=== PATIENT | female | born 1940 | race Caucasian/White ===

== ENCOUNTER → 2024-05-04 13:11 | Outpatient (REF) | payer MEDICARE, OTHER, SELFPAY | LOC: RAD 13:11 | PROVIDERS: ATTENDING PHYSICIAN Internal Medicine Rheumatology | DX: M81.0 Age-related osteoporosis without current pathological fracture (principal) | CPT/HCPCS: 77080 ==

== ENCOUNTER 2025-03-31 15:28 | Inpatient (IN) | payer MEDICARE, OTHER, SELFPAY ==
[2025-03-31] VITALS (9 sets, daily range): BP systolic 91–122; BP diastolic 50–67; BMI 30.1
[2025-03-31 11:41] LABS: Blood Urea Nitrogen 23 mg/dl (7-17); Calcium 8.1 mg/dl (8.4-10.2); Carbon Dioxide 16 mmol/L (22-30); Chloride 106 mmol/L (98-107); Estimated Creatinine Clearance 41 ml/min; Glucose 175 mg/dl (70-99); Sodium 134 mmol/L (135-145); eGFR > 60.00
[2025-03-31 11:44] LABS: Hematocrit 36.6 % (37.0-47.0); Hemoglobin 12.7 g/dL (12.0-16.0); Mean Corp Hgb Conc. 34.7 g/dL (33.0-37.0); Mean Corpuscular Volume 94.3 fL (81.0-99.0); Platelet Count 229 10^3/uL (130-400); Red Cell Dist. Width 12.0 % (11.5-14.5)
[2025-03-31 12:08] LABS: Absolute Neutrophils -Man Diff 16.9 10^3/uL (1.4-6.5)
[2025-03-31 12:09] LABS: Normal RBC Morphology Yes; Platelets Checked Yes; Total Cells Counted 100
[2025-03-31 12:26] LABS: ALT (SGPT) 22 U/L (0-35); AST (SGOT) 26 U/L (14-36); Albumin 3.0 g/dl (3.5-5.0); Alkaline Phosphatase 62 U/L (38-126); Blood Urea Nitrogen 23 mg/dl (7-17); Calcium 7.9 mg/dl (8.4-10.2); Carbon Dioxide 18 mmol/L (22-30); Chloride 108 mmol/L (98-107); Estimated Creatinine Clearance 47 ml/min; Glucose 152 mg/dl (70-99); Potassium 3.2 mmol/L (3.5-5.1); Sodium 134 mmol/L (135-145); Total Protein 5.6 g/dl (6.3-8.2); eGFR > 60.00
--- NOTE | 2025-03-31 13:01 | ED.GENMED ---
History of Present Illness
<Mariaa Marquez DO, Resident - Last Filed: 04/01/25 06:08>
General
Chief Complaint: Bowel Problem
Source: patient, significant other and family
Exam Limitations: none
Time Seen by Provider: 03/31/25 11:51
Nursing documentation reviewed up to this point in time: agreed with
History of Present Illness
History of Present Illness:
Patient is a 84-year-old female past medical history of ulcerative colitis presenting with diarrhea since Thursday. Patient has a history of ulcerative colitis [facility] Patient took a dose of MiraLAX 5 days
ago and has had profuse diarrhea since. Patient's states he has been changing her every couple hours because she is having slimy smelly diarrhea. Patient also has new recent diagnosis of thrush and has been on fluconazole for 14 days.
Patient has poor p.o. intake, weakness. Patient denies all other ROS.
Past History
<Mariaa Marquez DO, Resident - Last Filed: 04/01/25 06:08>
Past History
ED Past Medical History: None
ED Past Surgical History: None
Social History
Tobacco: Non-smoker
Review of Systems
<Mariaa Marquez DO, Resident - Last Filed: 04/01/25 06:08>
Review of Systems
Allergies reviewed?: Yes
All Other Systems: ROS reviewed and negative except as documented in HPI and ROS
Constitutional: Reports no symptoms
EENT: Reports no symptoms
Respiratory: Reports no symptoms
Cardiac: Reports no symptoms
ABD/GI: Reports diarrhea
: Reports no symptoms
Musculoskeletal: Reports no symptoms
Skin: Reports no symptoms
Neurological: Reports weakness
Endocrine: Reports no symptoms
Hematologic/Lymphatic: Reports no symptoms
Psychiatric: Reports no symptoms
Phy Exam
<Mariaa Marquez DO, Resident - Last Filed: 04/01/25 06:08>
General Physical Exam
General Presentation: no apparent distress
General age: appears stated age
General Skin: warm and dry
General Habitus: normal
General Mental: alert
Cardiovascular Exam
Cardiovascular Exam: regular rate/rhythm
Heart Sounds: normal
Pulmonary Exam
Pulmonary Exam: lungs clear, no respiratory distress and no crackles
Gastrointestinal Exam
Gastrointestinal Exam: normal bowel sounds and non tender
Skin Exam
Skin Exam: normal color and warm/dry
Psychiatric Exam
Psychiatric Exam: normal mood/affect
Course
<Mariaa Marquez DO, Resident - Last Filed: 04/01/25 06:08>
Orders/Labs/Results
Orders:
Orders
03/31/25 11:11
Basic Metabolic Panel Urgent
Complete Blood Count/With Diff Urgent
Manual Differential Urgent
03/31/25 11:48
CMP [Comprehensive Metabolic Panel] Urgent
Lactic Acid Urgent
03/31/25 12:54
STOOL [C difficile Antigen & Toxins] Stat
WHIT Source: Feces/Stool
Specimen Description:
Date Specimen was Collected: 03/31/25
Time Specimen was Collected: 17:41
Potassium Chloride 10% Elixir [KCl Elixir] 40 meq PO NOW STA
03/31/25 12:55
CT Abd/pelvis W Iv Cont Urgent
Comment:
Reason For Exam: hx of uc, profuse diarrhea and elevated WBC
03/31/25 13:00
0.9% Sodium Chloride 500 ml [Nss] 500 ml IV 150 mls/hr
0.9% Sodium Chloride 500 ml [Nss] 500 ml IV BOLUS
03/31/25 13:08
Blood Culture Stat
WHIT Source: Blood/Venous
Specimen Description:
03/31/25 13:13
Potassium Chloride [KCl] 40 meq .ROUTE .STK-MED ONE
Potassium Chloride [KCl] 40 meq PO NOW STA
03/31/25 Dinner
Regular
At Your Request: Full Participation
03/31/25 15:01
Admit/Transfer Patient As Directed
Co-Sign Provider:
Level of Care: Inpatient admission
Assign to:: Medical/Surgical
Physician / Group: Dr. Barnhart
Diagnosis: Sepsis
Reason for Hospitalization: Sepsis
Expected length of stay greater than two midnights?: Yes
ELOS- Estimated Length of Stay in days: 3
I certify the patient meets the requirements for IP care: Yes
PRN Pain Medication Management As Directed
May give lesser potent ordered pain med per pt: Yes
preference::
Protocol:: Medication orders for pain may be administered in a
manner that supports deferring to patient preference
when the pt is:
- Requesting an ordered lesser potent pain medication.
Least to most potent pain medications are defined
as: acetaminophen < NSAID < tramadol < opioids
(morphine, oxycodone, hydromorphone).
- Requesting a lesser dose of the same medication IF
ORDERED.
- Requesting a less intrusive route of administration
if both routes are prescribed by the provider (PO <
IV).
03/31/25 15:04
Code Status As Directed
Resuscitation Status: Do not resuscitate
Reached after discussion with pt or family/Healthcare POA: Yes
DNR Bracelet Application ONCE
03/31/25 15:06
Piperacillin/Tazo 3.375 Gram [Zosyn] 3.375 gram in 50 ml IV NOW
03/31/25 15:29
Blood Culture Stat
WHIT Source: Blood/Venous
Specimen Description:
03/31/25 16:44
0.9% Sodium Chloride 1000 ml [Nss] 1,000 ml IV 150 mls/hr
Acetaminophen [Tylenol] 650 mg PO Q4HPRN PRN
Clobetasol Propionate [Clobetasol Propionate 0.05% Lotion] See Dose Instructions TOPICAL DAILYPRN PRN inner ear skin
Fluconazole [Diflucan] 200 mg PO DAILY
Ondansetron Injectable [Zofran] 4 mg IV Q6HPRN PRN
03/31/25 16:44
Urinalysis Reflex To Culture Urgent
Activity As Directed
Activity Level: Ambulate
Intake/ Output As Directed
Frequency: q12h
Vital Signs As Directed
Frequency: Per unit guidelines
O2 Therapy [RESP] Routine
Titrate/Wean O2 to maintain O2 sat greater than (%): 92
Rx Incentive Spirometry [RESP] Routine
Frequency: q1h while awake
DX Deep Vein Thrombosis Video Routine
03/31/25 17:43
Stool Culture Stat
WHIT Source: Feces/Stool
Specimen Description:
Date Specimen was Collected: 03/31/25
Time Specimen was Collected: 17:41
03/31/25 18:00
Enoxaparin Sodium [Lovenox] 40 mg SC QPM
Multivitamin [Theragran] 1 tablet PO QPM
Nystatin Suspension [Mycostatin Oral Suspension] 5 ml PO QID
03/31/25 20:00
Colchicine 0.3 mg PO BID
Timolol Maleate 0.5% [Timoptic 0.5% Ophthalmic Solution] See Dose Instructions LEFT EYE BID
03/31/25 22:00
Alprazolam [Xanax] 1 mg PO HS
Piperacillin/Tazo 3.375 Gram [Zosyn] 3.375 gram in 50 ml IV Q6H
04/01/25 06:00
Complete Blood Count/With Diff IN AM
Comprehensive Metabolic Panel IN AM
Magnesium IN AM
04/01/25 08:00
Meloxicam [Mobic] 15 mg PO DAILY
mesalamine 2.4 grams PO DAILY
Abnormal Lab Results
03/31/25 03/31/25
11:11 11:48
WBC 19.0 H 10^3/uL
(4.8-10.8)
RBC 3.88 L 10^6/uL
(4.20-5.40)
Hct 36.6 L %
(37.0-47.0)
MCH 32.7 H pg
(27.0-31.0)
Abs Neuts (Manual) 16.9 H 10^3/uL
(1.4-6.5)
Band Neutrophils 19 H %
(0-3)
Lymphocytes (Manual) 3 L %
(20-51)
Sodium 134 L mmol/L 134 L mmol/L
(135-145) (135-145)
Potassium 3.2 L mmol/L
(3.5-5.1)
Chloride 108 H mmol/L
(98-107)
Carbon Dioxide 16 L mmol/L 18 L mmol/L
(22-30) (22-30)
BUN 23 H mg/dl 23 H mg/dl
(7-17) (7-17)
Glucose 175 H mg/dl 152 H mg/dl
(70-99) (70-99)
Calcium 8.1 L mg/dl 7.9 L mg/dl
(8.4-10.2) (8.4-10.2)
Total Protein 5.6 L g/dl
(6.3-8.2)
Albumin 3.0 L g/dl
(3.5-5.0)
03/31/25 11:11
03/31/25 11:48
Vital Signs
Initial and Last Documented VS:
Initial Vital Signs
Temp Pulse Resp BP Pulse Ox
99.4 F 118 20 99/56 93
03/31/25 10:53 03/31/25 10:53 03/31/25 10:53 03/31/25 10:53 03/31/25 10:53
Last Documented Vital Signs
Temp Pulse Resp BP Pulse Ox
98.4 F 84 18 130/100 96
04/01/25 03:00 04/01/25 03:00 04/01/25 03:00 04/01/25 03:00 04/01/25 03:00
<Alo Du MD - Last Filed: 03/31/25 13:44>
Orders/Labs/Results
Orders:
Orders
03/31/25 11:11
Basic Metabolic Panel Urgent
Complete Blood Count/With Diff Urgent
Manual Differential Urgent
03/31/25 11:48
CMP [Comprehensive Metabolic Panel] Urgent
Lactic Acid Urgent
03/31/25 12:54
STOOL [C difficile Antigen & Toxins] Stat
WHIT Source: Feces/Stool
Specimen Description:
Date Specimen was Collected: 03/31/25
Time Specimen was Collected: 17:41
Potassium Chloride 10% Elixir [KCl Elixir] 40 meq PO NOW STA
03/31/25 12:55
CT Abd/pelvis W Iv Cont Urgent
Comment:
Reason For Exam: hx of uc, profuse diarrhea and elevated WBC
03/31/25 13:00
0.9% Sodium Chloride 500 ml [Nss] 500 ml IV 150 mls/hr
0.9% Sodium Chloride 500 ml [Nss] 500 ml IV BOLUS
03/31/25 13:08
Blood Culture Stat
WHIT Source: Blood/Venous
Specimen Description:
03/31/25 13:13
Potassium Chloride [KCl] 40 meq .ROUTE .STK-MED ONE
Potassium Chloride [KCl] 40 meq PO NOW STA
03/31/25 Dinner
Regular
At Your Request: Full Participation
03/31/25 15:01
Admit/Transfer Patient As Directed
Co-Sign Provider:
Level of Care: Inpatient admission
Assign to:: Medical/Surgical
Physician / Group: Dr. Barnhart
Diagnosis: Sepsis
Reason for Hospitalization: Sepsis
Expected length of stay greater than two midnights?: Yes
ELOS- Estimated Length of Stay in days: 3
I certify the patient meets the requirements for IP care: Yes
PRN Pain Medication Management As Directed
May give lesser potent ordered pain med per pt: Yes
preference::
Protocol:: Medication orders for pain may be administered in a
manner that supports deferring to patient preference
when the pt is:
- Requesting an ordered lesser potent pain medication.
Least to most potent pain medications are defined
as: acetaminophen < NSAID < tramadol < opioids
(morphine, oxycodone, hydromorphone).
- Requesting a lesser dose of the same medication IF
ORDERED.
- Requesting a less intrusive route of administration
if both routes are prescribed by the provider (PO <
IV).
03/31/25 15:04
Code Status As Directed
Resuscitation Status: Do not resuscitate
Reached after discussion with pt or family/Healthcare POA: Yes
DNR Bracelet Application ONCE
03/31/25 15:06
Piperacillin/Tazo 3.375 Gram [Zosyn] 3.375 gram in 50 ml IV NOW
03/31/25 15:29
Blood Culture Stat
WHIT Source: Blood/Venous
Specimen Description:
03/31/25 16:44
0.9% Sodium Chloride 1000 ml [Nss] 1,000 ml IV 150 mls/hr
Acetaminophen [Tylenol] 650 mg PO Q4HPRN PRN
Clobetasol Propionate [Clobetasol Propionate 0.05% Lotion] See Dose Instructions TOPICAL DAILYPRN PRN inner ear skin
Fluconazole [Diflucan] 200 mg PO DAILY
Ondansetron Injectable [Zofran] 4 mg IV Q6HPRN PRN
03/31/25 16:44
Urinalysis Reflex To Culture Urgent
Activity As Directed
Activity Level: Ambulate
Intake/ Output As Directed
Frequency: q12h
Vital Signs As Directed
Frequency: Per unit guidelines
O2 Therapy [RESP] Routine
Titrate/Wean O2 to maintain O2 sat greater than (%): 92
Rx Incentive Spirometry [RESP] Routine
Frequency: q1h while awake
DX Deep Vein Thrombosis Video Routine
03/31/25 17:43
Stool Culture Stat
WHIT Source: Feces/Stool
Specimen Description:
Date Specimen was Collected: 03/31/25
Time Specimen was Collected: 17:41
03/31/25 18:00
Enoxaparin Sodium [Lovenox] 40 mg SC QPM
Multivitamin [Theragran] 1 tablet PO QPM
Nystatin Suspension [Mycostatin Oral Suspension] 5 ml PO QID
03/31/25 20:00
Colchicine 0.3 mg PO BID
Timolol Maleate 0.5% [Timoptic 0.5% Ophthalmic Solution] See Dose Instructions LEFT EYE BID
03/31/25 22:00
Alprazolam [Xanax] 1 mg PO HS
Piperacillin/Tazo 3.375 Gram [Zosyn] 3.375 gram in 50 ml IV Q6H
04/01/25 06:00
Complete Blood Count/With Diff IN AM
Comprehensive Metabolic Panel IN AM
Magnesium IN AM
04/01/25 08:00
Meloxicam [Mobic] 15 mg PO DAILY
mesalamine 2.4 grams PO DAILY
Abnormal Lab Results
03/31/25 03/31/25
11:11 11:48
WBC 19.0 H 10^3/uL
(4.8-10.8)
RBC 3.88 L 10^6/uL
(4.20-5.40)
Hct 36.6 L %
(37.0-47.0)
MCH 32.7 H pg
(27.0-31.0)
Abs Neuts (Manual) 16.9 H 10^3/uL
(1.4-6.5)
Band Neutrophils 19 H %
(0-3)
Lymphocytes (Manual) 3 L %
(20-51)
Sodium 134 L mmol/L 134 L mmol/L
(135-145) (135-145)
Potassium 3.2 L mmol/L
(3.5-5.1)
Chloride 108 H mmol/L
(98-107)
Carbon Dioxide 16 L mmol/L 18 L mmol/L
(22-30) (22-30)
BUN 23 H mg/dl 23 H mg/dl
(7-17) (7-17)
Glucose 175 H mg/dl 152 H mg/dl
(70-99) (70-99)
Calcium 8.1 L mg/dl 7.9 L mg/dl
(8.4-10.2) (8.4-10.2)
Total Protein 5.6 L g/dl
(6.3-8.2)
Albumin 3.0 L g/dl
(3.5-5.0)
03/31/25 11:11
03/31/25 11:48
Vital Signs
Initial and Last Documented VS:
Initial Vital Signs
Temp Pulse Resp BP Pulse Ox
99.4 F 118 20 99/56 93
03/31/25 10:53 03/31/25 10:53 03/31/25 10:53 03/31/25 10:53 03/31/25 10:53
Last Documented Vital Signs
Temp Pulse Resp BP Pulse Ox
98.4 F 84 18 130/100 96
04/01/25 03:00 04/01/25 03:00 04/01/25 03:00 04/01/25 03:00 04/01/25 03:00
<Mariaa Marquez DO, Resident - Last Filed: 04/01/25 06:08>
MDM/Problems Addressed
Differential Diagnosis Includes:
Sepsis, colitis flare
MDM/Problems Addressed:
Patient received 1350 mL NSS. Ordered CTAP with IV con. Ordered stool culture and C. difficile culture. Ordered blood culture. Give another 500 mL NSS bolus. Will correct her K of 3.2 by giving [address] abdomen pelvis showed likely pancolitis. Will admit patient for sepsis. Started patient on Zosyn 3.375.
<Mariaa Marquez DO, Resident - Last Filed: 04/01/25 06:08>
*Pulse Oximetry
SaO2: 94
Oxygen Mode of Delivery: Room air
Patient hypoxic: no
*Critical Care Note
Total Time (30-74mins, 75-104mins- exclusive of procedures): Not Applicable
ED Attending Note
<Mariaa Marquez DO, Resident - Last Filed: 04/01/25 06:08>
-
Portions of this chart may have been created with voice recognition software.� Occasional wrong word or��sound alike� substitutions may have occurred due to the inherent limitations of voice recognition software.
<Alo Du MD - Last Filed: 03/31/25 13:44>
ED Attending Note
Patient seen and examined by attending physician: Yes
I performed a history and physical exam of patient and discussed management with resident, I reviewed resident's note and agree with documented findings and plan of care.: Yes
ED Attending Note:
84-year-old female history of ulcerative colitis presents with ongoing diarrhea weakness mucousy stool. No recent antibiotics. No abdominal pain no fever no vomiting.
GENERAL: Alert and oriented in no apparent distress. Hypotensive
EYE: Orbits normal.
NECK: Supple
CARDIAC: Regular rate and rhythm without any obvious murmurs.
LUNGS: Clear breath sounds,normal
ABDOMEN: Soft, without focal tenderness or distention
NEUROLOGICAL: Alert and oriented , grossly non-focal
SKIN: Warm and dry, no rash or lesion, no discoloration, skin intact.
MUSCULOSKELETAL: No edema,no deformity.Good color
PSYCH: Normal and appropriate interaction.
Impression significant diarrhea hypotension. To consider sepsis although clinically does not appear septic. Blood cultures pending. Fluids. CT scan pending. Admission for further care
Discharge Plan
Departure
Patient Disposition: Admit
Date of Disposition: 03/31/25
Time of Disposition: :25
Presentation/result/management discussed w/ accepting MD/DO: Hospitalist
Discharge Problem:
Sepsis, Diarrhea
Interventions
Interventions:
*Risk Screen - Suicide Last Done: 03/31/25 10:56
*General Assessment Last Done: 03/31/25 11:06
*Neglect/Abuse Screening Last Done: 03/31/25 10:56
*ED- Fall Risk Assessment Last Done: 03/31/25 11:08
*ED COVID-19 Vaccine History Last Done: 03/31/25 17:33
*Nursing Disposition Last Done: 03/31/25 16:29
FO-Eclxcw-Nbukzgkuzl Assessment Last Done: 03/31/25 11:08
ED- Cardiac Assessment Last Done: 03/31/25 11:08
ED- Neurological Assessment Last Done: 03/31/25 11:08
ED- Pulmonary Assessment Last Done: 03/31/25 11:08
Discharge Date and Time
Discharge Date/Time: 03/31/25 16:30
[2025-03-31] MEDS: KCL 40 MEQ PO (13:19)
[2025-03-31] MEDS: NSS 500 IV ×3 (13:19→22:08)
--- NOTE | 2025-03-31 14:55 | HPS.HSE ---
Family Physician
-
Family Physician: Vee Marsh DO
Chief Complaint
-
Weakness
History of Present Illness
84-year-old F with ulcerative colitis presenting with 5 days of weakness, fatigue and diarrhea. Stools have been watery and nonbloody. She normally takes MiraLAX daily but since she has been having diarrhea she has not taken it since Thursday. She
has not had any fevers, chills, nausea, abdominal pain, sick contacts. She has had thrush for the last 2 weeks for which she already completed 1 course of fluconazole and is now on another course of fluconazole. Her family is at bedside including
her and daughter.
Medical History
Past Medical History
Past Medical History: Reports Other (Ulcerative colitis)
Additional Past Medical History:
UC
RA
ADD
Past Surgical History: Reports Orthopedic and Other
Additional Past Surgical History:
Left knee replacement 2001
Right knee replacement 2007
Right fibula fracture 2010
Left eye vitrectomy 2015
Right pubic rami fracture 2016
Back surgery 2019
Hip replacement 2019
Social History
Tobacco: Non-smoker
Alcohol: Daily
Drug: None
Personal:
Living: With Family
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
Family History
Family History: Other (Daughter has ulcerative colitis.)
Allergies / Home Medications
Allergies reflects when Allergies were last updated in [facility].
Home Medications with original date entered in [facility]
Allergy/Medication List:
Allergies
Allergy/AdvReac Type Severity Reaction Status Date / Time
clindamycin Allergy Severe Anaphylaxis Verified 03/31/25 11:18
sulfamethoxazole (From Allergy Mild Rash Verified 03/31/25 11:18
Bactrim)
trimethoprim (From Bactrim) Allergy Mild Rash Verified 03/31/25 11:18
bacitracin Allergy Pharmacy Verified 03/31/25 11:13
to Review
Home Medications
alprazolam 1 mg tablet 1 mg PO HS Mental Health/Anxiety 03/31/25
clobetasol 0.05 % lotion 1 applic topical DAILYPRN PRN inner ear skin 03/31/25
colchicine 0.6 mg tablet 0.3 mg PO BID 03/31/25
denosumab 60 mg/mL subcutaneous syringe (Prolia) 60 mg SC [id number] Cancer 03/31/25
fluconazole 200 mg tablet 200 mg PO DAILY 03/31/25
glucosamine sulfate 500 mg tablet (Glucosamine) 500 mg PO DAILY 03/31/25
meloxicam 15 mg tablet 15 mg PO DAILY Pain 03/31/25
mesalamine 1.2 gram tablet,delayed release 2.4 g PO DAILY Colitis 03/31/25
nystatin 100,000 unit/mL oral suspension 5 ml mucous membrane QID 03/31/25
polyethylene glycol 3350 17 gram oral powder packet (Miralax) 17 g PO DAILYPRN PRN constipation 03/31/25
therapeutic multivitamin 1 tab PO QPM 03/31/25
timolol 0.5 % eye drops 1 drp LEFT EYE BID 03/31/25
Review of Systems
-
History Source: Patient
A 12 point ROS was completed and negative except as noted: Yes
Constitutional: Reports Fatigue
EENT: Reports See HPI
Respiratory: Reports No Symptoms
Cardiac: Reports No Symptoms
Abdomen/GI: Reports See HPI
: Reports No Symptoms
Musculoskeletal: Reports No Symptoms
Skin: Reports No Symptoms
Neurological: Reports No Symptoms
Endocrine: Reports No Symptoms
Hematologic/Lymphatic: Reports No Symptoms
Psych: Reports No Symptoms
Physical Exam
Vital Signs
Vital Signs
Temp Pulse Resp BP Pulse Ox
99.4 F 109 37 94/52 94
03/31/25 10:53 03/31/25 12:30 03/31/25 12:30 03/31/25 12:00 03/31/25 13:06
Physical Exam
General: No Apparent Distress
HEENT: Anicteric, Thrush and PERRLA
Respiratory: Clear; No Wheezes, Rales or Rhonchi
Cardiac: S1/S2 and Regular Rhythm; No Murmur, Rub or Gallop
GI: Soft, Non Tender, Non Distended and Normal Bowel Sounds
Musculoskeletal: No Edema
Skin: Warm and Dry; No Rash, Ulcers or Lesions
Neuro: Awake and AO x 3
Hematologic/Lymphatic: No Lymphadenopathy
Psych: Calm
Laboratory Results
-
03/31/25 11:11
03/31/25 11:48
Laboratory Results
Lactic Acid 0.8 mmol/L (0.7-2.0) 03/31/25 11:48
Total Bilirubin 0.7 mg/dl (0.2-1.3) 03/31/25 11:48
AST 26 U/L (14-36) 03/31/25 11:48
ALT 22 U/L (0-35) 03/31/25 11:48
Alkaline Phosphatase 62 U/L (38-126) 03/31/25 11:48
Data Reviewed
-
CT Scan: Image Personally Visualized and interpreted
Lab Data: Labs Reviewed by me, Discussed with Physician, Discussed with Patient and Discussed with Family
Impression/Plan
-
IMPRESSION:
84-year-old female with ulcerative colitis and rheumatoid arthritis presenting with weakness and diarrhea for 5 days, found to have pancolitis on CT, and sepsis.
PLAN:
#1. Sepsis secondary to colitis
CT showing pancolitis
Leukocytosis and tachycardia, BPs are running low
Sepsis protocol start IV fluid bolus followed by maintenance IV fluid
Check blood cultures x 2, check UA and urine culture
Check stool cultures, check C. difficile
Start empiric antibiotics with IV Zosyn for presumed abdominal source
If patient does not improve or not felt to have infection can consider UC flare
#2. Ulcerative colitis
Continue home mesalamine
Her GI doctor is Dr. Jessy Sheppard
Consider steroids
#3. Hypokalemia�replete with p.o. potassium
#4. Mild asymptomatic hyponatremia�normal saline
5. Thrush
Continue fluconazole for 4 more days to complete her course
#6. Rheumatoid arthritis
Continue colchicine
Continue meloxicam
Takes IV Prolia every 6 months
7. ADD
Takes Xanax 1 mg nightly
DVT PPx
Lovenox
Patient is DNR
[2025-03-31] MEDS: ZOSYN 50 IV ×2 (15:30→23:27)
--- NOTE | 2025-03-31 16:18 | CM ---
Patient seen bedside w/ spouse, daughter and son in law in ED. Initial assessment completed. Patient is a 84-year-old F with ulcerative colitis presenting with 5 days of weakness, fatigue and diarrhea.
Patient resides w/ spouse in a single story home, 8 steps to enter from the outside. Patient is independent w/ ambulation, no device required. Patient has inherited RW and canes from her mother. Independent w/ ADLs. [facility] in the past
following hip surgery. No HC hx reported.
Address, point of contact and insurance verified
PCP: Vee Marsh
Pharmacy: [facility] [place]
Plan: CM will cont to follow patient's medical progress
[2025-03-31] MEDS: DIFLUCAN 200 MG PO (17:21)
[2025-03-31] MEDS: MYCOSTATIN ORAL SUSPENSION 5 ML PO ×2 (17:21→21:30)
[2025-03-31] MEDS: NSS 1000 IV ×2 (17:21→23:27)
[2025-03-31] MEDS: THERAGRAN 1 TABLET PO (17:22)
[2025-03-31] MEDS: LOVENOX 40 MG SC (17:22)
[2025-03-31] MEDS: NSS IV (17:31)
[2025-03-31] MEDS: TYLENOL 650 MG PO (19:42)
--- NOTE | 2025-03-31 20:09 | PTCARENOTE ---
[facility] [id number] pt arrived from ED to room 329. Admission and assessment done with daughters help. Pt admitted with diarrhea for over a week. Stool sample sent when patient got to room as she immediately used the bedside commode. Pt's vitals stable.
Denies any pain. Pt Oriented but forgetful and [place]. Bed alarm placed for safety.
[2025-03-31] MEDS: COLCHICINE 0.3 MG PO (21:30)
[2025-03-31] MEDS: OFIRMEV 100 IV (21:30)
[2025-03-31] MEDS: XANAX 1 MG PO (21:30)
--- NOTE | 2025-03-31 23:05 | PTCARENOTE ---
Pt with rigors at 1999, temp 103.0. PO tylenol administered, temp 1hr later 103.1, rigors had stopped. Pt also having near constant liquid diarrhea. TT to [employer]. HR in 120s. BP 118/62. Ordered 1G IV ofirmev, 500cc saline bolus, EKG done and placed on
monitor tech. EKG SR.
[2025-03-31] MEDS: TIMOPTIC 0.5% OPHTHALMIC SOLUTION LEFT EYE (23:27)
--- NOTE | 2025-04-01 00:31 | W.PN.UPDATE ---
Update Note
Progress Note Update
Patient spiked temperature of 103.1F. Tachycardic 120s . Rx 1g IV Tylenol, 500cc NS bolus. EKG and tele monitor.
[2025-04-01 03:00] VITALS: BP 130/100
[2025-04-01 04:02] VITALS: BMI 31.2
[2025-04-01] MEDS: ZOSYN 50 IV ×4 (04:35→21:17)
[2025-04-01 07:31] LABS: Hematocrit 32.3 % (37.0-47.0); Hemoglobin 10.9 g/dL (12.0-16.0); Mean Corp Hgb Conc. 33.7 g/dL (33.0-37.0); Mean Corpuscular Volume 95.8 fL (81.0-99.0); Platelet Count 200 10^3/uL (130-400); Red Cell Dist. Width 12.4 % (11.5-14.5)
[2025-04-01 07:32] LABS: ALT (SGPT) 25 U/L (0-35); AST (SGOT) 33 U/L (14-36); Albumin 2.8 g/dl (3.5-5.0); Alkaline Phosphatase 63 U/L (38-126); Blood Urea Nitrogen 15 mg/dl (7-17); Calcium 7.6 mg/dl (8.4-10.2); Carbon Dioxide 17 mmol/L (22-30); Chloride 116 mmol/L (98-107); Estimated Creatinine Clearance 60 ml/min; Glucose 89 mg/dl (70-99); Magnesium 1.8 mg/dl (1.6-2.3); Potassium 3.6 mmol/L (3.5-5.1); Sodium 140 mmol/L (135-145); Total Protein 5.3 g/dl (6.3-8.2); eGFR > 60.00
[2025-04-01 08:08] VITALS: BP 112/61
[2025-04-01 09:14] LABS: Absolute Neutrophils -Man Diff 13.9 10^3/uL (1.4-6.5)
[2025-04-01 09:16] LABS: Normal RBC Morphology Yes; Platelets Checked Yes
[2025-04-01 09:17] LABS: Total Cells Counted 100
[2025-04-01] MEDS: NSS 1000 IV (09:36)
[2025-04-01] MEDS: TYLENOL 650 MG PO ×3 (09:37→20:07)
[2025-04-01] MEDS: COLCHICINE 0.3 MG PO ×2 (09:37→20:08)
[2025-04-01] MEDS: MYCOSTATIN ORAL SUSPENSION 5 ML PO (09:37)
[2025-04-01] MEDS: DIFLUCAN 200 MG PO (09:37)
[2025-04-01] MEDS: TIMOPTIC 0.5% OPHTHALMIC SOLUTION LEFT EYE ×2 (09:38→21:17)
[2025-04-01] MEDS: MOBIC 15 MG PO (09:38)
[2025-04-01 11:38] VITALS: BP 132/51
[2025-04-01 11:58] LABS: Urine Character Slightly Cloudy (Clear)
[2025-04-01 12:06] LABS: Urine Red Blood Cell 0-2 /HPF (0-2); Urine Squamous Cell 16-20 /LPF (Few)
--- NOTE | 2025-04-01 12:23 | W.PN.HOSP.TC ---
Today's Communication/Plan
-
Continue antibiotics
GI consult
DC telemetry
DC fluconazole/nystatin
DC IV fluids
Assessment / Plan
Assessment / Plan
Gen-AAOx3, NAD
HEENT-NC, AT, anicteric, clear oral mm
Neck-supple
CV-reg, no M, +S1/S2
Lungs-clear B/L
Abd-soft, NT, ND
Ext-no edema
Musculoskeletal-no cyanosis, clubbing
Skin-warm and dry
Neuro-grossly non-focal
Psych-calm, cooperative
Sepsis -due to colitis, infectious vs inflammatory. Presentation with acute diarrhea, started [address] on admission shows mild diffuse pancolitis.
Hypotensive on arrival, improved with IVF.
Leukocytosis improving. Afebrile today.
Continue empiric antibiotics, await blood culture.
Stool C. Diff negative, stool cx pending.
No evidence of oral thrush, stop antifungals.
Consult GI.
NG Met Acidosis -suspect due to normal saline, discontinued.
Ulcerative colitis - last flare 2 years ago as per patient. Controlled on mesalamine.
Hypotension - improved with IVF.
Hyponatremia -improved.
Hypokalemia -improved.
Rheumatoid arthritis -quiescent.
ADD
Obesity due to excess calories
DNR
Family updated at the bedside.
Anticipated Discharge: > 48 hours
Subjective/Interval History
-
Date of Service: April 01, 2025
Patient seen/examined, still with loose stools, denies abdominal pain.
Objective Data
-
Labs:
Laboratory Results
04/01/25
06:29
WBC 16.0 H
Hgb 10.9 L
Hct 32.3 L
Plt Count 200
Sodium 140
Potassium 3.6
Chloride 116 H
Carbon Dioxide 17 L
BUN 15
Creatinine 0.6
Glucose 89
Calcium 7.6 L
Total Bilirubin 0.6
AST 33
ALT 25
Alkaline Phosphatase 63
Vital Signs:
Vital Signs
Temp Pulse Resp BP Pulse Ox
98.4 F 69 16 132/51 100
04/01/25 11:38 04/01/25 11:38 04/01/25 11:38 04/01/25 11:38 04/01/25 11:38
I&O
03/31/25 04/01/25 04/02/25
06:59 06:59 06:59
Intake Total 2375 / 2375
Balance 2375 / 2375
Review of Systems
-
History Source: Patient
All other systems: Reviewed and negative
--- NOTE | 2025-04-01 13:09 | CON.GI ---
Consultation
-
Date/Time Consultation Requested: 04/01/2025
Date/Time Consultation Performed: 04/01/2025
Performing Provider: Amaury Cortez
Reason for Consultation: diarrhea, pancolitis
Medical History
Chief Complaint / HPI
Chief Complaint: diarrhea, pancolitis
History of Present Illness:
Patient is a 84-year-old female with h/o UC and RA who p/w acute onset diarrhea. She took some laxative while she was in [place] about a week ago which started her diarrhea. She has been having severe diarrhea since, going 10-15 times per day
sometimes more. Denies seeing blood in her stool. Denies abdominal pain. She traveled with her family and no one else is having similar symptoms. Denies sick contacts. She took some fluconazole for suspected oral thrush about a week ago. Her
last colonoscopy was few years ago. She is currently on mesalamine only for her UC.
Past Medical History
Past Medical History: Other (UC, RA)
Past Surgical History: Orthopedic
Social History
Tobacco: Non-Smoker
Alcohol: Daily
Family History
Family History: Reviewed & Not Pertinent
Allergies / Home Medications
Allergy/AdvReac Type Severity Reaction Status Date / Time
clindamycin Allergy Severe Anaphylaxis Verified 03/31/25 11:18
sulfamethoxazole (From Allergy Mild Rash Verified 03/31/25 11:18
Bactrim)
trimethoprim (From Bactrim) Allergy Mild Rash Verified 03/31/25 11:18
bacitracin Allergy Pharmacy Verified 03/31/25 11:13
to Review
�Medication �Instructions �Recorded
alprazolam 1 mg tablet 1 mg PO HS Mental Health/Anxiety 03/31/25
clobetasol 0.05 % lotion 1 applic topical DAILYPRN PRN 03/31/25
inner ear skin
colchicine 0.6 mg tablet 0.3 mg PO BID Gout 03/31/25
denosumab 60 mg/mL subcutaneous 60 mg SC [id number] osteoporosis 03/31/25
syringe (Prolia)
fluconazole 200 mg tablet 200 mg PO DAILY Infection 03/31/25
glucosamine sulfate 500 mg tablet 500 mg PO DAILY Supplement 03/31/25
(Glucosamine)
meloxicam 15 mg tablet 15 mg PO DAILY Pain 03/31/25
mesalamine 1.2 gram tablet,delayed 2.4 g PO DAILY Colitis 03/31/25
release
nystatin 100,000 unit/mL oral 5 ml mucous membrane QID oral 03/31/25
suspension thrush
polyethylene glycol 3350 17 gram 17 g PO DAILYPRN PRN constipation 03/31/25
oral powder packet (Miralax)
therapeutic multivitamin 1 tab PO QPM Supplement 03/31/25
timolol 0.5 % eye drops 1 drp LEFT EYE BID glaucoma 03/31/25
Review of Systems
Vital Signs
Temp Pulse Resp BP Pulse Ox
98.4 F 69 16 132/51 100
04/01/25 11:38 04/01/25 11:38 04/01/25 11:38 04/01/25 11:38 04/01/25 11:38
Physical Exam
Exam
General: Well Developed and Well Nourished
HEENT: Normocephalic and Anicteric
Respiratory: Clear
Cardiac: S1/S2 and Regular Rhythm
GI: Soft, Non Tender, Non Distended and Normal Bowel Sounds
Results
WBC 16.0 10^3/uL (4.8-10.8) H 04/01/25 06:29
Hgb 10.9 g/dL (12.0-16.0) L 04/01/25 06:29
Hct 32.3 % (37.0-47.0) L 04/01/25 06:29
MCV 95.8 fL (81.0-99.0) 04/01/25 06:29
Plt Count 200 10^3/uL (130-400) 04/01/25 06:29
Sodium 140 mmol/L (135-145) 04/01/25:
Potassium 3.6 mmol/L (3.5-5.1) 04/01/25:
Chloride 116 mmol/L (98-107) H 04/01/25:
Carbon Dioxide 17 mmol/L (22-30) L 04/01/25:
BUN 15 mg/dl (7-17) 04/01/25:
Creatinine 0.6 mg/dL (0.6-1.0) 04/01/25:
Calcium 7.6 mg/dl (8.4-10.2) L 04/01/25
Total Bilirubin 0.6 mg/dl (0.2-1.3) 04/01/25:
AST 33 U/L (14-36) 04/01/25:
ALT 25 U/L (0-35) 04/01/25:
Alkaline Phosphatase 63 U/L (38-126) 04/01/25:
Diagnostic Image Results:
Prior GI Procedures:
EGD:
Colonoscopy:
Assessment / Plan
-
84-year-old female with UC and RA presenting with acute onset diarrhea.
Impression / Rec:
1. Diarrhea - she has been having acute onset diarrhea for the past 5 to 6 days, going up to 10-15 times per day sometimes more. Her diarrhea is nonbloody, and is not associated with fever chills nausea/vomiting. She denies sick contacts. CT on
admission shows mild thickening throughout her colon suggestive of pancolitis. She also had fever overnight of 103 and leukocytosis on admission. These parameters suggest infectious etiology, she is C. difficile negative and other stool tests are
pending. She was diagnosed with UC sometime around 2017, the details are not available but presumably is a mild colitis given that she is only on mesalamine. Denies being on biologic previously. Her last colonoscopy was few years ago.
Favor infectious colitis for now. Currently on empirical broad-spectrum ABX (Zosyn). Will check fecal calprotectin, ESR/CRP. Given the absence of blood in her diarrhea and her fever, again favor infectious colitis rather than UC flare, will wait
for remainder of stool studies. Will hold off on steroids for now.
Total Time Spent with Patient (in minutes): 55
-
-
Thank you for consultation and allowing me to participate in the patient's care. Please call the containers sales representative GI physician during the after hours with any questions or concerns.
[2025-04-01 14:50] LABS: C-Reactive Protein > 270.00 mg/L (0.0-10.00)
[2025-04-01 16:00] VITALS: BP 122/74
[2025-04-01] MEDS: THERAGRAN 1 TABLET PO (16:57)
[2025-04-01] MEDS: LOVENOX 40 MG SC (16:58)
--- NOTE | 2025-04-01 19:00 | PTCARENOTE ---
Late Documentation Note For 04/01 7 am to 7 pm: Fecal management system intact during shift, Emptied x2 with 450 ML green Liquid. GI consult completed and ordered FMS to be removed. FMS removed as per order. PT had x2 explosive uncontrollable
stool that sprays, PT almost fell she lost balance trying to get to BSC in such a castañeda, no diapers in room to assist to control diarrhea. PT very upset and embarrssed, Pt was cleansed and reassured. pt started with visible rigors along with feeling
cold, temp done at that time, afebrile, but gave her tylenol. PT admitted to drinking two two ounce of whiskey every evening. her last drink was two night prior. I contacted MD and MD ordered FMS to be reinserted. FMS inserted as per MD order.
Draining good. Family is at bedside
--- NOTE | 2025-04-01 19:01 | PTCARENOTE ---
Attending and GI both made aware of the above findings
[2025-04-01 19:51] VITALS: BP 119/66
[2025-04-01] MEDS: XANAX 1 MG PO (21:17)
[2025-04-01 23:41] VITALS: BP 100/53
[2025-04-02] MEDS: ZOSYN 50 IV ×4 (03:01→21:19)
[2025-04-02 07:30] VITALS: BP 138/73
[2025-04-02 07:54] LABS: Blood Urea Nitrogen 13 mg/dl (7-17); Calcium 7.8 mg/dl (8.4-10.2); Carbon Dioxide 18 mmol/L (22-30); Chloride 115 mmol/L (98-107); Estimated Creatinine Clearance 60 ml/min; Glucose 78 mg/dl (70-99); Potassium 3.1 mmol/L (3.5-5.1); Sodium 139 mmol/L (135-145); eGFR > 60.00
--- NOTE | 2025-04-02 09:47 | W.PN.HOSP.TC ---
Today's Communication/Plan
-
Await cultures
Continue antibiotics
Assessment / Plan
Assessment / Plan
Gen-AAOx3, NAD
HEENT-NC, AT, anicteric, clear oral mm
Neck-supple
CV-reg, no M, +S1/S2
Lungs-clear B/L
Abd-soft, NT, ND
Ext-no edema
Musculoskeletal-no cyanosis, clubbing
Skin-warm and dry
Neuro-grossly non-focal
Psych-calm, cooperative
Sepsis -due to colitis, infectious vs inflammatory. Presentation with acute diarrhea, started 5 days ago. Presumably infectious colitis. Stool culture pending.
CT on admission shows mild diffuse pancolitis.
Fecal management system in place per nursing. To be repositioned. Patient requesting it to be removed but nursing has concerns that she is a fall risk and would not do well without it.
Hypotensive on arrival, improved with IVF.
Leukocytosis improving. Afebrile today.
Continue empiric antibiotics.
Blood cultures negative so far.
Stool C. Diff negative, stool cx pending.
No evidence of oral thrush, stop antifungals.
GI service following.
Tolerating regular diet. Recommend low lactose as well, discussed with the patient.
NG Met Acidosis -suspect due to normal saline, discontinued.
Hypokalemia -check magnesium, will replete.
Ulcerative colitis - last flare 2 years ago as per patient. Controlled on mesalamine.
Hypotension - improved with IVF.
Hyponatremia -improved.
Rheumatoid arthritis -quiescent.
ADD
Obesity due to excess calories
DNR
Anticipated Discharge: > 48 hours
Subjective/Interval History
-
Date of Service: April 02, 2025
Patient seen and examined. Complaining of rectal tube. Requesting it to be removed.
Objective Data
-
Labs:
Laboratory Results
04/02/25
06:37
WBC Pending
Hgb Pending
Hct Pending
Plt Count Pending
Sodium 139
Potassium 3.1 L
Chloride 115 H
Carbon Dioxide 18 L
BUN 13
Creatinine 0.6
Glucose 78
Calcium 7.8 L
Vital Signs:
Vital Signs
Temp Pulse Resp BP Pulse Ox
97.8 F 86 18 138/73 98
04/02/25 07:30 04/02/25 07:30 04/02/25 07:30 04/02/25 07:30 04/02/25 07:30
I&O
04/01/25 04/02/25 04/03/25
06:59 06:59 06:59
Intake Total 2375 / 2375 1005 / 1005
Output Total 1050 / 1050
Balance 2375 / 2375 -45 / -45
Review of Systems
-
History Source: Patient
All other systems: Reviewed and negative
[2025-04-02] MEDS: MOBIC 15 MG PO (09:55)
[2025-04-02] MEDS: TYLENOL 650 MG PO ×2 (09:55→21:14)
[2025-04-02] MEDS: KCL 40 MEQ PO (09:55)
[2025-04-02] MEDS: COLCHICINE 0.3 MG PO ×2 (09:55→21:16)
[2025-04-02] MEDS: TIMOPTIC 0.5% OPHTHALMIC SOLUTION LEFT EYE ×2 (09:56→21:20)
[2025-04-02 10:07] LABS: Hematocrit 31.7 % (37.0-47.0); Hemoglobin 10.7 g/dL (12.0-16.0); Mean Corp Hgb Conc. 33.8 g/dL (33.0-37.0); Mean Corpuscular Volume 96.1 fL (81.0-99.0); Platelet Count 199 10^3/uL (130-400); Red Cell Dist. Width 12.6 % (11.5-14.5)
[2025-04-02 10:08] LABS: Magnesium 1.9 mg/dl (1.6-2.3)
[2025-04-02 10:10] LABS: Absolute Neutrophils -Man Diff 11.3 10^3/uL (1.4-6.5); Platelets Checked YES
[2025-04-02 10:11] LABS: Normal RBC Morphology Yes; Total Cells Counted 100
--- NOTE | 2025-04-02 12:49 | W.PN.GI.CBS2 ---
Today's Communication / Plan
-
monitor stool output
Assessment / Plan
-
84-year-old female with UC and RA presenting with acute onset diarrhea.
Impression / Rec:
1. Diarrhea - rectal tube was discontinued yesterday but had to be replaced given the degree of diarrhea. However today, patient is refusing rectal tube and was discontinued. Patient feels her diarrhea is slowing. Will follow her stool output
overnight to determine if she's responding to abx/steroids.
She has been having acute onset diarrhea for the past 5 to 6 days, going up to 10-15 times per day sometimes more. Her diarrhea is nonbloody, and is not associated with fever chills nausea/vomiting. She denies sick contacts. CT on admission shows
mild thickening throughout her colon suggestive of pancolitis. She also had fever overnight of 103 and leukocytosis on admission. These parameters suggest infectious etiology, she is C. difficile negative and other stool tests are pending. She
was diagnosed with UC sometime around 2016, the details are not available but presumably is a mild colitis given that she is only on mesalamine. Denies being on biologic previously. Her last colonoscopy was few years ago.
Favor infectious colitis for now. Currently on empirical broad-spectrum ABX (Zosyn). Will check fecal calprotectin, ESR/CRP. Given the absence of blood in her diarrhea and her fever, again favor infectious colitis rather than UC flare, will wait
for remainder of stool studies. Will hold off on steroids for now.
Total Time Spent with Patient (in minutes): 35
Subjective
Subjective
Date of Service: April 02, 2025
Continues to have diarrhea.
Objective
Data Reviewed
Laboratory Data:
Laboratory Results
04/02/25 06:37
04/02/25 06:37
Laboratory Results
Magnesium 1.9 mg/dl (1.6-2.3) 04/02/25 06:37
Total Bilirubin 0.6 mg/dl (0.2-1.3) 04/01/25 06:29
AST 33 U/L (14-36) 04/01/25 06:29
ALT 25 U/L (0-35) 04/01/25 06:29
Alkaline Phosphatase 63 U/L (38-126) 04/01/25 06:29
Vital Signs and I&O:
Vital Signs
Temp Pulse Resp BP Pulse Ox
97.6 F 86 18 138/73 98
04/02/25 11:30 04/02/25 07:30 04/02/25 07:30 04/02/25 07:30 04/02/25 07:30
I&O
04/01/25 04/02/25 04/03/25
06:59 06:59 06:59
Intake Total 2375 / 2375 1005 / 1005
Output Total 1050 / 1050
Balance 2375 / 2375 -45 / -45
[2025-04-02] MEDS: IMODIUM 2 MG PO ×3 (13:26→21:20)
[2025-04-02 16:00] VITALS: BP 134/78
[2025-04-02] MEDS: THERAGRAN 1 TABLET PO (17:25)
[2025-04-02] MEDS: LOVENOX 40 MG SC (17:25)
[2025-04-02] MEDS: XANAX 1 MG PO (21:14)
[2025-04-02] MEDS: KCL 20 MEQ PO (21:19)
[2025-04-03 00:09] VITALS: BP 132/78
[2025-04-03] MEDS: ZOSYN 50 IV ×4 (04:42→21:16)
[2025-04-03 07:30] VITALS: BP 138/84
[2025-04-03] MEDS: KCL 20 MEQ PO ×2 (08:18→12:12)
[2025-04-03] MEDS: TIMOPTIC 0.5% OPHTHALMIC SOLUTION LEFT EYE (08:18)
[2025-04-03] MEDS: MOBIC 15 MG PO (08:18)
[2025-04-03] MEDS: COLCHICINE 0.3 MG PO (08:18)
[2025-04-03] MEDS: IMODIUM 2 MG PO ×3 (08:20→21:21)
[2025-04-03 08:38] LABS: Hematocrit 34.6 % (37.0-47.0); Hemoglobin 11.7 g/dL (12.0-16.0); Mean Corp Hgb Conc. 33.8 g/dL (33.0-37.0); Mean Corpuscular Volume 94.8 fL (81.0-99.0); Platelet Count 215 10^3/uL (130-400); Red Cell Dist. Width 12.4 % (11.5-14.5)
[2025-04-03 08:43] LABS: Blood Urea Nitrogen 10 mg/dl (7-17); Calcium 8.0 mg/dl (8.4-10.2); Carbon Dioxide 18 mmol/L (22-30); Chloride 114 mmol/L (98-107); Estimated Creatinine Clearance 60 ml/min; Glucose 79 mg/dl (70-99); Potassium 3.5 mmol/L (3.5-5.1); Sodium 138 mmol/L (135-145); eGFR > 60.00
[2025-04-03 10:35] LABS: Nucleated Red Blood Cells % 0 %
--- NOTE | 2025-04-03 10:35 | W.PN.HOSP.TC ---
Today's Communication/Plan
-
PT/OT
Discharge
Assessment / Plan
Assessment / Plan
Gen-AAOx3, NAD
HEENT-NC, AT, anicteric, clear oral mm
Neck-supple
CV-reg, no M, +S1/S2
Lungs-clear B/L
Abd-soft, NT, ND
Ext-no edema
Musculoskeletal-no cyanosis, clubbing
Skin-warm and dry
Neuro-grossly non-focal
Psych-calm, cooperative
Sepsis -due to colitis, infectious vs inflammatory. Presentation with acute diarrhea, started 5 days ago. Presumably infectious colitis. Stool culture negative. C. difficile negative.
CT on admission shows mild diffuse pancolitis.
Fecal management system in place per nursing. To be repositioned. Patient requesting it to be removed but nursing has concerns that she is a fall risk and would not do well without it.
Hypotensive on arrival, improved with IVF.
Leukocytosis resolved. Temperature trending down.
Continue empiric antibiotics.
Blood cultures negative so far.
No evidence of oral thrush, stop antifungals.
GI service following.
Tolerating regular diet. Recommend low lactose as well, discussed with the patient.
NG Met Acidosis -suspect due to normal saline, discontinued.
Hypokalemia -due to diarrhea. Improving. Continue potassium supplements.
Ulcerative colitis - last flare 2 years ago as per patient. Controlled on mesalamine.
Hypotension - improved with IVF.
Hyponatremia -improved.
Rheumatoid arthritis -quiescent.
ADD
Obesity due to excess calories
DNR
Dispo -anticipate discharge if cleared by PT/OT. Updated daughter at the bedside. Outpatient follow-up with PCP and GI.
Anticipated Discharge: Today
Subjective/Interval History
-
Date of Service: April 03, 2025
Patient seen and examined. No complaints.
Objective Data
-
Labs:
Laboratory Results
04/03/25
07:39
WBC 9.4
Hgb 11.7 L
Hct 34.6 L
Plt Count 215
Sodium 138
Potassium 3.5
Chloride 114 H
Carbon Dioxide 18 L
BUN 10
Creatinine 0.5 L
Glucose 79
Calcium 8.0 L
Vital Signs:
Vital Signs
Temp Pulse Resp BP Pulse Ox
98.5 F 119 18 138/84 96
04/03/25 07:30 04/03/25 07:30 04/03/25 07:30 04/03/25 07:30 04/03/25 07:30
I&O
04/02/25 04/03/25 04/04/25
06:59 06:59 06:59
Intake Total 1005 / 1005 960 / 960
Output Total 1050 / 1050
Balance -45 / -45 960 / 960
Review of Systems
-
History Source: Patient
All other systems: Reviewed and negative
--- NOTE | 2025-04-03 11:48 | W.PN.GI.CBS2 ---
Addendum entered and electronically signed by Amaury Cortez MD 04/03/25 15:32:
I saw and examined the patient.
The PA's note was reviewed and I agree with the note.
Comment:
Patient did not have any diarrhea overnight. She feels her diarrhea is resolving. All stool studies are negative so far. Tolerating solid diet. If her diarrhea continues to improve tomorrow, her diarrhea is unlikely to be UC flare and recommend
continuous supportive management.
Original Note:
Today's Communication / Plan
-
etiology of diarrhea related to infectious process, UC flare, chronic colchicine use, vs other
still with some diarrhea
infectious work up with stool studies neg
discussed with daughter to review chronic colchicine use with rheumatology as report recurrent bouts of diarrhea that may be caused by medication and discuss any alternatives
remains on IV Zosyn
cont to monitor HR with some tachycardia on exam
if diarrhea persist despite med change may need flex/steroid course
cont to replete electrolytes
fecal roxane pending, CRP >270, ESR 50
resume mesalamine 2,4 grams daily
OP follow up with [facility] Dr. Sheppard at [place]
Assessment / Plan
-
84-year-old female with UC and RA presenting with acute onset diarrhea.
Impression / Rec:
-Diarrhea
-hx UC
-concern for sepsis on admission with fever
-pancolitis
-metabolic acidosis
-tachycardia
-hypokalemia
-acidosis
PLAN:
etiology of diarrhea related to infectious process, UC flare, chronic colchicine use, vs other
still with some diarrhea
infectious work up with stool studies neg
discussed with daughter to review chronic colchicine use with rheumatology as report recurrent bouts of diarrhea that may be caused by medication and discuss any alternatives
remains on IV Zosyn
cont to monitor HR with some tachycardia on exam
if diarrhea persist despite med change may need flex/steroid course
cont to replete electrolytes
fecal roxane pending, CRP >270, ESR 50
resume mesalamine 2,4 grams daily
OP follow up with [facility] Dr. Sheppard at [place]
Subjective
Subjective
Date of Service: April 03, 2025
still with some diarrhea bout per family periods bouts for some time, on regular diet
Objective
Data Reviewed
Laboratory Data:
Laboratory Results
04/03/25 07:39
04/03/25 07:39
Laboratory Results
Magnesium 1.9 mg/dl (1.6-2.3) 04/02/25 06:37
Total Bilirubin 0.6 mg/dl (0.2-1.3) 04/01/25 06:29
AST 33 U/L (14-36) 04/01/25 06:29
ALT 25 U/L (0-35) 04/01/25 06:29
Alkaline Phosphatase 63 U/L (38-126) 04/01/25 06:29
Vital Signs and I&O:
Vital Signs
Temp Pulse Resp BP Pulse Ox
98.5 F 119 18 138/84 96
04/03/25 07:30 04/03/25 07:30 04/03/25 07:30 04/03/25 07:30 04/03/25 07:30
I&O
04/02/25 04/03/25 04/04/25
06:59 06:59 06:59
Intake Total 1005 / 1005 960 / 960
Output Total 1050 / 1050
Balance -45 / -45 960 / 960
Physical Exam
Physical Exam
HEENT: Anicteric and Moist mucous membranes
Cardiology: Normal Sinus Rhythm
Pulmonary: Clear
GI: Soft, Non Distended and Non Tender
Neuro: Non Focal
[2025-04-03] MEDS: ASACOL, DELZICOL DR 1200 MG PO ×2 (12:14→20:35)
[2025-04-03 14:59] VITALS: BP 131/83; PULSE 107; O2SAT 97
[2025-04-03 15:00] VITALS: BP 142/74
[2025-04-03 15:16] VITALS: BP 131/83; PULSE 120; O2SAT 98
[2025-04-03 16:11] VITALS: BMI 31.2
--- NOTE | 2025-04-03 16:37 | PN.CDI ---
CDI
- -
CDI:
Physician Documentation Request
Admit Date: 03/31/25 15:28
Dear Doctor Yahir,
Please review the following and provide your response in the progress notes.
Clinical Indicators:
Pt admitted with Sepsis 2/2 colitis infectious vs inflammatory
Documented per H&P,' Thrush Continue fluconazole for 4 more days to complete her course...'
Per PATSY Mycostatin oral suspension 5 ml PO QID
Please provide the suspected location of the documented thrush:
Oral
Tongue
Other ( please specify)
Use of terms such as suspected, likely, concern for, or probable (associated with a specific diagnosis that is being evaluated, monitored, or treated as if it exists) are acceptable and can be coded in the inpatient setting, when documented at the
time of discharge.
Thank you,
Lesley Melchor RN
CDI Specialist
[facility]
Please use your independent medical judgment in providing your response.
[2025-04-03] MEDS: THERAGRAN 1 TABLET PO (17:25)
[2025-04-03] MEDS: LOVENOX 40 MG SC (17:25)
--- NOTE | 2025-04-03 19:11 | PTCARENOTE ---
End of shift update note: pt continues with D. Reports increased weakness and decreased appetite which was evident throughout the shift.
[2025-04-03] MEDS: TYLENOL 650 MG PO (20:35)
[2025-04-03] MEDS: KCL 40 MEQ PO (20:35)
[2025-04-03] MEDS: TIMOPTIC 0.5% OPHTHALMIC SOLUTION 1 DROP LEFT EYE (20:36)
[2025-04-03] MEDS: COLCHICINE PO (20:37)
[2025-04-03] MEDS: XANAX 1 MG PO (21:16)
[2025-04-03 23:44] VITALS: BP 123/76
[2025-04-04] MEDS: ZOSYN 50 IV ×2 (04:07→09:42)
[2025-04-04] MEDS: TYLENOL 650 MG PO ×3 (04:09→21:18)
[2025-04-04] MEDS: IMODIUM 2 MG PO (06:15)
[2025-04-04] MEDS: MOBIC 15 MG PO (07:40)
[2025-04-04] MEDS: ASACOL, DELZICOL DR 1200 MG PO ×2 (07:40→21:08)
[2025-04-04] MEDS: TIMOPTIC 0.5% OPHTHALMIC SOLUTION LEFT EYE ×2 (07:41→21:08)
[2025-04-04] MEDS: KCL 40 MEQ PO (07:41)
[2025-04-04] MEDS: COLCHICINE PO (07:41)
[2025-04-04 07:45] VITALS: BP 121/72
--- NOTE | 2025-04-04 08:51 | W.PN.GI.CBS2 ---
Addendum entered and electronically signed by Narda Quiñones Do, MD 04/04/25 16:29:
I saw and examined the patient.
The LOCOMOTIVE ENGINEER's note was reviewed and I agree with the note.
Comment: Brittney is more confused today and with fever x2 overnight. Daughter bedside. Denies abd pain. Vitals stable other than fever. NTTP obese abdomen. Labs reviewed. BC repeat pending
Recommendations
- Appreciate ID recs
- CXR reviewed
- BC thus far negative
- Recommend flex sigm tomorrow and consideration of steroids pending on results.
- She may have gut bacterial translocation from UC flare.
- C/w mesalamine
- Stop immodium
Hospitalist and family updated bedside. Will follow with you
Addendum entered and electronically signed by OLIVIA Wolf 04/04/25 10:13:
reviewed with Dr. Chapman and Dr. Sinclair, hold flex til medically optimized, for ID eval, ok for clear diet, hold imodium
Original Note:
Today's Communication / Plan
-
etiology of diarrhea related to infectious process, UC flare, chronic colchicine use, vs other
overnight noted with continued fever and now noted dyspnea at rest this am worse with out of bed
AM labs pending
infectious work up with stool studies neg, blood cx neg -- review with Dr. Sinclair for CXR now
consider flex to eval colitis as souce of fever but will need to be medically optimized to proceed with resp status
if CXR stable consider repeat CT abd as still with some distention on exam but denies current abdominal pain
family reviewed with primary rheumatology ok to hold Colchicine for now with wosening diarrhea
NPO for now til decide on flex
remains on IV Zosyn
add PPI during admission with chronic Meloxicam use and not eating much
cont to replete electrolytes
fecal roxane pending, CRP >270, ESR 50
cont mesalamine 2,4 grams daily
on Lomperimide PRN
OP follow up with [facility] Dr. Sheppard at [place]
updated daughter at bedside
Assessment / Plan
-
84-year-old female with UC and RA presenting with acute onset diarrhea with weakness and fatigue. He has been on chronic cholchicine with intermittent chronic bouts of diarrhea. Follows with Dr. Levin for chronic UC on mesalaimen.
Impression / Rec:
-Diarrhea
-hx UC
-concern for sepsis on admission with fever, hypotension
-tachypnea after admission
-pancolitis
-metabolic acidosis
-tachycardia
-hypokalemia
-acidosis
other med problems:
hx RA
PLAN:
etiology of diarrhea related to infectious process, UC flare, chronic colchicine use, vs other
overnight noted with continued fever and now noted dyspnea at rest this am worse with out of bed
AM labs pending
infectious work up with stool studies neg, blood cx neg -- review with Dr. Sinclair for CXR now
consider flex to eval colitis as souce of fever but will need to be medically optimized to proceed with resp status
if CXR stable consider repeat CT abd as still with some distention on exam but denies current abdominal pain
family reviewed with primary rheumatology ok to hold Colchicine for now with wosening diarrhea
NPO for now til decide on flex
remains on IV Zosyn
add PPI during admission with chronic Meloxicam use and not eating much
cont to replete electrolytes
fecal roxane pending, CRP >270, ESR 50
cont mesalamine 2,4 grams daily
on Lomperimide PRN
OP follow up with [facility] Dr. Sheppard at [place]
updated daughter at bedside
Subjective
Subjective
Date of Service: April 04, 2025
still with fever and diarrhea and now shortness of breath this am
Objective
Data Reviewed
Laboratory Data:
Laboratory Results
Magnesium 1.9 mg/dl (1.6-2.3) 04/02/25 06:37
Total Bilirubin 0.6 mg/dl (0.2-1.3) 04/01/25 06:29
AST 33 U/L (14-36) 04/01/25 06:29
ALT 25 U/L (0-35) 04/01/25 06:29
Alkaline Phosphatase 63 U/L (38-126) 04/01/25 06:29
Vital Signs and I&O:
Vital Signs
Temp Pulse Resp BP Pulse Ox
98.9 F 95 23 121/72 94
04/04/25 07:45 04/04/25 07:45 04/04/25 07:45 04/04/25 07:45 04/04/25 07:45
I&O
04/03/25 04/04/25 04/05/25
06:59 06:59 06:59
Intake Total 960 / 960 990 / 990
Balance 960 / 960 990 / 990
Physical Exam
Physical Exam
HEENT: Anicteric and Moist mucous membranes
Cardiology: Normal Sinus Rhythm and Other (tachy at times during night )
Pulmonary: Other (decreased bases appears with dyspnea at rest -- worse with getting OOB to commode )
GI: Soft, Distended (mild ) and Non Tender
Extremities: No Edema
Neuro: Other (drifting off in conversation )
[2025-04-04] MEDS: NSS (PRESERVATIVE FREE) 10 ML IV (09:39)
[2025-04-04] MEDS: PROTONIX IV 40 MG IV (09:39)
[2025-04-04 09:50] VITALS: BP 149/61
[2025-04-04 09:58] LABS: Hematocrit 37.5 % (37.0-47.0); Hemoglobin 12.5 g/dL (12.0-16.0); Mean Corp Hgb Conc. 33.3 g/dL (33.0-37.0); Mean Corpuscular Volume 97.4 fL (81.0-99.0); Platelet Count 231 10^3/uL (130-400); Red Cell Dist. Width 12.6 % (11.5-14.5)
--- NOTE | 2025-04-04 10:03 | W.PN.HOSP.TC ---
Addendum entered and electronically signed by Tamir Sinclair DO 04/04/25 14:03:
She does not have thrush.
Original Note:
Today's Communication/Plan
-
Repeat stool C. difficile
Recheck blood cultures
IV fluids
ID consult
Check COVID
Assessment / Plan
Assessment / Plan
Gen-alert, awake, mild distress with rigors
HEENT-NC, AT, anicteric, clear oral mm
Neck-supple
CV-reg, no M, +S1/S2
Lungs-clear B/L
Abd-soft, NT, mild distention
Ext-no edema
Musculoskeletal-no cyanosis, clubbing
Skin-warm and dry
Neuro-grossly non-focal
Psych-calm, cooperative
Sepsis -due to colitis. Ongoing signs and symptoms of sepsis with tachycardia, rigors, mild leukocytosis.
Still cannot rule out underlying ulcerative colitis flare in light of ongoing diarrhea. GI service contemplating flex sig.
Recheck stool studies given recurrence of fevers, rigors. Recheck blood cultures. WBC count 10.9. Consult ID. Continue IV Zosyn. Add IV fluids.
NG Met Acidosis -labs pending for today.
Hypokalemia -due to diarrhea. Labs pending for today.
Ulcerative colitis - last flare 2 years ago as per patient. Controlled on mesalamine.
Hypotension - improved with IVF.
Hyponatremia -improved.
Rheumatoid arthritis -quiescent.
ADD
History of gout -colchicine now on hold given ongoing diarrhea.
Obesity due to excess calories
DNR
Updated daughter at the bedside.
Anticipated Discharge: > 48 hours
Subjective/Interval History
-
Date of Service: April 04, 2025
Patient seen and examined. He is feeling well, having rigors. Denies abdominal pain. Still with diarrhea.
Objective Data
-
Labs:
Laboratory Results
04/04/25
09:38
WBC 10.9 H
Hgb 12.5
Hct 37.5
Plt Count 231
Sodium Pending
Potassium Pending
Chloride Pending
Carbon Dioxide Pending
BUN Pending
Creatinine Pending
Glucose Pending
Calcium Pending
Vital Signs:
Vital Signs
Temp Pulse Resp BP Pulse Ox
100 F 119 22 149/61 100
04/04/25 09:50 04/04/25 09:50 04/04/25 09:50 04/04/25 09:50 04/04/25 09:50
I&O
04/03/25 04/04/25 04/05/25
06:59 06:59 06:59
Intake Total 960 / 960 990 / 990
Balance 960 / 960 990 / 990
Review of Systems
-
History Source: Patient
All other systems: Reviewed and negative
[2025-04-04 10:06] LABS: Chloride 109 mmol/L (98-107)
[2025-04-04 10:07] LABS: Blood Urea Nitrogen 11 mg/dl (7-17); Calcium 9.5 mg/dl (8.4-10.2); Carbon Dioxide 18 mmol/L (22-30); Estimated Creatinine Clearance 60 ml/min; Glucose 117 mg/dl (70-99); Potassium 4.6 mmol/L (3.5-5.1); Sodium 137 mmol/L (135-145); eGFR > 60.00
[2025-04-04] MEDS: LR 1000 IV (10:23)
[2025-04-04 10:49] VITALS: BP 147/72
[2025-04-04 10:49] LABS: Absolute Neutrophils -Man Diff 8.7 10^3/uL (1.4-6.5)
[2025-04-04 10:50] LABS: Normal RBC Morphology Yes; Platelets Checked Yes; Total Cells Counted 100
[2025-04-04 10:51] LABS: COVID-19 Antigen Negative (Negative)
--- NOTE | 2025-04-04 11:35 | CON.ID ---
Consultation
-
Date/Time Consultation Requested: April 04, 2025 0742
Date/Time Consultation Performed: April 04, 2025 1135
Requesting Provider: Dr. Tamir Sinclair
Performing Provider: Dr. Pratibha Branch
Reason for Consultation: Persistent fever and diarrhea
Chief Complaint / Past History
Chief Complaint
Diarrhea
History of Present Illness
History obtained from the patient, her daughter and at bedside. She is an 84-year-old female with history of ulcerative colitis on mesalamine only, rheumatoid arthritis on colchicine and meloxicam who presented to the hospital March 31 due
to persistent diarrhea. She and her initially were constipated with hard stools. She and her took [id number]-[id number] polyethylene glycol. On March 27, she started having diarrhea. She stopped taking the polyethylene glycol
but the diarrhea persisted. She had about 10 liquid nonbloody stools per day. No nausea, vomiting, or abdominal pain. No fever at home. No recent antibiotic except for 2 courses of fluconazole for suspected thrush. It turns out she has oral
ulcers, not thrush. In the ED, white count 19, temperature 103.1. CT of the abdomen pelvis shows mild pancolitis, severe diverticulosis. Stool for C. difficile negative, stool culture negative. She is on Zosyn. She was placed on Imodium with
decreased stool frequency yesterday. Imodium now currently on hold. However she continues to have fever. Daughter also noted decrease in mental status which started yesterday. No one else with diarrheal illness. Last travel was to [place]
weekend of March 18 and to visit family. No significant events while there. Visited [facility]. No drinking from well water. Patient reports chills and sweats with the fever. Denies cough or shortness of breath. No headache, sinus
congestion, or difficulty swallowing. Appetite is very poor. No urine symptoms. No flank pain. No rash. No new joint pains. No tick or insect exposure. No known TB exposure. No animal exposure except for daughters pet dog.
Past History
Additional Past Medical History:
Ulcerative colitis on mesalamine
RA on meloxicam, colchicine
ADD
Additional Past Surgical History:
Thoracic and lumbar spine surgery with instrumentations
Bilateral TKA
R THR
Right fibula fx repair
Right pubic rami fx repair
left eye vitrectomy
Allergy History:
clindamycin Allergy (Severe, Verified 03/31/25 11:18)
Anaphylaxis
sulfamethoxazole (From Bactrim) Allergy (Mild, Verified 03/31/25 11:18)
Rash
trimethoprim (From Bactrim) Allergy (Mild, Verified 03/31/25 11:18)
Rash
bacitracin Allergy (Verified 03/31/25 11:13)
Pharmacy to Review
Medications Reviewed: Yes
Current Antibiotics:
Zosyn d5
Social History
Tobacco: Non-Smoker
Alcohol: Daily
Drug: None
Personal:
Living: With Family
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
Review of Systems
Review of Systems
General: Fever, Chills and Change in Appetite
HEENT: Negative Stiff Neck, Sinus Problems or Headache
Cardiovascular: Negative Chest Pain, Dyspnea or Edema
Respiratory: Negative Dyspnea or Cough
Gasteroenterology: Diarrhea; Negative Nausea or Vomiting
Genital / Urological: Negative Dysuria or Flank Pain
Endocrine: Weakness and Fatigue
Musculoskeletal: Negative Arthralgias
Skin / Hair / Nails: Negative Rash
All systems: All other systems were reviewed and were negative
Vital Signs
Temp Pulse Resp BP Pulse Ox
101.8 F H 111 21 147/72 97
04/04/25 10:49 04/04/25 10:49 04/04/25 10:49 04/04/25 10:49 04/04/25 10:49
Physical Exam
Physical Exam
Constitutional: Comfortable and Other (Diaphoretic)
Head: Other (No frontal or max or sinus tenderness)
Eyes: No Conjunctival Hemorrhage and Sclera Anicteric
Oral: Ulcers
Cardiovascular: S1/S2 (Tachycardic)
Pulmonary: Clear and Non Labored
Gastrointestinal: Soft, Non Tender, Distended (Mild) and Normal Bowel Sounds
Genito-Urinary: Negative CVA Tenderness
Extremities: Negative Edema or Erythema
Musculoskeletal: Negative Joint Swelling or Joint Effusion
Neurological: Other (Drowsy); Negative Meningeal Signs
Lab / Diagnostic Study Results
04/04/25 09:38
04/04/25 09:38
Abs Immat Gran (auto) 0.1 10^3/uL (0-0.05) H 04/03/25 07:39
Absolute Neuts (auto) 7.4 10^3/uL (1.4-6.5) H 04/03/25 07:39
Absolute Lymphs (auto) 0.9 10^3/uL (1.2-3.4) L 04/03/25 07:39
Absolute Monos (auto) 0.9 10^3/uL (0.1-0.6) H 04/03/25 07:39
Absolute Basos (auto) 0.1 10^3/uL (0-0.2) 04/03/25 07:39
Total Counted 100 04/04/25 09:38
Immature Gran % 1.0 % (0-0.5) H 04/03/25 07:39
Neutrophils % 78.8 % (42.2-75.2) H 04/03/25 07:39
Lymphocytes % 9.7 % (20.5-51.1) L 04/03/25 07:39
Monocytes % 9.4 % (1.7-9.3) H 04/03/25 07:39
Eosinophils % 0.1 % (0-6) 04/03/25 07:39
Basophils % 1.0 % (0-2) 04/03/25 07:39
Abs Neuts (Manual) 8.7 10^3/uL (1.4-6.5) H 04/04/25 09:38
Segmented Neutrophils 55 % (42-75) 04/04/25 09:38
Band Neutrophils 25 % (0-3) H D 04/04/25 09:38
Lymphocytes (Manual) 13 % (20-51) L 04/04/25 09:38
ESR 50 mm/hour (0-20) H 04/01/25 14:00
Lactic Acid Cancelled 04/01/25 06:00
C-Reactive Protein > 270.00 mg/L (0.0-10.00) H 04/01/25 14:00
Ur Squamous Epith Cells 16-20 /LPF (Few) 04/01/25 11:44
Microbiology Results
Micro:
04/04/25 10:13 Blood Culture - Pending
Blood/Venous
04/04/25 09:38 Blood Culture - Pending
Blood/Venous
03/31/25 15:29 Blood Culture - Preliminary
Blood/Venous No Growth in 72 hours- Final report to follow
03/31/25 13:08 Blood Culture - Preliminary
Blood/Venous No Growth in 72 hours- Final report to follow
03/31/25 17:43 Salmonella/Shigella Culture - Final
Feces/Stool No Salmonella, Shigella, Aeromonas or Plesiomonas species
isolated.
Campylobacter Culture - Final
No Campylobacter species isolated.
Shiga Toxin Test - Final
No E. coli Shiga Toxin 1 or 2 detected.
04/01/25 11:44 Urine Culture - Final
Urine NO GROWTH
03/31/25 12:54 C. difficile GDH Antigen & Toxins - Final
Feces/Stool Negative for toxigenic C.difficile
04/04/25 CXR: The trachea is midline. There is moderate elevation of the right hemidiaphragm. There appear to be thin bands of subpleural subsegmental atelectasis and scarring in both lower lungs. There is no focal airspace opacity suspicious for
pneumonia. There is no radiographic evidence for pleural effusion or pneumothorax.
03/31 CTa/p: Mild diffuse colonic wall thickening suggestive of pancolitis. Mild to moderate amount of fluid within the proximal colon. Severe chronic diverticular disease within the sigmoid. Small amount of free fluid within the pelvis.
Assessment / Plan
# Pancolitis, nonbloody diarrhea since 03/27.
# Fever
# Leukocytosis resolving
# Mouth ulcers - onset prior to diarrhea
# Hx UC on mesalamine
# Elevated CRP
- Blood cultures negative to date.
-Urine culture negative
- Chest x-ray no pneumonia
- Stool C. difficile negative, stool culture negative.
-Send stool for norovirus, yersinia, O+P
-Agree with flex sig to eval for IBD flare vs other/CMV, biopsies.
- De-escalate Zosyn to ceftriaxone.
- Trend temp/wbc/stool output.
[2025-04-04] MEDS: ROCEPHIN 2000 MG IV (14:13)
[2025-04-04] MEDS: STERILE WATER FOR INJECTION 20 ML IV (14:13)
[2025-04-04 15:23] VITALS: BP 113/53
[2025-04-04] MEDS: SODIUM BICARBONATE 1150 MEQ IV (16:28)
[2025-04-04] MEDS: LOVENOX 40 MG SC (17:16)
[2025-04-04] MEDS: THERAGRAN 1 TABLET PO (17:17)
[2025-04-04] MEDS: XANAX 1 MG PO (21:12)
[2025-04-04 23:00] VITALS: BP 118/56
[2025-04-05] VITALS (13 sets, daily range): BP systolic 83–133; BP diastolic 46–64
[2025-04-05] MEDS: TIMOPTIC 0.5% OPHTHALMIC SOLUTION LEFT EYE (00:24)
[2025-04-05] MEDS: TYLENOL 650 MG PO (01:40)
[2025-04-05] MEDS: SODIUM BICARBONATE 1150 MEQ IV (02:53)
--- NOTE | 2025-04-05 03:08 | W.PN.UPDATE ---
Update Note
Progress Note Update
~ 3 am Called to see patient for increased respirations. At approx 1: 40 Resp rate 40, no hypoxia 97% on room air, tachycardia HR 108 and fever 101.9. Tylenol given. RN concerned that patient may be aspirating. Patient was given PO medications,
coughing with PO intake, wet and gurgly voice, excessive throat clearing. Suction set up at bedside. Diet changed to strict NPO, IV fluids infusing. Speech consult placed. Lungs auscultated, clear, no rhonchi or crackles noted. Patient taking
shallow breaths. Patient able to take deep breaths w/o difficulty when requested.
~ 5 am Pt temp 99.2 oral temp, 100.6 rectal temp, Resp 40, BP 108/64, HR 122, 93% on room air. Ordered Tylenol 1G IV. CXR ordered, report pending.
~ 5:30 Evaluated patient, she is resting comfortably, on room air pulsox 96%, respiration 24.
--- NOTE | 2025-04-05 04:43 | DOWNTIME ---
There was a [employer] Downtime on 04/05/2025 from 0100 to 04/05/2025 at 0235. Downtime documentation of patient's care, including medication administrations, has been reconciled in the electronic record per guidelines. Refer to the
patient's paper chart under the miscellaneous tab to see printed paper medication records and downtime forms.
[2025-04-05] MEDS: OFIRMEV 100 IV (05:44)
[2025-04-05 07:26] LABS: Hematocrit 30.6 % (37.0-47.0); Hemoglobin 10.3 g/dL (12.0-16.0); Mean Corp Hgb Conc. 33.7 g/dL (33.0-37.0); Mean Corpuscular Volume 96.2 fL (81.0-99.0); Platelet Count 205 10^3/uL (130-400); Red Cell Dist. Width 12.4 % (11.5-14.5)
[2025-04-05 07:36] LABS: Blood Urea Nitrogen 14 mg/dl (7-17); Calcium 8.6 mg/dl (8.4-10.2); Carbon Dioxide 24 mmol/L (22-30); Chloride 106 mmol/L (98-107); Estimated Creatinine Clearance 60 ml/min; Glucose 85 mg/dl (70-99); Potassium 4.1 mmol/L (3.5-5.1); Sodium 135 mmol/L (135-145); eGFR > 60.00
[2025-04-05] MEDS: MOBIC PO (08:06)
[2025-04-05] MEDS: ASACOL, DELZICOL DR PO (08:06)
[2025-04-05] MEDS: PROTONIX IV 40 MG IV (08:07)
[2025-04-05] MEDS: NSS (PRESERVATIVE FREE) 10 ML IV (08:07)
[2025-04-05] MEDS: TIMOPTIC 0.5% OPHTHALMIC SOLUTION 1 DROP LEFT EYE ×2 (08:08→20:18)
--- NOTE | 2025-04-05 08:15 | PTCARENOTE ---
Pt drowsy/diaphoretic/arouses to verbal stimuli. Pt continues to be tachypneic. 94% room air. BPs running low. Hospitalist made aware and IVF bolus ordered. Orders to transfer pt to IMU entered.
[2025-04-05 08:22] LABS: Nucleated Red Blood Cells % 0 %
[2025-04-05] MEDS: NSS 500 IV (08:30)
--- NOTE | 2025-04-05 09:11 | W.PN.GI.CBS2 ---
Addendum entered and electronically signed by Narda Quiñones Do, MD 04/05/25 13:00:
I saw and examined the patient.
The SHIRT FINISHER's note was reviewed and I agree with the note.
Comment: Overnight worsening SOB and fever noted. She appears more confused this AM. Vitals 101F tmax, HR 90-120s. BP 100-110 systolic. exam obese NTTP mild confusion, no guarding or rebound. Labs reviewed WBC normalized. CTAP IV contrast
worsening severe colitis, 3.7cm cystic L adenxal lesion, GB distended mildly
Impression
- Sepsis with fever, confusion, tachy and hypotension
suspect gut bacterial translocation from severe UC
CXR and UA negative
- Severe UC with pancolitis
- Electrolyte abnormalities
- Diarrhea
Recommendations
- Agree with transfer to IMU
- C/w mesalamine
- Not stable for flex sigm today given SOB and sepsis. D/w pt and family will empirically start high dose steroids for presumptive UC flare
- Repeat Stool studies neg for Cdiff x2 and rest no growth to date
- Repeat BC pending thus far negative
- C/w abx appreciate ID recommendations
- Consult colorectal surgery in case she does not improve with maximal medical therapies
- Ice chips/sips for now hold on CLD given confusion and risk for aspiration
- Add on hep B and TB incase biologic needed in future
Family updated bedside. Will follow with you
Original Note:
Today's Communication / Plan
-
etiology of diarrhea/fever/lethargy related to infectious process, UC flare, chronic colchicine use, vs other
still with fever, change in mental status tachypnea overnight
now moving to IMU
s/p ID eval 04/04 with concern for for continued fever, abx changed to Rocephin
pt still with no abd pain but limited exam with mental status and no guarding but will proceed with repeat CT with IV contrast for follow up colitis and ensure no signs of perforation
after CT reviewed possible flex sig later today -- discussed with pt and daughter may be unsedated with mental status issues and hypotension
repeat CXR overnight stable, blood cx neg so far, stool cx neg so far
cont to hold colchicine --less diarrhea overnight
cont NPO
add PPI during admission with chronic Meloxicam use and not eating much
fecal roxane pending, CRP >270, ESR 50
cont mesalamine 2.4 grams daily
OP follow up with [facility] Dr. Sheppard at [place]
updated daughter at bedside aware of transfer, Ct and possible flex later today
reviewed with Dr. Sinclair
Assessment / Plan
-
84-year-old female with UC and RA presenting with acute onset diarrhea with weakness and fatigue. He has been on chronic cholchicine with intermittent chronic bouts of diarrhea. Follows with Dr. Levin for chronic UC on mesalaimen.
Impression / Rec:
-Diarrhea
-hx UC
-concern for sepsis on admission with fever, hypotension
-change in mental status with fever
-tachypnea after admission
-pancolitis
-metabolic acidosis
-tachycardia
-hypokalemia
-acidosis
other med problems:
hx RA
PLAN:
etiology of diarrhea/fever/lethargy related to infectious process, UC flare, chronic colchicine use, vs other
still with fever, change in mental status tachypnea overnight
now moving to IMU
s/p ID eval 04/04 with concern for for continued fever, abx changed to Rocephin
pt still with no abd pain but limited exam with mental status and no guarding but will proceed with repeat CT with IV contrast for follow up colitis and ensure no signs of perforation
after CT reviewed possible flex sig later today -- discussed with pt and daughter may be unsedated with mental status issues and hypotension
repeat CXR overnight stable, blood cx neg so far, stool cx neg so far
cont to hold colchicine --less diarrhea overnight
cont NPO
add PPI during admission with chronic Meloxicam use and not eating much
fecal roxane pending, CRP >270, ESR 50
cont mesalamine 2.4 grams daily
OP follow up with [facility] Dr. Sheppard at [place]
updated daughter at bedside aware of transfer, Ct and possible flex later today
Subjective
Subjective
Date of Service: April 05, 2025
still with fever overnight up to 101.9 with lethargy and tachycardia, last stool recorded was last PM-- noted overnight SHIRT FINISHER with increased respirations, fever and tachycardia
Objective
Data Reviewed
Laboratory Data:
Laboratory Results
04/05/25 06:33
04/05/25 06:33
Laboratory Results
Magnesium 1.9 mg/dl (1.6-2.3) 04/02/25 06:37
Total Bilirubin 0.6 mg/dl (0.2-1.3) 04/01/25 06:29
AST 33 U/L (14-36) 04/01/25 06:29
ALT 25 U/L (0-35) 04/01/25 06:29
Alkaline Phosphatase 63 U/L (38-126) 04/01/25 06:29
Vital Signs and I&O:
Vital Signs
Temp Pulse Resp BP Pulse Ox
97.9 F 119 40 97/57 93
04/05/25 07:00 04/05/25 07:00 04/05/25 07:00 04/05/25 07:00 04/05/25 07:00
I&O
04/04/25 04/05/25 04/06/25
06:59 06:59 06:59
Intake Total 990 / 990 3248 / 3248
Output Total 500 / 500
Balance 990 / 990 2748 / 2748
Physical Exam
Physical Exam
HEENT: Anicteric, Moist mucous membranes and Other (sweaty )
Cardiology: Other (tachy )
Pulmonary: Other (decreased )
GI: Soft, Distended and Non Tender (no guarding but limited exam with lethargy )
Extremities: No Edema
Neuro: Other (lethargic but awakes to voice with minimal verbal conversation)
--- NOTE | 2025-04-05 10:38 | PTCARENOTE ---
Pt returned from CT. Had large liquid bowel movement. Tachypnea improved at this time. SPO2 97%. BP improved - 110/54.
[2025-04-05 11:07] LABS: D-Dimer 3.95 ug/mlFEU (0.00-0.50)
--- NOTE | 2025-04-05 11:09 | CM ---
Chart reviewed. Care ongoing at this time.
Therapy rec home PT at d/c. Referral to be made closer to d/c if patient and family is agreeable
Patient will be transferring to IMU
Plan: CM will cont to follow for d/c planning
--- NOTE | 2025-04-05 12:12 | W.PN.HOSP.TC ---
Addendum entered and electronically signed by Tamir Sinclair DO 04/05/25 13:37:
Acute delirium only
Original Note:
Today's Communication/Plan
-
Continue IV fluids
Continue antibiotics
Transfer to IMU
Assessment / Plan
Assessment / Plan
Gen-sleeping when I walked in but arousable and interactive subsequently, NAD
HEENT-NC, AT, anicteric, clear oral mm
Neck-supple
CV-reg, no M, +S1/S2
Lungs-clear B/L
Abd-soft, NT, mild distention
Ext-no edema
Musculoskeletal-no cyanosis, clubbing
Skin-warm and dry
Neuro-grossly non-focal
Psych-calm, cooperative
Delirium -episodes of confusion off and on suspect related to acute illness and hospitalization in this elderly female. Discussed with daughters at the bedside.
Nursing concerned about aspiration given intermittent decreased level of consciousness. Patient made n.p.o., speech therapy consulted.
Sepsis -due to colitis, possibly ulcerative colitis flare. Blood cultures negative so far. Stool studies negative so far. Continue IV ceftriaxone per infectious disease.
Tachycardic/tachypneic episodes correlate well with fevers, heart rate and respiratory rate improves when afebrile.
Repeat CT abdomen with IV contrast 04/05 shows worsening severe pancolitis likely related to ulcerative colitis. Incidental 3.7 cm mildly heterogeneous cystic left adnexal lesion. Would not workup for now.
Clinically doubt pulmonary embolism as she has no symptoms of chest pain or shortness of breath, not hypoxic. Elevated D-dimer is nonspecific in the setting of sepsis and possible ulcerative colitis flare.
NG Met Acidosis -resolved.
Hypokalemia -due to diarrhea. Resolved.
Ulcerative colitis - last flare 2 years ago as per patient. Controlled on mesalamine.
Hypotension -hypotensive again this morning, improved with IV fluid bolus.
Hyponatremia -improved.
Rheumatoid arthritis -quiescent.
ADD
History of gout -colchicine now on hold given ongoing diarrhea.
Obesity due to excess calories
DNR
Transfer to IMU for closer monitoring given hypotension and episodes of tachycardia and tachypnea.
Discussed with family and nursing.
Updated daughters at the bedside.
Anticipated Discharge: > 48 hours
Subjective/Interval History
-
Date of Service: April 05, 2025
Patient seen and examined. Denies abdominal pain, chest pain, shortness of breath. Only complaint is that she wants to go home.
Objective Data
-
Labs:
Laboratory Results
04/05/25
06:33
WBC 9.8
Hgb 10.3 L
Hct 30.6 L
Plt Count 205
Sodium 135
Potassium 4.1
Chloride 106
Carbon Dioxide 24
BUN 14
Creatinine 0.6
Glucose 85
Calcium 8.6
Vital Signs:
Vital Signs
Temp Pulse Resp BP Pulse Ox
97.9 F 80 16 110/54 97
04/05/25 10:38 04/05/25 10:38 04/05/25 10:38 04/05/25 10:38 04/05/25 10:38
I&O
04/04/25 04/05/25 04/06/25
06:59 06:59 06:59
Intake Total 990 / 990 3248 / 3248
Output Total 500 / 500
Balance 990 / 990 2748 / 2748
Review of Systems
-
History Source: Patient
All other systems: Reviewed and negative
[2025-04-05] MEDS: 0.45%NACL 1000 IV (12:28)
[2025-04-05] MEDS: SOLU-MEDROL PF 60 MG IV (12:53)
[2025-04-05 13:19] LABS: Calprotectin, Fecal >3000 ug/g (<=49)
--- NOTE | 2025-04-05 13:24 | PN.CDI ---
CDI
- -
CDI:
Physician Documentation Request
Admit Date: 03/31/25 15:28
Dear Doctor Yahir,
Please review the following and provide your response in the progress notes.
Clinical Indicators:
Pt admitted with Sepsis 2/2 UC flare /bacteria translocation
Documented per GI progress note 04/05, ' Overnight worsening SOB and fever noted. She appears more confused this AM. ...Impression Sepsis with fever, confusion, tachy and hypotension...still with fever, change in mental status tachypnea overnight
...'
Progress note 04/05, ' Delirium -episodes of confusion off and on suspect related to acute illness and hospitalization in this elderly female. Discussed with daughters at the bedside.Nursing concerned about aspiration given intermittent decreased
level of consciousness....'
Based on the above, could you clarify in the Progress Notes and Discharge Summary which, if any of the following, is the most likely etiology of the confusion/altered mental status.
Metabolic Encephalopathy
Acute Delirium only
Other ( please specify)
Use of terms such as suspected, likely, concern for, or probable (associated with a specific diagnosis that is being evaluated, monitored, or treated as if it exists) are acceptable and can be coded in the inpatient setting, when documented at the
time of discharge.
Thank you,
Lesley Melchor RN
CDI Specialist
[place] [facility]
Please use your independent medical judgment in providing your response.
--- NOTE | 2025-04-05 13:32 | W.PN.ID1 ---
Date of Service
Date of Service: April 05, 2025
Today's Communication
Agree with steroid.
Assessment / Plan
# Pancolitis worse on repeat CT
# Nonbloody diarrhea, onset 03/27.
# Fever persists
# Leukocytosis resolved
# Mouth ulcers - onset prior to diarrhea
# Hx UC on mesalamine
# Elevated CRP
- Repeat Blood cultures negative to date.
-Urine culture negative
- Chest x-ray x2 no pneumonia
- Stool C. difficile x2 negative, stool culture negative.
- Stool norovirus neg, O+P neg. Yersinia pending
- Suspect UC flare.
- Agree with starting steroid.
- Flex/sig cancelled until pt more stable, per GI.
- Trend temp, stool output.
-s/p Zosyn
- Continue ceftriaxone for now.
Chief Complaint
-: Fever and Other (diarrhea)
Subjective / Review of Systems
Events noted overnight: pt started coughing after po med. Tachypneic RR 40, no desat, tachycardic, CXR no new change.
Patient had a bout of diarrhea just now and her mental status has improved per family. Pt reports feeling better. No abd pain.
Vital Signs / Physical Exam
Vital Signs
Vital Signs
Temp Pulse Resp BP Pulse Ox
97.9 F 80 16 110/54 97
04/05/25 10:38 04/05/25 10:38 04/05/25 10:38 04/05/25 10:38 04/05/25 10:38
Physical Exam
Constitutional: Non-toxic
Eyes: Sclera Anicteric
Cardiovascular: Regular Rate and S1/S2
Pulmonary: Clear
Gastrointestinal: Soft, Non Tender, Distended (mild) and Decreased Bowel Sounds
Genito-Urinary: Negative CVA Tenderness
Extremities: Negative Edema
Neurological: AO x 3
Objective Data
Lab Data
Lab Results
04/05/25 06:33
04/05/25 06:33
ESR 50 mm/hour (0-20) H 04/01/25 14:00
Estimated Creat Clear 60 ml/min 04/05/25 06:33
Lactic Acid Cancelled 04/01/25 06:00
Total Bilirubin 0.6 mg/dl (0.2-1.3) 04/01/25 06:29
AST 33 U/L (14-36) 04/01/25 06:29
ALT 25 U/L (0-35) 04/01/25 06:29
Alkaline Phosphatase 63 U/L (38-126) 04/01/25 06:29
C-Reactive Protein > 270.00 mg/L (0.0-10.00) H 04/01/25 14:00
Most recent labs reviewed.
Micro Results:
03/31/25 13:08 Blood Culture - Final
Blood/Venous No Growth - Final Report
04/04/25 18:15 Cryptosporidium/Giardia - Final
Feces/Stool Negative for Cryptosporidium and/or Giardia Lamblia
antigens.
- Final
Negative for Norovirus GI and GII.
04/04/25 10:13 Blood Culture - Preliminary
Blood/Venous No Growth in 24 hours- Final report to follow
04/04/25 09:38 Blood Culture - Preliminary
Blood/Venous No Growth in 24 hours- Final report to follow
04/04/25 18:15 C. difficile GDH Antigen & Toxins - Final
Feces/Stool Negative for toxigenic C.difficile
04/04/25 18:15 - Pending
Feces/Stool
03/31/25 15:29 Blood Culture - Preliminary
Blood/Venous No Growth in 4 days- Final report to follow
03/31/25 17:43 Salmonella/Shigella Culture - Final
Feces/Stool No Salmonella, Shigella, Aeromonas or Plesiomonas species
isolated.
Campylobacter Culture - Final
No Campylobacter species isolated.
Shiga Toxin Test - Final
No E. coli Shiga Toxin 1 or 2 detected.
04/01/25 11:44 Urine Culture - Final
Urine NO GROWTH
03/31/25 12:54 C. difficile GDH Antigen & Toxins - Final
Feces/Stool Negative for toxigenic C.difficile
04/05/25 CT a/p: There is findings of worsening severe pancolitis. Findings are likely related to reported ulcerative colitis.
04/04/25 CXR: The trachea is midline. There is moderate elevation of the right hemidiaphragm. There appear to be thin bands of subpleural subsegmental atelectasis and scarring in both lower lungs. There is no focal airspace opacity suspicious for
pneumonia. There is no radiographic evidence for pleural effusion or pneumothorax.
03/31 CTa/p: Mild diffuse colonic wall thickening suggestive of pancolitis. Mild to moderate amount of fluid within the proximal colon. Severe chronic diverticular disease within the sigmoid. Small amount of free fluid within the pelvis.
Care Review
Plan reviewed with: Other Provider (OLIVIA Herr)
[2025-04-05] MEDS: ROCEPHIN 2000 MG IV (13:59)
[2025-04-05] MEDS: STERILE WATER FOR INJECTION 20 ML IV (13:59)
--- NOTE | 2025-04-05 14:00 | CON.CRS ---
Consultation
-
Date/Time Consultation Requested: 04/05/2025,
Date/Time Consultation Performed: 04/05/2025,
Requesting Provider: Narda Chapman MD
Performing Provider: Alo Allan MD
Reason for Consultation: ulcerative colitis
Medical History
-
Chief Complaint: weakness/fatigue,diarrhea
History of Present Illness:
84 yo female with a history of ulcerative colitis, presents to [facility] on 03/31/2025 complaining of weakness, fatigue, and diarrhea. The diarrhea began about a week ago when she was in [place] and took a laxative. Currently she is having
bowel movements 10-15 times per day. Denies blood or abdominal pain. Her last colonoscopy was several years ago, report not available for review. On admission to [facility], her WBC was 19.0. Today it is 9.0. Initially her CT showed 'Mild diffuse
colonic wall thickening suggestive of pancolitis. Mild to moderate amount of fluid within the proximal colon. Severe chronic diverticular disease within the sigmoid. Small amount of free fluid within the pelvis.' Since admission, she has had
intermittent fevers. Today she was tachycardic in the 110s-120's and she was running on the hypotensive side. A repeat CT was performed which showed 'there is findings of worsening severe pancolitis. Findings are likely related to reported
ulcerative colitis'. She was started on mesalamine on admission. ID has been consulted for IV abx management. Due to worsening symptoms today, she was started on IV steroids. There was a plan for a flex sig today but it was put on hold due to her
worsening state.
Past Medical History
Past Medical History: Other (UC, RA, ADD)
Past Surgical History: Other (Left knee replacement 2001, Right knee replacement 2007, Right fibula fracture 2010, Left eye vitrectomy 2015, Right pubic rami fracture 2015, Back surgery 2018, Hip replacement 2018)
Social History
Tobacco: Non-Smoker
Alcohol: Daily
Drug: None
Personal:
Family History
Family History: Other (daughter with UC)
Allergies / Home Medications
Allergy/AdvReac Type Severity Reaction Status Date / Time
bacitracin Allergy Unknown Verified 04/04/25 16:14
clindamycin Allergy Anaphylaxis Verified 04/04/25 16:14
sulfamethoxazole (From Allergy Rash Verified 04/04/25 16:14
Bactrim)
trimethoprim (From Bactrim) Allergy Rash Verified 04/04/25 16:14
�Medication �Instructions �Recorded �Confirmed �Type
alprazolam 1 mg tablet 1 mg PO HS Mental Health/Anxiety 03/31/25 03/31/25 History
clobetasol 0.05 % lotion 1 applic topical DAILYPRN PRN 03/31/25 03/31/25 History
inner ear skin
colchicine 0.6 mg tablet 0.3 mg PO BID Gout 03/31/25 03/31/25 History
denosumab 60 mg/mL subcutaneous 60 mg SC [id number] osteoporosis 03/31/25 03/31/25 History
syringe (Prolia)
glucosamine sulfate 500 mg tablet 500 mg PO DAILY Supplement 03/31/25 03/31/25 History
(Glucosamine)
meloxicam 15 mg tablet 15 mg PO DAILY Pain 03/31/25 03/31/25 History
mesalamine 1.2 gram tablet,delayed 2.4 g PO DAILY Colitis 03/31/25 03/31/25 History
release
therapeutic multivitamin 1 tab PO QPM Supplement 03/31/25 03/31/25 History
timolol 0.5 % eye drops 1 drp LEFT EYE BID glaucoma 03/31/25 03/31/25 History
amoxicillin 875 mg-potassium 1 tab PO BID #6 tabs 04/03/25 Rx
clavulanate 125 mg tablet
loperamide 2 mg capsule 2 mg PO Q4HPRN PRN diarrhea #0 caps 04/03/25 Rx
potassium chloride 20 mEq 20 meq PO BID #10 tabs 04/03/25 Rx
tablet,extended release(part/cryst)
Review of Systems
-
History Source: Patient
Constitutional: Fatigue and Other (weakness)
Abdomen/GI: Diarrhea
A 10 point review of systems was completed, and was negative except as per HPI.
Physical Exam
Vital Signs
Temp 97.9 F 04/05/25 10:38
Pulse 80 04/05/25 10:38
Resp Rate 16 04/05/25 10:38
Blood pressure 110/54 04/05/25 10:38
SaO2 97 04/05/25 10:38
Body Mass Index (BMI) 31.2
Lab Results / Allergies
04/05/25 06:33
04/05/25 06:33
WBC 9.8 10^3/uL (4.8-10.8) 04/05/25 06:33
Hgb 10.3 g/dL (12.0-16.0) L 04/05/25 06:33
Hct 30.6 % (37.0-47.0) L 04/05/25 06:33
Plt Count 205 10^3/uL (130-400) 04/05/25 06:33
Abs Immat Gran (auto) 0.1 10^3/uL (0-0.05) H 04/05/25 06:33
Neutrophils % 79.9 % (42.2-75.2) H 04/05/25 06:33
Allergy/AdvReac Type Severity Reaction Status Date / Time
bacitracin Allergy Unknown Verified 04/04/25 16:14
clindamycin Allergy Anaphylaxis Verified 04/04/25 16:14
sulfamethoxazole (From Allergy Rash Verified 04/04/25 16:14
Bactrim)
trimethoprim (From Bactrim) Allergy Rash Verified 04/04/25 16:14
Physical Exam
General: Well Developed, Well Nourished and No Apparent Distress
GI: Soft, Non Tender and Non Distended
Data Reviewed
-
CT Scan: Image Personally Visualized and interpreted, Report Reviewed by me and Discussed with Patient
Labs: Labs Reviewed by me, Discussed with Physician and Discussed with Patient
Old Records: Reviewed
Assessment / Plan
-
Assessment: 84yo female with a history of ulcerative colitis presents to [facility] with fatigue/diarrhea/weakness and has worsening pancolitis on CT scan
Plan:
-Continue to trend exam/labs
-Colitis management per GI
-Abx per ID
-Starting IV steroids today
-Eventual flexible sigmoidoscopy when able
-Holding off on surgery for now, but may require in the future if she does not improve. Discussed with patient and family at bedside.
--- NOTE | 2025-04-05 15:18 | PTCARENOTE ---
Pt from [facility], AAOx3 on RA. IV fluid running as ordered. at bedside
[2025-04-05] MEDS: 0.45%NACL IV (16:29)
[2025-04-05] MEDS: THERAGRAN 1 TABLET PO (17:57)
[2025-04-05] MEDS: LOVENOX 40 MG SC (17:57)
[2025-04-05] MEDS: SOLU-MEDROL PF 20 MG IV (20:13)
[2025-04-05] MEDS: XANAX 1 MG PO (20:13)
[2025-04-05] MEDS: ASACOL, DELZICOL DR 1200 MG PO (20:13)
[2025-04-06] VITALS (16 sets, daily range): BP systolic 105–128; BP diastolic 58–84; PULSE 90; O2SAT 100
[2025-04-06] MEDS: 0.45%NACL 1000 IV (02:25)
[2025-04-06] MEDS: SOLU-MEDROL PF 20 MG IV ×3 (04:01→20:01)
--- NOTE | 2025-04-06 04:18 | PTCARENOTE ---
No acute events overnight. Afebrile. No episodes of hypotension. One large loose BM. Remains NPO w meds. Will continue to monitor.
[2025-04-06 04:26] LABS: Hematocrit 35.1 % (37.0-47.0); Hemoglobin 11.7 g/dL (12.0-16.0); Mean Corp Hgb Conc. 33.3 g/dL (33.0-37.0); Mean Corpuscular Volume 97.0 fL (81.0-99.0); Platelet Count 240 10^3/uL (130-400); Red Cell Dist. Width 12.5 % (11.5-14.5)
[2025-04-06 04:42] LABS: ALT (SGPT) 24 U/L (0-35); AST (SGOT) 21 U/L (14-36); Albumin 2.5 g/dl (3.5-5.0); Alkaline Phosphatase 91 U/L (38-126); Blood Urea Nitrogen 19 mg/dl (7-17); Calcium 8.1 mg/dl (8.4-10.2); Carbon Dioxide 22 mmol/L (22-30); Chloride 106 mmol/L (98-107); Estimated Creatinine Clearance 60 ml/min; Glucose 98 mg/dl (70-99); Potassium 4.6 mmol/L (3.5-5.1); Sodium 136 mmol/L (135-145); Total Protein 5.0 g/dl (6.3-8.2); eGFR > 60.00
[2025-04-06 06:14] LABS: Absolute Neutrophils -Man Diff 11.1 10^3/uL (1.4-6.5); Macrocytosis 3+; Normal RBC Morphology No; Platelets Checked Yes; Total Cells Counted 100
--- NOTE | 2025-04-06 08:11 | W.PN.GI.CBS2 ---
Today's Communication / Plan
-
C/w IV steroids-- solumedrol 20mg IV Q8H
If passes swallow study today consider adv to full liquid diet
Continue to monitor stool output
Assessment / Plan
-
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
Impression
- Sepsis with fever, confusion, tachy and hypotension
suspect gut bacterial translocation from severe UC
CXR and UA negative
- Severe UC with pancolitis
- Electrolyte abnormalities
- Diarrhea
- RA
Recommendations
- Clinically improving on IV steroids started 04/05
- UA, UC, CXR and BC negative
- C/w mesalamine
- C/w abx per ID
- Stool studies including Cdiff x2 negative thus far
- Not stable for flex sigm given hypotension and SOB. Repeat CTAP showed severe pancolitis and now given improvement on steroids will hold
- Appreciate colorectal surgery and ID recommendations
- Bedside swallow today and if passes will adv to full liquid iet
- hep B and TB incase biologic needed in future
RN and hospitalist updated bedside. Will follow with you
Subjective
Subjective
Date of Service: April 06, 2025
She was transferred to IMU. Denies abd pain, nausea/vomiting. She had 2 loose nonbloody BMs overnight per RN. One incontinent and one on bedpan. No further fevers.
Objective
Data Reviewed
Laboratory Data:
Laboratory Results
04/06/25 04:08
04/06/25 04:08
Laboratory Results
Magnesium 1.9 mg/dl (1.6-2.3) 04/02/25 06:37
Total Bilirubin 0.4 mg/dl (0.2-1.3) 04/06/25 04:08
AST 21 U/L (14-36) 04/06/25 04:08
ALT 24 U/L (0-35) 04/06/25 04:08
Alkaline Phosphatase 91 U/L (38-126) 04/06/25 04:08
Vital Signs and I&O:
Vital Signs
Temp Pulse Resp BP Pulse Ox
98.6 F 84 26 105/66 92
04/06/25 03:20 04/06/25 06:00 04/06/25 06:00 04/06/25 06:00 04/05/25 22:47
I&O
04/05/25 04/06/25 04/07/25
06:59 06:59 06:59
Intake Total 3248 / 3248 960 / 960
Output Total 500 / 500
Balance 2748 / 2748 960 / 960
Physical Exam
Physical Exam
GEN: No acute distress, conversant, pleasant
HEENT: anicteric, extraocular movements intact, clear oropharynx without exudates
GI: soft, obese non-distended, not tender to palpation, normal active bowel sounds, no hepatosplenomegaly
EXT: warm, well perfused, no edema bilaterally
NEURO: AAOx3 actually to year today, improved less confused , non-focal
--- NOTE | 2025-04-06 08:14 | PTOTSP ---
DENTAL THERAPIST Note
Patient transferred to higher level of care (IMU) and NPO. New orders required to continue care. Please place new orders if/when medically appropriate.
--- NOTE | 2025-04-06 08:24 | W.PN.HOSP.TC ---
Addendum entered and electronically signed by Tamir Sinclair DO 04/06/25 14:43:
Mild protein/calorie Malnutrition of acute illness
Original Note:
Today's Communication/Plan
-
PT/OT
Out of bed
Continue steroids
Assessment / Plan
Assessment / Plan
Gen-awake, alert, NAD
HEENT-NC, AT, anicteric, clear oral mm, oral aphthous ulcers on tongue
Neck-supple
CV-reg, no M, +S1/S2
Lungs-clear B/L
Abd-soft, NT, mild distention
Ext-no edema
Musculoskeletal-no cyanosis, clubbing
Skin-warm and dry
Neuro-grossly non-focal
Psych-calm, cooperative
Acute delirium -resolved.
Sepsis -due to colitis, ulcerative colitis flare. Blood cultures negative so far. Stool studies negative so far. Continue IV ceftriaxone per infectious disease.
Tachycardic/tachypneic episodes correlate well with fevers, heart rate and respiratory rate improves when afebrile.
Repeat CT abdomen with IV contrast 04/05 shows worsening severe pancolitis likely related to ulcerative colitis. Incidental 3.7 cm mildly heterogeneous cystic left adnexal lesion. Would not workup for now.
Clinically doubt pulmonary embolism as she has no symptoms of chest pain or shortness of breath, not hypoxic. Elevated D-dimer is nonspecific in the setting of sepsis and possible ulcerative colitis flare.
Ulcerative colitis flare -started on methylprednisolone 04/05, will continue. Clinically much improved overnight. Mild leukocytosis expected from steroids. Fever resolved.
Full liquid diet per GI.
Oral aphthous ulcers -can try topical alum, it is a spice. Discussed with patient.
NG Met Acidosis -resolved.
Hypokalemia -due to diarrhea. Resolved.
Hyponatremia -improved.
Rheumatoid arthritis -quiescent.
ADD
History of gout -colchicine now on hold given ongoing diarrhea.
Obesity due to excess calories
DNR
PT/OT
Anticipated Discharge: > 48 hours
Subjective/Interval History
-
Date of Service: April 06, 2025
Patient seen and examined. Feeling much better. States diarrhea is slowing down. No complaints.
Objective Data
-
Labs:
Laboratory Results
04/06/25
04:08
WBC 11.9 H
Hgb 11.7 L
Hct 35.1 L
Plt Count 240
Sodium 136
Potassium 4.6
Chloride 106
Carbon Dioxide 22
BUN 19 H
Creatinine 0.5 L
Glucose 98
Calcium 8.1 L
Total Bilirubin 0.4
AST 21
ALT 24
Alkaline Phosphatase 91
Vital Signs:
Vital Signs
Temp Pulse Resp BP Pulse Ox
98.2 F 84 26 105/66 92
04/06/25 08:13 04/06/25 06:00 04/06/25 06:00 04/06/25 06:00 04/05/25 22:47
I&O
04/05/25 04/06/25 04/07/25
06:59 06:59 06:59
Intake Total 3248 / 3248 960 / 960
Output Total 500 / 500
Balance 2748 / 2748 960 / 960
Review of Systems
-
History Source: Patient
All other systems: Reviewed and negative
[2025-04-06] MEDS: ASACOL, DELZICOL DR 1200 MG PO ×2 (08:38→20:01)
[2025-04-06] MEDS: PROTONIX IV 40 MG IV (08:39)
[2025-04-06] MEDS: TIMOPTIC 0.5% OPHTHALMIC SOLUTION 1 DROP LEFT EYE ×2 (08:39→20:01)
[2025-04-06] MEDS: NSS (PRESERVATIVE FREE) 10 ML IV (08:39)
--- NOTE | 2025-04-06 08:48 | W.PN.ID1 ---
Date of Service
Date of Service: April 06, 2025
Today's Communication
DC abx and observe.
Assessment / Plan
# Pancolitis worse on repeat CT - suspect IBD flare
# Nonbloody diarrhea, onset 03/27, improving
# Fever resolved
# Leukocytosis - on steroid
# Mouth ulcers - onset prior to diarrhea
# Hx UC on mesalamine
# Elevated CRP and stool calprotectin (>3000)
- Repeat Blood cultures negative to date.
-Urine culture negative
- Chest x-ray x2 no pneumonia
- Stool C. difficile x2 negative, stool culture negative.
- Stool norovirus neg, O+P neg. Yersinia pending
- Suspect UC flare. Pt responding to steroid (d2)
- Agree with starting steroid.
- DC further abx and observe
Chief Complaint
-: Fever and Other (diarrhea)
Subjective / Review of Systems
Feels much improved. Hungry.
Diarrhea not as frequent.
Vital Signs / Physical Exam
Vital Signs
Vital Signs
Temp Pulse Resp BP Pulse Ox
98.2 F 84 26 105/66 92
04/06/25 08:13 04/06/25 06:00 04/06/25 06:00 04/06/25 06:00 04/05/25 22:47
Physical Exam
Constitutional: No Acute Distress and Comfortable
Cardiovascular: Regular Rate and S1/S2
Pulmonary: Clear
Gastrointestinal: Soft, Non Tender and Normal Bowel Sounds
Genito-Urinary: Negative CVA Tenderness
Extremities: Negative Edema
Neurological: AO x 3
Objective Data
Lab Data
Lab Results
04/06/25 04:08
04/06/25 04:08
ESR 50 mm/hour (0-20) H 04/01/25 14:00
Estimated Creat Clear 60 ml/min 04/06/25 04:08
Lactic Acid Cancelled 04/01/25 06:00
Total Bilirubin 0.4 mg/dl (0.2-1.3) 04/06/25 04:08
AST 21 U/L (14-36) 04/06/25 04:08
ALT 24 U/L (0-35) 04/06/25 04:08
Alkaline Phosphatase 91 U/L (38-126) 04/06/25 04:08
C-Reactive Protein > 270.00 mg/L (0.0-10.00) H 04/01/25 14:00
Most recent labs reviewed.
Micro Results:
03/31/25 15:29 Blood Culture - Final
Blood/Venous No Growth - Final Report
03/31/25 13:08 Blood Culture - Final
Blood/Venous No Growth - Final Report
04/04/25 18:15 Cryptosporidium/Giardia - Final
Feces/Stool Negative for Cryptosporidium and/or Giardia Lamblia
antigens.
- Final
Negative for Norovirus GI and GII.
04/04/25 10:13 Blood Culture - Preliminary
Blood/Venous No Growth in 24 hours- Final report to follow
04/04/25 09:38 Blood Culture - Preliminary
Blood/Venous No Growth in 24 hours- Final report to follow
04/04/25 18:15 C. difficile GDH Antigen & Toxins - Final
Feces/Stool Negative for toxigenic C.difficile
04/04/25 18:15 - Pending
Feces/Stool
03/31/25 17:43 Salmonella/Shigella Culture - Final
Feces/Stool No Salmonella, Shigella, Aeromonas or Plesiomonas species
isolated.
Campylobacter Culture - Final
No Campylobacter species isolated.
Shiga Toxin Test - Final
No E. coli Shiga Toxin 1 or 2 detected.
04/01/25 11:44 Urine Culture - Final
Urine NO GROWTH
03/31/25 12:54 C. difficile GDH Antigen & Toxins - Final
Feces/Stool Negative for toxigenic C.difficile
04/05/25 CT a/p: There is findings of worsening severe pancolitis. Findings are likely related to reported ulcerative colitis.
04/04/25 CXR: The trachea is midline. There is moderate elevation of the right hemidiaphragm. There appear to be thin bands of subpleural subsegmental atelectasis and scarring in both lower lungs. There is no focal airspace opacity suspicious for
pneumonia. There is no radiographic evidence for pleural effusion or pneumothorax.
03/31 CTa/p: Mild diffuse colonic wall thickening suggestive of pancolitis. Mild to moderate amount of fluid within the proximal colon. Severe chronic diverticular disease within the sigmoid. Small amount of free fluid within the pelvis.
--- NOTE | 2025-04-06 08:49 | W.PN.CRS1 ---
Today's Communication / Plan
-
no plans for surgery at this time
continue IV steriods per GI
Assessment/Plan
-
Assessment: 84yo female with a history of ulcerative colitis presents to [facility] with fatigue/diarrhea/weakness and has worsening pancolitis on CT scan
WBC: 11.9 (9.8), afebrile last 24 hours, hypotension/tachycardia resolved
Plan:
-Continue to trend exam/labs
-Colitis management/diet per GI
-Abx per ID
-Continue IV steriod taper
-Eventual flexible sigmoidoscopy when able
-Holding off on surgery for now, but may require in the future if she does not improve. Discussed with patient and family at bedside.
Subjective Data
Subjective Data
Date of Service: April 06, 2025
Patient states she is feeling better today. She has flatus. The amount of liquid diarrhea has lessened since getting the steroid yesterday. Denies any bleeding. Denies nausea or vomiting. Denies abdominal pain.
Objective Data
-
Vital Signs
Temp Pulse Resp BP Pulse Ox
98.2 F 84 26 105/66 92
04/06/25 08:13 04/06/25 06:00 04/06/25 06:00 04/06/25 06:00 04/05/25 22:47
Intake & Output
04/05/25 04/06/25 04/07/25
06:59 06:59 06:59
Intake Total 3248 / 3248 960 / 960
Output Total 500 / 500
Balance 2748 / 2748 960 / 960
Intake:
Oral fluids 1360 / 1360
IV fluids (Total) 1758 / 1758 960 / 960
IV piggybacks 130 / 130
Output:
Straight cath output 500 / 500
Other:
Number of approximated MODERATE 1
amounts of urine
How many times incontinent 1
MODERATE amount urine
How many times incontinent 2 2
SATURATED amount urine
Lab Results
04/06/25 04:08
04/06/25 04:08
Physical Exam
-
General: No Acute Distress and AOx3
Abdomen: Soft, Non Distended and Non Tender
Skin: Warm
--- NOTE | 2025-04-06 10:09 | PN.CDI ---
CDI
- -
CDI:
Physician Documentation Request
Admit Date: 03/31/25 15:28
Dear Doctor Yahir ,
Please review the following and provide your response in the progress notes.
Clinical Indicators:
Pt admitted with Sepsis 2/2 UC flare /bacteria translocation
Documented per nutrition note 04/05, ' Sudden poor intake prior to/during admit </= to 75 % for >/= to 5 days...' CBW: 154 lbs 4 oz BMI 31.2 obese range (04/01) Compared at a UBW of 160 lbs a few weeks ago, pt with a 4% weight loss in 2 weeks. Per
previous note pt meets AND/ASPEN criteria for mild protein calorie malnutrition of acute willness. Request progression of diet as tolerated. '
Based on the above information and your assessment, which of the following most accurately represents the patient's nutritional status?
Mild protein calorie Malnutrition
Other (please specify)
[place] Criteria (ACP Hospitalist 2017)
2 or more criteria must be present for either
non severe or severe malnutrition
Note that the criteria differs related to the
presence of an acute or chronic illness
Acute Illness Chronic Illness
Energy Intake Non Severe: <75% for >7 days Non Severe: <75% for >1 month
Severe: <50% for >5 days Severe: <75% for >1 month
Weight Loss Non Severe: 1-2% over 1 week Non Severe: 5% over 1 month
5% over 1 month 7.5% over 3 months
7.5% over 3 months 10% over 6 months
1 year N/A 20% over 1 year
Severe: >2% over 1 week Severe: >5% over 1 month
>5% over 1 month >7.5% over 3 months
>7.5% over 3 months >10% over 6 months
1 year N/A >20% over 1 year
Body Fat Non Severe: Mild Decrease Non Severe: Mild Loss
Severe: Moderate Decrease Severe: Severe Loss
Muscle Mass Non Severe: Mild Decrease Non Severe: Mild Loss
Severe: Moderate Decrease Severe: Severe Loss
Fluid Accumulation Non Severe: Mild Accumulation Non Severe: Mild Accumulation
Severe: Moderate to severe Severe: Moderate to severe
accumulation accumulation
Reduced Manufacturing Process Engineer Strength Non Severe: N/A Non Severe: N/A
Severe: Measurably reduced Severe: Measurably reduced
Use of terms such as suspected, likely, concern for, or probable (associated with a specific diagnosis that is being evaluated, monitored, or treated as if it exists) are acceptable and can be coded in the inpatient setting, when documented at the
time of discharge.
Thank you,
Lesley Melchor RN
CDI Specialist
[facility] [facility]
Please use your independent medical judgment in providing your response.
--- NOTE | 2025-04-06 10:21 | PTOTSP ---
Dysphagia Evaluation
Suspect functional oral/pharyngeal swallow for consistencies assessed at time of initial evaluation. Suspect acute factors impacting prior reported dysphagia symptoms include episodes of delirium and tachypnea w/ presence of oral sores. Mentation
improving per family. Chronic dysphagia risk factors include history of RA.
Recommend:
1. Continue Full Liquid Diet per GI
2. Medications 1 at a time with sips of water
3. General aspiration and reflux precautions
4. Will follow up briefly to assess with solids as clinically appropriate.
--- NOTE | 2025-04-06 10:54 | PTCARENOTE ---
Pt continues OOB to chair daughters at bedside
--- NOTE | 2025-04-06 15:05 | CM ---
Patient seen at bedside, with patient daughters present. Therapy recommending SNF. CM reviewed with daughter's post acute options and family to update with CM several options and CM will send referrals. CM will continue to follow for discharge
planning needs.
Plan; SNF; will need to make referrals after daughter's choices are reviewed.
[2025-04-06] MEDS: THERAGRAN 1 TABLET PO (17:34)
[2025-04-06] MEDS: LOVENOX 40 MG SC (17:34)
--- NOTE | 2025-04-06 18:09 | PTCARENOTE ---
)Pt now back in bed , pt sat in chairall day
[2025-04-06] MEDS: XANAX 1 MG PO (20:00)
[2025-04-06 21:05] LABS: Hepatitis B Surface Antigen Negative (Negative)
[2025-04-07] VITALS (8 sets, daily range): BP systolic 119–133; BP diastolic 61–77
--- NOTE | 2025-04-07 02:52 | PTCARENOTE ---
Patient voiding small amounts at a time- bladder scanned for 1100. Straight cathed for 1000 silvia output. Continues with loose stools but smaller amount. Afebrile. Will continue to monitor.
[2025-04-07] MEDS: SOLU-MEDROL PF 20 MG IV ×3 (03:50→19:32)
[2025-04-07 07:00] LABS: Hematocrit 35.6 % (37.0-47.0); Hemoglobin 12.0 g/dL (12.0-16.0); Mean Corp Hgb Conc. 33.7 g/dL (33.0-37.0); Mean Corpuscular Volume 93.9 fL (81.0-99.0); Platelet Count 273 10^3/uL (130-400); Red Cell Dist. Width 12.3 % (11.5-14.5)
[2025-04-07 07:38] LABS: Blood Urea Nitrogen 23 mg/dl (7-17); Calcium 8.1 mg/dl (8.4-10.2); Carbon Dioxide 22 mmol/L (22-30); Chloride 109 mmol/L (98-107); Estimated Creatinine Clearance 60 ml/min; Glucose 134 mg/dl (70-99); Potassium 4.6 mmol/L (3.5-5.1); Sodium 137 mmol/L (135-145); eGFR > 60.00
--- NOTE | 2025-04-07 08:12 | W.PN.HOSP.TC ---
Today's Communication/Plan
-
Rodrigues catheter
Tamsulosin
Assessment / Plan
Assessment / Plan
Gen-awake, alert, NAD
HEENT-NC, AT, anicteric, clear oral mm, oral aphthous ulcers on tongue
Neck-supple
CV-reg, no M, +S1/S2
Lungs-clear B/L
Abd-soft, NT, mild distention
Ext-no edema
Musculoskeletal-no cyanosis, clubbing
Skin-warm and dry
Neuro-grossly non-focal
Psych-calm, cooperative
Acute delirium -resolved.
Sepsis -due to ulcerative colitis flare. Blood cultures negative so far. Stool studies negative so far. Now off antibiotics.
Tachycardic/tachypneic episodes correlate well with fevers, heart rate and respiratory rate improves when afebrile.
Repeat CT abdomen with IV contrast 04/05 shows worsening severe pancolitis likely related to ulcerative colitis. Incidental 3.7 cm mildly heterogeneous cystic left adnexal lesion. Would not workup for now.
Clinically improved with IV steroids. Still with loose stools.
Tolerating full liquid diet, advance to low residue if okay with GI service.
Ulcerative colitis flare -started on methylprednisolone 04/05, will continue. Clinically much improved overnight. Mild leukocytosis expected from steroids. Fever resolved.
Full liquid diet per GI.
Acute urinary retention -possibly present on admission. Last bladder scan 1100 cc. Add tamsulosin. Insert Rordigues catheter given significant retention. Patient and daughter agreeable. Recommend outpatient urology follow-up for urodynamic testing.
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
Oral aphthous ulcers -continue topical alum, patient states it is helping.
NG Met Acidosis -resolved.
Hypokalemia -due to diarrhea. Resolved.
Hyponatremia -improved.
Rheumatoid arthritis -quiescent.
ADD
History of gout -colchicine now on hold given ongoing diarrhea.
Obesity due to excess calories
DNR
PT/OT -SNF recommended. Anticipate likely discharge early next week if stable.
Anticipated Discharge: > 48 hours
Subjective/Interval History
-
Date of Service: April 07, 2025
Patient seen and examined. Feels better. No complaints.
Objective Data
-
Labs:
Laboratory Results
04/07/25
06:42
WBC 13.4 H
Hgb 12.0
Hct 35.6 L
Plt Count 273
Sodium 137
Potassium 4.6
Chloride 109 H
Carbon Dioxide 22
BUN 23 H
Creatinine 0.6
Glucose 134 H
Calcium 8.1 L
Vital Signs:
Vital Signs
Temp Pulse Resp BP Pulse Ox
98.2 F 84 31 132/72 93
04/07/25 03:00 04/07/25 06:00 04/07/25 06:00 04/07/25 06:00 04/06/25 20:05
I&O
04/06/25 04/07/25 04/08/25
06:59 06:59 06:59
Intake Total 960 / 960 480 / 480
Output Total 1000 / 1000
Balance 960 / 960 -520 / -520
Review of Systems
-
History Source: Patient
All other systems: Reviewed and negative
--- NOTE | 2025-04-07 08:52 | W.PN.GI.CBS2 ---
Today's Communication / Plan
-
Advance to low residue diet
Continue IV solumedrol 20mg q8
If continued improvement, transition to PO steroids
Eventual f/u with Dr Sandhu for UC f/u
Assessment / Plan
-
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
Impression
- Sepsis with fever, confusion, tachy and hypotension
suspect gut bacterial translocation from severe UC
CXR and UA negative
- Severe UC with pancolitis
- Electrolyte abnormalities
- Diarrhea
- RA
Subjective
Subjective
Date of Service: April 07, 2025
Feels better. Diarrhea improved, but not resolved. Denies abd pain
Objective
Data Reviewed
Laboratory Data:
Laboratory Results
04/07/25 06:42
04/07/25 06:42
Laboratory Results
Magnesium 1.9 mg/dl (1.6-2.3) 04/02/25 06:37
Total Bilirubin 0.4 mg/dl (0.2-1.3) 04/06/25 04:08
AST 21 U/L (14-36) 04/06/25 04:08
ALT 24 U/L (0-35) 04/06/25 04:08
Alkaline Phosphatase 91 U/L (38-126) 04/06/25 04:08
Vital Signs and I&O:
Vital Signs
Temp Pulse Resp BP Pulse Ox
98.2 F 84 31 132/72 93
04/07/25 03:00 04/07/25 06:00 04/07/25 06:00 04/07/25 06:00 04/06/25 20:05
I&O
04/06/25 04/07/25 04/08/25
06:59 06:59 06:59
Intake Total 960 / 960 480 / 480
Output Total 1000 / 1000
Balance 960 / 960 -520 / -520
Physical Exam
Physical Exam
GI: Soft, Non Distended and Non Tender
--- NOTE | 2025-04-07 09:14 | W.PN.ID1 ---
Date of Service
Date of Service: April 07, 2025
Today's Communication
ID will sign off.
Assessment / Plan
# IBD flare Pancolitis
# Nonbloody diarrhea, onset 03/27, improving on sterpod
# Fever resolved
# Leukocytosis - on steroid
# Mouth ulcers - onset prior to diarrhea
# Hx UC on mesalamine
# Elevated CRP and stool calprotectin (>3000)
- Repeat Blood cultures negative
-Urine culture negative
- Chest x-ray x2 no pneumonia
- Stool C. difficile x2 negative, stool culture negative.
- Stool norovirus neg, O+P neg. Yersinia pending
- Observe off abx.
ID will sign off.
Chief Complaint
-: Other (diarrhea)
Subjective / Review of Systems
Doing much better. BM now loose and less frequent.
Vital Signs / Physical Exam
Vital Signs
Vital Signs
Temp Pulse Resp BP Pulse Ox
97.9 F 84 31 132/72 93
04/07/25 07:58 04/07/25 06:00 04/07/25 06:00 04/07/25 06:00 04/06/25 20:05
Physical Exam
Constitutional: No Acute Distress
Cardiovascular: Regular Rate and S1/S2
Pulmonary: Clear
Gastrointestinal: Soft, Non Tender and Normal Bowel Sounds
Genito-Urinary: Negative CVA Tenderness
Extremities: Negative Edema
Neurological: AO x 3
Objective Data
Lab Data
Lab Results
04/07/25 06:42
04/07/25 06:42
ESR 50 mm/hour (0-20) H 04/01/25 14:00
Estimated Creat Clear 60 ml/min 04/07/25 06:42
Lactic Acid Cancelled 04/01/25 06:00
Total Bilirubin 0.4 mg/dl (0.2-1.3) 04/06/25 04:08
AST 21 U/L (14-36) 04/06/25 04:08
ALT 24 U/L (0-35) 04/06/25 04:08
Alkaline Phosphatase 91 U/L (38-126) 04/06/25 04:08
C-Reactive Protein > 270.00 mg/L (0.0-10.00) H 04/01/25 14:00
Most recent labs reviewed.
Micro Results:
04/04/25 18:15 - Preliminary
Feces/Stool Culture in Progress
04/04/25 10:13 Blood Culture - Preliminary
Blood/Venous No Growth in 48 hours- Final report to follow
04/04/25 09:38 Blood Culture - Preliminary
Blood/Venous No Growth in 48 hours- Final report to follow
03/31/25 15:29 Blood Culture - Final
Blood/Venous No Growth - Final Report
03/31/25 13:08 Blood Culture - Final
Blood/Venous No Growth - Final Report
04/04/25 18:15 Cryptosporidium/Giardia - Final
Feces/Stool Negative for Cryptosporidium and/or Giardia Lamblia
antigens.
- Final
Negative for Norovirus GI and GII.
04/04/25 18:15 C. difficile GDH Antigen & Toxins - Final
Feces/Stool Negative for toxigenic C.difficile
03/31/25 17:43 Salmonella/Shigella Culture - Final
Feces/Stool No Salmonella, Shigella, Aeromonas or Plesiomonas species
isolated.
Campylobacter Culture - Final
No Campylobacter species isolated.
Shiga Toxin Test - Final
No E. coli Shiga Toxin 1 or 2 detected.
04/01/25 11:44 Urine Culture - Final
Urine NO GROWTH
03/31/25 12:54 C. difficile GDH Antigen & Toxins - Final
Feces/Stool Negative for toxigenic C.difficile
04/05/25 CT a/p: There is findings of worsening severe pancolitis. Findings are likely related to reported ulcerative colitis.
04/04/25 CXR: The trachea is midline. There is moderate elevation of the right hemidiaphragm. There appear to be thin bands of subpleural subsegmental atelectasis and scarring in both lower lungs. There is no focal airspace opacity suspicious for
pneumonia. There is no radiographic evidence for pleural effusion or pneumothorax.
03/31 CTa/p: Mild diffuse colonic wall thickening suggestive of pancolitis. Mild to moderate amount of fluid within the proximal colon. Severe chronic diverticular disease within the sigmoid. Small amount of free fluid within the pelvis.
[2025-04-07] MEDS: ASACOL, DELZICOL DR 1200 MG PO ×2 (10:20→19:32)
[2025-04-07] MEDS: NSS (PRESERVATIVE FREE) 10 ML IV (10:20)
[2025-04-07] MEDS: TIMOPTIC 0.5% OPHTHALMIC SOLUTION 1 DROP LEFT EYE ×2 (10:21→19:35)
[2025-04-07] MEDS: PROTONIX IV 40 MG IV (10:21)
[2025-04-07] MEDS: FLOMAX 0.4 MG PO (10:21)
--- NOTE | 2025-04-07 14:19 | CM ---
Patient seen at bedside with patient daughter also present in IMU. Patient daughter provided CM with a excel spread sheet with 11 recommendations for referrals; CM will send referrals to [facility], [facility], [facility], [facility], [facility], [facility] and [facility]. Patient first choices are [facility], [facility], [facility] Putnam, [facility] ri[facility] and [facility]. CM will send referrals via all scripts and await bed availabilities. CM will
continue to follow for discharge planning needs.
Plan; SNF; pending availabilities and medical treatment plan
--- NOTE | 2025-04-07 16:11 | PTCARENOTE ---
Patient transfer from IMU to . Vs documented. Family at bedside. No s/s of distress noted at this time. bed alarm in place for safety. call barnes within reach. plan of care ongoing.
--- NOTE | 2025-04-07 17:00 | PTCARENOTE ---
pt downgraded to med surg and transferred to [address] [place] [id number] at 1500. report given to Joyce. 16 Macedonian hawkins inserted per order this afternoon drained 450 mls clear yellow urine.
[2025-04-07] MEDS: LOVENOX 40 MG SC (17:30)
[2025-04-07] MEDS: THERAGRAN 1 TABLET PO (17:31)
[2025-04-07] MEDS: XANAX 1 MG PO (21:22)
[2025-04-08] MEDS: SOLU-MEDROL PF 20 MG IV ×3 (03:03→20:22)
[2025-04-08] MEDS: FLUSH (NSS) 2 FLUSH IV ×2 (03:03→20:23)
[2025-04-08 07:15] VITALS: BP 137/76
--- NOTE | 2025-04-08 07:46 | W.PN.HOSP.TC ---
Today's Communication/Plan
-
Continue current care
Assessment / Plan
Assessment / Plan
Gen-awake, alert, NAD
HEENT-NC, AT, anicteric, clear oral mm, oral aphthous ulcers on tongue improving
Neck-supple
CV-reg, no M, +S1/S2
Lungs-clear B/L
Abd-soft, NT, mild distention
Ext-no edema
Musculoskeletal-no cyanosis, clubbing
Skin-warm and dry
Neuro-grossly non-focal
Psych-calm, cooperative
Acute delirium -resolved.
Sepsis -due to ulcerative colitis flare. Blood cultures negative so far. Stool studies negative so far. Now off antibiotics. Sepsis resolved. Mild leukocytosis likely due to steroids.
Repeat CT abdomen with IV contrast 04/05 shows worsening severe pancolitis likely related to ulcerative colitis. Incidental 3.7 cm mildly heterogeneous cystic left adnexal lesion. Would not workup for now.
Clinically improved with IV steroids. She states loose stools are improving.
Tolerating low residue diet.
Ulcerative colitis flare -started on methylprednisolone 04/05, will continue. Clinically much improved.
Acute urinary retention -possibly present on admission. Last bladder scan 1100 cc. Add tamsulosin. Rodrigues catheter inserted 04/07. Recommend outpatient urology follow-up. Discussed with family.
Oral aphthous ulcers -continue topical alum, patient states it is helping.
NG Met Acidosis -resolved.
Hypokalemia -due to diarrhea. Resolved.
Hyponatremia -improved.
Rheumatoid arthritis -quiescent.
ADD
History of gout -colchicine now on hold given ongoing diarrhea.
Obesity due to excess calories
DNR
PT/OT -SNF recommended. Anticipate likely discharge Thursday if stable.
Anticipated Discharge: 24 - 48 hours
Subjective/Interval History
-
Date of Service: April 08, 2025
Patient seen and examined, complaining of oral pain from ulcers.
Objective Data
-
Vital Signs:
Vital Signs
Temp Pulse Resp BP Pulse Ox
97.5 F 83 16 130/70 94
04/07/25 23:12 04/07/25 23:12 04/07/25 23:12 04/07/25 23:12 04/07/25 23:12
I&O
04/07/25 04/08/25 04/09/25
06:59 06:59 06:59
Intake Total 480 / 480 720 / 720
Output Total 1000 / 1000 1050 / 1050
Balance -520 / -520 -330 / -330
Review of Systems
-
History Source: Patient
All other systems: Reviewed and negative
[2025-04-08] MEDS: FLOMAX 0.4 MG PO (09:55)
[2025-04-08] MEDS: ASACOL, DELZICOL DR 1200 MG PO ×2 (09:55→20:22)
[2025-04-08] MEDS: PROTONIX 40 MG PO (09:56)
[2025-04-08] MEDS: TIMOPTIC 0.5% OPHTHALMIC SOLUTION 1 DROP LEFT EYE ×2 (09:56→20:23)
--- NOTE | 2025-04-08 12:52 | W.PN.GI.CBS2 ---
Today's Communication / Plan
-
Continue IV solumedrol another day
If improved tomorrow, consider converting to oral steroids
Cont diet as tolerated
Assessment / Plan
-
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
Impression
- Severe UC with pancolitis
- On admission, sepsis with fever, confusion, tachy and hypotension- much improved
suspect gut bacterial translocation from severe UC
CXR and UA negative
- Electrolyte abnormalities
- Diarrhea
- RA
Subjective
Subjective
Date of Service: April 08, 2025
Had 4 loose stools overnight. Not feeling back to baseline but improved from admission
Objective
Data Reviewed
Laboratory Data:
Laboratory Results
04/07/25 06:42
04/07/25 06:42
Laboratory Results
Magnesium 1.9 mg/dl (1.6-2.3) 04/02/25 06:37
Total Bilirubin 0.4 mg/dl (0.2-1.3) 04/06/25 04:08
AST 21 U/L (14-36) 04/06/25 04:08
ALT 24 U/L (0-35) 04/06/25 04:08
Alkaline Phosphatase 91 U/L (38-126) 04/06/25 04:08
Vital Signs and I&O:
Vital Signs
Temp Pulse Resp BP Pulse Ox
97.5 F 84 16 137/76 96
04/08/25 07:15 04/08/25 07:15 04/08/25 07:15 04/08/25 07:15 04/08/25 07:15
I&O
04/07/25 04/08/25 04/09/25
06:59 06:59 06:59
Intake Total 480 / 480 720 / 720 480 / 480
Output Total 1000 / 1000 1050 / 1050 2 / 2
Balance -520 / -520 -330 / -330 478 / 478
Physical Exam
Physical Exam
GI: Soft, Non Distended and Non Tender
[2025-04-08] MEDS: IMODIUM 2 MG PO (13:52)
[2025-04-08 15:48] VITALS: BP 132/73
[2025-04-08] MEDS: LOVENOX 40 MG SC (17:32)
[2025-04-08] MEDS: THERAGRAN 1 TABLET PO (17:33)
[2025-04-08] MEDS: MAGIC OR MIRACLE MOUTHWASH 10 ML PO (18:23)
[2025-04-08] MEDS: XANAX 1 MG PO (22:00)
[2025-04-08 23:07] VITALS: BP 141/79
[2025-04-09] MEDS: SOLU-MEDROL PF 20 MG IV ×3 (03:08→19:30)
[2025-04-09] MEDS: FLUSH (NSS) 2 FLUSH IV (03:09)
[2025-04-09 07:30] VITALS: BP 138/68
--- NOTE | 2025-04-09 07:50 | W.PN.HOSP.TC ---
Today's Communication/Plan
-
Continue current care
Assessment / Plan
Assessment / Plan
Gen-awake, alert, NAD
HEENT-NC, AT, anicteric, clear oral mm, oral aphthous ulcers on tongue improving
Neck-supple
CV-reg, no M, +S1/S2
Lungs-clear B/L
Abd-soft, NT, mild distention
Ext-no edema
Musculoskeletal-no cyanosis, clubbing
Skin-warm and dry
Neuro-grossly non-focal
Psych-calm, cooperative
Acute delirium -resolved.
Sepsis -due to ulcerative colitis flare. Blood cultures negative so far. Stool studies negative so far. Now off antibiotics. Sepsis resolved. Mild leukocytosis likely due to steroids.
Repeat CT abdomen with IV contrast 04/05 shows worsening severe pancolitis likely related to ulcerative colitis. Incidental 3.7 cm mildly heterogeneous cystic left adnexal lesion. Would not workup for now.
Ulcerative colitis flare -started on methylprednisolone 04/05.
Clinically improved with IV steroids. She states loose stools are improving but nursing documentation suggests otherwise. Loperamide resumed 04/08.
Tolerating low residue diet.
Acute urinary retention -possibly present on admission. Last bladder scan 1100 cc. Add tamsulosin. Rodrigues catheter inserted 04/07. Recommend outpatient urology follow-up. Discussed with family.
Oral aphthous ulcers -continue topical alum, patient states it is helping. Magic mouthwash added as needed.
NG Met Acidosis -resolved.
Hypokalemia -due to diarrhea. Resolved.
Hyponatremia -improved.
Rheumatoid arthritis -quiescent.
ADD
History of gout -colchicine now on hold given ongoing diarrhea.
Obesity due to excess calories
DNR
PT/OT -SNF recommended. Anticipate likely discharge Thursday if stable.
Anticipated Discharge: 24 - 48 hours
Subjective/Interval History
-
Date of Service: April 09, 2025
Patient seen and examined. States diarrhea is slowing down. Complaining of oral pain from ulcers.
Objective Data
-
Vital Signs:
Vital Signs
Temp Pulse Resp BP Pulse Ox
98.0 F 90 16 141/79 96
04/08/25 23:07 04/08/25 23:07 04/08/25 23:07 04/08/25 23:07 04/08/25 23:07
I&O
04/08/25 04/09/25 04/10/25
06:59 06:59 06:59
Intake Total 720 / 720 2400 / 2400
Output Total 1050 / 1050 1377 / 1377
Balance -330 / -330 1023 / 1023
Review of Systems
-
History Source: Patient
All other systems: Reviewed and negative
[2025-04-09] MEDS: ASACOL, DELZICOL DR 1200 MG PO ×2 (08:15→20:09)
[2025-04-09] MEDS: PROTONIX 40 MG PO (08:15)
[2025-04-09] MEDS: FLOMAX 0.4 MG PO (08:15)
[2025-04-09] MEDS: MAGIC OR MIRACLE MOUTHWASH 10 ML PO ×2 (08:16→19:30)
[2025-04-09] MEDS: TIMOPTIC 0.5% OPHTHALMIC SOLUTION 1 DROP LEFT EYE ×2 (08:16→19:31)
[2025-04-09] MEDS: IMODIUM 2 MG PO (09:30)
[2025-04-09 10:13] LABS: Hematocrit 37.1 % (37.0-47.0); Hemoglobin 12.3 g/dL (12.0-16.0); Mean Corp Hgb Conc. 33.2 g/dL (33.0-37.0); Mean Corpuscular Volume 95.1 fL (81.0-99.0); Platelet Count 314 10^3/uL (130-400); Red Cell Dist. Width 12.4 % (11.5-14.5)
[2025-04-09 10:36] LABS: Blood Urea Nitrogen 17 mg/dl (7-17); Calcium 8.3 mg/dl (8.4-10.2); Carbon Dioxide 23 mmol/L (22-30); Chloride 108 mmol/L (98-107); Estimated Creatinine Clearance 60 ml/min; Glucose 143 mg/dl (70-99); Magnesium 2.2 mg/dl (1.6-2.3); Potassium 4.2 mmol/L (3.5-5.1); Sodium 138 mmol/L (135-145); eGFR > 60.00
--- NOTE | 2025-04-09 11:25 | W.PN.GI.CBS2 ---
Today's Communication / Plan
-
Slowly improving overall
Will keep on IV steroids another day and if better, switch to PO
I believe she is making slow progress but if not, can consider flex sig
Eventual f/u OP with her catalog librarian, Dr Strickland to discuss [facility] rx
Assessment / Plan
-
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
Impression
- Severe UC with pancolitis
- On admission, sepsis with fever, confusion, tachy and hypotension- much improved
suspect gut bacterial translocation from severe UC
CXR and UA negative
- Electrolyte abnormalities
- Diarrhea
- RA
Subjective
Subjective
Date of Service: April 09, 2025
BMs less frequent but still not formed. Oral ulcers are better with local care
Objective
Data Reviewed
Laboratory Data:
Laboratory Results
04/09/25 09:44
04/09/25 09:44
Laboratory Results
Phosphorus 3.6 mg/dl (2.5-4.5) 04/09/25 09:44
Magnesium 2.2 mg/dl (1.6-2.3) 04/09/25 09:44
Total Bilirubin 0.4 mg/dl (0.2-1.3) 04/06/25 04:08
AST 21 U/L (14-36) 04/06/25 04:08
ALT 24 U/L (0-35) 04/06/25 04:08
Alkaline Phosphatase 91 U/L (38-126) 04/06/25 04:08
Vital Signs and I&O:
Vital Signs
Temp Pulse Resp BP Pulse Ox
97.8 F 99 12 138/68 94
04/09/25 07:30 04/09/25 07:30 04/09/25 07:30 04/09/25 07:30 04/09/25 07:30
I&O
04/08/25 04/09/25 04/10/25
06:59 06:59 06:59
Intake Total 720 / 720 2400 / 2400
Output Total 1050 / 1050 1377 / 1377
Balance -330 / -330 1023 / 1023
Physical Exam
Physical Exam
GI: Soft, Non Distended and Non Tender
[2025-04-09 11:47] LABS: Nucleated Red Blood Cells % 0 %
[2025-04-09 11:48] LABS: Absolute Neutrophils -Man Diff 9.0 10^3/uL (1.4-6.5); Normal RBC Morphology Yes; Platelets Checked Yes; Total Cells Counted 100
[2025-04-09 15:20] VITALS: BP 129/64
[2025-04-09] MEDS: LOVENOX 40 MG SC (17:05)
[2025-04-09] MEDS: THERAGRAN 1 TABLET PO (17:06)
[2025-04-09] MEDS: XANAX 1 MG PO (21:29)
[2025-04-09 23:39] VITALS: BP 133/70
[2025-04-10] MEDS: SOLU-MEDROL PF 20 MG IV ×3 (04:07→22:09)
[2025-04-10 07:53] VITALS: BP 142/73
[2025-04-10] MEDS: FLOMAX PO ×2 (08:05→08:23)
[2025-04-10] MEDS: ASACOL, DELZICOL DR PO ×2 (08:05→08:23)
[2025-04-10] MEDS: TIMOPTIC 0.5% OPHTHALMIC SOLUTION 1 DROP LEFT EYE ×2 (08:05→22:10)
[2025-04-10] MEDS: PROTONIX PO ×2 (08:05→08:23)
[2025-04-10] MEDS: MAGIC OR MIRACLE MOUTHWASH 10 ML PO ×2 (08:06→22:10)
--- NOTE | 2025-04-10 08:35 | W.PN.GI.CBS2 ---
Today's Communication / Plan
-
Improved from admission but still having watery stools
Will proceed with flex sig today r/o CMV
Continue IV solumedrol 20mg q8
ESR 53, CRP pending
If truly refractory, may need to consider IFX. Hep BsAG negative. TB indeterminate (mitogen negative possibly due to steroids)
Assessment / Plan
-
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
03/31 CT- Mild pancolitis
04/01 CRP >270. ESR 50
04/05 CT- Worsening severe pancolitis. Started on IV solumedrol
04/10 ESR 53. CRP pending
Impression
- Severe UC with pancolitis
- On admission, sepsis with fever, confusion, tachy and hypotension- much improved
suspect gut bacterial translocation from severe UC
CXR and UA negative
- Electrolyte abnormalities
- Diarrhea
- RA
Subjective
Subjective
Date of Service: April 10, 2025
Still c/o watery stool, no change. Denies abd pain
Objective
Data Reviewed
Laboratory Data:
Laboratory Results
04/09/25 09:44
04/09/25 09:44
Laboratory Results
Phosphorus 3.6 mg/dl (2.5-4.5) 04/09/25 09:44
Magnesium 2.2 mg/dl (1.6-2.3) 04/09/25 09:44
Total Bilirubin 0.4 mg/dl (0.2-1.3) 04/06/25 04:08
AST 21 U/L (14-36) 04/06/25 04:08
ALT 24 U/L (0-35) 04/06/25 04:08
Alkaline Phosphatase 91 U/L (38-126) 04/06/25 04:08
Vital Signs and I&O:
Vital Signs
Temp Pulse Resp BP Pulse Ox
97.8 F 85 18 142/73 95
04/10/25 07:53 04/10/25 07:53 04/10/25 07:53 04/10/25 07:53 04/10/25 07:53
I&O
04/09/25 04/10/25 04/11/25
06:59 06:59 06:59
Intake Total 2400 / 2400 1440 / 1440
Output Total 1377 / 1377 1250 / 1250
Balance 1023 / 1023 190 / 190
Physical Exam
Physical Exam
GI: Soft, Non Distended and Non Tender
[2025-04-10 09:43] LABS: C-Reactive Protein 190.40 mg/L (0.0-10.00)
--- NOTE | 2025-04-10 11:15 | PTCARENOTE ---
Administered ordered tap water enema. Patient had loose liquid bowel movement, did not hold enema well during administration.
--- NOTE | 2025-04-10 11:33 | CM ---
Addendum entered by Abraham Patricia 04/10/25 12:52:
CM received a phone call from [facility] diabetes education coordinator Krysten [phone] and she confirmed they will accept the pt when pt is medically stable.
Daughter and pt are aware.
Original Note:
CM following re: discharge planning.
Reviewed pt's chart, met with pt and pt's daughter at bedside.
Both pt and her daughter are aware that [facility] and [facility] offered a bed. Both pt and her daughter asked to fax additional referral to [facility].
A referral to [facility] made.
D/C plan: preferred SNF
CM will follow to assist pt with discharge to a preferred SNF.
--- NOTE | 2025-04-10 12:17 | W.PN.UPDATE ---
Update Note
Progress Note Update
Flex sig done
Exam to 40cm
Edema and deep ulceration throughout
Bx taken for path and CMV
REC:
Await path
Go back on clears
Advance diet if improved
CRP only down from >270 on admission to 190 today
Continue to follow
[2025-04-10 12:28] VITALS: BP 119/52
[2025-04-10 12:30] VITALS: BP 124/54
[2025-04-10 12:45] VITALS: BP 124/53
--- NOTE | 2025-04-10 13:13 | W.PN.HOSP.TC ---
Today's Communication/Plan
-
continue steroids
clears + supplements
follow GI path/biopsies
follow GI recs
Void trial today
daughter updated
Assessment / Plan
Assessment / Plan
Exam:
Gen-awake, alert, NAD
HEENT-NC, AT, anicteric, clear oral mm, oral aphthous ulcers on tongue improving
Neck-supple
CV-reg, no M, +S1/S2
Lungs-clear B/L
Abd-soft, NT, mild distention
Ext-no edema
Musculoskeletal-no cyanosis, clubbing
Skin-warm and dry
Neuro-grossly non-focal
Psych-calm, cooperative
Assessment:
Acute in-hospital delirium - resolved.
Sepsis in setting of UC flare
- leukocytosis in setting of steroids
- Cultures negative
UC flare (severe UC with pancolitis)
- CT abdomen with IV contrast 04/05 shows worsening severe pancolitis likely related to ulcerative colitis
- s/p Flex Sig 04/10 with edema and deep ulcerations diffusely; s/p biopsies for path and CMV testing
- diet: clears
- continue IV steroids
- continue Imodium
- trend CRP
Acute urinary retention
- present on admission
- continue Flomax
- Rodrigues inserted 04/07; void trial today. Bladder scan/SC protocol
Oral aphthous ulcers - continue topical alum and magic mouthwash, patient states both are helping.
Non-gap metabolic acidosis - resolved
Hypokalemia - due to diarrhea. Resolved.
acute Hyponatremia - improved.
Incidental 3.7 cm mildly heterogeneous cystic left adnexal lesion. Would not workup for now.
- OP PCP f/u
Rheumatoid arthritis - quiescent.
ADD
History of gout - colchicine now on hold given ongoing diarrhea.
Obesity due to excess calories
DVT ppx: Lovenox
Code: DNR/DNI
Dispo: SNF recommended pending medical clearance.
Anticipated Discharge: > 48 hours
Subjective/Interval History
-
Date of Service: April 10, 2025
no changes in stool consistency this AM
patient went to flex sig where biopsies were taken, now back on clears
Objective Data
-
Vital Signs:
Vital Signs
Temp Pulse Resp BP Pulse Ox
97.3 F 78 29 124/53 94
04/10/25 12:55 04/10/25 12:45 04/10/25 12:45 04/10/25 12:45 04/10/25 12:55
I&O
04/09/25 04/10/25 04/11/25
06:59 06:59 06:59
Intake Total 2400 / 2400 1440 / 1440
Output Total 1377 / 1377 1250 / 1250
Balance 1023 / 1023 190 / 190
Data Reviewed
-
Total Time Spent with Patient (in minutes): 42
Labs: Labs Reviewed by me
[2025-04-10 15:58] VITALS: BP 124/65
[2025-04-10] MEDS: LOVENOX 40 MG SC (17:30)
[2025-04-10] MEDS: THERAGRAN 1 TABLET PO (17:30)
[2025-04-10] MEDS: ASACOL, DELZICOL DR 1200 MG PO (22:09)
[2025-04-10] MEDS: XANAX 1 MG PO (22:12)
[2025-04-10 23:10] VITALS: BP 135/80
[2025-04-11] MEDS: SOLU-MEDROL PF 20 MG IV ×3 (04:55→22:07)
[2025-04-11 07:00] VITALS: BP 145/78
[2025-04-11 07:32] LABS: Blood Urea Nitrogen 16 mg/dl (7-17); Calcium 8.7 mg/dl (8.4-10.2); Carbon Dioxide 26 mmol/L (22-30); Chloride 106 mmol/L (98-107); Estimated Creatinine Clearance 60 ml/min; Glucose 132 mg/dl (70-99); Potassium 4.9 mmol/L (3.5-5.1); Sodium 136 mmol/L (135-145); eGFR > 60.00
[2025-04-11 07:58] LABS: Hematocrit 35.6 % (37.0-47.0); Hemoglobin 11.8 g/dL (12.0-16.0); Mean Corp Hgb Conc. 33.1 g/dL (33.0-37.0); Mean Corpuscular Volume 96.2 fL (81.0-99.0); Platelet Count 351 10^3/uL (130-400); Red Cell Dist. Width 12.3 % (11.5-14.5)
--- NOTE | 2025-04-11 08:41 | W.PN.GI.CBS2 ---
Today's Communication / Plan
-
-- Count number of stools, comment on blood, consistency and frequency
-- Trend CRP
-- repeat TB testing
-- Continue IV steroids, check hepatitis core,, check lipids
-- Start low residue low lactose diet, continue DVT prophylaxis
-- Discussed IV Remicade with the patient. Potentially starting tomorrow pending her clinical response
Assessment / Plan
-
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
03/31 CT- Mild pancolitis
04/01 CRP >270. ESR 50
04/05 CT- Worsening severe pancolitis. Started on IV solumedrol
04/10 ESR 53. CRP pending
Impression
- Severe UC with pancolitis
- On admission, sepsis with fever, confusion, tachy and hypotension- much improved
suspect gut bacterial translocation from severe UC
CXR and UA negative
- Electrolyte abnormalities
- Diarrhea
- RA
04/10/2025 deep ulcerations on the flexible sigmoidoscopy, Rowe 3, biopsies taken for CMV as well
04/11/2025: Patient on day 6 of IV steroids
--Will use today to determine if IV Remicade is necessary inpatient
--Started low residue low lactose diet
--Continue DVT prophylaxis
--Trend CRP
--Check hepatitis B core antibody, check lipids in case Rinvoq is necessary, spoke to ID about indeterminate QuantiFERON. Will repeat, check albumin
--Initial QuantiFERON was checked on day 2 of steroids
--Surgical consult already done, path pending from flexible sigmoidoscopy yesterday
Subjective
Subjective
Date of Service: April 11, 2025
Patient has noticed improvement from admission but still having watery nonbloody stools with minimal abdominal discomfort. Had 1 today thus far. No appetite
Objective
Data Reviewed
Laboratory Data:
Laboratory Results
04/11/25 06:32
04/11/25 06:32
Laboratory Results
Phosphorus 3.6 mg/dl (2.5-4.5) 04/09/25 09:44
Magnesium 2.2 mg/dl (1.6-2.3) 04/09/25 09:44
Total Bilirubin 0.4 mg/dl (0.2-1.3) 04/06/25 04:08
AST 21 U/L (14-36) 04/06/25 04:08
ALT 24 U/L (0-35) 04/06/25 04:08
Alkaline Phosphatase 91 U/L (38-126) 04/06/25 04:08
Vital Signs and I&O:
Vital Signs
Temp Pulse Resp BP Pulse Ox
97.4 F 92 18 145/78 94
04/11/25 07:00 04/11/25 07:00 04/11/25 07:00 04/11/25 07:00 04/11/25 07:00
I&O
04/10/25 04/11/25 04/12/25
06:59 06:59 06:59
Intake Total 1440 / 1440
Output Total 1250 / 1250 100 / 100
Balance 190 / 190 -100 / -100
Physical Exam
Physical Exam
HEENT: Anicteric
Pulmonary: Clear
GI: Soft and Non Distended
Extremities: No Edema
Neuro: Non Focal
[2025-04-11] MEDS: PROTONIX 40 MG PO (08:49)
[2025-04-11] MEDS: FLOMAX 0.4 MG PO (08:49)
[2025-04-11] MEDS: ASACOL, DELZICOL DR 1200 MG PO ×2 (08:49→22:07)
[2025-04-11] MEDS: MAGIC OR MIRACLE MOUTHWASH 10 ML PO ×2 (08:50→22:07)
[2025-04-11] MEDS: TIMOPTIC 0.5% OPHTHALMIC SOLUTION 1 DROP LEFT EYE ×2 (08:50→22:07)
--- NOTE | 2025-04-11 13:23 | W.PN.HOSP.TC ---
Today's Communication/Plan
-
possible Remicade start tomorrow; f/u GI recs
continue IV steroids
Assessment / Plan
Assessment / Plan
Assessment:
Acute in-hospital delirium - resolved.
Sepsis in setting of UC flare
- leukocytosis in setting of steroids
- Cultures negative
UC flare (severe UC with pancolitis)
- CT abdomen with IV contrast 04/05 shows worsening severe pancolitis likely related to ulcerative colitis
- s/p Flex Sig 04/10 with edema and deep ulcerations diffusely; s/p biopsies for path and CMV testing
- diet: Low res, low lactose
- continue IV steroids
- may need IV remicade - pre-testing (TB, hep panel) per GI
- continue Imodium
- trend CRP
Acute urinary retention
- present on admission
- continue Flomax
- Rodrigues inserted 04/07; void trial successful 04/10. continue Bladder scan/SC protocol
Oral aphthous ulcers - continue topical alum and magic mouthwash, patient states both are helping.
Non-gap metabolic acidosis - resolved
Hypokalemia - due to diarrhea. Resolved.
acute Hyponatremia - improved.
Incidental 3.7 cm mildly heterogeneous cystic left adnexal lesion. Would not workup for now.
- OP PCP f/u
Rheumatoid arthritis - quiescent.
ADD
History of gout - colchicine now on hold given ongoing diarrhea.
Obesity due to excess calories
DVT ppx: Lovenox
Code: DNR/DNI
Dispo: SNF recommended pending medical clearance.
Anticipated Discharge: > 48 hours
Subjective/Interval History
-
Date of Service: April 11, 2025
still having watery stools, mild abd discomfort
Objective Data
-
Labs:
Laboratory Results
04/11/25
06:32
WBC 10.2
Hgb 11.8 L
Hct 35.6 L
Plt Count 351
Sodium 136
Potassium 4.9
Chloride 106
Carbon Dioxide 26
BUN 16
Creatinine 0.5 L
Glucose 132 H
Calcium 8.7
Vital Signs:
Vital Signs
Temp Pulse Resp BP Pulse Ox
97.4 F 92 18 145/78 94
04/11/25 07:00 04/11/25 07:00 04/11/25 07:00 04/11/25 07:00 04/11/25 07:00
I&O
04/10/25 04/11/25 04/12/25
06:59 06:59 06:59
Intake Total 1440 / 1440
Output Total 1250 / 1250 100 / 100
Balance 190 / 190 -100 / -100
Physical Exam
-
General: No Apparent Distress
HEENT: Normocephalic and Atraumatic
Respiratory: Negative Wheezes
GI: Soft, Nontender and Nondistended
Neuro: AO x 3
Psych: Calm
Data Reviewed
-
Total Time Spent with Patient (in minutes): 42
Labs: Labs Reviewed by me
[2025-04-11 15:00] VITALS: BP 134/68
--- NOTE | 2025-04-11 15:00 | CM ---
CM follwoing re: discharge planning.
Reviewed pt's chart, met with pt.
PT and OT continue recommending SNF level of care. Both pt and her and daughter are aware that [facility] offered a bed and they expressed their great satisfaction. Per daughter, pt's niece works there as physical therapist.
CM coordinating pt's discharge with [facility] print production coordinator Krysten [phone]
D/C plan: [facility]
CM will follow to assist pt with discharge to [facility].
[2025-04-11] MEDS: THERAGRAN 1 TABLET PO (17:06)
[2025-04-11] MEDS: LOVENOX 40 MG SC (17:06)
[2025-04-11] MEDS: XANAX 1 MG PO (22:07)
[2025-04-11] MEDS: TYLENOL 650 MG PO (22:38)
[2025-04-11 23:30] VITALS: BP 143/89
[2025-04-12] VITALS (22 sets, daily range): BP systolic 71–121; BP diastolic 31–87; BMI 33.0
[2025-04-12 01:42] LABS: Glucose - Point of Care 181 mg/dl (70-99)
[2025-04-12] MEDS: ZOFRAN 4 MG IV (01:46)
--- NOTE | 2025-04-12 01:46 | W.PN.UPDATE ---
Update Note
Progress Note Update
-Patient is complaining of sob, diaphoretic. bp 135/77, hr 127, Spo2 98%, afebrile. Bs 180.
-Diminished lung sound on exam.
-EkG, chest x-ray, cbc, bmp, mag, flu, vbg. Covid neg this am.
-duo nebs PRN
-Giving tachycardia and frequent diarrhea will give one time of Normal saline, 500cc
-will add Tele services.
-Flu is neg, vbg and lab result unremarkable.
-Chest x-ray result is pending.
-Patient improved and SOB relieved after duo nebs given
[2025-04-12] MEDS: DUONEB 3 ML INH (01:52)
[2025-04-12] MEDS: NSS 500 IV (02:02)
[2025-04-12] MEDS: LOPRESSOR 2.5 MG IV ×2 (02:55→03:56)
[2025-04-12 03:04] LABS: Venous Blood Gas B.E. -2.6 mmol/L (-4 to +4); Venous Blood Gas O2 Sat % 82.8 %
[2025-04-12 03:25] LABS: Hematocrit 42.6 % (37.0-47.0); Hemoglobin 14.1 g/dL (12.0-16.0); Mean Corp Hgb Conc. 33.1 g/dL (33.0-37.0); Mean Corpuscular Volume 95.7 fL (81.0-99.0); Nucleated Red Blood Cells % 0.3 %; Platelet Count 478 10^3/uL (130-400); Red Cell Dist. Width 12.4 % (11.5-14.5)
[2025-04-12 03:43] LABS: ALT (SGPT) 155 U/L (0-35); AST (SGOT) 110 U/L (14-36); Albumin 2.6 g/dl (3.5-5.0); Alkaline Phosphatase 116 U/L (38-126); Blood Urea Nitrogen 22 mg/dl (7-17); Calcium 9.1 mg/dl (8.4-10.2); Carbon Dioxide 22 mmol/L (22-30); Chloride 105 mmol/L (98-107); Estimated Creatinine Clearance 60 ml/min; Glucose 200 mg/dl (70-99); HDL Cholesterol 37 mg/dl; LDL Cholesterol, Calculated 20 mg/dl; Magnesium 2.3 mg/dl (1.6-2.3); Potassium 5.2 mmol/L (3.5-5.1); Sodium 133 mmol/L (135-145); Total Protein 5.2 g/dl (6.3-8.2); Very Low Density Lipoprotein 15 mg/dl (0-30); eGFR > 60.00
[2025-04-12 04:01] LABS: C-Reactive Protein 226.60 mg/L (0.0-10.00)
[2025-04-12] MEDS: SOLU-MEDROL PF 20 MG IV ×3 (05:03→19:22)
[2025-04-12] MEDS: TIMOPTIC 0.5% OPHTHALMIC SOLUTION 1 DROP LEFT EYE ×2 (08:01→20:51)
[2025-04-12 08:18] LABS: Glucose - Point of Care 169 mg/dl (70-99)
--- NOTE | 2025-04-12 08:19 | PTCARENOTE ---
Around 0130 pt was diaphoretic, pale, SOB, dyspnea on exertion, nauseous, with severe '13/10' middle back pain all after a large diarrhea episode. Pt states she has never had severe pain like this before in her back (hx surgery on mid-back in 2016).
VS temp. 97.6, O2 94%, BP 135/77, HR 144 and then HR dropped down to 127. Put pt on 2 L o2 and administered zofran. Notified TELESALES ADVISOR, TELESALES ADVISOR came up to look at pt. Peanut Sheller ordered chest XR, EKG, TELE, 500 ml bolus NSS, Labs, fecal management system. Pt recieved
500cc and duo Neb, bumped up to 4L and states she feels better, can breathe better, and the pain is a 3/10. Pt is A&Ox3 no s/s of confusion.
Around 0240 pt sustained in the 150's on TELE, notified TELESALES ADVISOR, TELESALES ADVISOR ordered lopressor. Lopressor administered and HR dropped to 120-130s. Pt is A&Ox3 no s/s of confusion.
Around 0340 pt sustaining HR in the 140's/150s again, TELESALES ADVISOR ordered lopressor, administered and HR dropped to the 100's/110's. Pt states no pain chest pain or SOB. Pt is A&Ox3 no s/s of confusion.
[2025-04-12 08:29] LABS: Hematocrit 42.0 % (37.0-47.0); Hemoglobin 13.8 g/dL (12.0-16.0); Mean Corp Hgb Conc. 32.9 g/dL (33.0-37.0); Mean Corpuscular Volume 95.9 fL (81.0-99.0); Red Cell Dist. Width 12.6 % (11.5-14.5)
[2025-04-12 08:30] LABS: Platelet Count 379 10^3/uL (130-400)
[2025-04-12] MEDS: NSS 1000 IV (08:33)
[2025-04-12 08:37] LABS: AST (SGOT) 86 U/L (14-36); Albumin 2.4 g/dl (3.5-5.0); Alkaline Phosphatase 117 U/L (38-126); Blood Urea Nitrogen 24 mg/dl (7-17); Calcium 8.6 mg/dl (8.4-10.2); Carbon Dioxide 20 mmol/L (22-30); Chloride 106 mmol/L (98-107); Estimated Creatinine Clearance 40 ml/min; Glucose 181 mg/dl (70-99); Potassium 4.9 mmol/L (3.5-5.1); Sodium 135 mmol/L (135-145); Total Protein 4.8 g/dl (6.3-8.2); eGFR > 60.00
--- NOTE | 2025-04-12 08:40 | W.PN.GI.CBS2 ---
Today's Communication / Plan
-
-- Stat CT, NPO, surgical planning, broad spectrum antibiotics
Assessment / Plan
-
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
03/31 CT- Mild pancolitis
04/01 CRP >270. ESR 50
04/05 CT- Worsening severe pancolitis. Started on IV solumedrol
04/10 ESR 53. CRP pending
Impression
- Severe UC with pancolitis
- On admission, sepsis with fever, confusion, tachy and hypotension- much improved
suspect gut bacterial translocation from severe UC
CXR and UA negative
- Electrolyte abnormalities
- Diarrhea
- RA
04/10/2025 deep ulcerations on the flexible sigmoidoscopy, Rowe 3, biopsies taken for CMV as well
04/11/2025: Patient on day 6 of IV steroids
--Will use today to determine if IV Remicade is necessary inpatient
--Started low residue low lactose diet
--Continue DVT prophylaxis
--Trend CRP
--Check hepatitis B core antibody, check lipids in case Rinvoq is necessary, spoke to ID about indeterminate QuantiFERON. Will repeat, check albumin
--Initial QuantiFERON was checked on day 2 of steroids
--Surgical consult already done, path pending from flexible sigmoidoscopy yesterday
04/12/2025: Patient sick overnight and concern for air under the diaphragm on chest x-ray
Concern for colonic perforation -worsening leukocytosis, elevated lactate
Stat CT, broad-spectrum antibiotics
, N.p.o., colorectal surgery aware and planning for OR
Discussed with her Bill at the bedside
Discussed with RN, family, primary team and colorectal surgery
Subjective
Subjective
Date of Service: April 12, 2025
Overnight, patient became more short of breath, tachypneic and tachycardic. Chest x-ray done last night does look like there is air under the diaphragm although it is not read. This morning alerted by her RN that she looks ill and came to see her.
Objective
Data Reviewed
Laboratory Data:
Laboratory Results
04/12/25 08:05
04/12/25 08:05
Laboratory Results
Phosphorus 3.6 mg/dl (2.5-4.5) 04/09/25 09:44
Magnesium 2.3 mg/dl (1.6-2.3) 04/12/25 02:56
Magnesium Cancelled 04/12/25 02:56
Total Bilirubin 1.1 mg/dl (0.2-1.3) 04/12/25 08:05
AST 86 U/L (14-36) H 04/12/25 08:05
ALT Cancelled 04/12/25 08:04
Alkaline Phosphatase 117 U/L (38-126) 04/12/25 08:05
Vital Signs and I&O:
Vital Signs
Temp Pulse Resp BP Pulse Ox
98.0 F 146 18 114/71 98
04/12/25 03:00 04/12/25 03:56 04/12/25 03:00 04/12/25 03:56 04/12/25 03:00
I&O
04/11/25 04/12/25 04/13/25
06:59 06:59 06:59
Intake Total 1100 / 1100
Output Total 100 / 100
Balance -100 / -100 1100 / 1100
Physical Exam
Physical Exam
HEENT: Anicteric
Cardiology: Normal Sinus Rhythm (Tachycardic)
Pulmonary: Other (Tachypneic)
GI: Tender (Diffusely tender with rebound)
Extremities: No Edema
Neuro: Non Focal
[2025-04-12 08:52] LABS: Troponin I 0.040 ng/ml
[2025-04-12 09:08] LABS: ALT (SGPT) 160 U/L (0-35)
[2025-04-12 09:09] LABS: Absolute Neutrophils -Man Diff 11.7 10^3/uL (1.4-6.5)
[2025-04-12 09:10] LABS: Normal RBC Morphology Yes; Platelets Checked Yes; Total Cells Counted 100; Vacuolated Segs 3+
--- NOTE | 2025-04-12 09:30 | PTCARENOTE ---
received patient to room 3359 after PLACING JUDGE. Patient is sleepy, arousable, oriented to self and keeps asking if she is in the OR. Patient was previously orientedx3, has been lethargic. ABG obtained. Patient is on 4L nasal cannula, tachypneic, RR in
40s. lungs diminished,slight crackles auscultated bilateral lower lobes. She is sinus tach on monitor, pressures soft, currently getting IVF bolus. Patient is NPO, has large distended abdomen, tender to palpation. 16 greenlandic temp sensing hawkins
placed. Patient due to go to OR. labs obtained, will review orders, patient's daughter and Bill at bedside.
[2025-04-12] MEDS: MAGIC OR MIRACLE MOUTHWASH PO ×2 (09:31→19:23)
[2025-04-12] MEDS: FLOMAX PO (09:31)
[2025-04-12] MEDS: PROTONIX PO (09:31)
[2025-04-12] MEDS: ASACOL, DELZICOL DR PO (09:31)
[2025-04-12] MEDS: LR 1000 IV ×2 (09:32→19:21)
--- NOTE | 2025-04-12 09:32 | W.PN.CRS1 ---
Today's Communication / Plan
-
CT abdomen and pelvis
Preop for OR
Assessment/Plan
-
Assessment: 84yo female with a history of ulcerative colitis presents to [facility] with fatigue/diarrhea/weakness and has worsening pancolitis on CT scan
WBC: 14.1, afebrile last 24 hours. Tachycardic 140's. Lactic 6.8.
Plan:
-Stat CT A/P
-Continue to give 1L boluses as needed
-IV zosyn started
-NPO
-PT/INR/type and screen urgent
-Transfer to ICU
- Suspect a bowel perforation due to peritoneal signs as well as free air on the x-ray. I have tentatively added her to the OR for an open subtotal colectomy. I spoke to the about this at bedside who is in agreement to proceed. In the
meantime I will have the hair sample matcher, and marker for a possible colostomy. Dr. Allan aware of situation. Discussed with GI and hospitalist.
Subjective Data
Subjective Data
Date of Service: April 12, 2025
I was notified by Dr. Mcgill regarding this patient. She was tachycardic and diaphoretic and confused overnight. She received a x-ray of the chest which showed free air under the diaphragm. We have been asked to see the patient urgently due to
this finding. As I was on my way to see the patient, a rapid response was called. Patient says she has no tenderness right now and is not nauseous or vomiting. Per nurse, this started around 1:30 in the morning. She has had several loose stools
none were bloody. The last stool she passed was at 6 AM.
Objective Data
-
Vital Signs
Temp Pulse Resp BP Pulse Ox
98.0 F 146 18 114/71 98
04/12/25 03:00 04/12/25 03:56 04/12/25 03:00 04/12/25 03:56 04/12/25 03:00
Intake & Output
04/11/25 04/12/25 04/13/25
06:59 06:59 06:59
Intake Total 1100 / 1100
Output Total 100 / 100
Balance -100 / -100 1100 / 1100
Intake:
Oral fluids 1100 / 1100
Output:
Urine, Voided 100 / 100
Other:
Number of approximated SMALL 1 3
amounts of urine
Number of approximated MODERATE 1
amounts of urine
Number of unmeasured liquid
stools
Rectum 3
Lab Results
04/12/25 08:05
04/12/25 08:05
Physical Exam
-
General: AOx3
Abdomen: Distended and Tender (peritoneal, throughout)
Skin: Warm
--- NOTE | 2025-04-12 09:36 | PHA.VAN.IN ---
Assessment
- Assessment
Renal Function: SCR Appears Elevated from baseline (SCR slightly elevated at 0.9 vs ~0.5-0.6)
Concomitant Antimicrobials: piperacillin/tazobactam
Plan
- Plan
Initial / Loading Dose: 2000mg - administration pending
Maintenance Regimen: dosing by level
Monitoring: random 04/13 600
Pharmacokinetics Vancomycin I
- -
Patient Age: 84
Patient Sex: Female
Vancomycin Day #: 1
Indication: Gi / Intra-Abdominal
Requesting Provider: Dr. Awad
Pertinent Antimicrobial Allergies:
bacitracin - unknown
clindamycin - anaphylaxis
smx/tmp - rash
Height / Weight:
Height 4 ft 11 in
Actual Weight 69.967 kg
Pertinent Past Medical History: BMI ~31
- Vital Signs / Lab Results
Temp Pulse Resp BP Pulse Ox
98.0 F 146 18 114/71 98
04/12/25 03:00 04/12/25 03:56 04/12/25 03:00 04/12/25 03:56 04/12/25 03:00
Lab Results - Hematology
04/09/25 04/11/25 04/12/25
09:44 06:32 02:56
WBC 10.9 H 10.2 Cancelled
Band Neutrophils 28 H D
04/12/25 04/12/25
02:56 08:05
WBC 6.7 14.1 H
Band Neutrophils 20 H D
Lab Results - Chemistry
04/09/25 04/11/25 04/12/25
09:44 06:32 02:56
BUN 17 16 22 H
Creatinine 0.6 0.5 L
Estimated Creat Clear 60 60
Albumin
04/12/25 04/12/25 04/12/25
02:56 02:56 02:56
BUN Cancelled
Creatinine 0.6 Cancelled
Estimated Creat Clear 60 Cancelled
Albumin 2.6 L
04/12/25 04/12/25
08:04 08:05
BUN 24 H
Creatinine 0.9
Estimated Creat Clear 40
Albumin Cancelled 2.4 L
04/12/25
08:04
Lactic Acid 6.1 H*
Microbiology Results
04/12/25 02:32 Influenza Types A & B (AN) - Final
Nasal Swab Negative for Influenza A & B, NAAT
Negative results must be combined with clinical observations
and patient history.
Nucleic Acid Amplification test (NAAT)performed on the
[employer] platform.
[2025-04-12 09:42] LABS: B.E. -6.2 mmol/L; HCO3 17.6 mmol/L (21-28); O2 Saturation % 97.7 % (94-98); PCO2 29 mmHg (32-35); PO2 85 mmHg (83-108)
--- NOTE | 2025-04-12 09:47 | W.PN.HOSP.TC ---
Today's Communication/Plan
-
Antibiotics, IVF
Full code status
Emergent OR this AM for bowel perforation
Family updated at bedside
Assessment / Plan
Assessment / Plan
Assessment:
Perforated bowel
- CXR with pneumo-peritoneam
- CT: suggestive of perforation, likely at sigmoid level. await final read
- Start IV Zosyn
- IVF boluses
- transferred urgently to ICU with ICU consult
- CRS consulted; for emergent surgery this morning
Acute in-hospital delirium
Sepsis in setting of UC flare
- leukocytosis in setting of steroids
- Cultures negative
UC flare (severe UC with pancolitis)
- CT abdomen with IV contrast 04/05 shows worsening severe pancolitis likely related to ulcerative colitis
- s/p Flex Sig 04/10 with edema and deep ulcerations diffusely; s/p biopsies for path and CMV testing
- hold IV steroids with emergency surgery
- was being planned for IV remicade - pre-testing (TB, hep panel) per GI - but now on hold with acute perforation
- continue Imodium
- trend CRP - increasing
Acute urinary retention
- present on admission
- continue Flomax
- Rodrigues inserted 04/07; void trial successful 04/10. continue Bladder scan/SC protocol. Will need Rodrigues for OR.
Oral aphthous ulcers - continue topical alum and magic mouthwash, patient states both are helping.
Non-gap metabolic acidosis - resolved
Hypokalemia - due to diarrhea. Resolved.
acute Hyponatremia - improved.
Incidental 3.7 cm mildly heterogeneous cystic left adnexal lesion. Would not workup for now.
- OP PCP f/u
Rheumatoid arthritis - quiescent.
ADD
History of gout - colchicine now on hold given ongoing diarrhea.
Obesity due to excess calories
DVT ppx: Lovenox
Code: Full (reversed from DNR/DNI status on 04/12 AM)
Total Critical Care Time 41 minutes. I was immediately available to the patient and staff. I personally examined, reviewed labs, diagnostic images/reports, interpretations, treatment plans, discussed patient care with other providers and family
or caregivers (if patient is unable to make decisions), entered orders as appropriate and documented the medical record.
Anticipated Discharge: > 48 hours
Subjective/Interval History
-
Date of Service: April 12, 2025
overnight with hypoxia, worsening abd tenderness, tachycardia and hypotension
imaging reveals perforation of likely sigmoid colon
patient transferred to ICU with OR planned emergently
Objective Data
-
Labs:
Laboratory Results
04/12/25 04/12/25 04/12/25
02:56 02:56 02:56
WBC Cancelled 6.7
Hgb Cancelled 14.1
Hct Cancelled
Plt Count
PT
INR
APTT
HCO3
Sodium
Potassium
Chloride
Carbon Dioxide
BUN
Creatinine
Glucose
Calcium
Total Bilirubin
AST
ALT
Alkaline Phosphatase
04/12/25 04/12/25 04/12/25
02:56 02:56 02:56
WBC
Hgb
Hct 42.6
Plt Count Cancelled 478 H D
PT
INR
APTT
HCO3
Sodium 133 L Cancelled
Potassium 5.2 H
Chloride
Carbon Dioxide
BUN
Creatinine
Glucose
Calcium
Total Bilirubin
AST
ALT
Alkaline Phosphatase
04/12/25 04/12/25 04/12/25
02:56 02:56 02:56
WBC
Hgb
Hct
Plt Count
PT
INR
APTT
HCO3
Sodium
Potassium Cancelled
Chloride 105 Cancelled
Carbon Dioxide 22 Cancelled
BUN 22 H
Creatinine
Glucose
Calcium
Total Bilirubin
AST
ALT
Alkaline Phosphatase
04/12/25 04/12/25 04/12/25
02:56 02:56 02:56
WBC
Hgb
Hct
Plt Count
PT
INR
APTT
HCO3
Sodium
Potassium
Chloride
Carbon Dioxide
BUN Cancelled
Creatinine 0.6 Cancelled
Glucose 200 H Cancelled
Calcium 9.1
Total Bilirubin
AST
ALT
Alkaline Phosphatase
04/12/25 04/12/25 04/12/25
02:56 08:04 08:05
WBC 14.1 H
Hgb 13.8
Hct 42.0
Plt Count 379 D
PT
INR
APTT
HCO3
Sodium 135
Potassium 4.9
Chloride 106
Carbon Dioxide 20 L
BUN 24 H
Creatinine 0.9
Glucose 181 H
Calcium Cancelled 8.6
Total Bilirubin 1.2 Cancelled 1.1
AST 110 H Cancelled 86 H
ALT 155 H Cancelled 160 H
Alkaline Phosphatase 116 Cancelled 117
04/12/25 04/12/25 04/12/25
08:43 09:28 09:34
WBC
Hgb
Hct
Plt Count
PT Pending
INR Pending
APTT Pending
HCO3 Pending 17.6 L
Sodium
Potassium
Chloride
Carbon Dioxide
BUN
Creatinine
Glucose
Calcium
Total Bilirubin
AST
ALT
Alkaline Phosphatase
Vital Signs:
Vital Signs
Temp Pulse Resp BP Pulse Ox
98.6 F 146 18 114/71 98
04/12/25 09:45 04/12/25 03:56 04/12/25 03:00 04/12/25 03:56 04/12/25 03:00
I&O
04/11/25 04/12/25 04/13/25
06:59 06:59 06:59
Intake Total 1100 / 1100 1100 / 1100
Output Total 100 / 100 175 / 175
Balance -100 / -100 1100 / 1100 925 / 925
Physical Exam
-
General: Appears in Distress
HEENT: Normocephalic and Atraumatic
Cardiac: Regular Rhythm and Tachycardic
GI: Tender, Distended and Other (rigid)
Neuro: AO x 3
Psych: Calm
Data Reviewed
-
Critical Care Time (in minutes): 41
Labs: Labs Reviewed by me
--- NOTE | 2025-04-12 10:00 | RR ---
A Rapid Response was called on this patient, please see Rapid Response form.
--- NOTE | 2025-04-12 10:00 | PTCARENOTE ---
Patient pale, diaphoretic, drowsy, sitting up in bed this AM, denying chest pain and abd pain but c/o lower back pain that started overnight, stating to this RN 'I feel off' but cannot verbalize specific concerns. Abd tender to palpation throughout.
Vitals this AM 102/57 HR 110s sinus tach on monitor, 97.0F axillary temp, 26RR, 97% on 4L. Patient states mild SOB. Per casino shift manager RN, symptoms started overnight at approx 0130 and patient placed on O2 at that time, covering SUPERVISOR COOLER SERVICE made aware with
orders placed - see prior documentation. Patient with 4 episodes of diarrhea per casino shift manager RN. This RN communicated with MD and GI, verbal orders taken for stat CT scan abd and PE study, labs including lactic, trop, LFTs, CBC and BMP, 1L NSS
bolus. Patient AAOx1-2 upon assessment by this RN, confused on place and time, rapid response called for change in mental status, hypoxia, hypotension, tachycardia. See rapid charting. GI and colorectal surgery at bedside during rapid.
Patient transported to CT scan by this RN and rapid response RN, transferred from CT scan to ICU room 6127. Belongings given to .
[2025-04-12] MEDS: VANCOCIN 540 MG IV (10:06)
[2025-04-12 10:30] LABS: APTT 28.8 Sec (23.4-35.0); INR 1.48; PT 18.4 Sec (11.4-14.6)
[2025-04-12] MEDS: ZOSYN 50 IV ×3 (10:50→22:34)
--- NOTE | 2025-04-12 10:51 | WOUNDNOTE ---
ARABELLA RN NOTE: Patient stoma sited all quadrants as requested, avoided creases and scars. Patient is unstable at the moment and having allot of pain, only able to assess lying and sitting up in bed. LUQ marked 6.5cm from midline and 11 cm proximal
from umbilical line. LLQ marked 7.5cm from midline and 2cm distal from umbilical line. RUQ marked 7cm from midline and 11cm proximal from umbilical line. RLQ marked 7cm from midline and 2cm distal from umbilical line. Surgeon has final decision on
location of ostomy during surgery. Family at bedside, Farooq and daughter Nasima given update on role of ostomy nurse and that we will follow post op. Support and encouragement given to patient and family, answered all questions.
--- NOTE | 2025-04-12 11:07 | CON.INTV ---
Consultation
Consultation Request
Date/Time Consultation Requested: 8:32 04/12/25
Date/Time Consultation Performed: 9:00 04/12/25
Medical History
-
Chief Complaint: pancolitis with new pneumoperitoneum
History of Present Illness:
84yoF PMH UC presented 03/31/25 with sepsis secondary to pancolitis in setting of UC exacerbation. At beginning of hospitalization, she was on antibiotics with improvement of sepsis but continued pancolitis. Cultures were negative but symptoms
persisted. GI performed a sigmoidoscopy 04/10/25 and planned to restart diet and consider commencement of remicade today in addition to her steroids for the persistent exacerbation. Overnight, pt acutely had SOB and tachycardia with CXR demonstrating
pneumoperitoneum.
This morning, pt complains of continued SOB and abdominal distention. Denies overt pain.
Past Medical History
Past Medical History: Other (rheumatoid arthritis, ulcerative colitis)
Allergies / Home Medications
Allergies
Allergy/AdvReac Type Severity Reaction Status Date / Time
bacitracin Allergy Unknown Verified 04/04/25 16:14
clindamycin Allergy Anaphylaxis Verified 04/04/25 16:14
sulfamethoxazole (From Allergy Rash Verified 04/04/25 16:14
Bactrim)
trimethoprim (From Bactrim) Allergy Rash Verified 04/04/25 16:14
Home Medications
�Medication �Instructions �Recorded �Confirmed �Last Taken �Type
alprazolam 1 mg tablet 1 mg PO HS Mental Health/Anxiety 03/31/25 03/31/25 03/30/25 History
clobetasol 0.05 % lotion 1 applic topical DAILYPRN PRN 03/31/25 03/31/25 Unknown History
inner ear skin
colchicine 0.6 mg tablet 0.3 mg PO BID Gout 03/31/25 03/31/25 03/31/25 History
denosumab 60 mg/mL subcutaneous 60 mg SC [id number] osteoporosis 03/31/25 03/31/25 Unknown History
syringe (Prolia)
glucosamine sulfate 500 mg tablet 500 mg PO DAILY Supplement 03/31/25 03/31/25 03/31/25 History
(Glucosamine)
meloxicam 15 mg tablet 15 mg PO DAILY Pain 03/31/25 03/31/25 03/31/25 History
mesalamine 1.2 gram tablet,delayed 2.4 g PO DAILY Colitis 03/31/25 03/31/25 03/31/25 History
release
therapeutic multivitamin 1 tab PO QPM Supplement 03/31/25 03/31/25 03/30/25 History
timolol 0.5 % eye drops 1 drp LEFT EYE BID glaucoma 03/31/25 03/31/25 03/31/25 History
amoxicillin 875 mg-potassium 1 tab PO BID #6 tabs 04/03/25 Unknown Rx
clavulanate 125 mg tablet
loperamide 2 mg capsule 2 mg PO Q4HPRN PRN diarrhea #0 caps 04/03/25 Unknown Rx
potassium chloride 20 mEq 20 meq PO BID #10 tabs 04/03/25 Unknown Rx
tablet,extended release(part/cryst)
Review of Systems
Vitals / Labs / Diagnostic Testing
Vital Signs
Temp Pulse Resp BP Pulse Ox
98.6 F 146 18 114/71 98
04/12/25 09:45 04/12/25 03:56 04/12/25 03:00 04/12/25 03:56 04/12/25 03:00
Lab Data
04/12/25 08:05
04/12/25 08:05
Laboratory Results
04/12/25 04/12/25 04/12/25
09: 09:34 10:05
PT 18.4 H
INR 1.48
APTT 28.8
pH Cancelled 7.39
pCO2 Cancelled 29 L
pO2 Cancelled 85
HCO3 Cancelled 17.6 L
O2 Delivery Level Cancelled
Microbiology
04/12/25 02:32 Nasal Swab Influenza Types A & B (AN) - Final
Negative for Influenza A & B, NAAT
Negative results must be combined with clinical observations
and patient history.
Nucleic Acid Amplification test (NAAT)performed on the
[employer] platform.
04/04/25 10:13 Blood/Venous Blood Culture - Final
No Growth - Final Report
04/04/25 09:38 Blood/Venous Blood Culture - Final
No Growth - Final Report
Diagnostic Testing:
Physical Exam
-
HEENT: Normocephalic and Anicteric
Cardiovascular: Irregular Rhythm (tachycardic) and Other
Respiratory: Clear and Other (increased work of breathing, tachypneic, )
GI: Distended and Other (tympanic to percussion, mildly tender)
Neurology: Awake, Alert and No Motor Deficits
Skin: Dry and Other
General: Respiratory Distress and Fever
Exam:
Pt appears unwell
Assessment
-
84yoF PMH UC presenting with pneumoperitoneum secondary to bowel perforation in setting of UC exacerbation.
Afebrile. Tachycardic and normotensive. Tachypneic compensation in setting of metabolic acidosis. ABG confirms metabolic acidosis with respiratory compensation. CT confirms copious free air with possible defect in proximal sigmoid colon.
#Pneumoperitoneum secondary to bowel perforation. Possible defect in sigmoid colon.
- Surgical emergency. Going to the OR today.
- Zosyn vanc started.
- Fluid bolus given.
- IV PPI added.
#Acute metabolic acidosis with respiratory compensation
- Tachypnea appropriately compensating for metabolic acidosis in setting of bowel perforation.
- We are monitoring respiratory status closely. Low threshold to intubate prior to OR for increased respiratory needs or loss of ability to compensate appropriately.
#Urinary retention
- Hx retention during this admission.
- Replaced hawkins to relieve abdominal pressure.
--- NOTE | 2025-04-12 11:30 | PTCARENOTE ---
pressure dropped to 70s/30s. Levophed started LR bolus given
--- NOTE | 2025-04-12 11:41 | W.PN.ID1 ---
Date of Service
Date of Service: April 12, 2025
Today's Communication
Vanco/Zosyn pending OR cx.
Assessment / Plan
# UC flare with pancolitis
# Acute perforated sigmoid
# Leukocytosis with bandemia
- 04/10 flex sig: severe inflammation with deep ulcerations,no sites spared. Biopsy: diffuse chronic active colitis with ulceration
- To OR soon. Pls send cx if purulent peritonitis present.
- Agree with Zosyn/Vancomycin
- Remains on IV steroid for UC.
- Trend temps/wbc/vitals.
# Tb screening in anticipation for biologic
- 04/06/25 QTB gold plus: INDETERMINATE which is not interpretable
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 No known TB risk exposure.
- Will repeat test when she is medically stable.
Chief Complaint
-: Other (diarrhea)
Subjective / Review of Systems
Reconsult for perforated bowel. Chart reviewed.
Daughter and at bedside.
Pt suddenly decompensated with SOB, lethargy. CXR showed free air under the diaphragm.
Pt denies abd pain. Still with diarrhea.
Vital Signs / Physical Exam
Vital Signs
Vital Signs
Temp Pulse Resp BP Pulse Ox
100 F 98 34 119/87 94
04/12/25 11:23 04/12/25 11:30 04/12/25 11:30 04/12/25 11:30 04/12/25 11:14
Physical Exam
Constitutional: Acutely Ill
Eyes: No Conjunctival Hemorrhage and Sclera Anicteric
Objective Data
Lab Data
Lab Results
04/12/25 08:05
04/12/25 08:05
ESR 53 mm/hour (0-20) H 04/10/25 08:08
PT 18.4 Sec (11.4-14.6) H 04/12/25 10:05
INR 1.48 04/12/25 10:05
APTT 28.8 Sec (23.4-35.0) 04/12/25 10:05
Estimated Creat Clear 40 ml/min 04/12/25 08:05
Lactic Acid 6.1 mmol/L (0.7-2.0) H* 04/12/25 08:04
Total Bilirubin 1.1 mg/dl (0.2-1.3) 04/12/25 08:05
AST 86 U/L (14-36) H 04/12/25 08:05
ALT 160 U/L (0-35) H 04/12/25 08:05
Alkaline Phosphatase 117 U/L (38-126) 04/12/25 08:05
C-Reactive Protein 226.60 mg/L (0.0-10.00) H 04/12/25 02:56
Most recent labs reviewed.
Micro Results:
04/12/25 02:32 Influenza Types A & B (NA) - Final
Nasal Swab Negative for Influenza A & B, NAAT
Negative results must be combined with clinical observations
and patient history.
Nucleic Acid Amplification test (NAAT)performed on the
[employer] platform.
04/04/25 10:13 Blood Culture - Final
Blood/Venous No Growth - Final Report
04/04/25 09:38 Blood Culture - Final
Blood/Venous No Growth - Final Report
04/04/25 18:15 - Final
Feces/Stool NO YERSINIA SPECIES ISOLATED
03/31/25 15:29 Blood Culture - Final
Blood/Venous No Growth - Final Report
03/31/25 13:08 Blood Culture - Final
Blood/Venous No Growth - Final Report
04/04/25 18:15 Cryptosporidium/Giardia - Final
Feces/Stool Negative for Cryptosporidium and/or Giardia Lamblia
antigens.
- Final
Negative for Norovirus GI and GII.
04/04/25 18:15 C. difficile GDH Antigen & Toxins - Final
Feces/Stool Negative for toxigenic C.difficile
03/31/25 17:43 Salmonella/Shigella Culture - Final
Feces/Stool No Salmonella, Shigella, Aeromonas or Plesiomonas species
isolated.
Campylobacter Culture - Final
No Campylobacter species isolated.
Shiga Toxin Test - Final
No E. coli Shiga Toxin 1 or 2 detected.
04/01/25 11:44 Urine Culture - Final
Urine NO GROWTH
03/31/25 12:54 C. difficile GDH Antigen & Toxins - Final
Feces/Stool Negative for toxigenic C.difficile
04/12/25 CT a/p: Interval development of extensive free air/pneumoperitoneum within the abdomen and pelvis, likely secondary to a focal defect within the proximal sigmoid colon. New small amount of free fluid within the pelvis.
Interval improvement of pancolitis. Negative for pulmonary embolism.
04/12/25 CXR: No acute disease within the chest. New lucency within the upper abdomen and underneath the left hemidiaphragm concerning for pneumoperitoneum.
04/05/25 CT a/p: There is findings of worsening severe pancolitis. Findings are likely related to reported ulcerative colitis.
04/04/25 CXR: The trachea is midline. There is moderate elevation of the right hemidiaphragm. There appear to be thin bands of subpleural subsegmental atelectasis and scarring in both lower lungs. There is no focal airspace opacity suspicious for
pneumonia. There is no radiographic evidence for pleural effusion or pneumothorax.
03/31 CT a/p: Mild diffuse colonic wall thickening suggestive of pancolitis. Mild to moderate amount of fluid within the proximal colon. Severe chronic diverticular disease within the sigmoid. Small amount of free fluid within the pelvis.
Care Review
Plan reviewed with: Other Provider (OLIVIA Herr)
[2025-04-12 11:43] LABS: Venous Blood Gas B.E. -6.6 mmol/L (-4 to +4); Venous Blood Gas O2 Sat % 93.0 %
--- NOTE | 2025-04-12 12:15 | PTCARENOTE ---
report given to OR. patient went on monitor with HVAC SERVICE MANAGER and AD OPERATIONS INTERN Lead.
[2025-04-12 13:17] LABS: B.E. - POC -3.9 mmol/L; Glucose - POC 137 mg/dl (70-99); HCO3 - POC 22 mmol/L (21-28); Hematocrit - POC 34 % PCV (37-47); Hemodilution- POC No; Hemoglobin Calculated - POC 11.6; Ionized Calcium - POC 1.52 mmol/L (1.15-1.33); Lactate - POC 3.71 mmol/L (0.36-0.75); O2 Saturation %Calculated-POC 96.9 % (94-98); PCO2 - POC 45 mmHg (35-48); PO2 - POC 99 mmHg (83-108); Potassium - POC 4.4 mmol/L (3.5-5.1); Sodium - POC 141 mmol/L (136-145); Specimen Type - POC Arterial; pH - POC 7.31 (7.35-7.45)
--- NOTE | 2025-04-12 14:12 | PN.CDI ---
CDI
- -
CDI:
Physician Documentation Request
Admit Date: 03/31/25 15:28
Dear Doctor Delmi/Resident,
Please review the following and provide your response in the progress notes.
Current documentation includes a diagnosis of hypotension.
Clinical Indicators:
Pt admitted with Sepsis 2/2 UC flare /bacteria translocation
Documented per elevator service technician consult, ' . Shock, related to perforated bowel Additional Ringer lactate 1.5 L bolus given in intensive care unit, continue maintenance LR at 100 cc an hour... Start Levophed, target MAP 65 or above...'
Pt care note 827 @ 1130,' pressure dropped to 70s/30s. Levophed started LR bolus given...'
Please clarify which of the following is the most likely etiology of the documented shock:
Septic shock
Hypovolemic shock
Other Shock ( please specify)
Other ( please specify)
Use of terms such as suspected, likely, concern for, or probable (associated with a specific diagnosis that is being evaluated, monitored, or treated as if it exists) are acceptable and can be coded in the inpatient setting, when documented at the
time of discharge.
Thank you,
Lesley Melchor RN
CDI Specialist
[place] [employer]
Please use your independent medical judgment in providing your response.
[2025-04-12 14:36] LABS: B.E. - POC -2.5 mmol/L; Glucose - POC 131 mg/dl (70-99); HCO3 - POC 23 mmol/L (21-28); Hematocrit - POC 35 % PCV (37-47); Hemodilution- POC Yes; Hemoglobin Calculated - POC 11.9; Ionized Calcium - POC 1.22 mmol/L (1.15-1.33); Lactate - POC 3.61 mmol/L (0.36-0.75); O2 Saturation %Calculated-POC 95.8 % (94-98); PCO2 - POC 39 mmHg (35-48); PO2 - POC 83 mmHg (83-108); Potassium - POC 4.5 mmol/L (3.5-5.1); Sodium - POC 141 mmol/L (136-145); Specimen Type - POC Arterial; pH - POC 7.37 (7.35-7.45)
--- NOTE | 2025-04-12 14:37 | CM ---
CM following re: discharge planning.
Reviewed pt's chart.
Per chart review, emergent OR this AM for bowel perforation and pt transferred to ICU.
PT and OT continue recommending SNF level of care. Both pt and her and daughter are aware that [facility] offered a bed and they expressed their great satisfaction. Per daughter, pt's niece works there as physical therapist.
CM coordinating pt's discharge with [facility] patient assessment coordinator Krysten [phone]
D/C plan: [facility]
CM will follow to assist pt with discharge to [facility].
--- NOTE | 2025-04-12 16:00 | PTCARENOTE ---
returned from OR at 1600. Patient had total colectomy with ileostomy. Was not reversed. Patient has number 7 ETT at 19cm at lip. AC settings 20/450/50%5. Patient is sinus rhythm to sinus tach on monitor. Patient has levophed and vasopressin.
will obtain central line. Patient has NGT at 52cm, will connect low intermittent wall suction. Midline incision with black drain/ marta to abdomen, some output in ileostomy. patient also has Sheri drain with ABD dressing for decompression of her
rectum. hawkins draining silvia urine. Will review orders. obtain central line by compressor station operator. CXR for ETT placement.
[2025-04-12] MEDS: SUBLIMAZE 100 IV (16:40)
[2025-04-12] MEDS: PITRESSIN 100 IV ×2 (16:48→19:22)
[2025-04-12] MEDS: LR 500 IV (16:49)
--- NOTE | 2025-04-12 16:57 | W.IMMPOSTOP ---
Surgical Immed Post Op Note
-
Primary Surgeon: Lazarus Allan MD
Assisting Surgeon: Rhiannon Us MD-[id number]
Pre-op Diagnosis: ulcerative pancolitis with perforation
Post-op Diagnosis: same
Procedure Performed: total abdominal colectomy with end ileostomy
Anesthesia Type: general plus local
Specimen / Cultures: 1) abdominal fluid culture abdominal colon
Estimated Blood Loss: 50 cc
Complications: no immediate
Operative Findings: diseased/friable colon with sigmoid perforation
#19 Henrique in pelvis.
!/2 inch transanal Hildreth drain to decompress rectal stump.
NGT confirmed to be in stomach.
Rodrigues in bladder.
Staying intubated and going to ICU.
--- NOTE | 2025-04-12 17:11 | OR.RPT ---
Operative Report
Operative Report
Right IJ Central Line placement
Indication: Shock, need central access for pressor support
Consent obtained from: Patient's spouse at bedside
Time-out was performed and patient was placed in Trendelenburg position. Ultrasound was used to assess patency of lright IJ vein. Under sterile conditions area was cleaned with chlorhexidine and then a full body drape was placed. 3 mL of local
anesthesia with lidocaine was injected. Under real-time ultrasound guidance, long axis view, the needle was inserted and vein was punctured, once blood was aspirated, syringe was removed and guidewire was advanced which did not meet any resistance.
Subsequently needle was withdrawn and guidewire was left in place. Ultrasound was used again to confirm presence of guidewire inside the vein lumen. A small chinyere was placed at the skin and a dilator was advanced to about 50% of its length.
Dilator was removed and central venous catheter was advanced over guidewire and subsequently guidewire was removed. All 3 ports were capped and they were easy to flush and were withdrawing blood without any resistance. Central line was sutured to
the skin and dressing was applied.
Ultrasound of the lungs was performed and good lung sliding was obtained. Patient stayed hemodynamically stable through the procedure.
Complications: None
Blood loss: 1-2 ml
Time spent: 25 min
Date of service: 04/12/2025
[2025-04-12 17:54] LABS: B.E. -2.9 mmol/L; HCO3 18.7 mmol/L (21-28); O2 Saturation % 98.4 % (94-98); PCO2 24 mmHg (32-35); PO2 117 mmHg (83-108)
--- NOTE | 2025-04-12 18:00 | PTCARENOTE ---
reached out to Dr. Allan regarding patient's output and lovenox, verbal order to hold lovenox this evening.
[2025-04-12] MEDS: LOVENOX SC (18:09)
[2025-04-12 18:12] LABS: Hematocrit 35.8 % (37.0-47.0); Hemoglobin 12.3 g/dL (12.0-16.0); Mean Corp Hgb Conc. 34.4 g/dL (33.0-37.0); Mean Corpuscular Volume 93.7 fL (81.0-99.0); Platelet Count 367 10^3/uL (130-400); Red Cell Dist. Width 12.6 % (11.5-14.5)
[2025-04-12 18:17] LABS: ALT (SGPT) 70 U/L (0-35); AST (SGOT) 36 U/L (14-36); Albumin 1.3 g/dl (3.5-5.0); Alkaline Phosphatase 62 U/L (38-126); Blood Urea Nitrogen 21 mg/dl (7-17); Calcium 7.2 mg/dl (8.4-10.2); Carbon Dioxide 20 mmol/L (22-30); Chloride 107 mmol/L (98-107); Estimated Creatinine Clearance 62 ml/min; Glucose 141 mg/dl (70-99); Potassium 4.8 mmol/L (3.5-5.1); Sodium 132 mmol/L (135-145); Total Protein 3.0 g/dl (6.3-8.2); Triglycerides 72 mg/dl (10-149); eGFR > 60.00
[2025-04-12] MEDS: THERAGRAN PO (18:19)
--- NOTE | 2025-04-12 18:20 | W.IMMPOSTOP ---
Surgical Immed Post Op Note
-
Primary Surgeon: Lazarus Allan MD
Assisting Surgeon: Rhiannon Us MD-PGY6
Pre-op Diagnosis: UC proctocolitis with perforation
Post-op Diagnosis: same
Procedure Performed: total abdominal colectomy with ileostomy
Anesthesia Type: general plus local
Specimen / Cultures: 1) abdominal fluid cultures 2) abdominal colon
Estimated Blood Loss: 50 cc
Complications: no immediate
Operative Findings: severely diseased colon with sigmoid perforation
#19 Henrique in pelvis.
1/2 inch transanal Sheri for rectal stump decompression.
NGT in stomach (confirmed).
Rodrigues in bladder.
Sent back to ICU intubated and on pressors.
Family was updated in waiting area.
[2025-04-12 19:10] LABS: Absolute Neutrophils -Man Diff 21.7 10^3/uL (1.4-6.5)
[2025-04-12 19:11] LABS: Normal RBC Morphology Yes; Platelets Checked Yes; Total Cells Counted 100
--- NOTE | 2025-04-12 20:30 | PTCARENOTE ---
on assessment pt intubated and sedated post op, pt on LEVO,VASO,FENT, IVF, and PROP gtt per MD orders, SR on the monitor, #7ETT 19 at the [facility], AC 16/450/40/5, NGT to LIS, NPO, hawkins in place, silvia urine and diminished u/o REVOLVING FIELD ASSEMBLER made aware, RIDDHI draining
serosanguineous drainage, R iliostomy noted, R radial Blaine, R IJ triple lumen, family at bedside at change of shift
[2025-04-12] MEDS: FLEXBUMIN 100 IV (20:50)
[2025-04-12] MEDS: OFIRMEV 100 IV (21:56)
[2025-04-12] MEDS: DIPRIVAN 100 IV (22:34)
[2025-04-12 23:42] LABS: Glucose - Point of Care 134 mg/dl (70-99)
[2025-04-13] VITALS: BP 92/57
--- NOTE | 2025-04-13 00:07 | PTCARENOTE ---
weaning down on pressors
--- NOTE | 2025-04-13 00:24 | PTCARENOTE ---
LUE appears to have +2 edema, much greater than the RUE, SERVICE CENTER REPRESENTATIVE at bedside and made aware
[2025-04-13] MEDS: LR 1000 IV ×3 (03:07→21:01)
[2025-04-13] MEDS: ZOSYN 50 IV ×4 (03:07→21:01)
[2025-04-13] MEDS: SOLU-MEDROL PF 20 MG IV (03:08)
[2025-04-13 03:55] LABS: ALT (SGPT) 57 U/L (0-35); AST (SGOT) 23 U/L (14-36); Albumin 1.8 g/dl (3.5-5.0); Alkaline Phosphatase 58 U/L (38-126); Blood Urea Nitrogen 23 mg/dl (7-17); Calcium 7.2 mg/dl (8.4-10.2); Carbon Dioxide 23 mmol/L (22-30); Chloride 107 mmol/L (98-107); Estimated Creatinine Clearance 47 ml/min; Glucose 142 mg/dl (70-99); Magnesium 2.1 mg/dl (1.6-2.3); Potassium 3.9 mmol/L (3.5-5.1); Sodium 134 mmol/L (135-145); Total Protein 3.6 g/dl (6.3-8.2); eGFR > 60.00
[2025-04-13] MEDS: LEVOPHED 250 IV (03:59)
[2025-04-13 04:00] VITALS: BP 101/63
[2025-04-13 04:01] VITALS: BMI 34.7
[2025-04-13 04:02] LABS: Hematocrit 32.0 % (37.0-47.0); Hemoglobin 11.0 g/dL (12.0-16.0); Mean Corp Hgb Conc. 34.4 g/dL (33.0-37.0); Mean Corpuscular Volume 92.2 fL (81.0-99.0); Nucleated Red Blood Cells % 0 %; Platelet Count 254 10^3/uL (130-400); Red Cell Dist. Width 12.6 % (11.5-14.5)
[2025-04-13 04:13] LABS: C-Reactive Protein > 270.00 mg/L (0.0-10.00)
--- NOTE | 2025-04-13 04:18 | PTCARENOTE ---
pt ST occasionally HR 70s-low 100s, BLOG WRITER aware
[2025-04-13 05:06] LABS: B.E. -2.0 mmol/L; HCO3 19.6 mmol/L (21-28); O2 Saturation % 96.3 % (94-98); O2 Therapy VENT; PCO2 24 mmHg (32-35); PO2 75 mmHg (83-108)
[2025-04-13 05:15] LABS: Glucose - Point of Care 122 mg/dl (70-99)
[2025-04-13 07:07] VITALS: BP 92/63
[2025-04-13] MEDS: OFIRMEV 100 IV ×2 (07:52→18:20)
[2025-04-13] MEDS: NSS (PRESERVATIVE FREE) 10 ML IV (07:52)
[2025-04-13] MEDS: PROTONIX IV 40 MG IV (07:52)
[2025-04-13] MEDS: TIMOPTIC 0.5% OPHTHALMIC SOLUTION 1 DROP LEFT EYE ×2 (07:53→19:27)
[2025-04-13 08:00] VITALS: BP_SYST 135
--- NOTE | 2025-04-13 08:11 | W.PN.GI.CBS2 ---
Today's Communication / Plan
-
-- stopped steroids
-- discussed with primary GI
-- will follow as needed
Assessment / Plan
-
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
03/31 CT- Mild pancolitis
04/01 CRP >270. ESR 50
04/05 CT- Worsening severe pancolitis. Started on IV solumedrol
04/10 ESR 53. CRP pending
Impression
- Severe UC with pancolitis
- On admission, sepsis with fever, confusion, tachy and hypotension- much improved
suspect gut bacterial translocation from severe UC
CXR and UA negative
- Electrolyte abnormalities
- Diarrhea
- RA
04/10/2025 deep ulcerations on the flexible sigmoidoscopy, Rowe 3, biopsies taken for CMV as well
04/11/2025: Patient on day 6 of IV steroids
--Will use today to determine if IV Remicade is necessary inpatient
--Started low residue low lactose diet
--Continue DVT prophylaxis
--Trend CRP
--Check hepatitis B core antibody, check lipids in case Rinvoq is necessary, spoke to ID about indeterminate QuantiFERON. Will repeat, check albumin
--Initial QuantiFERON was checked on day 2 of steroids
--Surgical consult already done, path pending from flexible sigmoidoscopy yesterday
04/12/2025: Patient sick overnight and concern for air under the diaphragm on chest x-ray
Concern for colonic perforation -worsening leukocytosis, elevated lactate
Stat CT, broad-spectrum antibiotics
, N.p.o., colorectal surgery aware and planning for OR
Discussed with her Bill at the bedside
Discussed with RN, family, primary team and colorectal surgery
04/13/2025 postop day 1 subtotal colectomy for sigmoid perforation in the setting of severe ulcerative colitis flare
--Patient weaning from 1 pressor, hopefully to be extubated within the next 30 minutes
--Improving leukocytosis and lactate
--Antibiotics
-- I did discuss with her primary GI, Flori Sheppard
-- for future she does still have some rectum left so will need therapy and surveillance despite subtotal colectomy unless she goes back for a completion proctocolectomy in the future
-- STOPPED steroids
-- GI will follow as needed - please call us if we can help
-- discussed with Nasima, daughter at bedside
Subjective
Subjective
Date of Service: April 13, 2025
Patient awake, responding, moving legs and arms. Daughter at bedside
Objective
Data Reviewed
Laboratory Data:
Laboratory Results
04/13/25 03:18
04/13/25 03:18
Laboratory Results
PT 18.4 Sec (11.4-14.6) H 04/12/25 10:05
INR 1.48 04/12/25 10:05
APTT 28.8 Sec (23.4-35.0) 04/12/25 10:05
Phosphorus 4.4 mg/dl (2.5-4.5) 04/13/25 03:18
Magnesium 2.1 mg/dl (1.6-2.3) 04/13/25 03:18
Total Bilirubin 1.1 mg/dl (0.2-1.3) 04/13/25 03:18
AST 23 U/L (14-36) 04/13/25 03:18
ALT 57 U/L (0-35) H 04/13/25 03:18
Alkaline Phosphatase 58 U/L (38-126) 04/13/25 03:18
Vital Signs and I&O:
Vital Signs
Temp Pulse Resp BP Pulse Ox
99.1 F 87 20 92/63 97
04/13/25 04:36 04/13/25 08:00 04/13/25 08:00 04/13/25 07:07 04/13/25 08:00
I&O
04/12/25 04/13/25 04/14/25
06:59 06:59 06:59
Intake Total 1100 / 1100 5577.6 / 5698.7 361.1 / 361.1
Output Total 1690 / 1690 90 / 90
Balance 1100 / 1100 3887.6 / 4008.7 271.1 / 271.1
Physical Exam
Physical Exam
HEENT: Anicteric
Cardiology: Normal Sinus Rhythm
GI: Other (Ostomy with brown semiformed liquid, drain with clear output)
Extremities: Edema (Mild edema in the hands)
Neuro: Other (Patient awake moving limbs and responding to voice)
--- NOTE | 2025-04-13 08:19 | W.PN.CRS1 ---
Today's Communication / Plan
-
extubate per primary team
ok OOB
maintain hawkins
okay for lovenox from our perspective
Assessment/Plan
-
POD#1 subtotal colectomy
WBC 21.1 (26.2), Hgb 11.0 (11.3)
Tmax: 100.4
-Extubate per primary team
-Maintain NGT
-Wound RN for colostomy care
-Maintain RIDDHI drain (will remove prior to d/c)
-Enzo under midline incision to be removed with dressing change in a few days
-Maintain hawkins for I/O's
-OOB with PT/OT when extubated
-OR pathology pending
-Okay for Lovenox DVT prophylaxis from our perspective, maintain KOJO/SCDS
-Continue IV antibiotics
-Wean presser as able
Subjective Data
Procedure
- subtotal colectomy
Subjective Data
Date of Service: April 13, 2025
Eyes open, awake. Intubated. Nods head yes or no to questions.
Objective Data
-
Vital Signs
Temp Pulse Resp BP Pulse Ox
99.3 F 87 20 92/63 97
04/13/25 08:00 04/13/25 08:00 04/13/25 08:00 04/13/25 07:07 04/13/25 08:00
Intake & Output
04/12/25 04/13/25 04/14/25
06:59 06:59 06:59
Intake Total 1100 / 1100 5577.6 / 5698.7 361.1 / 361.1
Output Total 1690 / 1690 90 / 90
Balance 1100 / 1100 3887.6 / 4008.7 271.1 / 271.1
Intake:
Oral fluids 1100 / 1100
IV fluids (Total) 4687.6 / 4808.7 231.1 / 231.1
Levo 296.4 / 303.9 15.0 / 15.0
Lr 1,000 ml @ 100 mls/hr IV . 1600 / 1700 200 / 200
Q10H MYRIAM Rx#:[id number]
Propofol 157.7 / 168.8 11.1 / 11.1
bolus 2500 / 2500
fent 37.5 / 40.0 5.0 / 5.0
vasopressin 96 / 96 0 / 0
IV piggybacks 890 / 890 100 / 100
Amount instilled into GI Tube (
Total)
[place] Sump
Output:
Drain Output (Total) 550 / 550 65 / 65
Left [place] 550 / 550 65 / 65
Urine, Hawkins 1140 / 1140
Other:
Number of approximated SMALL 3
amounts of urine
Number of approximated MODERATE 1
amounts of urine
Number of unmeasured liquid
stools
Rectum 3
Lab Results
04/13/25 03:18
04/13/25 03:18
Physical Exam
-
General: No Acute Distress
Abdomen: Soft, Non Distended, Non Tender and Other (ileostomy warm and pink, RIDDHI drain serous)
Skin: Warm and Dry
Wound: Dressing in Place
--- NOTE | 2025-04-13 08:47 | W.PN.INTV ---
Addendum entered and electronically signed by Yosef Awad MD 04/13/25 13:30:
Patient more alert through the day. Around noon time, reattempted SBT. Patient tolerated well. Follow-up arterial blood gas about an hour into SBT trial reassuring. Patient extubated to nasal cannula.
Original Note:
Today's Communication / Plan
Recommendations
Plan reviewed with attending.
Assessment
-
84yoF [facility] UC presenting with pneumoperitoneum secondary to bowel perforation in setting of UC exacerbation pancolitis s/p total colectomy and ileostomy POD1.
Brought back to ICU intubated on pressors from OR.
RIDDHI draining serosanginous fluid 625ml total. Sehri in rectal stump and NG tube for decompression.
Continued leukocytosis. Electrolyte WNL. Tachycardic, hypotensive on low levels of pressors MAP 70. Afebrile.
Daughter reports continued mouth sores since admission initially treated as thrush. ID aware.
# Acute surgical abdomen with perforated bowel s/p colectomy
- Pneumoperitoneum noted on imaging yesterday, history of pancolitis with underlying ulcerative colitis s/p total colectomy
- Continue aggressive IV volume resuscitation, continue broad-spectrum antibiotics with Zosyn and IV vancomycin
- Colorectal surgery and GI following.
- Encourage ambulation- okay from surgery team.
- Wound care/ostomy team consulted.
- NPO. Continue monitoring NG and ostomy output.
#Septic shock, related to perforated bowel
#Metabolic acidosis with elevated lactate
- Continue maintenance LR at 100 cc an hour
- Continue Zosyn, vancomycin
- Continue Levophed, target MAP 65 or above
- Rodrigues catheter, monitor input and output closely
- ABG this morning pH 7.52 with respiratory compensation CO2 24 Lactic acid 2.9. Reduced ventilator rate.
#Acute respiratory failure
- Brought back to ICU on ventilator. Continue to wean support. Planning to attempt extubation today.
- Elevated RSBI indicative of continued shallow breaths. Suspect splinting in setting of large abdominal surgery. Continue pain management.
DVT prophylaxis: Lovenox 40mg and SCDs
Diet: NPO
Subjective Dataa
Subjective Data
Date of Service:
Date of Service: April 13, 2025
Subjective:
Pt awake this morning on ventilator. Endorses controlled pain.
Objective Data
Data Reviewed
Vital Signs / I&O / Oxygen:
Vital Signs
Temp Pulse Resp BP Pulse Ox
99.3 F 87 20 92/63 97
04/13/25 08:00 04/13/25 08:00 04/13/25 08:00 04/13/25 07:07 04/13/25 08:00
Intake and Output
04/12/25 04/13/25 04/14/25
06:59 06:59 06:59
Intake Total 1100 / 1100 5577.6 / 5698.7 361.1 / 361.1
Output Total 1690 / 1690 90 / 90
Balance 1100 / 1100 3887.6 / 4008.7 271.1 / 271.1
SaO2 [A/C] 97
SaO2 97
Nasal Cannula flow liters per 4
minute
Physical Exam
HEENT: Normocephalic and Anicteric
Cardiovascular: Irregular Rhythm (tachycardic, aflutter)
Respiratory: Clear and ET Tube
GI: Soft, NG Tube and Other (ostomy producing minimal stool, RIDDHI drain serosanguinous fluid, )
Neurology: Awake and No Motor Deficits
Skin: Warm and Dry
Labs/Micro/Reports
Lab Data
04/13/25 03:18
04/13/25 03:18
Laboratory Results
04/12/25 04/12/25 04/12/25
09: 09:34 10:05
PT 18.4 H
INR 1.48
APTT 28.8
pH Cancelled 7.39
pCO2 Cancelled 29 L
pO2 Cancelled 85
HCO3 Cancelled 17.6 L
O2 Delivery Level Cancelled
04/12/25 04/13/25
17:37 04:55
PT
INR
APTT
pH 7.50 H 7.52 H
pCO2 24 L 24 L
pO2 117 H 75 L
HCO3 18.7 L 19.6 L
O2 Delivery Level Vent
Microbiology
04/12/25 12:55 Abdomen Gram Stain - Preliminary
04/12/25 02:32 Nasal Swab Influenza Types A & B (AN) - Final
Negative for Influenza A & B, NAAT
Negative results must be combined with clinical observations
and patient history.
Nucleic Acid Amplification test (NAAT)performed on the
[employer] platform.
--- NOTE | 2025-04-13 09:09 | PHA.VAN.FU ---
Vancomycin Assessment / Plan
- Assessment
Renal Function: Stable
WBC's are: Trending Down
Concomitant Antimicrobials: piperacillin/tazobactam
- Assessment - Therapeutic Drug Monitoring
Random Level: 12.2 - drawn ~17.5H after 2g loading dose
- Dosing Plan
Dosing by Level: Re-dose today (Vanc 1000mg)
- Monitoring Plan
Random Level: 04/14 600
- Follow Up
Pharmacy will continue to follow.
Vancomycin Follow UP
- -
Patient Age: 84
Patient Sex: Female
Vancomycin Day #: 2
Indication: Gi / Intra-Abdominal
Requesting Provider: Dr. Awad
Pertinent Antimicrobial Allergies:
bacitracin - unknown
clindamycin - anaphylaxis
smx/tmp - rash
Height / Weight:
Height 4 ft 11 in
Actual Weight 77.9 kg
Pertinent Past Medical History: BMI ~31
- Vital Signs / Lab Results
Temp Pulse Resp BP Pulse Ox
99.3 F 87 20 92/63 97
04/13/25 08:00 04/13/25 08:00 04/13/25 08:00 04/13/25 07:07 04/13/25 08:00
Lab Results - Hematology
04/11/25 04/12/25 04/12/25
06:32 02:56 02:56
WBC 10.2 Cancelled 6.7
Band Neutrophils
04/12/25 04/12/25 04/13/25
08:05 17:37 03:18
WBC 14.1 H 26.2 H 21.2 H
Band Neutrophils 20 H D 23 H
Lab Results - Chemistry
04/11/25 04/12/25 04/12/25
06:32 02:56 02:56
BUN 16 22 H Cancelled
Creatinine 0.5 L 0.6
Estimated Creat Clear 60
Albumin
04/12/25 04/12/25 04/12/25
02:56 02:56 08:04
BUN
Creatinine Cancelled
Estimated Creat Clear 60 Cancelled
Albumin 2.6 L Cancelled
04/12/25 04/12/25 04/13/25
08:05 17:37 03:18
BUN 24 H 21 H 23 H
Creatinine 0.9 0.6 0.8
Estimated Creat Clear 40 62 47
Albumin 2.4 L 1.3 L 1.8 L
04/12/25 04/12/25 04/12/25
08:04 11:22 17:37
Lactic Acid 6.1 H* 4.6 H* 4.5 H*
04/12/25
21:42
Lactic Acid 2.9 H
Microbiology Results
04/12/25 12:55 Gram Stain - Preliminary
Abdomen
04/12/25 02:32 Influenza Types A & B (AN) - Final
Nasal Swab Negative for Influenza A & B, NAAT
Negative results must be combined with clinical observations
and patient history.
Nucleic Acid Amplification test (NAAT)performed on the
[employer] platform.
Therapeutic Drug Monitoring
Random Vancomycin 12.2 ug/ml 04/13/25 03:18
--- NOTE | 2025-04-13 09:24 | PTCARENOTE ---
recd 0715 handoff bedside. ETT to vent tolerating current settings, placed on SBT wean at 0750, tolerating 40 minutes then returned to previous settings, tachypneic and shallow. family bedside, updated. gtts noted, off propofol and fent with PRN
precedex if needed. levophed remains 2 mcg/min. minimal urine output. Seen by multiple MDs, anesthesia, surgery, GI, metal riveter. abd tender, no increase in drainage on midline dressing. nods appropriately. med with IV tylenol, denies need for
further pain meds at this time. rest of assessment as documented.
[2025-04-13 09:59] LABS: Glycohemoglobin (HgbA1c) 5.6 % (4.0-5.6)
--- NOTE | 2025-04-13 11:23 | PTCARENOTE ---
placed on SBT, 8/4 and 40%, family bedside, unrestrained, pt interactive and cooperative, nodding and verbalizing appropriately. denies pain. oral care, process explained.
[2025-04-13] MEDS: VANCOCIN 200 IV (11:35)
[2025-04-13 11:58] LABS: Glucose - Point of Care 118 mg/dl (70-99)
--- NOTE | 2025-04-13 12:05 | W.PN.ID1 ---
Date of Service
Date of Service: April 13, 2025
Today's Communication
Continue Vanco/Zosyn
Assessment / Plan
# Severe UC flare with pancolitis
# Acute perforated sigmoid with peritonitis
# Leukocytosis
# Fever
- 04/10 flex sig: severe inflammation with deep ulcerations,no sites spared. Biopsy: diffuse chronic active colitis with ulceration
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
Appreciate surgeon: Intra-abd OR cx: GNR
- Continue Vanco/Zosyn pending culture data
- Trend wbc/temps
# Tb screening in anticipation for biologic
- 04/06/25 QTB gold plus: INDETERMINATE which is not interpretable
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 No known TB risk exposure.
- Will repeat test when she is medically stable.
Chief Complaint
-: Other (diarrhea)
Vital Signs / Physical Exam
Vital Signs
Vital Signs
Temp Pulse Resp BP Pulse Ox
99.3 F 83 14 92/63 97
04/13/25 08:00 04/13/25 10:15 04/13/25 10:15 04/13/25 07:07 04/13/25 11:18
Selected Entries
04/12/25
21:00
Temp 100.4 F H
Physical Exam
Constitutional: Non-toxic
Eyes: Sclera Anicteric
Cardiovascular: Regular Rate and S1/S2
Pulmonary: Clear (anteriorly)
Gastrointestinal: Decreased Bowel Sounds
Extremities: Negative Edema
Neurological: Awake
Objective Data
Lab Data
Lab Results
04/13/25 03:18
04/13/25 03:18
ESR 53 mm/hour (0-20) H 04/10/25 08:08
PT 18.4 Sec (11.4-14.6) H 04/12/25 10:05
INR 1.48 04/12/25 10:05
APTT 28.8 Sec (23.4-35.0) 04/12/25 10:05
Estimated Creat Clear 47 ml/min 04/13/25 03:18
Lactic Acid 2.9 mmol/L (0.7-2.0) H 04/12/25 21:42
Total Bilirubin 1.1 mg/dl (0.2-1.3) 04/13/25 03:18
AST 23 U/L (14-36) 04/13/25 03:18
ALT 57 U/L (0-35) H 04/13/25 03:18
Alkaline Phosphatase 58 U/L (38-126) 04/13/25 03:18
C-Reactive Protein > 270.00 mg/L (0.0-10.00) H 04/13/25 03:18
Most recent labs reviewed.
Micro Results:
04/12/25 12:55 Anaerobic Culture - Preliminary
Abdomen Culture pending. Anaerobic cultures are examined after 3
days incubation. Additional information to follow.
04/12/25 12:55 Wound Culture - Preliminary
Abdomen Gram negative bacilli
Gram Stain - Preliminary
04/12/25 02:32 Influenza Types A & B (AN) - Final
Nasal Swab Negative for Influenza A & B, NAAT
Negative results must be combined with clinical observations
and patient history.
Nucleic Acid Amplification test (NAAT)performed on the
[employer] platform.
04/04/25 10:13 Blood Culture - Final
Blood/Venous No Growth - Final Report
04/04/25 09:38 Blood Culture - Final
Blood/Venous No Growth - Final Report
04/04/25 18:15 - Final
Feces/Stool NO YERSINIA SPECIES ISOLATED
03/31/25 15:29 Blood Culture - Final
Blood/Venous No Growth - Final Report
03/31/25 13:08 Blood Culture - Final
Blood/Venous No Growth - Final Report
04/04/25 18:15 Cryptosporidium/Giardia - Final
Feces/Stool Negative for Cryptosporidium and/or Giardia Lamblia
antigens.
- Final
Negative for Norovirus GI and GII.
04/04/25 18:15 C. difficile GDH Antigen & Toxins - Final
Feces/Stool Negative for toxigenic C.difficile
03/31/25 17:43 Salmonella/Shigella Culture - Final
Feces/Stool No Salmonella, Shigella, Aeromonas or Plesiomonas species
isolated.
Campylobacter Culture - Final
No Campylobacter species isolated.
Shiga Toxin Test - Final
No E. coli Shiga Toxin 1 or 2 detected.
04/01/25 11:44 Urine Culture - Final
Urine NO GROWTH
03/31/25 12:54 C. difficile GDH Antigen & Toxins - Final
Feces/Stool Negative for toxigenic C.difficile
04/12/25 CT a/p: Interval development of extensive free air/pneumoperitoneum within the abdomen and pelvis, likely secondary to a focal defect within the proximal sigmoid colon. New small amount of free fluid within the pelvis.
Interval improvement of pancolitis. Negative for pulmonary embolism.
04/12/25 CXR: No acute disease within the chest. New lucency within the upper abdomen and underneath the left hemidiaphragm concerning for pneumoperitoneum.
04/05/25 CT a/p: There is findings of worsening severe pancolitis. Findings are likely related to reported ulcerative colitis.
04/04/25 CXR: The trachea is midline. There is moderate elevation of the right hemidiaphragm. There appear to be thin bands of subpleural subsegmental atelectasis and scarring in both lower lungs. There is no focal airspace opacity suspicious for
pneumonia. There is no radiographic evidence for pleural effusion or pneumothorax.
03/31 CT a/p: Mild diffuse colonic wall thickening suggestive of pancolitis. Mild to moderate amount of fluid within the proximal colon. Severe chronic diverticular disease within the sigmoid. Small amount of free fluid within the pelvis.
[2025-04-13 12:14] LABS: B.E. -1.7 mmol/L; HCO3 21.9 mmol/L (21-28); O2 Saturation % 97.0 % (94-98); PCO2 33 mmHg (32-35); PO2 78 mmHg (83-108)
--- NOTE | 2025-04-13 12:51 | W.PN.HOSP.TC ---
Today's Communication/Plan
-
SBT for extubation
wean pressors
IV Abx
Assessment / Plan
Assessment / Plan
Assessment:
Perforated bowel
- CXR with pneumo-peritoneam
- CT: suggestive of perforation, likely at sigmoid level. await final read
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
- continue ostomy/drain care per CRS
- continue Vanco/Zosyn, day 2 - ID following
Septic shock in setting of acute bowel perforation
- wean pressors to off
VDRF for procedure
- extubation trials today with ICU team
Acute in-hospital delirium
Sepsis in setting of UC flare
- leukocytosis in setting of steroids
- Cultures negative
UC flare (severe UC with pancolitis)
- CT abdomen with IV contrast 04/05 shows worsening severe pancolitis likely related to ulcerative colitis
- s/p Flex Sig 04/10 with edema and deep ulcerations diffusely; s/p biopsies for path and CMV testing
- Steroids discontinued post-emergency surgery
Acute urinary retention
- present on admission
- continue Flomax
- Rodrigues inserted 04/07; void trial successful 04/10. Re-inserted for OR. Void trial when ok with ICU/CRS.
Oral aphthous ulcers - continue topical alum and magic mouthwash, patient states both are helping.
Non-gap metabolic acidosis - resolved
Hypokalemia - due to diarrhea. Resolved.
acute Hyponatremia - improved.
Incidental 3.7 cm mildly heterogeneous cystic left adnexal lesion. Would not workup for now.
- OP PCP f/u
Rheumatoid arthritis - quiescent.
ADD
History of gout - colchicine now on hold given ongoing diarrhea.
Obesity due to excess calories
DVT ppx: Lovenox
Code: Full (reversed from DNR/DNI status on 04/12 AM)
Total Critical Care Time 41 minutes. I was immediately available to the patient and staff. I personally examined, reviewed labs, diagnostic images/reports, interpretations, treatment plans, discussed patient care with other providers and family
or caregivers (if patient is unable to make decisions), entered orders as appropriate and documented the medical record.
Anticipated Discharge: > 48 hours
Subjective/Interval History
-
Date of Service: April 13, 2025
s/p subtotal colectomy 04/12
remains intubated, on low rate pressors
Objective Data
-
Labs:
Laboratory Results
04/13/25 04/13/25 04/13/25
03:18 04:55 12:06
WBC 21.2 H
Hgb 11.0 L
Hct 32.0 L
Plt Count 254 D
HCO3 19.6 L 21.9
Sodium 134 L
Potassium 3.9
Chloride 107
Carbon Dioxide 23
BUN 23 H
Creatinine 0.8
Glucose 142 H
Calcium 7.2 L
Total Bilirubin 1.1
AST 23
ALT 57 H
Alkaline Phosphatase 58
Vital Signs:
Vital Signs
Temp Pulse Resp BP Pulse Ox
99.4 F 83 14 92/63 97
04/13/25 12:00 04/13/25 10:15 04/13/25 10:15 04/13/25 07:07 04/13/25 11:18
I&O
04/12/25 04/13/25 04/14/25
06:59 06:59 06:59
Intake Total 1100 / 1100 5577.6 / 5698.7 570.5 / 570.5
Output Total 1690 / 1690 200 / 200
Balance 1100 / 1100 3887.6 / 4008.7 370.5 / 370.5
Physical Exam
-
General: No Apparent Distress and Intubated
HEENT: Normocephalic and Atraumatic
Respiratory: Non Labored Respirations and Decreased Breath Sounds
Cardiac: Regular Rhythm and S1/S2
GI: Soft and Ostomy
Neuro: AO x 3
Psych: Calm
Data Reviewed
-
Critical Care Time (in minutes): 41
Labs: Labs Reviewed by me
--- NOTE | 2025-04-13 13:13 | CM ---
POD #1: Ulcerative proctocolitis with perforation, total abdominal colectomy with ileostomy. IV/AB, for extubation. Discharge POC: [facility], [facility].
--- NOTE | 2025-04-13 13:22 | RESPNOTE ---
pt extubated at 1320 to 4 LPM of nasal cannula without any difficulties, 02 sats 95% noted
--- NOTE | 2025-04-13 13:54 | PTCARENOTE ---
extubated smoothly after 2 hr SBT approx 1320. family updated throughout process, oral care, upon tube removal, voice very hoarse. able to make needs known. Ultrasound LUE just completed awaiting results. tolerating 4l nc, levophed off, see
intervention.
--- NOTE | 2025-04-13 16:39 | PTCARENOTE ---
family bedside, pt resting. Left arm IVs discontinued, arm remains elevated on pillow.
--- NOTE | 2025-04-13 16:43 | WOUNDNOTE ---
[facility] RN NOTE: Reviewed chart and met with patient and daughter, Nasima. Patient with new ileostomy created on 04/12. Patient very groggy, lethargic. Nasima said that she and patients , Bill will be learning ostomy care. Ostomy with 300 cc of liquid
brown stool. Stoma is pink and budded. Pouch changed to high output 2 3/4 high out put pouch. Drainage system at bedside, RN Shilpa made aware. All questions answered and booklet left at bedside. Will continue to follow for ostomy teaching.
[2025-04-13 17:51] LABS: Glucose - Point of Care 84 mg/dl (70-99)
[2025-04-13] MEDS: LOVENOX 40 MG SC (18:05)
--- NOTE | 2025-04-13 18:15 | PTCARENOTE ---
I/O collected, positioned for comfort. family bedside, no other changes. VS noted.
--- NOTE | 2025-04-13 19:23 | PTCARENOTE ---
on assessment pt alert, soft slow speech, family at bedside, TERA, SR on the monitor, LUE elevated on pillow, 2L NC, L nare OGT, hawkins in place, L abd RIDDHI, transanal thais drain, R radial eloy and R triple lumen IJ, bed alarm on and call barnes in
reach
[2025-04-13 23:21] LABS: Glucose - Point of Care 91 mg/dl (70-99)
[2025-04-14] VITALS (8 sets, daily range): BP systolic 118–140; BP diastolic 55–96; PULSE 75; O2SAT 99; BMI 34.8; BMI 35.4
--- NOTE | 2025-04-14 00:41 | PTCARENOTE ---
pt appears to be resting comfortably in bed, repositioned, bed alarm on and call barnes in reach, no complaints at this time
[2025-04-14] MEDS: ZOSYN 50 IV ×4 (03:02→22:13)
[2025-04-14 03:48] LABS: Hematocrit 28.0 % (37.0-47.0); Hemoglobin 9.4 g/dL (12.0-16.0); Mean Corp Hgb Conc. 33.6 g/dL (33.0-37.0); Mean Corpuscular Volume 96.2 fL (81.0-99.0); Platelet Count 169 10^3/uL (130-400); Red Cell Dist. Width 12.7 % (11.5-14.5)
--- NOTE | 2025-04-14 03:58 | PTCARENOTE ---
denies pain and SOB at this time, bed alarm on and call barnes in reach
[2025-04-14 04:13] LABS: ALT (SGPT) 52 U/L (0-35); AST (SGOT) 25 U/L (14-36); Albumin 1.7 g/dl (3.5-5.0); Alkaline Phosphatase 66 U/L (38-126); Blood Urea Nitrogen 21 mg/dl (7-17); Calcium 6.9 mg/dl (8.4-10.2); Carbon Dioxide 26 mmol/L (22-30); Chloride 107 mmol/L (98-107); Estimated Creatinine Clearance 55 ml/min; Glucose 77 mg/dl (70-99); Potassium 3.8 mmol/L (3.5-5.1); Sodium 134 mmol/L (135-145); Total Protein 3.5 g/dl (6.3-8.2); eGFR > 60.00
[2025-04-14] MEDS: CALCIUM GLUCONATE 130 MG IV (04:39)
[2025-04-14 05:16] LABS: Glucose - Point of Care 75 mg/dl (70-99)
--- NOTE | 2025-04-14 07:07 | W.PN.INTV ---
Today's Communication / Plan
Recommendations
Doing well post extubation, stable on RA
Not on pressors, obtain ECHO for baseline
NGT for now, diet advancement per team
PT/OT evals
Can transfer to floors per team, we will sign off upon transfer
Assessment
-
84yoF H UC presented 03/31/25 with sepsis secondary to pancolitis in setting of UC exacerbation. At beginning of hospitalization, she was on antibiotics with improvement of sepsis but continued pancolitis. Cultures were negative but symptoms
persisted. GI performed a sigmoidoscopy 04/10/25 and planned to restart diet and consider commencement of remicade today in addition to her steroids for the persistent exacerbation. Overnight, pt acutely had SOB and tachycardia with CXR demonstrating
pneumoperitoneum. Concern for pancolitis s/p total colectomy and ileostomy POD1. Brought back to ICU intubated on pressors from OR 04/12/25.
Acute surgical abdomen with perforated bowel s/p colectomy
Septic shock, related to perforated bowel on pressors
Metabolic acidosis with elevated lactate
Acute respiratory failure
Leukocytosis
Anemia, postoperative
Hyponatremia, mild
Hypocalcemia
Elevated inflammatory markers
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
UC
RA
ADD
Left knee replacement 2001
Right knee replacement 2007
Right fibula fracture 2010
Left eye vitrectomy 2015
Right pubic rami fracture 2016
Back surgery 2019
Hip replacement 2019
Plan
Vent -> extubated 04/13/25
Stable on RA, no issues
Pneumoperitoneum noted on imaging yesterday, history of pancolitis with underlying ulcerative colitis s/p total colectomy
Continue aggressive IV volume resuscitation, continue broad-spectrum antibiotics with Zosyn and IV vancomycin
Colorectal surgery and GI following.
Encourage ambulation- okay from surgery team.
Wound care/ostomy team consulted.
NPO. Continue monitoring NG and ostomy output.
Diet advancement per team
UC flare, IV steroids stopped 04/13
Continue maintenance LR at 100 cc an hour
Continue Zosyn, vancomycin
Weaned off pressors, check ECHO
Continue Levophed, target MAP 65 or above
Rodrigues catheter, monitor input and output closely
ABG this morning pH 7.52 with respiratory compensation CO2 24 Lactic acid 2.9.
PT/OT evals
DVT prophylaxis: Lovenox 40mg and SCDs
Diet: NPO
Diagnostic Data
Chest X-Ray: 04/13/25- Lines and tubes: The tip of endotracheal tube is approximately 5.5 cm above the bailee. The tip of the feeding tube is off the edge of the film but below the level of GE junction. The tip of a right central venous catheter is
at the junction of the superior vena cava and right atrium. Lungs: The lungs are clear aside from minimal left lower lobe atelectasis which is improved.. No pleural effusion or pneumothorax.
CT Scan: AP 04/12/25- 1. Interval development of extensive free air/pneumoperitoneum within the abdomen and pelvis, likely secondary to a focal defect within the proximal sigmoid colon. New small amount of free fluid within the pelvis.
2. Interval improvement of pancolitis.
3. Negative for pulmonary embolism. Small amount of atelectasis/scarring within both posterior lower lobes.
Echo: n/a
PFT's:
Reports and relevant images were personally reviewed.
Critical Care time 31 mins -- The patient is admitted for acute critical illness for the treatment of vital organ failure and/or prevention of further life-threatening conditions. Total care includes time spent in review of history, physical exam,
medications, hemodynamic/ventilator parameters, laboratory data, imaging and discussion with house staff, pharmacy, respiratory therapy, grab driver, and nursing.
Subjective Dataa
Subjective Data
Date of Service:
Date of Service: April 14, 2025
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
Subjective:
Doing well, no complaints of pain
Not on pressors
Objective Data
Data Reviewed
Vital Signs / I&O / Oxygen:
Vital Signs
Temp Pulse Resp BP Pulse Ox
97.6 F 75 18 92/63 98
04/14/25 03:05 04/14/25 03:45 04/14/25 03:45 04/13/25 07:07 04/14/25 03:45
Intake and Output
04/13/25 04/14/25 04/15/25
06:59 06:59 06:59
Intake Total 5577.6 / 5698.7 2934.3 / 2934.3
Output Total 1690 / 1690 1755 / 1755
Balance 3887.6 / 4008.7 1179.3 / 1179.3
SaO2 [CPAP/PSV] 97
SaO2 [A/C] 97
SaO2 98
Nasal Cannula flow liters per 2
minute
Physical Exam
General: Comfortable
HEENT: Normocephalic, Anicteric and Moist Mucous Membranes
Cardiovascular: S1-S2 and Irregular Rhythm (tachycardic, aflutter)
Respiratory: Clear and Non-Labored Respirations
GI: Soft, Non Distended, NG Tube and Other (ostomy producing minimal stool, RIDDHI drain serosanguinous fluid, )
Neurology: Awake, Alert, Oriented and No Motor Deficits
Skin: Warm, Dry and Good Color
Labs/Micro/Reports
Lab Data
04/14/25 03:21
04/14/25 03:21
Laboratory Results
04/13/25
12:06
pH 7.43
pCO2 33
pO2 78 L
HCO3 21.9
O2 Delivery Level
Microbiology
04/12/25 12:55 Abdomen Wound Culture - Preliminary
Gram negative bacilli
04/12/25 12:55 Abdomen Gram Stain - Preliminary
04/12/25 12:55 Abdomen Anaerobic Culture - Preliminary
Culture pending. Anaerobic cultures are examined after 3
days incubation. Additional information to follow.
04/12/25 02:32 Nasal Swab Influenza Types A & B (AN) - Final
Negative for Influenza A & B, NAAT
Negative results must be combined with clinical observations
and patient history.
Nucleic Acid Amplification test (NAAT)performed on the
[employer] platform.
[2025-04-14 07:09] LABS: Absolute Neutrophils -Man Diff 18.4 10^3/uL (1.4-6.5); Macrocytosis 3+; Normal RBC Morphology No; Ovalocytes 1+; Platelets Checked Yes; Total Cells Counted 100
--- NOTE | 2025-04-14 07:17 | W.PN.INTV ---
Today's Communication / Plan
Recommendations
Plan reviewed with attending.
Assessment
-
84yoF PMH UC presenting with pneumoperitoneum secondary to bowel perforation in setting of UC exacerbation pancolitis s/p total colectomy and ileostomy POD2 recovering well off pressors with managed pain control.
Brought back to ICU intubated on pressors from OR. Now extubated off all pressors.
RIDDHI draining serosanginous fluid 495 ml total, decrease from yesterday. Central in rectal stump and NG tube for decompression.
Continued leukocytosis, downtrending. Electrolyte WNL. RRR. Afebrile.
L arm became swollen postop. US demonstrates cephalic vein thrombosis.
Plan:
General:
- Encourage ambulation. PT/OT consulted.
Neurologic:
- Pain controlled. Off sedation. RASS 0.
Pulmonary:
- On room air. Encourage inventive spirometry.
Cardiac:
- Plan for Echo in setting of mild pulmonary vasculature congestion seen on CXR. Monitor clinically for any changes in cardiovascular status.
- DVT in LUE. Continue on prophylactic dose of lovenox. Right now, arm is not painful and swelling has been stable. Monitor for clinical symptom changes.
GI:
- Wound and ostomy care.
- Continue monitoring ostomy and NG output. As NG output decreases and ostomy output increases, we can plan to pull NG and advance diet.
- RIDDHI drain output decreasing.
- GI stopped steroids. Defer restarting home mesalamine per GI recs.
:
- Remove hawkins. Kidney function WNL.
Endocrine:
- No interventions. Glucose stable.
ID:
- Continue zosyn and vancomycin per ID recommendations in setting of septic shock secondary to bowel perforation.
DVT prophylaxis: Lovenox 40mg and SCDs
Diet: NPO
Subjective Dataa
Subjective Data
Date of Service:
Date of Service: April 14, 2025
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
Subjective:
Pt reports feeling significantly better now that she is extubated. Denies abdominal pain. Denies L arm pain.
Objective Data
Data Reviewed
Vital Signs / I&O / Oxygen:
Vital Signs
Temp Pulse Resp BP Pulse Ox
97.6 F 75 18 92/63 98
04/14/25 03:05 04/14/25 03:45 04/14/25 03:45 04/13/25 07:07 04/14/25 03:45
Intake and Output
04/13/25 04/14/25 04/15/25
06:59 06:59 06:59
Intake Total 5577.6 / 5698.7 2934.3 / 2934.3
Output Total 1690 / 1690 1755 / 1755
Balance 3887.6 / 4008.7 1179.3 / 1179.3
SaO2 [CPAP/PSV] 97
SaO2 [A/C] 97
SaO2 98
Nasal Cannula flow liters per 2
minute
Physical Exam
General: Comfortable
HEENT: Normocephalic, Anicteric and Moist Mucous Membranes
Cardiovascular: S1-S2, Regular Rhythm and Other (L edematous arm)
Respiratory: Clear and Non-Labored Respirations
GI: Soft, NG Tube (dark fluid) and Other (ostomy producing minimal stool, RIDDHI drain yellow, cloudy fluid, no evidence of mouth sores)
Neurology: Awake, AO x 3 and No Motor Deficits
Skin: Warm and Dry
Labs/Micro/Reports
Lab Data
04/14/25 03:21
04/14/25 03:21
Laboratory Results
04/13/25
12:06
pH 7.43
pCO2 33
pO2 78 L
HCO3 21.9
O2 Delivery Level
Microbiology
04/12/25 12:55 Abdomen Wound Culture - Preliminary
Gram negative bacilli
04/12/25 12:55 Abdomen Gram Stain - Preliminary
04/12/25 12:55 Abdomen Anaerobic Culture - Preliminary
Culture pending. Anaerobic cultures are examined after 3
days incubation. Additional information to follow.
04/12/25 02:32 Nasal Swab Influenza Types A & B (AN) - Final
Negative for Influenza A & B, NAAT
Negative results must be combined with clinical observations
and patient history.
Nucleic Acid Amplification test (NAAT)performed on the
[employer] platform.
--- NOTE | 2025-04-14 07:30 | PTCARENOTE ---
vitals captured from previous shift.
[2025-04-14] MEDS: NSS (PRESERVATIVE FREE) 10 ML IV (08:10)
[2025-04-14] MEDS: PROTONIX IV 40 MG IV (08:10)
[2025-04-14] MEDS: TIMOPTIC 0.5% OPHTHALMIC SOLUTION 1 DROP LEFT EYE ×2 (08:11→20:04)
[2025-04-14] MEDS: OFIRMEV 100 IV (08:16)
--- NOTE | 2025-04-14 08:23 | PHA.VAN.FU ---
Vancomycin Assessment / Plan
- Assessment
Renal Function: Stable
WBC's are: Trending Down
In the past 24 hrs, patient has been: Afebrile
Concomitant Antimicrobials: piperacillin/tazobactam
- Assessment - Therapeutic Drug Monitoring
Random Level: 10.2 - drawn ~16H after previous dose of 1000mg
- Dosing Plan
Dosing by Level: Re-dose today (Vanc 1250mg)
Dosing Comments: increase dose today based on borderline low level
- Monitoring Plan
Random Level: 04/15 0600
- Follow Up
Pharmacy will continue to follow.
Vancomycin Follow UP
- -
Patient Age: 84
Patient Sex: Female
Vancomycin Day #: 3
Indication: Gi / Intra-Abdominal
Requesting Provider: Dr. Awad / Dr. Branch
Pertinent Antimicrobial Allergies:
bacitracin - unknown
clindamycin - anaphylaxis
smx/tmp - rash
Height / Weight:
Height 4 ft 11 in
Actual Weight 78 kg
Pertinent Past Medical History: BMI ~31
- Vital Signs / Lab Results
Temp Pulse Resp BP Pulse Ox
97.6 F 75 18 92/63 98
04/14/25 03:05 04/14/25 03:45 04/14/25 03:45 04/13/25 07:07 04/14/25 03:45
Lab Results - Hematology
04/12/25 04/12/25 04/12/25
02:56 02:56 08:05
WBC Cancelled 6.7 14.1 H
Band Neutrophils 20 H D
04/12/25 04/13/25 04/14/25
17:37 03:18 03:21
WBC 26.2 H 21.2 H 20.5 H
Band Neutrophils 23 H 2 D
Lab Results - Chemistry
04/12/25 04/12/25 04/12/25
02:56 02:56 02:56
BUN 22 H Cancelled
Creatinine 0.6 Cancelled
Estimated Creat Clear 60
Albumin
04/12/25 04/12/25 04/12/25
02:56 08:04 08:05
BUN 24 H
Creatinine 0.9
Estimated Creat Clear Cancelled 40
Albumin 2.6 L Cancelled 2.4 L
04/12/25 04/13/25 04/14/25
17:37 03:18 03:21
BUN 21 H 23 H 21 H
Creatinine 0.6 0.8 0.7
Estimated Creat Clear 62 47 55
Albumin 1.3 L 1.8 L 1.7 L
04/12/25 04/12/25 04/12/25
08:04 11:22 17:37
Lactic Acid 6.1 H* 4.6 H* 4.5 H*
04/12/25
21:42
Lactic Acid 2.9 H
Microbiology Results
04/12/25 12:55 Wound Culture - Preliminary
Abdomen Gram negative bacilli
Gram Stain - Preliminary
04/12/25 12:55 Anaerobic Culture - Preliminary
Abdomen Culture pending. Anaerobic cultures are examined after 3
days incubation. Additional information to follow.
Therapeutic Drug Monitoring
Random Vancomycin 10.2 ug/ml 04/14/25 03:21
--- NOTE | 2025-04-14 08:51 | PTCARENOTE ---
recd pt 0730 handoff bedside, family present. alert, interactive. mild throat pain, med with ofirmev as ordered. art line dcd, positional. NG draining, placement confirmed, small amt brown. hawkins draining clear yellow, RIDDHI emptied. oral care
given, agreeable to OOB to chair this am, notes nervous about it. plan reviewed. cough improved from yesterday.
--- NOTE | 2025-04-14 09:53 | PTCARENOTE ---
room air sats 92-94%, OOB to recliner, max assist 2, very weak and stiff legs. seen by Drs. Covington and Artem.
[2025-04-14] MEDS: LR 1000 IV ×2 (10:05→20:02)
--- NOTE | 2025-04-14 10:52 | W.PN.CRS1 ---
Addendum entered and electronically signed by Alo Allan MD 04/14/25 13:14:
Correction: POD 2, not 1.
Original Note:
Today's Communication / Plan
-
Continue current care.
Assessment/Plan
-
POD 1.
1. Vitals reasonable. Not on pressors. WBC 20 from 21. Hemoglobin 9.4. Electrolytes unremarkable.
2. Antibiotics per ID.
3. Await more substantial stoma function. Continue NG tube for now.
4. Continue current measures.
5. Appreciate help of other consultants.
Subjective Data
Procedure
- subtotal colectomy
Subjective Data
Date of Service: April 14, 2025
Denies abdominal pain.
In good spirits.
Daughter in room with her.
Objective Data
-
Vital Signs
Temp Pulse Resp BP Pulse Ox
97.6 F 79 23 127/94 94
04/14/25 03:05 04/14/25 10:15 04/14/25 10:15 04/14/25 09:32 04/14/25 10:00
Intake & Output
04/13/25 04/14/25 04/15/25
06:59 06:59 06:59
Intake Total 5577.6 / 5698.7 3134.3 / 3234.3 480 / 480
Output Total 1690 / 1690 1785 / 1785 425 / 425
Balance 3887.6 / 4008.7 1349.3 / 1449.3 55 / 55
Intake:
Oral fluids 0 / 0
IV fluids (Total) 4687.6 / 4808.7 2444.3 / 2544.3 350 / 350
Levo 296.4 / 303.9 28.2 / 28.2
Lr 1,000 ml @ 100 mls/hr IV . 1600 / 1700 2400 / 2500 350 / 350
Q10H MYRIAM Rx#:[id number]
Propofol 157.7 / 168.8 11.1 / 11.1
bolus 2500 / 2500
fent 37.5 / 40.0 5.0 / 5.0
vasopressin 96 / 96 0 / 0
IV piggybacks 890 / 890 550 / 550 100 / 100
Amount instilled into GI Tube ( 140 / 140 30 / 30
Total)
Provencal Sump 140 / 140 30 / 30
Output:
Liquid stool amount 400 / 400
Ileostomy 400 / 400
Drain Output (Total) 550 / 550 495 / 495 95 / 95
Left [place] 550 / 550 495 / 495 95 / 95
Urine, Rodrigues 1140 / 1140 890 / 890 330 / 330
Lab Results
04/14/25 03:21
04/14/25 03:21
Physical Exam
-
General: No Acute Distress
Chest: Clear
Cardiovascular: Regular Rate & Rhythm
Abdomen: Non Distended, Tender (mild incisional) and Other (RIDDHI with opaque serous output)
Extremities: No Calf Tenderness
Incision: Clear, Dry, Intact (dressings)
[2025-04-14] MEDS: VANCOCIN 275 MG IV (10:57)
--- NOTE | 2025-04-14 11:45 | PTCARENOTE ---
unable to stand despite max assist 3, lift device to return to bed. settled, lines adjusted, monitoring remains. awaiting tele bed. MDs aware of microbiology findings, pt and family updated, on contact isolation.
--- NOTE | 2025-04-14 12:11 | WOUNDNOTE ---
[facility] RN note: Patient's ileostomy appliance is intact. Liquid brown effluent emptied from high output ostomy pouch. t/c SPD and ordered ostomy supplies. Patient has a small stage 2 coccyx pressure injury along with MASD. Silicone border foam dressing
changed (Sacral shaped silicone border foam used). Patient turned to L semi side lying position with help from CAROL Thornton. Heels off bed with pillow. Care plan to be updated.
--- NOTE | 2025-04-14 12:13 | WOUNDNOTE ---
[facility] RN note: Confirmed with Dr. Allan he prefers ostomy nurse to change ostomy appliance on Thursday instead of today as the post op abdominal incision dressing will have to be removed to change appliance and then cover incision with dry gauze (leave
ifeanyi).
--- NOTE | 2025-04-14 12:15 | WOUNDNOTE ---
[facility] RN note: Patient's ileostomy appliance is intact. Liquid brown effluent emptied from high output ostomy pouch. t/c SPD and ordered ostomy supplies. Instructed daughters and how to open and close pouch, how to cut out wafer and snap on
pouch. Daughter Nasima gave verbal permission to order a [place] ostomy secure starter kit. Patient has a small stage 2 coccyx pressure injury along with MASD. Silicone border foam dressing changed (Sacral shaped silicone border foam used). Patient
turned to L semi side lying position with help from CAROL Thornton. Heels off bed with pillow. Care plan to be updated.
--- NOTE | 2025-04-14 12:25 | W.PN.ID1 ---
Date of Service
Date of Service: April 14, 2025
Today's Communication
Continue vanco/Zosyn.
Assessment / Plan
# Severe UC flare/pancolitis
# Acute perforated sigmoid with peritonitis
# Leukocytosis improving; on steroid
# Fever resolved
- 04/10 flex sig: severe inflammation with deep ulcerations,no sites spared. Biopsy: diffuse chronic active colitis with ulceration
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
Appreciate surgeon: Intra-abd OR cx: MRSA, Enterococcus faelcalis, E. coli
- Continue Vanco/Zosyn (d3)
- Trend wbc
# Tb screening in anticipation for biologic
- 04/06/25 QTB gold plus: INDETERMINATE which is not interpretable
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 No known TB risk exposure.
- Will repeat test when she is medically stable.
Chief Complaint
-: Other (diarrhea)
Subjective / Review of Systems
Noo significant pain.
Vital Signs / Physical Exam
Vital Signs
Vital Signs
Temp Pulse Resp BP Pulse Ox
97.6 F 72 23 120/58 93
04/14/25 03:05 04/14/25 12:15 04/14/25 12:15 04/14/25 12:05 04/14/25 11:00
Physical Exam
Constitutional: Non-toxic
Eyes: Sclera Anicteric
Cardiovascular: Regular Rate and S1/S2
Pulmonary: Clear (anteriorly)
Gastrointestinal: Decreased Bowel Sounds
Extremities: Negative Edema
Neurological: AO x 3
Objective Data
Lab Data
Lab Results
04/14/25 03:21
04/14/25 03:21
ESR 53 mm/hour (0-20) H 04/10/25 08:08
PT 18.4 Sec (11.4-14.6) H 04/12/25 10:05
INR 1.48 04/12/25 10:05
APTT 28.8 Sec (23.4-35.0) 04/12/25 10:05
Estimated Creat Clear 55 ml/min 04/14/25 03:21
Lactic Acid 2.9 mmol/L (0.7-2.0) H 04/12/25 21:42
Total Bilirubin 0.4 mg/dl (0.2-1.3) 04/14/25 03:21
AST 25 U/L (14-36) 04/14/25 03:21
ALT 52 U/L (0-35) H 04/14/25 03:21
Alkaline Phosphatase 66 U/L (38-126) 04/14/25 03:21
C-Reactive Protein > 270.00 mg/L (0.0-10.00) H 04/13/25 03:18
Most recent labs reviewed.
Micro Results:
04/12/25 12:55 Anaerobic Culture - Preliminary
Abdomen Culture pending. Anaerobic cultures are examined after 3
days incubation. Additional information to follow.
04/12/25 12:55 Wound Culture - Preliminary
Abdomen Escherichia coli
Staph aureus MRSA
Enterococcus species
Gram Stain - Preliminary
04/12/25 02:32 Influenza Types A & B (AN) - Final
Nasal Swab Negative for Influenza A & B, NAAT
Negative results must be combined with clinical observations
and patient history.
Nucleic Acid Amplification test (NAAT)performed on the
[employer] platform.
04/04/25 10:13 Blood Culture - Final
Blood/Venous No Growth - Final Report
04/04/25 09:38 Blood Culture - Final
Blood/Venous No Growth - Final Report
04/04/25 18:15 - Final
Feces/Stool NO YERSINIA SPECIES ISOLATED
03/31/25 15:29 Blood Culture - Final
Blood/Venous No Growth - Final Report
03/31/25 13:08 Blood Culture - Final
Blood/Venous No Growth - Final Report
04/04/25 18:15 Cryptosporidium/Giardia - Final
Feces/Stool Negative for Cryptosporidium and/or Giardia Lamblia
antigens.
- Final
Negative for Norovirus GI and GII.
04/04/25 18:15 C. difficile GDH Antigen & Toxins - Final
Feces/Stool Negative for toxigenic C.difficile
03/31/25 17:43 Salmonella/Shigella Culture - Final
Feces/Stool No Salmonella, Shigella, Aeromonas or Plesiomonas species
isolated.
Campylobacter Culture - Final
No Campylobacter species isolated.
Shiga Toxin Test - Final
No E. coli Shiga Toxin 1 or 2 detected.
04/01/25 11:44 Urine Culture - Final
Urine NO GROWTH
03/31/25 12:54 C. difficile GDH Antigen & Toxins - Final
Feces/Stool Negative for toxigenic C.difficile
04/12/25 CT a/p: Interval development of extensive free air/pneumoperitoneum within the abdomen and pelvis, likely secondary to a focal defect within the proximal sigmoid colon. New small amount of free fluid within the pelvis.
Interval improvement of pancolitis. Negative for pulmonary embolism.
04/12/25 CXR: No acute disease within the chest. New lucency within the upper abdomen and underneath the left hemidiaphragm concerning for pneumoperitoneum.
04/05/25 CT a/p: There is findings of worsening severe pancolitis. Findings are likely related to reported ulcerative colitis.
04/04/25 CXR: The trachea is midline. There is moderate elevation of the right hemidiaphragm. There appear to be thin bands of subpleural subsegmental atelectasis and scarring in both lower lungs. There is no focal airspace opacity suspicious for
pneumonia. There is no radiographic evidence for pleural effusion or pneumothorax.
8/15 CT a/p: Mild diffuse colonic wall thickening suggestive of pancolitis. Mild to moderate amount of fluid within the proximal colon. Severe chronic diverticular disease within the sigmoid. Small amount of free fluid within the pelvis.
--- NOTE | 2025-04-14 12:28 | WOUNDNOTE ---
[facility] RN note: Confirmed with Dr. Allan he prefers ostomy nurse to change ostomy appliance on Thursday instead of today as the post op abdominal incision dressing will have to be removed to change appliance and then cover incision with dry gauze
(leave ifeanyi).
--- NOTE | 2025-04-14 14:02 | CM ---
Extubated 04/13/25, stable on RA, NGT, OK to transfer to floor. Discharge POC: Therapy recommends SNF. Accepted to [facility] which is preference. Referral previously placed.
--- NOTE | 2025-04-14 14:42 | WOUNDNOTE ---
[facility] RN note: Patient ordered a Provasculon secure ostomy starter kit.
--- NOTE | 2025-04-14 16:35 | PTCARENOTE ---
report to RN on 2N, for transfer room 2130. placed on new bed with air overlay, hawkins removed. drains and i/O tallied, see EMR. Transferred via bed to new room with all belongings and ostomy supplies.
--- NOTE | 2025-04-14 16:39 | W.PN.HOSP.TC ---
Today's Communication/Plan
-
await ROBF, continue NGT
Abx per ID
Assessment / Plan
Assessment / Plan
Assessment:
Perforated bowel
- CXR with pneumo-peritoneum
- CT: suggestive of perforation, likely at sigmoid level. await final read
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
- continue ostomy/drain care per CRS
- continue Vanco/Zosyn, day 3 - ID following. Operative cultures with MRSA. E faecalis and E. Coli
Septic shock in setting of acute bowel perforation
- wean pressors to off
VDRF for procedure
- extubated 04/13
Acute in-hospital delirium
Sepsis in setting of UC flare
- leukocytosis in setting of steroids
- Cultures negative
UC flare (severe UC with pancolitis)
- CT abdomen with IV contrast 04/05 shows worsening severe pancolitis likely related to ulcerative colitis
- s/p Flex Sig 04/10 with edema and deep ulcerations diffusely; s/p biopsies for path and CMV testing
- Steroids discontinued post-emergency surgery
Acute urinary retention
- present on admission
- continue Flomax
- Rodrigues inserted 04/07; void trial successful 04/10. Re-inserted for OR. Void trial when ok with ICU/CRS.
Oral aphthous ulcers - continue topical alum and magic mouthwash, patient states both are helping.
Non-gap metabolic acidosis - resolved
Hypokalemia - due to diarrhea. Resolved.
acute Hyponatremia - improved.
Incidental 3.7 cm mildly heterogeneous cystic left adnexal lesion. Would not workup for now.
- OP PCP f/u
Rheumatoid arthritis - quiescent.
ADD
History of gout - colchicine now on hold given ongoing diarrhea.
Obesity due to excess calories
Hypocalcemia - IV replacement
DVT ppx: Lovenox
Code: Full (reversed from DNR/DNI status on 04/12 AM)
Anticipated Discharge: > 48 hours
Subjective/Interval History
-
Date of Service: April 14, 2025
extubated and pressors removed yesterday
transferred to floors today
no complaints
Objective Data
-
Vital Signs:
Vital Signs
Temp Pulse Resp BP Pulse Ox
98.0 F 84 22 118/96 94
04/14/25 16:00 04/14/25 16:30 04/14/25 16:30 04/14/25 15:38 04/14/25 16:00
I&O
04/13/25 04/14/25 04/15/25
06:59 06:59 06:59
Intake Total 5577.6 / 5698.7 3134.3 / 3234.3 1510 / 1510
Output Total 1690 / 1690 1785 / 1785 1555 / 1555
Balance 3887.6 / 4008.7 1349.3 / 1449.3 -45 / -45
Physical Exam
-
General: No Apparent Distress
HEENT: Normocephalic and Atraumatic
Respiratory: Negative Wheezes
Cardiac: Regular Rhythm
GI: Soft
Neuro: AO x 3
Psych: Calm
Data Reviewed
-
Total Time Spent with Patient (in minutes): 41
Labs: Labs Reviewed by me
[2025-04-14] MEDS: LOVENOX 40 MG SC (18:31)
[2025-04-14] MEDS: FLUSH (NSS) 2 FLUSH IV (22:13)
[2025-04-15 03:24] VITALS: BP 146/68
[2025-04-15] MEDS: ZOSYN 50 IV ×4 (04:42→23:15)
[2025-04-15] MEDS: FLUSH (NSS) 2 FLUSH IV ×3 (04:43→11:34)
[2025-04-15] MEDS: LR 1000 IV (06:10)
[2025-04-15 07:00] VITALS: BP 128/64
[2025-04-15] MEDS: PROTONIX IV 40 MG IV (08:56)
[2025-04-15] MEDS: TIMOPTIC 0.5% OPHTHALMIC SOLUTION 1 DROP LEFT EYE ×2 (08:56→20:45)
[2025-04-15] MEDS: NSS (PRESERVATIVE FREE) 10 ML IV (08:56)
[2025-04-15 10:02] LABS: Hematocrit 30.5 % (37.0-47.0); Hemoglobin 10.0 g/dL (12.0-16.0); Mean Corp Hgb Conc. 32.8 g/dL (33.0-37.0); Mean Corpuscular Volume 97.1 fL (81.0-99.0); Platelet Count 194 10^3/uL (130-400); Red Cell Dist. Width 12.8 % (11.5-14.5)
[2025-04-15 10:43] LABS: ALT (SGPT) 39 U/L (0-35); AST (SGOT) 21 U/L (14-36); Albumin 1.9 g/dl (3.5-5.0); Alkaline Phosphatase 108 U/L (38-126); Blood Urea Nitrogen 15 mg/dl (7-17); Calcium 7.5 mg/dl (8.4-10.2); Carbon Dioxide 25 mmol/L (22-30); Chloride 108 mmol/L (98-107); Estimated Creatinine Clearance 67 ml/min; Glucose 31 mg/dl (70-99); Potassium 3.7 mmol/L (3.5-5.1); Sodium 137 mmol/L (135-145); Total Protein 3.8 g/dl (6.3-8.2); Triglycerides 144 mg/dl (10-149); eGFR > 60.00
[2025-04-15 10:49] LABS: Glucose - Point of Care 26 mg/dl (70-99)
[2025-04-15] MEDS: DEXTROSE 50% SYRINGE 12.5 GRAMS IV ×2 (10:51→11:15)
[2025-04-15 11:00] VITALS: BP 147/71
--- NOTE | 2025-04-15 11:20 | PHA.VAN.FU ---
Vancomycin Assessment / Plan
- Assessment
Renal Function: SCR Decreasing
WBC's are: Trending Down
In the past 24 hrs, patient has been: Afebrile
Concomitant Antimicrobials: PIPERACILLIN/TAZOBACTAM
- Assessment - Therapeutic Drug Monitoring
Random Level: 9.3 DRAWN ~22H AFTER PREVIOUS DOSE
- Dosing Plan
Dosing by Level: Re-dose today (VANCO 1500MG X1)
- Monitoring Plan
Random Level: 04/16 @0600
- Follow Up
Pharmacy will continue to follow.
Vancomycin Follow UP
- -
Patient Age: 84
Patient Sex: Female
Vancomycin Day #: 4
Indication: Gi / Intra-Abdominal
Requesting Provider: Dr. Awad / Dr. Branch
Pertinent Antimicrobial Allergies:
bacitracin - unknown
clindamycin - anaphylaxis
smx/tmp - rash
Height / Weight:
Height 5 ft
Actual Weight 82.2 kg
Pertinent Past Medical History: BMI ~31
- Vital Signs / Lab Results
Temp Pulse Resp BP Pulse Ox
98.3 F 95 16 128/64 96
04/15/25 07:00 04/15/25 07:00 04/15/25 07:00 04/15/25 07:00 04/15/25 07:00
Lab Results - Hematology
04/12/25 04/13/25 04/14/25
17:37 03:18 03:21
WBC 26.2 H 21.2 H 20.5 H
Band Neutrophils 23 H 2 D
04/15/25
09:10
WBC 17.4 H
Band Neutrophils
Lab Results - Chemistry
04/12/25 04/13/25 04/14/25
17:37 03:18 03:21
BUN 21 H 23 H 21 H
Creatinine 0.6 0.8 0.7
Estimated Creat Clear 62 47 55
Albumin 1.3 L 1.8 L 1.7 L
04/15/25
09:10
BUN 15
Creatinine 0.6
Estimated Creat Clear 67
Albumin 1.9 L
04/12/25 04/12/25 04/12/25
11:22 17:37 21:42
Lactic Acid 4.6 H* 4.5 H* 2.9 H
Microbiology Results
04/12/25 12:55 Wound Culture - Preliminary
Abdomen Escherichia coli
Staph aureus MRSA
Enterococcus faecalis
Gram Stain - Preliminary
04/12/25 12:55 Anaerobic Culture - Preliminary
Abdomen Culture pending. Anaerobic cultures are examined after 3
days incubation. Additional information to follow.
Therapeutic Drug Monitoring
Random Vancomycin 9.3 ug/ml 04/15/25 09:10
[2025-04-15 11:21] LABS: Glucose - Point of Care 28 mg/dl (70-99)
[2025-04-15] MEDS: VANCOCIN 530 MG IV (11:33)
[2025-04-15 11:54] LABS: Nucleated Red Blood Cells % 0 %
--- NOTE | 2025-04-15 11:58 | W.PN.HOSP.TC ---
Today's Communication/Plan
-
correct sugar with dextrose; IVF with dextrose
NGT and post-op management per CRS
IV Abx per ID
Assessment / Plan
Assessment / Plan
Assessment:
Perforated bowel
- CXR with pneumo-peritoneum
- CT: suggestive of perforation, likely at sigmoid level. await final read
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
- continue ostomy/drain care per CRS
- diet: NPO while NGT in place
- continue Vanco/Zosyn, day 4 - ID following. Operative cultures with MRSA. E faecalis and E. Coli
Acute hypoglycemia 04/15
- s/p dextrose injections
- switch IVF to dextrose
Septic shock in setting of acute bowel perforation
- wean pressors to off
VDRF for procedure
- extubated 04/13
Acute in-hospital delirium
Sepsis in setting of UC flare
- leukocytosis in setting of steroids
- Cultures negative
UC flare (severe UC with pancolitis)
- CT abdomen with IV contrast 04/05 shows worsening severe pancolitis likely related to ulcerative colitis
- s/p Flex Sig 04/10 with edema and deep ulcerations diffusely; s/p biopsies for path and CMV testing
- Steroids discontinued post-emergency surgery
Acute urinary retention
- present on admission
- continue Flomax
- Rodrigues inserted 04/07; void trial successful 04/10. Re-inserted for OR. Void trial when ok with ICU/CRS.
Oral aphthous ulcers - continue topical alum and magic mouthwash, patient states both are helping.
Non-gap metabolic acidosis - resolved
Hypokalemia - due to diarrhea. Resolved.
acute Hyponatremia - improved.
Incidental 3.7 cm mildly heterogeneous cystic left adnexal lesion. Would not workup for now.
- OP PCP f/u
Rheumatoid arthritis - quiescent.
ADD
History of gout - colchicine now on hold given ongoing diarrhea.
Obesity due to excess calories
Hypocalcemia - IV replacement
DVT ppx: Lovenox
Code: Full (reversed from DNR/DNI status on 04/12 AM)
Anticipated Discharge: > 48 hours
Subjective/Interval History
-
Date of Service: April 15, 2025
resting comfortably
wants NGT out
hypoglycemic to 20s, responding to dextrose
Objective Data
-
Labs:
Laboratory Results
04/15/25
09:10
WBC 17.4 H
Hgb 10.0 L
Hct 30.5 L
Plt Count 194
Sodium 137
Potassium 3.7
Chloride 108 H
Carbon Dioxide 25
BUN 15
Creatinine 0.6
Glucose 31 L*
Calcium 7.5 L
Total Bilirubin 0.5
AST 21
ALT 39 H
Alkaline Phosphatase 108
Vital Signs:
Vital Signs
Temp Pulse Resp BP Pulse Ox
98.3 F 95 16 128/64 96
04/15/25 07:00 04/15/25 07:00 04/15/25 07:00 04/15/25 07:00 04/15/25 07:00
I&O
04/14/25 04/15/25 04/16/25
06:59 06:59 06:59
Intake Total 3134.3 / 3234.3 2900 / 2900
Output Total 1785 / 1785 3085 / 3085
Balance 1349.3 / 1449.3 -185 / -185
Physical Exam
-
General: No Apparent Distress
HEENT: Normocephalic, Atraumatic and Other (+NG Tube)
Cardiac: Regular Rhythm and S1/S2
GI: Soft and Nontender
Neuro: AO x 3
Psych: Calm
Data Reviewed
-
Total Time Spent with Patient (in minutes): 45
Labs: Labs Reviewed by me
[2025-04-15] MEDS: D5LR 1000 IV ×2 (12:15→23:46)
[2025-04-15 12:17] LABS: Glucose - Point of Care 43 mg/dl (70-99)
[2025-04-15] MEDS: DEXTROSE 50% SYRINGE 25 GRAMS IV (12:44)
[2025-04-15 15:00] VITALS: BP 129/59
--- NOTE | 2025-04-15 15:13 | W.PN.GS2 ---
Addendum entered and electronically signed by Austyn Trejo MD 04/15/25 16:15:
Patient seen and examined. Agree with assessment and plan below.
Original Note:
Today's Communication / Plan
-
clamp trial of NGT
hawkins if continues to retain
Assessment / Plan
-
84 yo female with UC proctocolitis with perforation now POD #3 Total abdominal colectomy with ileostomy
AFVSS
Hypoglycemia noted
Leukocytosis improving, h/h stable
Some liquid outputs from stoma now but not much flatus
NGT with low outputs
Urinary retention with voiding trial, has required straight cath x2
Plan:
Clamp trial of NGT today, if tolerates will tentatively remove tomorrow and start clears
Place hawkins if continues to retain
Ok for ice chips for comfort
IVF with D5 as per primary team
c/w RIDDHI
ABX as per ID; intraop cx with MRSA, Enterococcus faecalis, and E.coli
Holding off on TPN at this point, but may require if bowel recovery is delayed
OOB/Ambulate as tolerated, pt/ot reconsulted since leaving ICU; will likely need SNF
Lovenox for VTE ppx
Subjective Data
-
Date of Service: April 15, 2025
Pt seen and examined at bedside with Dr. Trejo. and daughter present, questions addressed. Pt denies nausea. Eager to have NGT out. Feels more tired today. Denies pain.
Objective Data
-
Intake and Output
04/14/25 04/15/25 04/16/25
06:59 06:59 06:59
Intake Total 3134.3 / 3234.3 2900 / 2900
Output Total 1785 / 1785 3085 / 3085 425 / 425
Balance 1349.3 / 1449.3 -185 / -185 -425 / -425
Intake:
Oral fluids 0 / 0
IV fluids (Total) 2444.3 / 2544.3 2150 / 2150
Levo 28.2 / 28.2
Lr 1,000 ml @ 100 mls/hr IV . 2400 / 2500 950 / 950
Q10H MYRIAM Rx#:[id number]
Propofol 11.1 / 11.1
fent 5.0 / 5.0
vasopressin 0 / 0
IV piggybacks 550 / 550 570 / 570
Amount instilled into GI Tube ( 140 / 140 180 / 180
Total)
Gerton Sump 140 / 140 180 / 180
Output:
Liquid stool amount 400 / 400 740 / 740
Ileostomy 400 / 400 740 / 740
Drain Output (Total) 495 / 495 485 / 485
Left [place] 495 / 495 485 / 485
Gastrointestinal tube output ( 400 / 400
Total)
Gerton Sump 400 / 400
Urine, Hawkins 890 / 890 960 / 960
Urine, Voided 0 / 0
Straight cath output 500 / 500 425 / 425
Other:
Number of approximated MODERATE 1
amounts of urine
Vital Signs
Temp Pulse Resp BP Pulse Ox
98.3 F 111 16 147/71 91
04/15/25 11:00 04/15/25 11:00 04/15/25 11:00 04/15/25 11:00 04/15/25 11:00
Lab Results
04/15/25 09:10
04/15/25 09:10
Calcium 7.5 mg/dl (8.4-10.2) L 04/15/25 09:10
Phosphorus 4.4 mg/dl (2.5-4.5) 04/13/25 03:18
Magnesium 2.1 mg/dl (1.6-2.3) 04/13/25 03:18
Total Bilirubin 0.5 mg/dl (0.2-1.3) 04/15/25 09:10
Direct Bilirubin 1.1 mg/dl (0.0-0.4) H 04/13/25 03:18
AST 21 U/L (14-36) 04/15/25 09:10
ALT 39 U/L (0-35) H 04/15/25 09:10
Alkaline Phosphatase 108 U/L (38-126) 04/15/25 09:10
Total Protein 3.8 g/dl (6.3-8.2) L 04/15/25 09:10
Albumin 1.9 g/dl (3.5-5.0) L 04/15/25 09:10
Physical Exam
-
NAD
ABD soft, mild distention, expected tenderness, NGT with gastric appearing/bile tinged outputs
Midline dressing intact
RIDDHI with SSF and some fibrinous debris, Stoma pink, viable and productive of liquid green fluid no air/flatus in appliance
Patient has a hawkins catheter: No
Patient has a central line: Yes
[2025-04-15] MEDS: OFIRMEV 100 IV ×2 (16:35→23:30)
[2025-04-15] MEDS: LOVENOX 40 MG SC (16:37)
[2025-04-15 16:39] LABS: Glucose - Point of Care 86 mg/dl (70-99)
[2025-04-15 19:42] VITALS: BP 116/53
[2025-04-15 23:42] VITALS: BP 130/67
[2025-04-16] VITALS (8 sets, daily range): BP systolic 123–151; BP diastolic 62–68; PULSE 87
[2025-04-16 03:37] LABS: Glucose - Point of Care 98 mg/dl (70-99)
[2025-04-16] MEDS: OFIRMEV 100 IV ×2 (04:55→11:11)
[2025-04-16] MEDS: ZOSYN 50 IV ×4 (04:55→21:38)
--- NOTE | 2025-04-16 08:32 | PTCARENOTE ---
Around 2100 pt pulled her NGT out herself. Pt states she is having no nausea and did not vomit while doing so; pt states she 'feels terrific and does not want another NGT placed.' LICENSED GUIDE notified and ordered to replace if pt become uncomfortable, has
nausea/vomiting.
[2025-04-16 08:45] LABS: Hematocrit 29.5 % (37.0-47.0); Hemoglobin 9.5 g/dL (12.0-16.0); Mean Corp Hgb Conc. 32.2 g/dL (33.0-37.0); Mean Corpuscular Volume 97.4 fL (81.0-99.0); Nucleated Red Blood Cells % 0.1 %; Platelet Count 157 10^3/uL (130-400); Red Cell Dist. Width 12.7 % (11.5-14.5)
[2025-04-16 08:58] LABS: ALT (SGPT) 24 U/L (0-35); AST (SGOT) 14 U/L (14-36); Albumin 1.8 g/dl (3.5-5.0); Alkaline Phosphatase 100 U/L (38-126); Blood Urea Nitrogen 11 mg/dl (7-17); Calcium 7.1 mg/dl (8.4-10.2); Carbon Dioxide 27 mmol/L (22-30); Chloride 108 mmol/L (98-107); Estimated Creatinine Clearance 67 ml/min; Glucose 99 mg/dl (70-99); Potassium 3.2 mmol/L (3.5-5.1); Sodium 136 mmol/L (135-145); Total Protein 3.7 g/dl (6.3-8.2); eGFR > 60.00
[2025-04-16] MEDS: PROTONIX IV 40 MG IV (09:19)
[2025-04-16] MEDS: TIMOPTIC 0.5% OPHTHALMIC SOLUTION 1 DROP LEFT EYE ×2 (09:20→19:56)
[2025-04-16] MEDS: NSS (PRESERVATIVE FREE) 10 ML IV (09:20)
[2025-04-16 09:30] LABS: Cortisol, Random 26.9 ug/dl
--- NOTE | 2025-04-16 09:45 | W.PN.ID1 ---
Date of Service
Date of Service: April 16, 2025
Today's Communication
Continue antibiotics.
Assessment / Plan
# Severe UC flare/pancolitis
# Acute perforated sigmoid with peritonitis
# Leukocytosis improving; on steroid
# Fever resolved
- 04/10 flex sig: severe inflammation with deep ulcerations,no sites spared. Biopsy: diffuse chronic active colitis with ulceration
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
Appreciate surgeon: Intra-abd OR cx: MRSA, Enterococcus faelcalis, E. coli
- Continue Vanco/Zosyn (d#5)
- Trend wbc
# Tb screening in anticipation for biologic
- 04/06/25 QTB gold plus: INDETERMINATE which is not interpretable
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 No known TB risk exposure.
- Will repeat test when she is medically stable.
Chief Complaint
-: Other (diarrhea)
Subjective / Review of Systems
Review of Systems: No Fever and No Chills
Vital Signs / Physical Exam
Vital Signs
Vital Signs
Temp Pulse Resp BP Pulse Ox
97.6 F 86 16 136/65 94
04/16/25 07:41 04/16/25 07:41 04/16/25 07:41 04/16/25 07:41 04/16/25 07:41
Physical Exam
Constitutional: Non-toxic
Head: Other (NG tube in place)
Eyes: Sclera Anicteric
Cardiovascular: Regular Rate and S1/S2
Pulmonary: Clear (anteriorly)
Gastrointestinal: Decreased Bowel Sounds
Extremities: Negative Edema
Neurological: AO x 3
Objective Data
Lab Data
Lab Results
04/16/25 08:10
04/16/25 08:10
ESR 53 mm/hour (0-20) H 04/10/25 08:08
PT 18.4 Sec (11.4-14.6) H 04/12/25 10:05
INR 1.48 04/12/25 10:05
APTT 28.8 Sec (23.4-35.0) 04/12/25 10:05
Estimated Creat Clear 67 ml/min 04/16/25 08:10
Lactic Acid 2.9 mmol/L (0.7-2.0) H 04/12/25 21:42
Total Bilirubin 0.5 mg/dl (0.2-1.3) 04/16/25 08:10
AST 14 U/L (14-36) 04/16/25 08:10
ALT 24 U/L (0-35) 04/16/25 08:10
Alkaline Phosphatase 100 U/L (38-126) 04/16/25 08:10
C-Reactive Protein > 270.00 mg/L (0.0-10.00) H 04/13/25 03:18
Most recent labs reviewed.
Micro Results:
04/12/25 12:55 Anaerobic Culture - Preliminary
Abdomen Culture pending. Anaerobic cultures are examined after 3
days incubation. Additional information to follow.
04/12/25 12:55 Wound Culture - Preliminary
Abdomen Escherichia coli
Staph aureus MRSA
Enterococcus faecalis
Gram Stain - Preliminary
04/12/25 02:32 Influenza Types A & B (AN) - Final
Nasal Swab Negative for Influenza A & B, NAAT
Negative results must be combined with clinical observations
and patient history.
Nucleic Acid Amplification test (NAAT)performed on the
[employer] platform.
04/04/25 10:13 Blood Culture - Final
Blood/Venous No Growth - Final Report
04/04/25 09:38 Blood Culture - Final
Blood/Venous No Growth - Final Report
04/04/25 18:15 - Final
Feces/Stool NO YERSINIA SPECIES ISOLATED
03/31/25 15:29 Blood Culture - Final
Blood/Venous No Growth - Final Report
03/31/25 13:08 Blood Culture - Final
Blood/Venous No Growth - Final Report
04/04/25 18:15 Cryptosporidium/Giardia - Final
Feces/Stool Negative for Cryptosporidium and/or Giardia Lamblia
antigens.
- Final
Negative for Norovirus GI and GII.
04/04/25 18:15 C. difficile GDH Antigen & Toxins - Final
Feces/Stool Negative for toxigenic C.difficile
03/31/25 17:43 Salmonella/Shigella Culture - Final
Feces/Stool No Salmonella, Shigella, Aeromonas or Plesiomonas species
isolated.
Campylobacter Culture - Final
No Campylobacter species isolated.
Shiga Toxin Test - Final
No E. coli Shiga Toxin 1 or 2 detected.
04/01/25 11:44 Urine Culture - Final
Urine NO GROWTH
03/31/25 12:54 C. difficile GDH Antigen & Toxins - Final
Feces/Stool Negative for toxigenic C.difficile
04/12/25 CT a/p: Interval development of extensive free air/pneumoperitoneum within the abdomen and pelvis, likely secondary to a focal defect within the proximal sigmoid colon. New small amount of free fluid within the pelvis.
Interval improvement of pancolitis. Negative for pulmonary embolism.
04/12/25 CXR: No acute disease within the chest. New lucency within the upper abdomen and underneath the left hemidiaphragm concerning for pneumoperitoneum.
04/05/25 CT a/p: There is findings of worsening severe pancolitis. Findings are likely related to reported ulcerative colitis.
04/04/25 CXR: The trachea is midline. There is moderate elevation of the right hemidiaphragm. There appear to be thin bands of subpleural subsegmental atelectasis and scarring in both lower lungs. There is no focal airspace opacity suspicious for
pneumonia. There is no radiographic evidence for pleural effusion or pneumothorax.
03/31 CT a/p: Mild diffuse colonic wall thickening suggestive of pancolitis. Mild to moderate amount of fluid within the proximal colon. Severe chronic diverticular disease within the sigmoid. Small amount of free fluid within the pelvis.
--- NOTE | 2025-04-16 10:20 | PHA.VAN.FU ---
Vancomycin Assessment / Plan
- Assessment
Renal Function: SCR Decreasing
WBC's are: Trending Up
In the past 24 hrs, patient has been: Afebrile
Concomitant Antimicrobials: PIPERACILLIN/TAZOBACTAM
- Assessment - Therapeutic Drug Monitoring
Random Level: 8.6 DRAWN ~21H AFTER PREVIOUS 1500MG DOSE
- Dosing Plan
Adjust Regimen to: VANCO 1000MG Q12H
New Regimen Predicts: AUC (455), Peak (29.8), Trough (10.9)
- Monitoring Plan
Random Level: 04/17 0600
- Follow Up
Pharmacy will continue to follow.
Vancomycin Follow UP
- -
Patient Age: 84
Patient Sex: Female
Vancomycin Day #: 5
Indication: Gi / Intra-Abdominal
Requesting Provider: Dr. Awad / Dr. Branch
Pertinent Antimicrobial Allergies:
bacitracin - unknown
clindamycin - anaphylaxis
smx/tmp - rash
Height / Weight:
Height 5 ft
Actual Weight 82.2 kg
Pertinent Past Medical History: BMI ~31
- Vital Signs / Lab Results
Temp Pulse Resp BP Pulse Ox
97.6 F 86 16 136/65 94
04/16/25 07:41 04/16/25 07:41 04/16/25 07:41 04/16/25 07:41 04/16/25 07:41
Lab Results - Hematology
04/14/25 04/15/25 04/16/25
03:21 09:10 08:10
WBC 20.5 H 17.4 H 19.3 H
Band Neutrophils 2 D
Lab Results - Chemistry
04/14/25 04/15/25 04/16/25
03:21 09:10 08:10
BUN 21 H 15 11
Creatinine 0.7 0.6 0.5 L
Estimated Creat Clear 55 67 67
Albumin 1.7 L 1.9 L 1.8 L
Microbiology Results
04/12/25 12:55 Anaerobic Culture - Preliminary
Abdomen Culture pending. Anaerobic cultures are examined after 3
days incubation. Additional information to follow.
04/12/25 12:55 Wound Culture - Preliminary
Abdomen Escherichia coli
Staph aureus MRSA
Enterococcus faecalis
Gram Stain - Preliminary
Therapeutic Drug Monitoring
Random Vancomycin 8.6 ug/ml 04/16/25 08:10
[2025-04-16] MEDS: VANCOCIN 200 IV ×2 (12:41→17:58)
[2025-04-16 13:11] LABS: Magnesium 1.9 mg/dl (1.6-2.3); Triglycerides 111 mg/dl (10-149)
--- NOTE | 2025-04-16 13:12 | W.PN.HOSP.TC ---
Today's Communication/Plan
-
renew IVF until 9pm tonight - when TPN will start, d/w surgery team
NGT replaced, continue
pain control
d/w family
Assessment / Plan
Assessment / Plan
Assessment:
Perforated bowel
- CXR with pneumo-peritoneum
- CT: suggestive of perforation at sigmoid level
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
- continue ostomy/drain care per CRS
- diet: NPO while NGT in place. TPN start tonight per surgery.
- continue Vanco/Zosyn, day 5 - ID following. Operative cultures with MRSA. E faecalis and E. Coli
Acute hypoglycemia 04/15
- s/p dextrose injections
- continue dextrose based IVF
Septic shock in setting of acute bowel perforation
- wean pressors to off
VDRF for procedure
- extubated 04/13
Acute in-hospital delirium
Sepsis in setting of UC flare
- leukocytosis in setting of steroids
- Cultures negative
UC flare (severe UC with pancolitis)
- CT abdomen with IV contrast 04/05 shows worsening severe pancolitis likely related to ulcerative colitis
- s/p Flex Sig 04/10 with edema and deep ulcerations diffusely; s/p biopsies for path and CMV testing
- Steroids discontinued post-emergency surgery
Acute urinary retention
- present on admission
- continue Flomax
- Rodrigues inserted 04/07; void trial successful 04/10. Re-inserted for OR. Void trial when ok with CRS.
Oral aphthous ulcers - continue topical alum and magic mouthwash, patient states both are helping.
Non-gap metabolic acidosis - resolved
Hypokalemia - due to diarrhea. Resolved.
acute Hyponatremia - improved.
Incidental 3.7 cm mildly heterogeneous cystic left adnexal lesion. Would not workup for now.
- OP PCP f/u
Rheumatoid arthritis - quiescent.
ADD
History of gout - colchicine now on hold given ongoing diarrhea.
Obesity due to excess calories
Hypocalcemia - IV replacement as needed
DVT ppx: Lovenox
Code: Full (reversed from DNR/DNI status on 04/12 AM)
Anticipated Discharge: > 48 hours
Subjective/Interval History
-
Date of Service: April 16, 2025
patient pulled out NGT overnight, this AM with nausea and NGT replaced
Objective Data
-
Labs:
Laboratory Results
04/16/25
08:10
WBC 19.3 H
Hgb 9.5 L
Hct 29.5 L
Plt Count 157
Sodium 136
Potassium 3.2 L
Chloride 108 H
Carbon Dioxide 27
BUN 11
Creatinine 0.5 L
Glucose 99
Calcium 7.1 L
Total Bilirubin 0.5
AST 14
ALT 24
Alkaline Phosphatase 100
Vital Signs:
Vital Signs
Temp Pulse Resp BP Pulse Ox
98.2 F 82 16 140/65 93
04/16/25 11:05 04/16/25 11:05 04/16/25 11:05 04/16/25 11:05 04/16/25 13:07
I&O
04/15/25 04/16/25 04/17/25
06:59 06:59 06:59
Intake Total 2900 / 2900 1200 / 1200
Output Total 3085 / 3085 2680 / 2680 220 / 220
Balance -185 / -185 -1480 / -1480 -220 / -220
Physical Exam
-
General: No Apparent Distress
HEENT: Normocephalic, Atraumatic and Other (+NGT)
Respiratory: Negative Wheezes
Cardiac: Regular Rhythm and S1/S2
GI: Soft
Skin: Other (surgical incision site with scant drainage)
Neuro: AO x 3
Psych: Calm
Data Reviewed
-
Total Time Spent with Patient (in minutes): 42
Labs: Labs Reviewed by me
--- NOTE | 2025-04-16 13:32 | PTCARENOTE ---
pt self removed NGT overnight. no nausea overnight. General surgery and MD made aware pt with increase output from RIDDHI drain, midline incision, and ileostomy at 0759 this morning. NGT placed back in L nare per order, connected to low int. suction.
ileostomy redressed and midline dressing changed. pt with R IJ, IV abx, IV tylenol and stat IV potassium ordered for 3.2 lab results this afternoon. pt to be started on TPN tonight.
--- NOTE | 2025-04-16 13:33 | W.PN.GS2 ---
Addendum entered and electronically signed by Austyn Trejo MD 04/16/25 13:40:
Patient seen and examined. Agree with assessment plan as documented below.
Original Note:
Today's Communication / Plan
-
C/W NGT
Start TPN
Assessment / Plan
-
84 yo female with UC proctocolitis with perforation now POD #4 Total abdominal colectomy with ileostomy
AFVSS
Hypokalemia noted
Leukocytosis trending back up, h/h stable
Some liquid outputs from stoma now but not much flatus
Nausea with NGT clamped/accidentally removed, replaced this AM. Good position on CXR.
Urinary retention with voiding trial, hawkins now in place
Plan:
NGT to LIWS. NPO with ice chips for comfort
Start TPN tonight, appreciate nutrition recs. Replace Kcl.
C/W hawkins
IVF as per primary team
c/w RIDDHI and thais
ABX as per ID; intraop cx with MRSA, Enterococcus faecalis, and E.coli
OOB/Ambulate as tolerated, pt/ot reconsulted since leaving ICU; will likely need SNF
Lovenox for VTE ppx
Subjective Data
-
Date of Service: April 16, 2025
Pt seen and examined at bedside with Dr. Trejo. NGT dislodged by pt overnight, developed nausea and it was replaced. Denies active nausea now. Denies pain.
Objective Data
-
Intake and Output
04/15/25 04/16/25 04/17/25
06:59 06:59 06:59
Intake Total 2900 / 2900 1200 / 1200
Output Total 3085 / 3085 2680 / 2680 220 / 220
Balance -185 / -185 -1480 / -1480 -220 / -220
Intake:
Oral fluids 0 / 0
IV fluids (Total) 2150 / 2150 600 / 600
Lr 1,000 ml @ 100 mls/hr IV . 950 / 950
Q10H MYRIAM Rx#:[id number]
IV piggybacks 570 / 570 600 / 600
Amount instilled into GI Tube ( 180 / 180
Total)
[place] Sump 180 / 180
Output:
Liquid stool amount 740 / 740 925 / 925 150 / 150
Ileostomy 740 / 740 925 / 925 150 / 150
Drain Output (Total) 485 / 485 255 / 255 70 / 70
Left [place] 485 / 485 255 / 255 70 / 70
Gastrointestinal tube output ( 400 / 400 100 / 100
Total)
[place] Sump 400 / 400 100 / 100
Urine, [place] 960 / 960 550 / 550
Urine, Voided 0 / 0 425 / 425
Straight cath output 500 / 500 425 / 425
Other:
Number of approximated MODERATE 1
amounts of urine
Vital Signs
Temp Pulse Resp BP Pulse Ox
98.2 F 82 16 140/65 93
04/16/25 11:05 04/16/25 11:05 04/16/25 11:05 04/16/25 11:05 04/16/25 13:07
Lab Results
04/16/25 08:10
04/16/25 08:10
Calcium 7.1 mg/dl (8.4-10.2) L 04/16/25 08:10
Phosphorus 3.1 mg/dl (2.5-4.5) 04/16/25 08:10
Magnesium 1.9 mg/dl (1.6-2.3) 04/16/25 08:10
Total Bilirubin 0.5 mg/dl (0.2-1.3) 04/16/25 08:10
Direct Bilirubin 1.1 mg/dl (0.0-0.4) H 04/13/25 03:18
AST 14 U/L (14-36) 04/16/25 08:10
ALT 24 U/L (0-35) 04/16/25 08:10
Alkaline Phosphatase 100 U/L (38-126) 04/16/25 08:10
Total Protein 3.7 g/dl (6.3-8.2) L 04/16/25 08:10
Albumin 1.8 g/dl (3.5-5.0) L 04/16/25 08:10
Physical Exam
-
NAD
ABD soft, mild distention, expected tenderness, NGT with bile tinged outputs
Perianal [place] in place, some bilious discharge around it
Midline dressing intact
RIDDHI with SSF and some fibrinous debris, Stoma pink, viable and productive of liquid green fluid no air/flatus in appliance
Patient has a hawkins catheter: Yes
Patient has a central line: Yes
[2025-04-16] MEDS: KCL 270 MEQ IV (13:58)
[2025-04-16] MEDS: D5LR 500 IV (14:13)
[2025-04-16] MEDS: NOVOLOG FLEXPEN-LOW RESISTANCE SC ×2 (16:06→17:58)
[2025-04-16] MEDS: LOVENOX 40 MG SC (16:42)
[2025-04-16 17:58] LABS: Glucose - Point of Care 97 mg/dl (70-99)
[2025-04-16] MEDS: MORPHINE SULFATE 1 MG IV (19:56)
[2025-04-16] MEDS: Parenteral Nutrition, Central 860 IV (21:25)
[2025-04-16] MEDS: VALIUM INJECTION 5 MG IV (21:38)
[2025-04-17 00:10] LABS: Glucose - Point of Care 126 mg/dl (70-99)
[2025-04-17] MEDS: NOVOLOG FLEXPEN-LOW RESISTANCE SC ×4 (00:17→17:54)
[2025-04-17] MEDS: VALIUM INJECTION 2 MG IV (02:39)
[2025-04-17 03:04] VITALS: BP 148/92
[2025-04-17] MEDS: ZOSYN 50 IV ×4 (04:10→22:49)
[2025-04-17 05:07] LABS: ALT (SGPT) 21 U/L (0-35); AST (SGOT) 15 U/L (14-36); Albumin 1.8 g/dl (3.5-5.0); Alkaline Phosphatase 106 U/L (38-126); Blood Urea Nitrogen 7 mg/dl (7-17); Calcium 7.8 mg/dl (8.4-10.2); Carbon Dioxide 27 mmol/L (22-30); Chloride 108 mmol/L (98-107); Estimated Creatinine Clearance 67 ml/min; Glucose 129 mg/dl (70-99); Magnesium 2.0 mg/dl (1.6-2.3); Potassium 3.5 mmol/L (3.5-5.1); Sodium 135 mmol/L (135-145); Total Protein 4.0 g/dl (6.3-8.2); Triglycerides 128 mg/dl (10-149); eGFR > 60.00
[2025-04-17 05:08] LABS: Hematocrit 29.7 % (37.0-47.0); Hemoglobin 9.9 g/dL (12.0-16.0); Mean Corp Hgb Conc. 33.3 g/dL (33.0-37.0); Mean Corpuscular Volume 97.1 fL (81.0-99.0); Nucleated Red Blood Cells % 0.1 %; Platelet Count 160 10^3/uL (130-400); Red Cell Dist. Width 12.6 % (11.5-14.5)
[2025-04-17] MEDS: VANCOCIN 200 IV ×2 (05:23→17:29)
[2025-04-17 06:00] VITALS: BMI 33.9
[2025-04-17 07:32] VITALS: BP 144/71
[2025-04-17 07:32] LABS: Glucose - Point of Care 137 mg/dl (70-99)
[2025-04-17] MEDS: NSS (PRESERVATIVE FREE) 10 ML IV (08:59)
[2025-04-17] MEDS: PROTONIX IV 40 MG IV (09:00)
--- NOTE | 2025-04-17 09:05 | W.PN.HOSP.TC ---
Today's Communication/Plan
-
Ct-PE study
attempt R sided PICC placement to facilitate R IJ removal
continue TPN
Assessment / Plan
Assessment / Plan
Assessment:
new acute hypoxic respiratory insufficiency
- with 2L NC usage, periodic tachycardia
- check PE study
Perforated bowel
- CXR with pneumo-peritoneum
- CT: with finding of perforation at sigmoid level
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
- continue ostomy/drain care per CRS
- diet: NPO while NGT in place. TPN protocol per surgery.
- continue Vanco/Zosyn, day 6 - ID following. Operative cultures with MRSA. E faecalis and E. Coli
Acute hypoglycemia 04/15
- resolved after dextrose injections and dextrose IVF
Septic shock in setting of acute bowel perforation
- required pressors for 36 hours
Moderate thrombus formation in the left cephalic vein
- superficial, elevated arm
VDRF for procedure
- extubated 04/13
Acute in-hospital delirium
- monitor, constant re-direction
Sepsis in setting of UC flare
- leukocytosis in setting of steroids
- Cultures negative
UC flare (severe UC with pancolitis)
- CT abdomen with IV contrast 04/05 shows worsening severe pancolitis likely related to ulcerative colitis
- s/p Flex Sig 04/10 with edema and deep ulcerations diffusely; s/p biopsies for path and CMV testing
- Steroids discontinued post-emergency surgery
Acute urinary retention
- present on admission
- continue Flomax
- Rodrigues inserted 04/07; void trial successful 04/10. Re-inserted for OR. Void trial when ok with CRS.
Oral aphthous ulcers - continue topical alum and magic mouthwash, patient states both are helping.
Non-gap metabolic acidosis - resolved
Hypokalemia - replete as needed
acute Hyponatremia - improved.
Incidental 3.7 cm mildly heterogeneous cystic left adnexal lesion. Would not workup for now.
- OP PCP f/u
Rheumatoid arthritis - quiescent.
ADD
History of gout - colchicine now on hold given ongoing diarrhea.
Obesity due to excess calories
Hypocalcemia - IV replacement as needed
DVT ppx: Lovenox
Code: Full (reversed from DNR/DNI status on 04/12 AM)
Anticipated Discharge: > 48 hours
Subjective/Interval History
-
Date of Service: April 17, 2025
new hypoxia on 2L, mild SOB, some period of tachycardia overnight
patient denies any significant arm/leg swelling
Objective Data
-
Labs:
Laboratory Results
04/17/25
04:22
WBC 22.3 H
Hgb 9.9 L
Hct 29.7 L
Plt Count 160
Sodium 135
Potassium 3.5
Chloride 108 H
Carbon Dioxide 27
BUN 7
Creatinine 0.4 L
Glucose 129 H
Calcium 7.8 L
Total Bilirubin 0.4
AST 15
ALT 21
Alkaline Phosphatase 106
Vital Signs:
Vital Signs
Temp Pulse Resp BP Pulse Ox
98.3 F 95 18 144/71 97
04/17/25 07:32 04/17/25 07:32 04/17/25 07:32 04/17/25 07:32 04/17/25 07:32
I&O
04/16/25 04/17/25 04/18/25
06:59 06:59 06:59
Intake Total 1200 / 1200 1750 / 1750
Output Total 2680 / 2680 4930 / 4930
Balance -1480 / -1480 -3180 / -3180
Physical Exam
-
General: No Apparent Distress
HEENT: Normocephalic, Atraumatic and Other (+ NG tube)
Cardiac: Regular Rhythm and S1/S2
GI: Soft
Neuro: AO x 3
Psych: Calm
Data Reviewed
-
Total Time Spent with Patient (in minutes): 44
Labs: Labs Reviewed by me
[2025-04-17] MEDS: TIMOPTIC 0.5% OPHTHALMIC SOLUTION 1 DROP LEFT EYE ×2 (10:09→19:56)
--- NOTE | 2025-04-17 10:31 | PHA.VAN.FU ---
Vancomycin Assessment / Plan
- Assessment
Renal Function: SCR Decreasing (Scr 0.5-->0.4)
WBC's are: Trending Up (19.3-->22.3)
In the past 24 hrs, patient has been: Afebrile
Concomitant Antimicrobials: piperacillin/tazobactam
- Assessment - Therapeutic Drug Monitoring
Random Level: 13.2- drawn approx 10 hours after dose of vancomycin 1000mg
- Dosing Plan
Continue: Vancomycin 1000mg IV Q12h
- Monitoring Plan
No level(s) ordered at this time: No level at this time- will check at steady state of current regimen
- Follow Up
Pharmacy will continue to follow.
Vancomycin Follow UP
- -
Patient Age: 84
Patient Sex: Female
Vancomycin Day #: 6
Indication: Gi / Intra-Abdominal
Requesting Provider: Dr. Awad / Dr. Branch
Pertinent Antimicrobial Allergies:
bacitracin - unknown
clindamycin - anaphylaxis
smx/tmp - rash
Height / Weight:
Height 5 ft
Actual Weight 78.653 kg
Pertinent Past Medical History: BMI ~34
- Vital Signs / Lab Results
Temp Pulse Resp BP Pulse Ox
98.3 F 95 18 144/71 97
04/17/25 07:32 04/17/25 07:32 04/17/25 07:32 04/17/25 07:32 04/17/25 07:32
Lab Results - Hematology
04/15/25 04/16/25 04/17/25
09:10 08:10 04:22
WBC 17.4 H 19.3 H 22.3 H
Lab Results - Chemistry
04/15/25 04/16/25 04/17/25
09:10 08:10 04:22
BUN 15 11 7
Creatinine 0.6 0.5 L 0.4 L
Estimated Creat Clear 67 67 67
Albumin 1.9 L 1.8 L 1.8 L
Microbiology Results
04/12/25 12:55 Anaerobic Culture - Preliminary
Abdomen Culture pending. Anaerobic cultures are examined after 3
days incubation. Additional information to follow.
04/12/25 12:55 Wound Culture - Preliminary
Abdomen Escherichia coli
Staph aureus MRSA
Enterococcus faecalis
Gram Stain - Preliminary
Therapeutic Drug Monitoring
Random Vancomycin 13.2 ug/ml 04/17/25 04:22
[2025-04-17 12:37] LABS: Glucose - Point of Care 133 mg/dl (70-99)
[2025-04-17 12:38] VITALS: BP 133/66
--- NOTE | 2025-04-17 14:17 | W.PN.CRS1 ---
Today's Communication / Plan
-
As below
Assessment/Plan
-
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
POD #5 Total abdominal colectomy with ileostomy
AFVSS
WBC 22.3 from 19.3, Hb 9.9 from 9.5, Cr 0.4
� Due to leukocytosis trending up, will obtain CTAP with p.o. and IV contrast to rule out intra-abdominal process
� Continue IV Zosyn and bank, appreciate ID
�Continue n.p.o. with IVF and NGT
� Continue Rodrigues, strict intake/output
�Pain control with morphine as needed
� Encourage OOB/I-S; appreciate PT/OT
�DVT PPx with Lovenox
� Appreciate hospitalist
Subjective Data
Procedure
- subtotal colectomy
Subjective Data
Date of Service: April 17, 2025
No overnight events. Denies N/V, pain somewhat controlled. Having ostomy function. Rodrigues in place.
Objective Data
-
Vital Signs
Temp Pulse Resp BP Pulse Ox
97.7 F 97 16 133/66 97
04/17/25 12:38 04/17/25 12:38 04/17/25 12:38 04/17/25 12:38 04/17/25 12:38
Intake & Output
04/16/25 04/17/25 04/18/25
06:59 06:59 06:59
Intake Total 1200 / 1200 1750 / 1750
Output Total 2680 / 2680 4930 / 4930
Balance -1480 / -1480 -3180 / -3180
Intake:
Oral fluids 0 / 0 120 / 120
IV fluids (Total) 600 / 600 1000 / 1000
IV piggybacks 600 / 600 570 / 570
Amount instilled into GI Tube ( 60 / 60
Total)
[place] Sump 60 / 60
Output:
Liquid stool amount 155 / 1550
Ileostomy 1549 / 1549
Drain Output (Total) 255 / 255 380 / 380
Left [place] 255 / 255 380 / 380
Gastrointestinal tube output ( 100 / 100 650 / 650
Total)
[place] Sump 100 / 100 650 / 650
Urine, Rodrigues 550 / 550 1550 / 1550
Urine, Voided 425 / 425 800 / 800
Straight cath output 425 / 425
Lab Results
04/17/25 04:22
04/17/25 04:22
Physical Exam
-
General: No Acute Distress and AOx3
HEENT: Grossly Normal
Abdomen: Soft, Non Distended, Tender (Appropriately tender near midline incision; midline incision intermittently closed with michelle and Telfa ifeanyi-Telfa ifeanyi removed), No Guarding, No Rebound and Other (Ostomy with succus in the bag leaking into
the midline wound; ostomy appliance changed and wound cleaned)
Wound: No Signs of Infection and No Skin Erythema (No surrounding erythema or purulent drainage)
[2025-04-17] MEDS: OMNIPAQUE 50 ML PO (15:03)
[2025-04-17 15:35] VITALS: BP 136/68
[2025-04-17] MEDS: VALIUM INJECTION 5 MG IV ×2 (16:16→23:19)
[2025-04-17] MEDS: LOVENOX 40 MG SC (17:30)
[2025-04-17 17:50] LABS: Glucose - Point of Care 140 mg/dl (70-99)
[2025-04-17 19:16] VITALS: BP 139/73
--- NOTE | 2025-04-17 20:00 | PTCARENOTE ---
pt NPO. R picc placed this afternoon. verification of site complete. pt now RUE and LUE restrict. pt with NGT in the Left nare, remains marked at the 53 spot. pt wound care done, CHD wipes and a complete bed bath done with this RN. SCDs in place,
and TPN running through the triple IJ. plan to DC IJ communicated to oncoming nurse and to begin TPN through R picc. pt very anxious this afternoon waiting for Abd CT. prn valium given per ordered parameters. pt came back from scan and reconnected
to low int suction. hawkins catheter due to come out tomorrow morning due acute retention orders. all information passed on to oncoming shift.
[2025-04-17] MEDS: Parenteral Nutrition, Central 1060 IV (21:15)
[2025-04-17 23:11] VITALS: BP 139/72
[2025-04-18] VITALS (10 sets, daily range): BP systolic 132–181; BP diastolic 67–103; PULSE 122–127; O2SAT 94–96; BMI 33.0
[2025-04-18 00:37] LABS: Glucose - Point of Care 202 mg/dl (70-99)
[2025-04-18] MEDS: NOVOLOG FLEXPEN-LOW RESISTANCE 2 UNITS SC ×2 (00:49→17:25)
[2025-04-18] MEDS: MORPHINE SULFATE 1 MG IV ×2 (04:25→18:38)
[2025-04-18] MEDS: ZOSYN 50 IV ×2 (04:25→09:21)
[2025-04-18] MEDS: VANCOCIN 200 IV ×2 (05:01→17:17)
[2025-04-18 05:27] LABS: Hematocrit 28.3 % (37.0-47.0); Hemoglobin 9.1 g/dL (12.0-16.0); Mean Corp Hgb Conc. 32.2 g/dL (33.0-37.0); Mean Corpuscular Volume 96.3 fL (81.0-99.0); Nucleated Red Blood Cells % 0 %; Platelet Count 190 10^3/uL (130-400); Red Cell Dist. Width 12.6 % (11.5-14.5)
[2025-04-18 05:52] LABS: ALT (SGPT) 15 U/L (0-35); AST (SGOT) 13 U/L (14-36); Albumin 1.9 g/dl (3.5-5.0); Alkaline Phosphatase 93 U/L (38-126); Blood Urea Nitrogen 9 mg/dl (7-17); Calcium 7.6 mg/dl (8.4-10.2); Carbon Dioxide 26 mmol/L (22-30); Chloride 107 mmol/L (98-107); Estimated Creatinine Clearance 66 ml/min; Glucose 167 mg/dl (70-99); Potassium 3.7 mmol/L (3.5-5.1); Sodium 135 mmol/L (135-145); Total Protein 4.1 g/dl (6.3-8.2); Triglycerides 118 mg/dl (10-149); eGFR > 60.00
[2025-04-18 07:01] LABS: Glucose - Point of Care 181 mg/dl (70-99)
[2025-04-18] MEDS: NOVOLOG FLEXPEN-LOW RESISTANCE 1 UNITS SC ×2 (07:22→13:39)
[2025-04-18] MEDS: TIMOPTIC 0.5% OPHTHALMIC SOLUTION 1 DROP LEFT EYE ×2 (08:03→19:55)
[2025-04-18] MEDS: PROTONIX IV 40 MG IV (08:03)
[2025-04-18] MEDS: NSS (PRESERVATIVE FREE) 10 ML IV (08:03)
--- NOTE | 2025-04-18 09:04 | PHA.VAN.FU ---
Vancomycin Assessment / Plan
- Assessment
Renal Function: Stable
WBC's are: Trending Down
In the past 24 hrs, patient has been: Afebrile
Concomitant Antimicrobials: piperacillin/tazobactam
- Dosing Plan
Continue: Vanc 1000mg Q12H
- Monitoring Plan
Peak Level: 04/18 21:00
Trough Level: 04/19 05:30
Monitoring Comments: levels to be drawn after 5th scheduled Q12 dose
- Follow Up
Pharmacy will continue to follow.
Vancomycin Follow UP
- -
Patient Age: 84
Patient Sex: Female
Vancomycin Day #: 7
Indication: Gi / Intra-Abdominal
Requesting Provider: Dr. Awad / Dr. Branch
Pertinent Antimicrobial Allergies:
bacitracin - unknown
clindamycin - anaphylaxis
smx/tmp - rash
Height / Weight:
Height 5 ft
Actual Weight 76.612 kg
Pertinent Past Medical History: BMI ~34
- Vital Signs / Lab Results
Temp Pulse Resp BP Pulse Ox
99.3 F 121 22 175/88 94
04/18/25 07:25 04/18/25 07:25 04/18/25 07:25 04/18/25 07:25 04/18/25 07:25
Lab Results - Hematology
04/15/25 04/16/25 04/17/25
09:10 08:10 04:22
WBC 17.4 H 19.3 H 22.3 H
04/18/25
05:09
WBC 15.5 H
Lab Results - Chemistry
04/15/25 04/16/25 04/17/25
09:10 08:10 04:22
BUN 15 11 7
Creatinine 0.6 0.5 L 0.4 L
Estimated Creat Clear 67 67 67
Albumin 1.9 L 1.8 L 1.8 L
04/18/25
05:09
BUN 9
Creatinine 0.3 L
Estimated Creat Clear 66
Albumin 1.9 L
Microbiology Results
04/12/25 12:55 Wound Culture - Final
Abdomen Escherichia coli
Staph aureus MRSA
Enterococcus faecalis
Gram Stain - Final
04/12/25 12:55 Anaerobic Culture - Final
Abdomen Clostridium species
Bacteroides uniformis
Therapeutic Drug Monitoring
Random Vancomycin 13.2 ug/ml 04/17/25 04:22
--- NOTE | 2025-04-18 10:36 | W.PN.ID1 ---
Date of Service
Date of Service: April 18, 2025
Today's Communication
Continue Vanconycin.
De-escalate Zosyn to ceftriaxone/metronidazole.
Assessment / Plan
# Severe UC flare/pancolitis
# Acute perforated sigmoid with peritonitis
# Leukocytosis improving
# Fever resolved
# On TPN
- 04/10 flex sig: severe inflammation with deep ulcerations,no sites spared. Biopsy: diffuse chronic active colitis with ulceration
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
Appreciate surgeon: Intra-abd OR cx: MRSA, Enterococcus faelcalis, E. coli, Clostridium, Bacteroides
- Continue Vanco (#7)
- De-escalate Zosyn to ceftriaxone/metronidazole (#7)
- Trend wbc
# Tb screening in anticipation for biologic
- 04/06/25 QTB gold plus: INDETERMINATE which is not interpretable
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 No known TB risk exposure.
- Can repeat outpatient.
Chief Complaint
-: Other (diarrhea)
Subjective / Review of Systems
Daughter at bedside.
She reports pt somewhat confused.
Pt denies pain, or worsening cough.
Vital Signs / Physical Exam
Vital Signs
Vital Signs
Temp Pulse Resp BP Pulse Ox
99.3 F 121 22 175/88 94
04/18/25 07:25 04/18/25 07:25 04/18/25 07:25 04/18/25 07:25 04/18/25 07:25
Physical Exam
Constitutional: No Acute Distress and Comfortable
Cardiovascular: S1/S2 (tachy)
Pulmonary: Rales (L>R)
Gastrointestinal: Soft, Non Tender, Non Distended and Other (RIDDHI drain serous fluid, ileostomy soft stool)
Genito-Urinary: Negative CVA Tenderness
Extremities: Edema (BUE, BLE)
Neurological: Awake and Alert
Lines: PICC (RUE)
Objective Data
Lab Data
Lab Results
04/18/25 05:09
04/18/25 05:09
ESR 53 mm/hour (0-20) H 04/10/25 08:08
PT 18.4 Sec (11.4-14.6) H 04/12/25 10:05
INR 1.48 04/12/25 10:05
APTT 28.8 Sec (23.4-35.0) 04/12/25 10:05
Estimated Creat Clear 66 ml/min 04/18/25 05:09
Lactic Acid 2.9 mmol/L (0.7-2.0) H 04/12/25 21:42
Total Bilirubin 0.4 mg/dl (0.2-1.3) 04/18/25 05:09
AST 13 U/L (14-36) L 04/18/25 05:09
ALT 15 U/L (0-35) 04/18/25 05:09
Alkaline Phosphatase 93 U/L (38-126) 04/18/25 05:09
C-Reactive Protein > 270.00 mg/L (0.0-10.00) H 04/13/25 03:18
Most recent labs reviewed.
Micro Results:
04/12/25 12:55 Wound Culture - Final
Abdomen Escherichia coli
Staph aureus MRSA
Enterococcus faecalis
Gram Stain - Final
04/12/25 12:55 Anaerobic Culture - Final
Abdomen Clostridium species
Bacteroides uniformis
04/12/25 02:32 Influenza Types A & B (AN) - Final
Nasal Swab Negative for Influenza A & B, NAAT
Negative results must be combined with clinical observations
and patient history.
Nucleic Acid Amplification test (NAAT)performed on the
[employer] platform.
04/04/25 10:13 Blood Culture - Final
Blood/Venous No Growth - Final Report
04/04/25 09:38 Blood Culture - Final
Blood/Venous No Growth - Final Report
04/04/25 18:15 - Final
Feces/Stool NO YERSINIA SPECIES ISOLATED
03/31/25 15:29 Blood Culture - Final
Blood/Venous No Growth - Final Report
03/31/25 13:08 Blood Culture - Final
Blood/Venous No Growth - Final Report
04/04/25 18:15 Cryptosporidium/Giardia - Final
Feces/Stool Negative for Cryptosporidium and/or Giardia Lamblia
antigens.
- Final
Negative for Norovirus GI and GII.
04/04/25 18:15 C. difficile GDH Antigen & Toxins - Final
Feces/Stool Negative for toxigenic C.difficile
03/31/25 17:43 Salmonella/Shigella Culture - Final
Feces/Stool No Salmonella, Shigella, Aeromonas or Plesiomonas species
isolated.
Campylobacter Culture - Final
No Campylobacter species isolated.
Shiga Toxin Test - Final
No E. coli Shiga Toxin 1 or 2 detected.
04/01/25 11:44 Urine Culture - Final
Urine NO GROWTH
03/31/25 12:54 C. difficile GDH Antigen & Toxins - Final
Feces/Stool Negative for toxigenic C.difficile
04/12/25 CT a/p: Interval development of extensive free air/pneumoperitoneum within the abdomen and pelvis, likely secondary to a focal defect within the proximal sigmoid colon. New small amount of free fluid within the pelvis.
Interval improvement of pancolitis. Negative for pulmonary embolism.
04/12/25 CXR: No acute disease within the chest. New lucency within the upper abdomen and underneath the left hemidiaphragm concerning for pneumoperitoneum.
04/05/25 CT a/p: There is findings of worsening severe pancolitis. Findings are likely related to reported ulcerative colitis.
04/04/25 CXR: The trachea is midline. There is moderate elevation of the right hemidiaphragm. There appear to be thin bands of subpleural subsegmental atelectasis and scarring in both lower lungs. There is no focal airspace opacity suspicious for
pneumonia. There is no radiographic evidence for pleural effusion or pneumothorax.
03/31 CT a/p: Mild diffuse colonic wall thickening suggestive of pancolitis. Mild to moderate amount of fluid within the proximal colon. Severe chronic diverticular disease within the sigmoid. Small amount of free fluid within the pelvis.
--- NOTE | 2025-04-18 10:46 | W.PN.CRS1 ---
Today's Communication / Plan
-
NG tube removed
Clears
Ultrasound gallbladder
Continue TPN
Assessment/Plan
-
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
POD #6 Total abdominal colectomy with ileostomy
AFVSS
WBC 15.3 (22.3), Hgb 9.1 (9.9)
�CT yesterday showed some fluid around the gallbladder. Will order ultrasound of gallbladder to further examine that area.
� Continue IV Zosyn and bank, appreciate ID
�NG tube pulled by provider. Start on clears with Ensure. Will continue TPN today.
�Pain control with morphine as needed
� Encourage OOB/I-S; appreciate PT/OT
�DVT PPx with Lovenox
� Appreciate hospitalist
- Rodrigues removed this morning, await void
Subjective Data
Procedure
- subtotal colectomy
Subjective Data
Date of Service: April 18, 2025
Patient states the NG tube is bothering her. Denies nausea or vomiting. Her pain is controlled. Other than that she has no complaints. Her daughter is at bedside.
Objective Data
-
Vital Signs
Temp Pulse Resp BP Pulse Ox
99.3 F 92 22 181/87 94
04/18/25 07:25 04/18/25 10:43 04/18/25 07:25 04/18/25 10:43 04/18/25 07:25
Intake & Output
04/17/25 04/18/25 04/19/25
06:59 06:59 06:59
Intake Total 1750 / 1750 2083 / 2083
Output Total 4930 / 4930 3925 / 3925
Balance -3180 / -3180 -1841 / -1841
Intake:
Oral fluids 120 / 120
IV fluids (Total) 1000 / 1000
IV piggybacks 570 / 570 600 / 600
TPN/PPN 944 / 944
Amount instilled into GI Tube ( 60 / 60 540 / 540
Total)
[place] Sump 60 / 60 540 / 540
Output:
Liquid stool amount 1550 / 1550 1575 / 1575
Ileostomy 1550 / 1550 1575 / 1575
Drain Output (Total) 380 / 380 75 / 75
Left [place] 380 / 380 70 / 70
[place] 5 / 5
Gastrointestinal tube output ( 650 / 650 300 / 300
Total)
[place] Sump 650 / 650 300 / 300
Urine, Rodrigues 1550 / 1550 1974 / 1974
Urine, Voided 800 / 800
Lab Results
04/18/25 05:09
04/18/25 05:09
Physical Exam
-
General: No Acute Distress and AOx3
Abdomen: Soft, Non Distended, Non Tender and Other (Colostomy warm pink with function)
Skin: Warm and Dry
Wound: Other ([place] in place, clean dry and intact)
[2025-04-18 12:17] LABS: Glucose - Point of Care 173 mg/dl (70-99)
--- NOTE | 2025-04-18 13:12 | W.PN.HOSP.TC ---
Today's Communication/Plan
-
see note
Assessment / Plan
Assessment / Plan
Acute hypoxic respiratory insufficiency
VDRF for procedure - extubated 04/13
- CT chest PE negative for PE, bilateral small effusion
- wean off o2 as possible
Perforated bowel
- CXR with pneumo-peritoneum
- CT: with finding of perforation at sigmoid level
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
- continue ostomy/drain care per CRS
- trial of CL diet per CRS. on TPN as well.
- Operative cultures with MRSA. E faecalis and E. Coli
- ID managing abx. Currently on Vanco/Rocephin/Flagyl
Acute hypoglycemia 04/15
- resolved after dextrose injections and dextrose IVF
Septic shock in setting of acute bowel perforation
- required pressors for 36 hours
Moderate thrombus formation in the left cephalic vein
- superficial, elevated arm
Acute in-hospital delirium
- avoid sedative medication
- Continue supportive measures
Sepsis in setting of UC flare
- leukocytosis in setting of steroids
- Cultures negative
UC flare (severe UC with pancolitis)
- CT abdomen with IV contrast 04/05 shows worsening severe pancolitis likely related to ulcerative colitis
- s/p Flex Sig 04/10 with edema and deep ulcerations diffusely; s/p biopsies for path and CMV testing
- Steroids discontinued by GI after evaluation.
Acute urinary retention
- Rodrigues inserted 04/07; void trial successful 04/10. Re-inserted for OR
- Rodrigues removed today again on 04/17, patient retaining. Although patient allergic to sulfa patient had taken Flomax earlier in the stay without any issues we will resume it as well
Elevated BP
- No formal diagnosis of hypertension. IV hydralazine ordered for systolic blood pressure in the 160
Oral aphthous ulcers - continue topical alum and magic mouthwash, patient states both are helping.
Non-gap metabolic acidosis - resolved
Hypokalemia - replete as needed
acute Hyponatremia - improved.
Incidental 3.7 cm mildly heterogeneous cystic left adnexal lesion. Would not workup for now.
- OP PCP f/u
Rheumatoid arthritis - quiescent.
ADD
History of gout - colchicine now on hold given ongoing diarrhea.
Obesity due to excess calories
Hypocalcemia - IV replacement as needed
DVT ppx: Lovenox
Code: Full (reversed from DNR/DNI status on 04/12 AM)
Care plan discussed with patient daughter at bedside
Total time spent 53-minute
Anticipated Discharge: > 48 hours
Subjective/Interval History
-
Date of Service: April 18, 2025
Remains disoriented
Daughter at bedside
Patient having issue with urinary retention
Objective Data
-
Labs:
Laboratory Results
04/18/25
05:09
WBC 15.5 H
Hgb 9.1 L
Hct 28.3 L
Plt Count 190
Sodium 135
Potassium 3.7
Chloride 107
Carbon Dioxide 26
BUN 9
Creatinine 0.3 L
Glucose 167 H
Calcium 7.6 L
Total Bilirubin 0.4
AST 13 L
ALT 15
Alkaline Phosphatase 93
Vital Signs:
Vital Signs
Temp Pulse Resp BP Pulse Ox
98.9 F 127 18 162/103 95
04/18/25 12:17 04/18/25 12:17 04/18/25 12:17 04/18/25 12:17 04/18/25 12:17
I&O
04/17/25 04/18/25 04/19/25
06:59 06:59 06:59
Intake Total 1750 / 1750 2084 / 2084
Output Total 4930 / 4930 3925 / 3925 225 / 225
Balance -3180 / -3180 -1841 / -184 -
Review of Systems
-
Unable to obtain full review of systems at this time due to: Acuity
Physical Exam
-
General: No Apparent Distress
HEENT: Negative Oxygen
Cardiac: Regular Rhythm and S1/S2; Negative Murmur
GI: Soft, Nontender and Ostomy (browl liquid stool)
Neuro: Awake; Negative Oriented
[2025-04-18] MEDS: APRESOLINE 10 MG IV (13:34)
[2025-04-18] MEDS: STERILE WATER FOR INJECTION 20 ML IV (13:36)
[2025-04-18] MEDS: ROCEPHIN 2000 MG IV (13:36)
[2025-04-18] MEDS: FLAGYL 500 MG 100 IV ×2 (13:38→22:10)
[2025-04-18] MEDS: FLOMAX 0.4 MG PO (13:40)
--- NOTE | 2025-04-18 14:32 | PTCARENOTE ---
Pt voided at 1100 post hawkins cath removal, bladder scan 421. Pt voided again, incontinent amount. Due for next bladder scan at 1800.
--- NOTE | 2025-04-18 14:59 | PTCARENOTE ---
Pt tachycardic in 140s at rest, SOB, 90% on RA, this RN reached out to MD, 2Lo2 NC placed on pt, vitals completed and sent to MD, routine head CT ordered. No new orders at this time.
--- NOTE | 2025-04-18 15:05 | CM ---
Reviewed the chart notes. Diet clear liquid. NGT removed. CM continues to be available to patient/family and is monitoring medical plan for needs at discharge.
Plan: Discharge to SNF/rehab once medically stable and bed secured. Referral previously sent. No precert required.
[2025-04-18] MEDS: LOVENOX 40 MG SC (17:18)
[2025-04-18] MEDS: LOPRESSOR 50 MG PO (17:21)
[2025-04-18 17:23] LABS: Glucose - Point of Care 219 mg/dl (70-99)
[2025-04-18 19:20] LABS: Glucose - Point of Care 231 mg/dl (70-99)
--- NOTE | 2025-04-18 19:27 | W.PN.UPDATE ---
Update Note
Progress Note Update
Reported by the nursing staff that the patient is confused and abnormal Head CT result received.
Vital signs (bp 146/67, hr 100, RR 20, T 100.2, Spo2 98%) Bs 231.
On exam Patient is awake, oriented x1 to the place.
-NIH 4( mild aphagia , RT leg drifting 1, answered year as 1941, and the wrong month)
Head CT ordered during the day for a change of mental status and result shows
- 1.1 cm hypodensity within the inferior left occipital lobe which may represent a subacute infarction. Consider MRI for further evaluation. No evidence of acute intracranial hemorrhage.
- Mild atrophy with sequelae of severe chronic small vessel ischemic disease.
-Neurology consult was placed, discussed the case with neurologist lone lead lineman/ Dr. Estes and new recommendations received to start the patient on Aspirin/ Plavix with loading doses.
[2025-04-18 19:46] LABS: Hematocrit 27.5 % (37.0-47.0); Hemoglobin 9.0 g/dL (12.0-16.0); Mean Corp Hgb Conc. 32.7 g/dL (33.0-37.0); Mean Corpuscular Volume 95.8 fL (81.0-99.0); Platelet Count 193 10^3/uL (130-400); Red Cell Dist. Width 12.6 % (11.5-14.5)
[2025-04-18] MEDS: OFIRMEV 100 IV (19:52)
--- NOTE | 2025-04-18 19:56 | PTCARENOTE ---
Head CT resulted with possible infarct, this RN made oncoming RN/cross coverage/overnight BEEKEEPER aware. Vitals taken, accucheck taken. IV tylenol/labs ordered by overnight BEEKEEPER, pt medicated for pain. Bladder scan 401, straight cath per protocol. No new
orders at this time.
[2025-04-18 19:57] LABS: B.E. 1.3 mmol/L; HCO3 24.6 mmol/L (21-28); O2 Saturation % 98.6 % (94-98); PCO2 33 mmHg (32-35); PO2 104 mmHg (83-108)
[2025-04-18 20:08] LABS: Blood Urea Nitrogen 10 mg/dl (7-17); Calcium 8.1 mg/dl (8.4-10.2); Carbon Dioxide 24 mmol/L (22-30); Chloride 106 mmol/L (98-107); Estimated Creatinine Clearance 65 ml/min; Glucose 199 mg/dl (70-99); Magnesium 2.1 mg/dl (1.6-2.3); Potassium 3.6 mmol/L (3.5-5.1); Sodium 134 mmol/L (135-145); eGFR > 60.00
[2025-04-18] MEDS: ASPIRIN 325 MG PO (20:14)
[2025-04-18] MEDS: PLAVIX 300 MG PO (20:14)
[2025-04-18] MEDS: Parenteral Nutrition, Central 1060 IV (21:57)
[2025-04-19] VITALS (7 sets, daily range): BP systolic 133–186; BP diastolic 68–83; BMI 32.4
[2025-04-19] MEDS: NOVOLOG FLEXPEN-LOW RESISTANCE 1 UNITS SC ×2 (00:24→19:14)
[2025-04-19 00:26] LABS: Glucose - Point of Care 175 mg/dl (70-99)
[2025-04-19] MEDS: FLAGYL 500 MG 100 IV ×3 (05:01→21:26)
[2025-04-19 05:53] LABS: Hematocrit 26.0 % (37.0-47.0); Hemoglobin 8.6 g/dL (12.0-16.0); Mean Corp Hgb Conc. 33.1 g/dL (33.0-37.0); Mean Corpuscular Volume 94.9 fL (81.0-99.0); Nucleated Red Blood Cells % 0.1 %; Platelet Count 197 10^3/uL (130-400); Red Cell Dist. Width 12.7 % (11.5-14.5)
[2025-04-19 06:15] LABS: ALT (SGPT) 13 U/L (0-35); AST (SGOT) 15 U/L (14-36); Albumin 2.0 g/dl (3.5-5.0); Alkaline Phosphatase 88 U/L (38-126); Blood Urea Nitrogen 11 mg/dl (7-17); Calcium 8.3 mg/dl (8.4-10.2); Carbon Dioxide 25 mmol/L (22-30); Chloride 108 mmol/L (98-107); Estimated Creatinine Clearance 64 ml/min; Glucose 142 mg/dl (70-99); Potassium 3.8 mmol/L (3.5-5.1); Sodium 137 mmol/L (135-145); Total Protein 4.3 g/dl (6.3-8.2); eGFR > 60.00
[2025-04-19 06:21] LABS: Glucose - Point of Care 137 mg/dl (70-99)
[2025-04-19] MEDS: VANCOCIN 200 IV (06:22)
[2025-04-19] MEDS: NOVOLOG FLEXPEN-LOW RESISTANCE SC ×2 (06:34→12:58)
--- NOTE | 2025-04-19 07:49 | PTCARENOTE ---
At the start of shift, patient's head CT noted to be abnormal per radiology report. Per dayshift nurse, patient noted to be more confused and not at patient's baseline. BRACELET [employer] BROOCH MAKER and cross coverage notified. VS and blood sugar obtained-- see worklist. BRACELET AND BROOCH MAKER
notified of results. Patient with oral temp. of 100.2. IV Ofirmev ordered and administered-- see OCT. BRACELET AND BROOCH MAKER to bedside to see patient-- ordered BMP, CBC, Mag, and ABG and labs obtained. NIH performed at bedside with BRACELET AND BROOCH MAKER. NIH of 4-- see worklist. BRACELET AND BROOCH MAKER
notified neurology on-call. ASA and Plavix ordered and administered-- see OCT. Patient bladder scanned for 401 and straight cathed for 400.
--- NOTE | 2025-04-19 08:20 | PHA.VAN.FU ---
Vancomycin Assessment / Plan
- Assessment
Renal Function: Stable
WBC's are: Trending Down
In the past 24 hrs, patient has been: Afebrile
Concomitant Antimicrobials: ceftriaxone, metronidazole
- Assessment - Therapeutic Drug Monitoring
Extrapolated Cmax (mcg/mL): 21.3
Peak level was drawn: Appropriately (drawn ~2.6H after end of previous infusion)
Extrapolated Cmin (mcg/mL): 10.5
Trough Drawn: Appropriately
Levels were drawn: At steady state (levels drawn after 5th maintenance dsoe)
Calculated AUC (mcg*h/mL): 368
Calculated ke: 0.0643
Calculated half life (H): 10.8
Calculated Vd (L): 84.5 (~1.1 L/kg)
Calculated Vanc CL (ml/min): 90.5
- Dosing Plan
Adjust Regimen to: Vanc 1250mg Q12H
New Regimen Predicts: AUC (482), Peak (27.5), Trough (14)
- Monitoring Plan
No level(s) ordered at this time: consider levels in next few days
- Follow Up
Pharmacy will continue to follow.
Vancomycin Follow UP
- -
Patient Age: 84
Patient Sex: Female
Vancomycin Day #: 8
Indication: Gi / Intra-Abdominal
Requesting Provider: Dr. Awad / Dr. Branch
Pertinent Antimicrobial Allergies:
bacitracin - unknown
clindamycin - anaphylaxis
smx/tmp - rash
Height / Weight:
Height 5 ft
Actual Weight 75.296 kg
Pertinent Past Medical History: BMI ~34
- Vital Signs / Lab Results
Temp Pulse Resp BP Pulse Ox
98.0 F 91 18 152/77 97
04/19/25 03:36 04/19/25 03:36 04/19/25 03:36 04/19/25 03:36 04/19/25 03:36
Lab Results - Hematology
04/16/25 04/17/25 04/18/25
08:10 04:22 05:09
WBC 19.3 H 22.3 H 15.5 H
04/18/25 04/19/25
19:34 05:18
WBC 16.3 H 14.3 H
Lab Results - Chemistry
04/16/25 04/17/25 04/18/25
08:10 04:22 05:09
BUN 11 7 9
Creatinine 0.5 L 0.4 L 0.3 L
Estimated Creat Clear 67 67 66
Albumin 1.8 L 1.8 L 1.9 L
04/18/25 04/19/25
19:34 05:18
BUN 10 11
Creatinine 0.3 L 0.3 L
Estimated Creat Clear 65 64
Albumin 2.0 L
Microbiology Results
04/12/25 12:55 Wound Culture - Final
Abdomen Escherichia coli
Staph aureus MRSA
Enterococcus faecalis
Gram Stain - Final
04/12/25 12:55 Anaerobic Culture - Final
Abdomen Clostridium species
Bacteroides uniformis
Therapeutic Drug Monitoring
Vancomycin Peak Cancelled 04/18/25 21:00
Vancomycin Trough 10.5 ug/ml (5-20) 04/19/25 05:18
Random Vancomycin 13.2 ug/ml 04/17/25 04:22
[2025-04-19] MEDS: APRESOLINE 10 MG IV (08:53)
[2025-04-19] MEDS: PROTONIX IV 40 MG IV (08:54)
[2025-04-19] MEDS: PLAVIX 75 MG PO (08:54)
[2025-04-19] MEDS: NSS (PRESERVATIVE FREE) 10 ML IV (08:54)
[2025-04-19] MEDS: TIMOPTIC 0.5% OPHTHALMIC SOLUTION 1 DROP LEFT EYE ×2 (08:54→19:40)
[2025-04-19] MEDS: LOW STRENGTH ASPIRIN 81 MG PO (08:54)
[2025-04-19] MEDS: FLOMAX 0.4 MG PO (08:54)
--- NOTE | 2025-04-19 09:13 | CON.NEURO4 ---
Addendum entered and electronically signed by Bradley Estes MD 04/19/25 11:53:
Studies reviewed.
I have personally examined the patient. I reviewed and agree with the MARKETING TECHNOLOGY COORDINATOR's Note.
My addenda:
Awake, interactive. No acute distress.
Speech intact. Incorrect and perseverative answers at times.
Follows 2-step requests w/ difficulty. No tremor.
Extra-ocular movements grossly intact.
Facial movements full and symmetric. Hearing intact to normal conversational volume.
Normal UE movements bilaterally.
Neck: full ROM.
Chest: no dyspnea
Heart: no JVD
Ext: (-) Clubbing, (-) Cyanosis, (-) Edema
IMPRESSIONS/RECOMMENDATIONS:
Abrupt onset of change in mental status with anxiety.
CT of the head suggested a left occipital subacute ischemic stroke. Of note is that the patient also had diffuse white matter disease.
Differential diagnosis for the patient's change in mental status includes right variety of possibilities including diffuse ischemic stroke not clearly demonstrated by CAT scan, major depression with psychosis, toxic metabolic abnormalities.
Check MRI brain
Consider EEG if MRI brain is unremarkable
Consider neuro vascular imaging
Check blood work for potential metabolic causes
At this time, would continue combination of aspirin and clopidogrel to lower risk of acute stroke
D/W patient / family
All questions answered.
Will continue to follow patient.
Original Note:
Documented by User: Betsy Beavers NP 04/19/25 10:56
Consultation - Neurology 4
-
CONSULTING PHYSICIAN: Bradley Estes MD
REFERRING PHYSICIAN: Hospitalists/Dr. Gray
DICTATED BY: OLIVIA Vazquez
DATE/TIME OF REQUEST: 04/19/25
DATE/TIME OF CONSULTATION: 04/19/25
Reason for Consultation: Change in mental status
History of Present Illness:
This is an 84-year-old left-handed female with ulcerative colitis who has presented to the hospital on 03/31/25 with report of excessive diarrhea and recent diagnosis of thrush. Flex sigmoidoscopy on 04/10/25 revealed severe inflammation with deep
ulcerations/perforation. Patient underwent a total abdominal colectomy with end ileostomy on 04/12/25. Abdominal fluid cultures were positive for MRSA, E. coli, and enterococcus. Per patient's daughter at bedside, two days ago on 04/17/25, family noted
that the patient seemed anxious and confused, which is not her baseline. This persisted yesterday, prompting CT head imaging, which is suggestive of a left occipital lobe hypodensity. Patient has significant aphasia/confusion and is unable to
provide a history or provide a full review of systems. She endorses anxiety and throat pain. Her daughter reports that at baseline the patient is mentally sharp. She had extensive back surgery 8 years ago and hasn't driven since then. She typically
pays some of the bills. Her daughter notes that she has hobbies and walks daily. She has no history of stroke and is not taking any blood thinning medications. She is not a candidate for TNK/IAT due to being outside of the time window.
Past Medical History: Ulcerative colitis (mesalamine), rheumatoid arthritis, ADD, left eye macular pucker
Surgical History: Thoracic and lumbar spine surgery with eugenia placement, b/l TKA, R THR, R fibula and pubic rami fracture repair, left eye vitrectomy
Family History: Reviewed and noncontributory.
Social History: Nonsmoker. Daily alcohol. No illicit drug use.
Allergies: Bacitracin, clindamycin, Bactrim.
Home Medications: See below.
Review of Symptoms:
Unable to obtain a full review of systems due to aphasia.
�Per the HPI.�All systems are reviewed negative except above.
Physical Exam:
The patient is afebrile, breathing is unlabored, skin is cool and dry, no edema. Throat lesions noted.
NIH Stroke Scale:
I performed the NIH stroke scale on the patient on 04/19/25 at 0915. The patient scored 9 points on the NIH stroke scale assessment, which were assigned as follows: See below.
Neurologic Examination:
The patient is drowsy, responds to voice. She is able to follow commands with significant prompting. There is moderate aphasia and perseveration. No dysarthria. On cranial nerve assessment, pupils are 3 mm bilateral, round and reactive to light and
accommodation. Visual awan appear mildly reduced on the right. Extraocular movements are intact. Facial sensations are intact and bilaterally symmetrical, there is no facial asymmetry. Hearing is intact bilaterally to normal conversation volume.
Tongue palate and uvula are midline. Motor strengths are 5/5 bilateral upper, 2/5 RLE, 3/5 LLE on medical research [place] scale. No involuntary movement noted. Deep tendon reflexes are 1+ bilateral upper and lower extremities and Babinski is absent
bilaterally. Double simultaneous was inconsistent, unreliable due to aphasia. Coordination is intact by finger to nose bilaterally.
Lab Results: See below.
Neuro Imaging:
1. CT Head 04/18/25: There is a 1.1 cm hypodensity within the inferior left occipital lobe which may represent a subacute infarction. Consider MRI for further evaluation. No evidence of acute intracranial hemorrhage. Mild atrophy with sequelae of
severe chronic small vessel ischemic disease.
Differentials for the patient's presentation include:
1. Abnormal CT head finding; concern for subacute stroke, possibly secondary to septic embolic.
Patient has the following risk factors for their symptoms: infection, surgery
IV Tenecteplase/IAT candidacy: She is not a candidate for TNK/IAT due to being outside of the time window.
Recommendations:
-Continue DAPT with aspirin 81mg and clopidogrel 75mg daily for 21 days. After 21 days, discontinue clopidogrel and continue aspirin 81mg daily only, indefinitely.
-MRI brain noncontrast pending.
-Will obtain vessel imaging based on MRI brain findings.
-Goal normotension.
-LDL goal <70. LDL is 20, no indication to initiate statin therapy.
-Goal normoglycemia, hbA1c is 5.6.
-Checking blood work for metabolic abnormalities.
-NIHSS and neurological checks per unit guidelines.
-Provide patient's family with a stroke education packet.
-PT/OT/ST
-DVT prophylaxis.
Discussed patient care with: Dr. Estes, the patient, patient's daughter
Vital Signs and Labs
-
Vital Signs and Labs:
Vital Signs
Temp Pulse Resp BP Pulse Ox
99.1 F 101 20 186/83 98
04/19/25 07:25 04/19/25 08:53 04/19/25 07:25 04/19/25 08:53 04/19/25 07:25
Lab Results
04/19/25 05:18
04/19/25 05:18
PT 18.4 Sec (11.4-14.6) H 04/12/25 10:05
INR 1.48 04/12/25 10:05
APTT 28.8 Sec (23.4-35.0) 04/12/25 10:05
Sodium 137 mmol/L (135-145) 04/19/25 05:18
Potassium 3.8 mmol/L (3.5-5.1) 04/19/25 05:18
BUN 11 mg/dl (7-17) 04/19/25 05:18
Glucose 142 mg/dl (70-99) H 04/19/25 05:18
Calcium 8.3 mg/dl (8.4-10.2) L 04/19/25 05:18
Phosphorus 2.8 mg/dl (2.5-4.5) 04/17/25 04:22
Qzu-D-Cegcjjnsxzp Pept 2740 pg/ml 04/12/25 02:56
LDL Cholesterol, Calc 20 mg/dl 04/12/25 02:56
NIH Stroke Score
Subsequent NIH Scale
Date of Subsequent NIH Scale: 04/19/25
Time of Subsequent NIH Scale: 09:15
NIH Stroke Score
Level of Consciousness: 0 - Alert
LOC Questions: 2-Neither correct
LOC Commands: 0-Performs both correctly
Best Horizontal Gaze: 0-Normal
Visual Awan: 1=Partial hemianopia
Facial Palsy: 0=Normal, symmetrical
Motor - Right Arm: 0=No drift 10 seconds
Motor - Left Arm: 0=No drift 10 seconds
Motor - Right Le-None vs. gravity
Motor - Left Le-Partial vs. gravity
Limb Ataxia: 0-Absent
Sensation: 0-Normal
Best Language: 1-Mild aphasia
Dysarthria: 0-Normal
Extinction and Inattention: 0-No abnormality (STEFANIE due to aphasia)
NIH Total Score:: 9
Modified Levy (mRS) Score
Modified Levy Scale (mRS): Moderately severe disability. Unable to attend to bodily needs/walk.
Score: 4
Alteplase Contraindication
Inclusion and Exclusion criteria reviewed: Yes
Reasons for NON-Tx with Thrombolytics ABSOLUTE Exclusions: Greater than 4.5 hrs from onset of sxs
Medications
-
Active Medications
Generic Name Dose Route Start Last Admin
Trade Name Freq PRN Reason Stop Dose Admin
Albuterol/Ipratropium 3 ml 04/12/25 02:14
Ipratropium 0.5/Albuterol 3 Mg (3 Ml Ampul) INH
R Q4HPRN PRN
sob or wheezing
Protocol
Aspirin 81 mg 04/19/25 08:00 04/19/25 08:54
Aspirin 81 Mg Chewable Tablet PO 05/17/25 07:59 81 mg
DAILY MYRIAM Administration
Ceftriaxone Sodium 2,000 mg 04/18/25 14:00 04/18/25 13:36
Ceftriaxone 2,000 Mg/20 Ml Vial IV 2,000 mg
Q24H MYRIAM Administration
Clobetasol Propionate 0 applic 03/31/25 16:44
Clobetasol Propionate 0.05% (Lotion) 59 Ml Bottle TOPICAL 04/28/25 16:43
DAILYPRN PRN
inner ear skin
Clopidogrel Bisulfate 75 mg 04/19/25 08:00 04/19/25 08:54
Clopidogrel 75 Mg Tablet PO 05/17/25 07:59 75 mg
DAILY MYRIAM Administration
Dextrose 12.5 grams 04/12/25 20:05 04/15/25 11:15
Dextrose 50% (0.5 Grams/Ml) 50 Ml Syringe IV 05/10/25 20:04 12.5 grams
Q80DHZH PRN Administration
hypoglycemia
Protocol
Enoxaparin Sodium 40 mg 03/31/25 18:00 04/18/25 17:18
Enoxaparin Sodium 40 Mg/0.4 Ml Syringe SC 04/28/25 17:59 40 mg
QPM MYRIAM Administration
Glucagon 1 mg 04/12/25 20:05
Glucagon 1 Mg Vial IM 05/10/25 20:04
PRN PRN
hypoglycemia
Protocol
Guaifenesin/Dextromethorphan 5 ml 04/12/25 02:16
Guaifenesin/Dextromethorphan 200 Mg/10 Ml Cup PO 05/10/25 02:15
Q4HPRN PRN
Cough
Hydralazine HCl 10 mg 04/18/25 10:41 04/19/25 08:53
Hydralazine 20 Mg/Ml Vial IV 05/16/25 10:40 10 mg
Q4HPRN PRN Administration
FOR SBP > 160 or DBP > 110
Metronidazole 100 mls @ 100 mls/hr 04/18/25 14:00 04/19/25 05:01
Flagyl 500 Mg IV 100 mls
Q8H MYRIAM Administration
Nutrition (Parenteral) 1,060 ml in 1,060 mls @ 44 mls/hr 04/18/25 21:00 04/18/25 21:57
Parenteral Nutrition, Central IV 04/19/25 20:59 1,060 mls
ONCE@2100 NR Administration
Protocol
Per Protocol
Nutrition (Parenteral) 1,060 ml in 1,060 mls @ 44 mls/hr 04/19/25 21:00
Parenteral Nutrition, Central IV 04/20/25 20:59
ONCE@2100 NR
Protocol
Per Protocol
Vancomycin HCl 1,250 mg/ 275 mls @ 183.33 mls/hr 04/19/25 18:00
Sodium Chloride IV
Q12H MYRIAM
Protocol
Insulin Aspart 0 units 04/16/25 14:00 04/19/25 06:34
Insulin Aspart Low Resistance 300 Units/3 Ml Pen.Injctr SC 05/14/25 13:59 Not Given
Q6 MYRIAM
Protocol
Miconazole Nitrate 1 applic 04/17/25 11:39
Miconazole Powder Bottle TOPICAL 05/15/25 11:38
BIDPRN PRN
masd to inner thighs
Morphine Sulfate 1 mg 04/16/25 19:49 04/18/25 18:38
Morphine 2 Mg/Ml Syringe IV 04/30/25 19:48 1 mg
Q4HPRN PRN Administration
severe pain
Ondansetron HCl 4 mg 03/31/25 16:44 04/12/25 01:46
Ondansetron 4 Mg/2 Ml Vial IV 04/28/25 16:43 4 mg
Q6HPRN PRN Administration
nausea and vomiting
Pantoprazole Sodium 40 mg 04/13/25 08:00 04/19/25 08:54
Protonix 40 Mg Iv Push IV 05/11/25 07:59 40 mg
DAILY MYRIAM Administration
Sodium Chloride 0 flush 03/31/25 18:00 04/15/25 11:34
Sodium Chloride 0.9% (Flush) Syringe IV 04/28/25 17:59 2 flush
PER PROTOCOL MYRIAM Administration
Sodium Chloride 10 ml 04/13/25 08:00 04/19/25 08:54
Sodium Chloride 0.9% (Preservative Free) 10 Ml Vial IV 05/11/25 07:59 10 ml
DAILY MYRIAM Administration
Sterile Water 20 ml 04/18/25 14:00 04/18/25 13:36
Sterile Water For Injection 20 Ml Vial IV 05/16/25 13:59 20 ml
Q24H MYRIAM Administration
Tamsulosin HCl 0.4 mg 04/18/25 14:00 04/19/25 08:54
Tamsulosin 0.4 Mg Capsule PO 05/16/25 13:59 0.4 mg
DAILY MYRIAM Administration
Timolol Maleate 0 drop 03/31/25 20:00 04/19/25 08:54
Timolol 0.5% (Ophthalmic Solution) Bottle LEFT EYE 04/28/25 19:59 1 drop
BID MYRIAM Administration
Home Medications
�Medication �Instructions �Recorded
alprazolam 1 mg tablet 1 mg PO HS Mental Health/Anxiety 03/31/25
clobetasol 0.05 % lotion 1 applic topical DAILYPRN PRN 03/31/25
inner ear skin
colchicine 0.6 mg tablet 0.3 mg PO BID Gout 03/31/25
denosumab 60 mg/mL subcutaneous 60 mg SC [id number] 03/31/25
syringe (Prolia)
glucosamine sulfate 500 mg tablet 500 mg PO DAILY Supplement 03/31/25
(Glucosamine)
meloxicam 15 mg tablet 15 mg PO DAILY Pain 03/31/25
mesalamine 1.2 gram tablet,delayed 2.4 g PO DAILY Colitis 03/31/25
release
therapeutic multivitamin 1 tab PO QPM Supplement 03/31/25
timolol 0.5 % eye drops 1 drp LEFT EYE BID glaucoma 03/31/25
amoxicillin 875 mg-potassium 1 tab PO BID #6 tabs 04/03/25
clavulanate 125 mg tablet
loperamide 2 mg capsule 2 mg PO Q4HPRN PRN diarrhea #0 caps 04/03/25
potassium chloride 20 mEq 20 meq PO BID #10 tabs 04/03/25
tablet,extended release(part/cryst)

Documented by User: Bradley Estes MD 04/19/25 11:45
NIH Stroke Score
NIH Stroke Score
NIH Total Score:: 9
Modified [place] (mRS) Score
Score: 4
[2025-04-19] MEDS: TOPROL XL 50 MG PO ×2 (10:31→19:39)
--- NOTE | 2025-04-19 10:38 | PTCARENOTE ---
prn IV hydralazine given per OCT parameters. pt rechecked bp 152/69. Pt remains on TPN, neuro checks and NIH scale. advanced to full liquid diet this morning and stroke education done at bedside with pt and daughter. HR remains intermittently
tachycardic. XR metoprolol started and given this afternoon. pt dressing CDI and ileostomy continues with watery green drainage. pt verbalizes no pain at this time. will continue to assess.
--- NOTE | 2025-04-19 10:40 | W.PN.CRS1 ---
Today's Communication / Plan
-
Full liquids, TPN 1 more day
Monitor hemoglobin daily
Aspirin and Plavix
MRI brain
Dressing changes daily
Out of bed
Assessment/Plan
-
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
POD #7 Total abdominal colectomy with ileostomy
AFVSS
WBC 14.3 (15.3, 22.3), Hgb 8.6 (9.1), tachy 100-120's, tmx 100.2
�CT yesterday showed some fluid around the gallbladder. Will order ultrasound of gallbladder to further examine that area.
� Continue IV Vanco and Rocephin, appreciate ID
�WBC continues to improve. Gallbladder ultrasound yesterday was with no acute findings.
- MRI of the brain today for neurology to rule out stroke. Okay with aspirin and Plavix for now. Daily CBC to monitor hemoglobin.
- NG tube removed yesterday. Tolerating clears. Will add fulls with Ensure vanilla. TPN for 1 more day. Hopefully advance to low residue tomorrow.
- She has been straight cathed twice. May require Rodrigues placement if retains further.
- Daily dressing changes with gauze and paper tape.
- Discussed care with daughter at bedside.
- Appreciate hospitalist
- DVT prophylaxis with Lovenox.
- Out of bed with physical therapy. Incentive spirometry every hour's while awake.
Subjective Data
Procedure
04/12/2025- total abdominal colectomy with end ileostomy
Subjective Data
Date of Service: April 19, 2025
Patient's daughter states that she is feeling quite anxious. She apparently had some expressive aphasia with some right-sided leg weakness yesterday. She underwent a CT of the head yesterday which showed a left occipital lobe possible subacute CVA
and was loaded with aspirin and Plavix per neurology. Right now she does feel a little bit better. She denies abdominal pain. She denies nausea or vomiting. She feels little shaky.
Objective Data
-
Vital Signs
Temp Pulse Resp BP Pulse Ox
99.1 F 129 20 152/69 98
04/19/25 07:25 04/19/25 10:31 04/19/25 07:25 04/19/25 10:31 04/19/25 07:25
Intake & Output
04/18/25 04/19/25 04/20/25
06:59 06:59 06:59
Intake Total 2084 / 2084 1288 / 1288
Output Total 3925 / 3925 1910 / 1910
Balance -1841 / -1841 -622 / -622
Intake:
Oral fluids 360 / 360
IV piggybacks 600 / 600 400 / 400
TPN/PPN 944 / 944 528 / 528
Amount instilled into GI Tube ( 540 / 540
Total)
[place] Sump 540 / 540
Output:
Liquid stool amount 1575 / 1575 875 / 875
Ileostomy 1575 / 1575 875 / 875
Drain Output (Total) 75 / 75 35 / 35
Left [place] 70 / 70 35 / 35
Sheri 5 / 5
Gastrointestinal tube output ( 300 / 300
Total)
[place] Sump 300 / 300
Urine, Rodrigues 1974 / 1974
Straight cath output 1000 / 1000
Other:
How many times incontinent 4
SATURATED amount urine
Lab Results
04/19/25 05:18
04/19/25 05:18
Physical Exam
-
General: No Acute Distress and AOx3
Abdomen: Soft, Non Distended and Non Tender
Skin: Warm and Dry
Incision: Clear, Dry, Intact
--- NOTE | 2025-04-19 11:14 | W.PN.ID1 ---
Date of Service
Date of Service: April 19, 2025
Today's Communication
Continue antibiotics.
Assessment / Plan
# Severe UC flare/pancolitis
# Acute perforated sigmoid with peritonitis
# Leukocytosis improving
# Fever resolved
# On TPN
- 04/10 flex sig: severe inflammation with deep ulcerations,no sites spared. Biopsy: diffuse chronic active colitis with ulceration
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
Appreciate surgeon: Intra-abd OR cx: MRSA, Enterococcus faelcalis, E. coli, Clostridium, Bacteroides
- Continue Vanco (#8)
- Continue Ceftriaxone/metronidazole (#8)
- Trend wbc
# Change in mental status
- Head CT: 1.1 cm hypodensity within the inferior left occipital lobe which may represent a subacute infarction
- For MRI
# Tb screening in anticipation for biologic
- 04/06/25 QTB gold plus: INDETERMINATE which is not interpretable
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 No known TB risk exposure.
- Can repeat outpatient.
Chief Complaint
-: Other (diarrhea)
Subjective / Review of Systems
Pt still confused, per daughter.
Vital Signs / Physical Exam
Vital Signs
Vital Signs
Temp Pulse Resp BP Pulse Ox
99.1 F 129 20 152/69 98
04/19/25 07:25 04/19/25 10:31 04/19/25 07:25 04/19/25 10:31 04/19/25 07:25
Physical Exam
Constitutional: No Acute Distress and Comfortable
Cardiovascular: S1/S2 (tachy)
Pulmonary: Clear (anteriorly)
Gastrointestinal: Soft, Non Tender, Non Distended and Other (RIDDHI drain serous fluid, ileostomy soft stool)
Genito-Urinary: Negative CVA Tenderness
Extremities: Edema (BUE, BLE decrease edema)
Neurological: Awake and Alert
Lines: PICC (RUE)
Objective Data
Lab Data
Lab Results
04/19/25 05:18
04/19/25 05:18
ESR 53 mm/hour (0-20) H 04/10/25 08:08
PT 18.4 Sec (11.4-14.6) H 04/12/25 10:05
INR 1.48 04/12/25 10:05
APTT 28.8 Sec (23.4-35.0) 04/12/25 10:05
Estimated Creat Clear 64 ml/min 04/19/25 05:18
Lactic Acid 2.9 mmol/L (0.7-2.0) H 04/12/25 21:42
Total Bilirubin 0.3 mg/dl (0.2-1.3) 04/19/25 05:18
AST 15 U/L (14-36) 04/19/25 05:18
ALT 13 U/L (0-35) 04/19/25 05:18
Alkaline Phosphatase 88 U/L (38-126) 04/19/25 05:18
C-Reactive Protein > 270.00 mg/L (0.0-10.00) H 04/13/25 03:18
Most recent labs reviewed.
Micro Results:
04/12/25 12:55 Wound Culture - Final
Abdomen Escherichia coli
Staph aureus MRSA
Enterococcus faecalis
Gram Stain - Final
04/12/25 12:55 Anaerobic Culture - Final
Abdomen Clostridium species
Bacteroides uniformis
04/12/25 02:32 Influenza Types A & B (AN) - Final
Nasal Swab Negative for Influenza A & B, NAAT
Negative results must be combined with clinical observations
and patient history.
Nucleic Acid Amplification test (NAAT)performed on the
[employer] platform.
04/04/25 10:13 Blood Culture - Final
Blood/Venous No Growth - Final Report
04/04/25 09:38 Blood Culture - Final
Blood/Venous No Growth - Final Report
04/04/25 18:15 - Final
Feces/Stool NO YERSINIA SPECIES ISOLATED
03/31/25 15:29 Blood Culture - Final
Blood/Venous No Growth - Final Report
03/31/25 13:08 Blood Culture - Final
Blood/Venous No Growth - Final Report
04/04/25 18:15 Cryptosporidium/Giardia - Final
Feces/Stool Negative for Cryptosporidium and/or Giardia Lamblia
antigens.
- Final
Negative for Norovirus GI and GII.
04/04/25 18:15 C. difficile GDH Antigen & Toxins - Final
Feces/Stool Negative for toxigenic C.difficile
03/31/25 17:43 Salmonella/Shigella Culture - Final
Feces/Stool No Salmonella, Shigella, Aeromonas or Plesiomonas species
isolated.
Campylobacter Culture - Final
No Campylobacter species isolated.
Shiga Toxin Test - Final
No E. coli Shiga Toxin 1 or 2 detected.
04/01/25 11:44 Urine Culture - Final
Urine NO GROWTH
03/31/25 12:54 C. difficile GDH Antigen & Toxins - Final
Feces/Stool Negative for toxigenic C.difficile
04/12/25 CT a/p: Interval development of extensive free air/pneumoperitoneum within the abdomen and pelvis, likely secondary to a focal defect within the proximal sigmoid colon. New small amount of free fluid within the pelvis.
Interval improvement of pancolitis. Negative for pulmonary embolism.
04/12/25 CXR: No acute disease within the chest. New lucency within the upper abdomen and underneath the left hemidiaphragm concerning for pneumoperitoneum.
04/05/25 CT a/p: There is findings of worsening severe pancolitis. Findings are likely related to reported ulcerative colitis.
04/04/25 CXR: The trachea is midline. There is moderate elevation of the right hemidiaphragm. There appear to be thin bands of subpleural subsegmental atelectasis and scarring in both lower lungs. There is no focal airspace opacity suspicious for
pneumonia. There is no radiographic evidence for pleural effusion or pneumothorax.
03/31 CT a/p: Mild diffuse colonic wall thickening suggestive of pancolitis. Mild to moderate amount of fluid within the proximal colon. Severe chronic diverticular disease within the sigmoid. Small amount of free fluid within the pelvis.
[2025-04-19 11:48] LABS: Ferritin 578.0 ng/ml (11.1-264.0)
[2025-04-19 12:19] LABS: Folate 7.6 ng/ml (2.76-20); Vitamin B12 > 1000 pg/ml (239-931)
[2025-04-19 12:45] LABS: Glucose - Point of Care 149 mg/dl (70-99)
--- NOTE | 2025-04-19 13:05 | PN.CDI ---
CDI
- -
CDI:
Physician Documentation Request
Admit Date: 03/31/25 15:28
Dear Doctor Isaac,
Please review the following and provide your response in the progress notes.
Clinical Indicators:
Pt admitted with Sepsis 2/2 UC flare /bacteria translocation
Surgery for ulcerative pancolitis with perforation -total abdominal colectomy with end ileostomy
Trended Hemoglobin/Hematocrit below
04/12/25 04/14/25 04/18/25
17:37 03:21 19:34
Hgb 12.3 9.4 L 9.0 L
Hct 35.8 L 28.0 L 27.5 L
04/19/25
05:18
Hgb 8.6 L
Hct 26.0 L
Please provide a diagnosis for the above laboratory findings:
Acute blood loss anemia
Abnormal lab value only
Other ( please specify)
Use of terms such as suspected, likely, concern for, or probable (associated with a specific diagnosis that is being evaluated, monitored, or treated as if it exists) are acceptable and can be coded in the inpatient setting, when documented at the
time of discharge.
Thank you,
Lesley Melchor RN
CDI Specialist
[facility]
Please use your independent medical judgment in providing your response.
[2025-04-19] MEDS: STERILE WATER FOR INJECTION 20 ML IV (13:29)
[2025-04-19] MEDS: ROCEPHIN 2000 MG IV (13:29)
--- NOTE | 2025-04-19 14:03 | CM ---
Reviewed the chart notes and spoke with the patient and spouse at the bedside. Updated referral sent in [facility] to [facility]. Patient currently on TPN and diet advanced to full liquid. CM continues to be available to patient/family and
is monitoring medical plan for needs at discharge.
Plan: Discharge to SNF/rehab once medically stable. No precert required.
--- NOTE | 2025-04-19 14:14 | W.PN.HOSP.TC ---
Today's Communication/Plan
-
see note
Assessment / Plan
Assessment / Plan
Acute hypoxic respiratory insufficiency
VDRF for procedure - extubated 04/13
- CT chest PE negative for PE, bilateral small effusion
- wean off o2 as possible
Perforated bowel
- CXR with pneumo-peritoneum
- CT: with finding of perforation at sigmoid level
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
- continue ostomy/drain care per CRS
- Operative cultures with MRSA. E faecalis and E. Coli
- ID managing abx. Currently on Vanco/Rocephin/Flagyl
- Diet advanced to full liquid diet today. Ensure added per family request. TPN per surgery
Subacute occipital stroke
- CT head done for confusion/somnolence showing questionable occipital stroke
- Follow-up MRI brain pending
- Neurology evaluated and patient started on aspirin/Plavix. Monitor for any bleeding.
Acute hypoglycemia 04/15
- resolved after dextrose injections and dextrose IVF
Septic shock in setting of acute bowel perforation
- required pressors for 36 hours
Moderate thrombus formation in the left cephalic vein
- superficial, elevated arm
Acute in-hospital delirium
- avoid sedative medication
- Continue supportive measures
Sepsis in setting of UC flare
- leukocytosis in setting of steroids
- Cultures negative
UC flare (severe UC with pancolitis)
- CT abdomen with IV contrast 04/05 shows worsening severe pancolitis likely related to ulcerative colitis
- s/p Flex Sig 04/10 with edema and deep ulcerations diffusely; s/p biopsies for path and CMV testing
- Steroids discontinued by GI after evaluation.
Acute urinary retention
- Rodrigues inserted 04/07; void trial successful 04/10. Re-inserted for OR
- Rodrigues removed today again on 04/17, patient retaining. Resumed on Flomax
- Patient declined to have Rodrigues replaced, ended up getting straight cath x 4 for 400-500ml .
Elevated BP
Sinus tachycardia
- Toprol-XL 50 mg twice daily added for simultaneous blood pressure and heart rate control
- Monitor on telemetry for any paroxysmal A-fib in light of possible subacute occipital stroke
Oral aphthous ulcers - continue topical alum and magic mouthwash, patient states both are helping.
Non-gap metabolic acidosis - resolved
Hypokalemia - replete as needed
acute Hyponatremia - improved.
Incidental 3.7 cm mildly heterogeneous cystic left adnexal lesion. Would not workup for now - OP PCP f/u
Rheumatoid arthritis - quiescent.
ADD
History of gout - colchicine now on hold given ongoing diarrhea.
Obesity due to excess calories
Hypocalcemia - IV replacement as needed
DVT ppx: Lovenox
Code: Full (reversed from DNR/DNI status on 04/12 AM)
Care plan discussed with neurology/colorectal surgeon
Patient daughter at bedside and updated about imaging finding
Total time spent 55 minutes
Anticipated Discharge: > 48 hours
Subjective/Interval History
-
Date of Service: April 19, 2025
patient more awake
remains on o2
Patient communicating although not completely herself
Objective Data
-
Labs:
Laboratory Results
04/19/25
05:18
WBC 14.3 H
Hgb 8.6 L
Hct 26.0 L
Plt Count 197
Sodium 137
Potassium 3.8
Chloride 108 H
Carbon Dioxide 25
BUN 11
Creatinine 0.3 L
Glucose 142 H
Calcium 8.3 L
Total Bilirubin 0.3
AST 15
ALT 13
Alkaline Phosphatase 88
Vital Signs:
Vital Signs
Temp Pulse Resp BP Pulse Ox
98.8 F 128 18 143/72 94
04/19/25 11:20 04/19/25 11:20 04/19/25 11:20 04/19/25 11:20 04/19/25 11:49
I&O
04/18/25 04/19/25 04/20/25
06:59 06:59 06:59
Intake Total 2083 / 2083 1288 / 1288
Output Total 3925 / 3925 1909 / 1909
Balance -1841 / -1841 -622 / -622
Review of Systems
-
Unable to obtain full review of systems at this time due to: Acuity
Physical Exam
-
General: No Apparent Distress
HEENT: Negative Oxygen
Cardiac: Regular Rhythm and S1/S2; Negative Murmur
GI: Soft, Nontender and Ostomy (browl liquid stool)
Neuro: Awake; Negative Oriented
--- NOTE | 2025-04-19 14:30 | WOUNDNOTE ---
WON RN NOTE: Teaching done with family at bedside and appliance changed. Patient still slightly confused, a little bit better reports . Family actively participated in teaching session and all questions answered. Stoma pink and budded for +
gas and liquid brown stool. Peristomal skin intact. 2 3/4' 2 piece [place] appliance used, additional supplies ordered for bedside. Patient turned with assist of daughter, incontinent of urine after coughing. Skin care given and assessed sacrum.
Has some mild MASD and tiny stage 2 PI in gluteal cleft, not new per family. Nurse updated on the above and will place new sacral silicone foam on since last one was soiled. TPN in use and remains on air mattress with turning schedule. Pillow in use
under calves. Permission given by family to enroll in secure start program will update [place] site, will be sent to their home.
[2025-04-19] MEDS: LOPRESSOR 5 MG IV (15:11)
[2025-04-19] MEDS: VANCOCIN 275 MG IV (17:02)
[2025-04-19] MEDS: LOVENOX 40 MG SC (17:03)
--- NOTE | 2025-04-19 18:00 | PTCARENOTE ---
IV lopressor given per parameters this afternoon for a HR >120. post administration HR has been sustaining in the 90s and pt has been NSR on the monitor.
Pt continues to retain urine. bladderscanned for >400ml. 14 [place] hawkins catheter placed for acute urinary retention. 600ml Clear yellow urine on initial output post hawkins insertion. see Worklist for proper documentation.
[2025-04-19 18:52] LABS: Glucose - Point of Care 157 mg/dl (70-99)
[2025-04-19] MEDS: Parenteral Nutrition, Central 1060 IV (21:23)
[2025-04-19] MEDS: TYLENOL 1000 MG PO (22:15)
[2025-04-19 23:46] LABS: Glucose - Point of Care 153 mg/dl (70-99)
[2025-04-20] VITALS (11 sets, daily range): BP systolic 134–176; BP diastolic 60–109; PULSE 93; O2SAT 98; BMI 31.6
[2025-04-20] MEDS: NOVOLOG FLEXPEN-LOW RESISTANCE 1 UNITS SC ×3 (00:03→12:58)
[2025-04-20] MEDS: LOPRESSOR 5 MG IV (00:58)
[2025-04-20] MEDS: FLAGYL 500 MG 100 IV ×3 (05:14→21:04)
[2025-04-20 06:18] LABS: Hematocrit 25.7 % (37.0-47.0); Hemoglobin 8.4 g/dL (12.0-16.0)
[2025-04-20] MEDS: VANCOCIN 275 MG IV ×2 (06:19→17:21)
[2025-04-20 06:23] LABS: Glucose - Point of Care 151 mg/dl (70-99)
[2025-04-20 06:40] LABS: Blood Urea Nitrogen 17 mg/dl (7-17); Calcium 8.5 mg/dl (8.4-10.2); Carbon Dioxide 24 mmol/L (22-30); Chloride 110 mmol/L (98-107); Estimated Creatinine Clearance 64 ml/min; Glucose 135 mg/dl (70-99); Potassium 4.1 mmol/L (3.5-5.1); Sodium 138 mmol/L (135-145); eGFR > 60.00
[2025-04-20] MEDS: PROTONIX IV 40 MG IV (08:27)
[2025-04-20] MEDS: NSS (PRESERVATIVE FREE) 10 ML IV (08:27)
[2025-04-20] MEDS: PLAVIX 75 MG PO (08:28)
[2025-04-20] MEDS: LOW STRENGTH ASPIRIN 81 MG PO (08:28)
[2025-04-20] MEDS: TOPROL XL 50 MG PO ×2 (08:29→20:47)
[2025-04-20] MEDS: TIMOPTIC 0.5% OPHTHALMIC SOLUTION 1 DROP LEFT EYE ×2 (08:29→20:47)
[2025-04-20] MEDS: FLOMAX 0.4 MG PO (08:29)
--- NOTE | 2025-04-20 08:52 | PHA.VAN.FU ---
Vancomycin Assessment / Plan
- Assessment
Renal Function: Stable
In the past 24 hrs, patient has been: Afebrile
Concomitant Antimicrobials: ceftriaxone, metroindazole
- Dosing Plan
Continue: Vanc 1250mg Q12H (adjsuted 04/19)
- Monitoring Plan
No level(s) ordered at this time: consider levels in next few days
- Follow Up
Pharmacy will continue to follow.
Vancomycin Follow UP
- -
Patient Age: 84
Patient Sex: Female
Vancomycin Day #: 9
Indication: Gi / Intra-Abdominal
Requesting Provider: Dr. Awad / Dr. Branch
Pertinent Antimicrobial Allergies:
bacitracin - unknown
clindamycin - anaphylaxis
smx/tmp - rash
Height / Weight:
Height 5 ft
Actual Weight 73.482 kg
Pertinent Past Medical History: BMI ~34
- Vital Signs / Lab Results
Temp Pulse Resp BP Pulse Ox
98.4 F 112 16 134/109 97
04/20/25 07:00 04/20/25 08:29 04/20/25 07:00 04/20/25 08:29 04/20/25 07:00
Lab Results - Hematology
04/18/25 04/18/25 04/19/25
05:09 19:34 05:18
WBC 15.5 H 16.3 H 14.3 H
Lab Results - Chemistry
04/18/25 04/18/25 04/19/25
05:09 19:34 05:18
BUN 9 10 11
Creatinine 0.3 L 0.3 L 0.3 L
Estimated Creat Clear 66 65 64
Albumin 1.9 L 2.0 L
04/20/25
05:13
BUN 17
Creatinine 0.4 L
Estimated Creat Clear 64
Albumin
Therapeutic Drug Monitoring
Vancomycin Peak Cancelled 04/18/25 21:00
Vancomycin Trough 10.5 ug/ml (5-20) 04/19/25 05:18
Random Vancomycin 13.2 ug/ml 04/17/25 04:22
--- NOTE | 2025-04-20 09:11 | W.PN.ID1 ---
Date of Service
Date of Service: April 20, 2025
Today's Communication
Continue abx's x 2 more days.
Assessment / Plan
# Severe UC flare/pancolitis
# Acute perforated sigmoid with peritonitis
# Leukocytosis improving
# Fever resolved
# On TPN
- 04/10 flex sig: severe inflammation with deep ulcerations,no sites spared. Biopsy: diffuse chronic active colitis with ulceration
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
Appreciate surgeon: Intra-abd OR cx: MRSA, Enterococcus faelcalis, E. coli, Clostridium, Bacteroides
- Continue Vanco (#9 of 10)
- Continue Ceftriaxone/metronidazole (#9 of 10)
- Trend wbc
# Change in mental status
- Head CT: 1.1 cm hypodensity within the inferior left occipital lobe which may represent a subacute infarction
- For MRI
# Tb screening in anticipation for biologic
- 04/06/25 QTB gold plus: INDETERMINATE which is not interpretable
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 No known TB risk exposure.
- Can repeat outpatient.
Chief Complaint
-: Other (diarrhea)
Subjective / Review of Systems
Per daughter, less confused.
Vital Signs / Physical Exam
Vital Signs
Vital Signs
Temp Pulse Resp BP Pulse Ox
98.4 F 112 16 134/109 97
04/20/25 07:00 04/20/25 08:29 04/20/25 07:00 04/20/25 08:29 04/20/25 07:00
Physical Exam
Constitutional: No Acute Distress
Eyes: Sclera Anicteric
Cardiovascular: Regular Rate and S1/S2 (tachy)
Pulmonary: Clear (anteriorly)
Gastrointestinal: Soft, Non Tender, Non Distended and Other (RIDDHI drain serous fluid, ileostomy soft stool)
Genito-Urinary: Negative CVA Tenderness
Extremities: Edema (BUE, BLE decrease edema)
Neurological: Awake and Alert
Lines: PICC (RUE)
Objective Data
Lab Data
Lab Results
04/20/25 05:13
04/20/25 05:13
ESR 53 mm/hour (0-20) H 04/10/25 08:08
PT 18.4 Sec (11.4-14.6) H 04/12/25 10:05
INR 1.48 04/12/25 10:05
APTT 28.8 Sec (23.4-35.0) 04/12/25 10:05
Estimated Creat Clear 64 ml/min 04/20/25 05:13
Lactic Acid 2.9 mmol/L (0.7-2.0) H 04/12/25 21:42
Total Bilirubin 0.3 mg/dl (0.2-1.3) 04/19/25 05:18
AST 15 U/L (14-36) 04/19/25 05:18
ALT 13 U/L (0-35) 04/19/25 05:18
Alkaline Phosphatase 88 U/L (38-126) 04/19/25 05:18
C-Reactive Protein > 270.00 mg/L (0.0-10.00) H 04/13/25 03:18
Most recent labs reviewed.
Micro Results:
04/12/25 12:55 Wound Culture - Final
Abdomen Escherichia coli
Staph aureus MRSA
Enterococcus faecalis
Gram Stain - Final
04/12/25 12:55 Anaerobic Culture - Final
Abdomen Clostridium species
Bacteroides uniformis
04/12/25 02:32 Influenza Types A & B (AN) - Final
Nasal Swab Negative for Influenza A & B, NAAT
Negative results must be combined with clinical observations
and patient history.
Nucleic Acid Amplification test (NAAT)performed on the
[employer] platform.
04/04/25 10:13 Blood Culture - Final
Blood/Venous No Growth - Final Report
04/04/25 09:38 Blood Culture - Final
Blood/Venous No Growth - Final Report
04/04/25 18:15 - Final
Feces/Stool NO YERSINIA SPECIES ISOLATED
03/31/25 15:29 Blood Culture - Final
Blood/Venous No Growth - Final Report
03/31/25 13:08 Blood Culture - Final
Blood/Venous No Growth - Final Report
04/04/25 18:15 Cryptosporidium/Giardia - Final
Feces/Stool Negative for Cryptosporidium and/or Giardia Lamblia
antigens.
- Final
Negative for Norovirus GI and GII.
04/04/25 18:15 C. difficile GDH Antigen & Toxins - Final
Feces/Stool Negative for toxigenic C.difficile
03/31/25 17:43 Salmonella/Shigella Culture - Final
Feces/Stool No Salmonella, Shigella, Aeromonas or Plesiomonas species
isolated.
Campylobacter Culture - Final
No Campylobacter species isolated.
Shiga Toxin Test - Final
No E. coli Shiga Toxin 1 or 2 detected.
04/01/25 11:44 Urine Culture - Final
Urine NO GROWTH
03/31/25 12:54 C. difficile GDH Antigen & Toxins - Final
Feces/Stool Negative for toxigenic C.difficile
04/12/25 CT a/p: Interval development of extensive free air/pneumoperitoneum within the abdomen and pelvis, likely secondary to a focal defect within the proximal sigmoid colon. New small amount of free fluid within the pelvis.
Interval improvement of pancolitis. Negative for pulmonary embolism.
04/12/25 CXR: No acute disease within the chest. New lucency within the upper abdomen and underneath the left hemidiaphragm concerning for pneumoperitoneum.
04/05/25 CT a/p: There is findings of worsening severe pancolitis. Findings are likely related to reported ulcerative colitis.
04/04/25 CXR: The trachea is midline. There is moderate elevation of the right hemidiaphragm. There appear to be thin bands of subpleural subsegmental atelectasis and scarring in both lower lungs. There is no focal airspace opacity suspicious for
pneumonia. There is no radiographic evidence for pleural effusion or pneumothorax.
03/31 CT a/p: Mild diffuse colonic wall thickening suggestive of pancolitis. Mild to moderate amount of fluid within the proximal colon. Severe chronic diverticular disease within the sigmoid. Small amount of free fluid within the pelvis.
--- NOTE | 2025-04-20 10:13 | CON.MD ---
Consultation - Medical
-
patient seen chart reviewed. discussed with nursing. daughter at bedside. this consult done today april 20 2025. the patient is an 84 year old female here after a bowel perforation. she has been her 20 days given complications. this consult
was ordered for ? delirium, ?bzp withdrawal as possibly causative. she had experienced hallucinations tachycardia and inc bp in the recent past. the hallucinations have now ceased. her bp remains elevated 134/109 today and she is still w
tachycardia (112) anemia (hgb 8.4) serum sodium low on admit now normal. tsh b12 folate are normal. there is also ? cva on cat scan which shows some atrophy small vessel disease. mri done this am not yet read. the ;patient had been taking xanax
bar captain one half mg at hs. there is notation in the chart that she was using a higher dose but she and d denied this and were certain dosage was only o.5 mg q hs for sleep not for anxiety. she does have hx of two cocktails daily bar captain with her
in the evening,. the patient denies issues with depression over the course of her life. daughter days that issues w memory and confusion are new w this admit and her mother is 'sharper than me'. at this point both patient and mom feel she is
improving although is still somewhat confused. she could not tell me how many children she had although correctly told me how many grandkids she has. she was also alert and attentive and often very appropriate in her comments. she did not appear
in any distress having eaten pretty well for breakfast . she did express that she is tired of being in the hospital and wants out natalie.
past psych hx see above alprazolam for sleep not anxiety allegedly
medical hx patient is here bc complicated bowel perforation. see above. she has hx sepsis RA hyponatremia UC multiple orthopedic surgeries. there is notation ADD in admitting notes. patient and d deny any psych dx anemia
fh patient's mother took xanax for anxiety
substance abuse two cocktails daily
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 patient has many hobbies interests and friends
mse alert and oriented but remains confused to a degree unable to tell me how many kids she has. good eye contact and made relevant comments in the conversation despite some confusion. speech a little sparse. normal rate and tone no psychosis
noted mood is neutral affect a bit constricted likely above aver intell insight judgment fair
dx resolving delirium
recommendation would cut back xanax to o.5 mg for seven days then try to dc. patient says this was her normal dosage. would avoid sedating meds as much as possible. her hallucinations have resolved. she seems comfortable. i suspect if this is due
to withdrawal/ medication /medical illness she will recover in the next few days. she is too far out for etoh wd to be a concern. if this is due to cva then it may be a different story. await results of mri. psych will sign off please call us
if you need us to return.
--- NOTE | 2025-04-20 10:48 | W.PN.CRS1 ---
Today's Communication / Plan
-
low residue with ensure
allow the tpn to run out and then stop
MRI brain
Assessment/Plan
-
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
POD #8 Total abdominal colectomy with ileostomy
Hgb 8.4 (8.6, 9.0, 9.1). HR 100-120's. Afebrile.
- MRI of the brain today for neurology to rule out stroke. Okay with aspirin and Plavix for now. Daily CBC to monitor hemoglobin.
- Tolerated fulls post NG tube removal yesterday. Will advance to low residue with Ensure. Told patient to go slow. No further TPN. Allow bag to run out at 9 PM tonight.
- Daily dressing changes with gauze and paper tape.
- Maintain rectal thais drain. Will remove as outpatient.
- Continue RIDDHI drain, will remove prior to discharge.
- Discussed care with daughter at bedside.
- Appreciate hospitalist
- DVT prophylaxis with Lovenox.
- Out of bed with physical therapy. Incentive spirometry every hour's while awake.
Subjective Data
Procedure
04/12/2025- total abdominal colectomy with end ileostomy
Subjective Data
Date of Service: April 20, 2025
Patient states pain is controlled. She actually is hungry today. Denies nausea or vomiting.
Objective Data
-
Vital Signs
Temp Pulse Resp BP Pulse Ox
98.4 F 112 16 134/109 97
04/20/25 07:00 04/20/25 08:29 04/20/25 07:00 04/20/25 08:29 04/20/25 08:41
Intake & Output
04/19/25 04/20/25 04/21/25
06:59 06:59 06:59
Intake Total 1288 / 1288 2676 / 2676
Output Total 1909 2720 / 2719
Balance -622 / -622 -44 / -44
Intake:
Oral fluids 360 / 360 720 / 720
IV piggybacks 400 / 400 900 / 900
TPN/PPN 528 / 528 1056 / 1056
Output:
Liquid stool amount 875 / 875 1000 / 1000
Ileostomy 87 / 875 1000 / 1000
Drain Output (Total)
Left [place]oco[place]Galeas
[place] 5 / 5
Urine, Rodrigues 1700 / 1700
Straight cath output 1000 / 999
Other:
How many times incontinent 1
SMALL amount urine
How many times incontinent 6
MODERATE amount urine
How many times incontinent 4
SATURATED amount urine
Lab Results
04/20/25 05:13
04/20/25 05:13
Physical Exam
-
General: No Acute Distress and AOx3
Abdomen: Soft, Non Distended, Non Tender and Other (RIDDHI drain serous)
Wound: Dressing Changed and Other (Thais drain in place)
--- NOTE | 2025-04-20 11:07 | CM ---
Reviewed the chart notes. Patient on low residue diet today. TPN to run out today. CM continues to be available to patient/family and is monitoring medical plan for needs at discharge.
Plan: Discharge to [facility] when medically stable. No precert required.
--- NOTE | 2025-04-20 11:40 | W.PN.HOSP.TC ---
Addendum entered and electronically signed by Michael Gray MD 04/20/25 11:47:
Add on to diagnosis list:
Acute blood loss anemia
Original Note:
Today's Communication/Plan
-
see note
Assessment / Plan
Assessment / Plan
Acute hypoxic respiratory insufficiency
VDRF for procedure - extubated 04/13
- CT chest PE negative for PE, bilateral small effusion
- wean off o2 as possible
Perforated bowel
- CXR with pneumo-peritoneum
- CT: with finding of perforation at sigmoid level
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
- continue ostomy/drain care per CRS
- Operative cultures with MRSA. E faecalis and E. Coli
- ID managing abx. Currently on Vanco/Rocephin/Flagyl
- CRS advanced diet to LR diet. TPN per CRS.
Subacute occipital stroke
- CT head done for confusion/somnolence showing questionable occipital stroke
- Follow-up MRI brain pending
- Neurology evaluated and patient started on aspirin/Plavix. Monitor for any bleeding.
Acute hypoglycemia 04/15
- resolved after dextrose injections and dextrose IVF
Septic shock in setting of acute bowel perforation
- required pressors for 36 hours
Moderate thrombus formation in the left cephalic vein
- superficial, elevated arm
Acute in-hospital delirium
- avoid sedative medication
- Continue supportive measures
Sepsis in setting of UC flare
- leukocytosis in setting of steroids
- Cultures negative
UC flare (severe UC with pancolitis)
- CT abdomen with IV contrast 04/05 shows worsening severe pancolitis likely related to ulcerative colitis
- s/p Flex Sig 04/10 with edema and deep ulcerations diffusely; s/p biopsies for path and CMV testing
- Steroids discontinued by GI after evaluation.
Acute urinary retention
- Hawkins inserted 04/07; void trial successful 04/10. Re-inserted for OR
- Hawkins removed again on 04/17, patient retaining. Resumed on Flomax
- After X4 straight cath , hawkins replaced.
Elevated BP
Sinus tachycardia
- Toprol-XL 50 mg twice daily added for simultaneous blood pressure and heart rate control
- Monitor on telemetry for any paroxysmal A-fib in light of possible subacute occipital stroke
Generalized anxiety disorder
- Per PDMP on Xanax 1 mg 3 times daily also patient taking half milligram at night only
- In light of vital instability and confusion resuming back Xanax HS to avoid any benzo withdrawal
- Psych evaluated and hyperventilated as well
Oral aphthous ulcers - continue topical alum and magic mouthwash, patient states both are helping.
Non-gap metabolic acidosis - resolved
Hypokalemia - replete as needed
acute Hyponatremia - improved.
Incidental 3.7 cm mildly heterogeneous cystic left adnexal lesion. Would not workup for now - OP PCP f/u
Rheumatoid arthritis - quiescent.
ADD
History of gout - colchicine now on hold given ongoing diarrhea.
Obesity due to excess calories
Hypocalcemia - IV replacement as needed
DVT ppx: Lovenox
Code: Full (reversed from DNR/DNI status on 04/12 AM)
Total time spent 53 minutes
Anticipated Discharge: > 48 hours
Subjective/Interval History
-
Date of Service: April 20, 2025
Subjective feeling better
No reported major hallucination/agitation episode overnight still remains somewhat confused at times and forgetful
Afebrile
Not voicing any complaints of abdominal pain/nausea/vomiting
Heart rate remains elevated although denies of any palpitation
Objective Data
-
Labs:
Laboratory Results
04/20/25
05:13
Hgb 8.4 L
Hct 25.7 L
Sodium 138
Potassium 4.1
Chloride 110 H
Carbon Dioxide 24
BUN 17
Creatinine 0.4 L
Glucose 135 H
Calcium 8.5
Vital Signs:
Vital Signs
Temp Pulse Resp BP Pulse Ox
98.8 F 119 16 155/80 98
04/20/25 11:00 04/20/25 11:00 04/20/25 11:00 04/20/25 11:00 04/20/25 11:00
I&O
04/19/25 04/20/25 04/21/25
06:59 06:59 06:59
Intake Total 1816 / 1816 2676 / 2676
Output Total 1909 / 1909 2720 / 2720
Balance -94 / -94 -44 / -44
Review of Systems
-
Respiratory: Reports No Symptoms
Cardiac: Reports No Symptoms
Abdomen/GI: Reports No Symptoms
Physical Exam
-
General: No Apparent Distress
HEENT: Negative Oxygen
Cardiac: Regular Rhythm and S1/S2; Negative Murmur
GI: Soft, Nontender and Ostomy (browl liquid stool)
Neuro: Awake, Alert, Oriented (To place and person only at times) and No Motor Deficits
[2025-04-20 11:56] LABS: Glucose - Point of Care 162 mg/dl (70-99)
--- NOTE | 2025-04-20 12:20 | PN.CDI ---
CDI
- -
CDI:
Physician Documentation Request
Admit Date: 03/31/25 15:28
Dear Doctor Isaac,
Please review the following and provide your response in the progress notes.
Clinical Indicators:
Pt admitted with Sepsis 2/2 UC flare /bacteria translocation
Documented per WOCN note 04/19, ' Skin care given and assessed sacrum. Has some mild MASD and tiny stage 2 PI in gluteal cleft, not new per family. Nurse updated on the above and will place new sacral silicone foam on since last one was soiled....'
Physician documentation of the type and location of wounds is required for compliant documentation. Based on the above clinical findings and your assessment, please provide the following in your progress note:
1. Location of the ulcer/wound, including laterality.
2. Type (etiology) of ulcer/wound:
- Pressure (decubitus) ulcer
- Non-pressure ulcer
- Other ( please specify)
Use of terms such as suspected, likely, concern for, or probable (associated with a specific diagnosis that is being evaluated, monitored, or treated as if it exists) are acceptable and can be coded in the inpatient setting, when documented at the
time of discharge.
Thank you,
Lesley Melchor RN
CDI Specialist
[facility]
Please use your independent medical judgment in providing your response.
*Source: National Pressure Ulcer Advisory Panel (NPUAP)
[2025-04-20] MEDS: ROCEPHIN 2000 MG IV (13:00)
[2025-04-20] MEDS: STERILE WATER FOR INJECTION 20 ML IV (13:00)
--- NOTE | 2025-04-20 16:56 | CON.CAR ---
Addendum entered and electronically signed by Edi Castro MD 04/20/25 18:03:
I saw and evaluated the patient, and I provided the substantive portion of the medical decision making.
I reviewed and agree with the note by [ ] and it accurately reflects our care.
I personally performed the medical decision making of the this encounter and my assessment and plan is below:
84-year-old female with past medical history of UC and RA presented with infectious colitis complicated by bowel perforation status post total abdominal colectomy end ileostomy. Throughout hospitalization delirium was suspected, CT was done showing
CVA. MRI was then ordered showing multiple scattered acute infarcts bilateral cerebral hemispheres and few smaller acute infarcts of the cerebellum suspicious for embolic etiology. We are asked to evaluate for possible arrhythmic cause. She has
currently no symptoms of palpitations. 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
On exam she is awake and alert with no apparent distress. RRR S1-S2 are normal, and lungs are clear to auscultation. She is alert and oriented x 3.
Review [address] scan of the abdomen and pelvis from 04/17/2025 does show extensive aortic calcifications throughout the aortic arch and descending aorta.
Extensive review of telemetry shows no evidence of phillip atrial fibrillation. At 1 time, it does appear she is in a brief SVT mostly at 119 bpm but there is 1 short run at approximately 150 bpm.
EKG 04/18/2025 shows sinus tachycardia 135 bpm, nonspecific ST wave abnormality.
Impression and plan:
CVA: In likely embolic etiology given presentation of multiple hemispheres affected. Certainly aortic atheroma can cause an embolic phenomenon. Recommend high-dose statin therapy. Telemetry without convincing evidence of atrial
fibrillation/flutter. There was a brief time of NSVT at 150 but this was 4 seconds. Will review with electrophysiology. For now continue telemetry. If no phillip evidence of A-fib/a flutter prior to discharge, would recommend loop implant.
OtherwiseContinue DAPT for now.
Otherwise as below. Will follow.
Original Note:
Consultation
Consultation Request
Date/Time Consultation Requested: 04/20/25 3076
Date/Time Consultation Performed: 04/20/25 1700
Requesting Provider: Dr. Gray
Performing Provider: Delores BAKER for Dr. Castro
Reason for Consultation: Strokes on imaging
Medical History
-
Chief Complaint: diarrhea
History of Present Illness:
84 y/o female with UC and RA who presented on 03/31/25 with diarrhea and weakness. She was seen to have fever. She was originally treated for infectious colitis with abx. However, she developed bowel perforation and on 04/12/25 had total abdominal
colectomy with end ileostomy. With perf bowel, she developed septic shock requiring pressor and fluids. She was also intubated. She developed suspected delirium. But with confusion, head CT was ordered and showed evidence for infarction. Neuro
started ASA/plavix and ordered MRI, which revealed multiple scattered acute infarcts in the bilateral cerebral hemispheres, and a few smaller acute infarcts in the cerebellum. Therefore, we are consulted to assess for arrhythmia as cause. She has
sinus tachycardia in the setting of acute illness. She is in no distress at the time of my assessment. and son-in-law at bedside.
Past Medical History
Past Medical History: Other (as above)
Social History
Personal:
Living: With Family
Family History
Family History: Reviewed & Not Pertinent
Allergies / Home Medications
Allergy/AdvReac Type Severity Reaction Status Date / Time
bacitracin Allergy Unknown Verified 04/04/25 16:14
clindamycin Allergy Anaphylaxis Verified 04/04/25 16:14
sulfamethoxazole (From Allergy Rash Verified 04/04/25 16:14
Bactrim)
trimethoprim (From Bactrim) Allergy Rash Verified 04/04/25 16:14
�Medication �Instructions �Recorded �Confirmed �Type
alprazolam 1 mg tablet 1 mg PO HS Mental Health/Anxiety 03/31/25 03/31/25 History
clobetasol 0.05 % lotion 1 applic topical DAILYPRN PRN 03/31/25 03/31/25 History
inner ear skin
colchicine 0.6 mg tablet 0.3 mg PO BID Gout 03/31/25 03/31/25 History
denosumab 60 mg/mL subcutaneous 60 mg SC [id number] osteoporosis 03/31/25 03/31/25 History
syringe (Prolia)
glucosamine sulfate 500 mg tablet 500 mg PO DAILY Supplement 03/31/25 03/31/25 History
(Glucosamine)
meloxicam 15 mg tablet 15 mg PO DAILY Pain 03/31/25 03/31/25 History
mesalamine 1.2 gram tablet,delayed 2.4 g PO DAILY Colitis 03/31/25 03/31/25 History
release
therapeutic multivitamin 1 tab PO QPM Supplement 03/31/25 03/31/25 History
timolol 0.5 % eye drops 1 drp LEFT EYE BID glaucoma 03/31/25 03/31/25 History
amoxicillin 875 mg-potassium 1 tab PO BID #6 tabs 04/03/25 Rx
clavulanate 125 mg tablet
loperamide 2 mg capsule 2 mg PO Q4HPRN PRN diarrhea #0 caps 04/03/25 Rx
potassium chloride 20 mEq 20 meq PO BID #10 tabs 04/03/25 Rx
tablet,extended release(part/cryst)
Review of Systems
-
History Source: Patient and Other (and chart)
All other systems: Negative unless noted
Constitutional: Fever and Other (weakness, confusion)
Abdomen/GI: Diarrhea
Neurological: Other (confusion)
Physical Exam
Vital Signs
Temp Pulse Resp BP Pulse Ox
99.7 F 126 16 135/79 96
04/20/25 15:00 04/20/25 15:00 04/20/25 15:00 04/20/25 15:00 04/20/25 15:00
Lab Results
04/20/25 05:13
04/20/25 05:13
Troponin I 0.040 ng/ml H* 04/12/25 08:04
Wow-S-Kspacbfkode Pept 2740 pg/ml 04/12/25 02:56
Physical Exam
General: Well Developed, Well Nourished and No Apparent Distress
HEENT: Normocephalic and Anicteric
Respiratory: Clear and Non Labored Respirations
Cardiac: Regular Rhythm (ST)
Musculoskeletal: No Edema
Skin: Warm and Dry
Neuro: Awake and Alert
Psych: Calm
Impression / Plan
-
Bowel perforation:
-s/o colectomy with end ileostomy this admit
-With perf bowel, she developed septic shock requiring pressor and fluids. Shock has now resolved. Continued on ABX and ID is following.
Strokes:
-diagnosis is threat to bodily function
-MRI: multiple scattered acute infarcts in the bilateral cerebral hemispheres, and a few smaller acute infarcts in the cerebellum.
-telemetry reviewed. I do not see AFIB. Sinus tachycardia is noted. Continue to monitor telemetry.
-echo unremarkable as noted
-Added statin and lipid panel
-neuro is on the case
Data Reviewed
-
EKG: Tracing Personally Visualized and interpreted (ST at 134 BPM)
MRI: Report Reviewed by me (Multiple scattered acute infarcts in the bilateral cerebral hemispheres, and a few smaller acute infarcts in the cerebellum. The distribution is considered most suspicious for embolic phenomenon. Chronic senescent
changes and small chronic infarcts. Large bilateral mastoid effusions.)
Medical Tests (Nuc Med, Echo etc): Report Reviewed by me (Echo this admit: Normal left ventricular size, wall thickness and systolic function. No regional wall motion abnormalities are seen. Ejection fraction is 50-55% by visual assessment. Mild
mitral valve stenosis.)
Labs: Labs Reviewed by me
[2025-04-20] MEDS: LOVENOX 40 MG SC (17:20)
[2025-04-20 17:59] LABS: Glucose - Point of Care 100 mg/dl (70-99)
[2025-04-20] MEDS: NOVOLOG FLEXPEN-LOW RESISTANCE SC ×2 (17:59→23:04)
[2025-04-20] MEDS: CRESTOR 20 MG PO (18:24)
[2025-04-20] MEDS: TYLENOL 1000 MG PO (20:57)
[2025-04-20] MEDS: ALPRAZOLAM ODT 0.5 MG PO (22:48)
[2025-04-21] VITALS (9 sets, daily range): BP systolic 100–139; BP diastolic 52–73; PULSE 91–95; O2SAT 95; BMI 31.0
[2025-04-21 00:16] LABS: Glucose - Point of Care 128 mg/dl (70-99)
[2025-04-21] MEDS: FLAGYL 500 MG 100 IV ×3 (05:33→22:19)
[2025-04-21] MEDS: VANCOCIN 275 MG IV ×2 (06:44→17:13)
[2025-04-21 06:49] LABS: HDL Cholesterol 32 mg/dl; LDL Cholesterol, Calculated 14 mg/dl; Very Low Density Lipoprotein 12 mg/dl (0-30)
[2025-04-21] MEDS: LOW STRENGTH ASPIRIN 81 MG PO (08:40)
[2025-04-21] MEDS: PLAVIX 75 MG PO (08:40)
[2025-04-21] MEDS: TOPROL XL 50 MG PO ×2 (08:40→19:46)
[2025-04-21] MEDS: FLOMAX 0.4 MG PO (08:40)
[2025-04-21] MEDS: NSS (PRESERVATIVE FREE) 10 ML IV (08:41)
[2025-04-21] MEDS: TIMOPTIC 0.5% OPHTHALMIC SOLUTION 1 DROP LEFT EYE ×2 (08:42→19:45)
[2025-04-21] MEDS: PROTONIX IV 40 MG IV (08:42)
--- NOTE | 2025-04-21 08:42 | VATNOTE ---
PICC line was placed on 04/17 for TPN. Pt. no longer on TPN. Spoke with primary RN. Pt. is still receiving 3 IV antibiotics and is not eating much as yet. Primary RN will discuss with Hospitalist after he sees pt. today.
--- NOTE | 2025-04-21 08:47 | W.PN.CRS1 ---
Today's Communication / Plan
-
change diet to regular
maintain drains until d/c
continue other care
Assessment/Plan
-
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
POD #9 Total abdominal colectomy with ileostomy
04/20- MRI brain - acute infarcts in the bilateral cerebral hemispheres, and a few smaller acute infarcts in the cerebellum. The distribution is considered most suspicious for embolic phenomenon.
no labs today. Tmax: 100.0.
- Change diet to regular with ensure supplements.
- Daily dressing changes with gauze and paper tape.
- Maintain rectal thais drain - will remove prior to discharge.
- Continue RIDDHI drain, will remove prior to discharge.
- Discussed care with daughter at bedside.
- Appreciate hospitalist
- DVT prophylaxis with Lovenox.
- Out of bed with physical therapy. Incentive spirometry every hour's while awake.
- On ASA/Plavix for CVA.
- Appreciate neuro/cards/hospitalist/ID.
Subjective Data
Procedure
04/12/2025- total abdominal colectomy with end ileostomy
Subjective Data
Date of Service: April 21, 2025
Patient states she is in not that much pain. She has been eating a low residue diet (smaller meals), denies nausea or vomiting.
Objective Data
-
Vital Signs
Temp Pulse Resp BP Pulse Ox
98.4 F 100 16 127/67 97
04/21/25 07:03 04/21/25 07:03 04/21/25 07:03 04/21/25 07:03 04/21/25 07:03
Intake & Output
04/20/25 04/21/25 04/22/25
06:59 06:59 06:59
Intake Total 2676 / 2676 1683 / 1683
Output Total 2720 / 2720 2561 / 2561
Balance -44 / -44 -878 / -878
Intake:
Oral fluids 720 / 720 680 / 680
IV piggybacks 900 / 900 475 / 475
TPN/PPN 1056 / 1056 528 / 528
Output:
Liquid stool amount 1000 / 1000 575 / 575
Ileostomy 1000 / 1000 575 / 575
Drain Output (Total)
Left Choco-Galeas
Thais
Urine, Rodrigues 1700 / 1700 1974 / 1974
Other:
How many times incontinent 1
SMALL amount urine
How many times incontinent 6
MODERATE amount urine
Lab Results
04/20/25 05:13
04/20/25 05:13
Physical Exam
-
General: No Acute Distress and AOx3
Abdomen: Soft, Non Distended, Non Tender and Other (RIDDHI drain in place- serous)
Skin: Warm and Dry
Wound: Dressing in Place
Incision: Clear, Dry, Intact
--- NOTE | 2025-04-21 09:09 | PHA.VAN.FU ---
Vancomycin Assessment / Plan
- Assessment
Renal Function: No New Labs Today
In the past 24 hrs, patient has been: Afebrile
Concomitant Antimicrobials: ceftriaxone, metronidazole
- Dosing Plan
Continue: Vanc 1250mg Q12H (adjusted 04/19)
- Monitoring Plan
No level(s) ordered at this time: consider levels in next few days if course extended
- Follow Up
Pharmacy will continue to follow.
Vancomycin Follow UP
- -
Patient Age: 84
Patient Sex: Female
Vancomycin Day #: 10
Indication: Gi / Intra-Abdominal
Requesting Provider: Dr. Awad / Dr. Branch
Pertinent Antimicrobial Allergies:
bacitracin - unknown
clindamycin - anaphylaxis
smx/tmp - rash
Height / Weight:
Height 5 ft
Actual Weight 72.076 kg
Pertinent Past Medical History: BMI ~34
- Vital Signs / Lab Results
Temp Pulse Resp BP Pulse Ox
98.4 F 100 16 127/67 97
04/21/25 07:03 04/21/25 08:40 04/21/25 07:03 04/21/25 08:40 04/21/25 07:03
Lab Results - Hematology
04/18/25 04/19/25
19:34 05:18
WBC 16.3 H 14.3 H
Lab Results - Chemistry
04/18/25 04/19/25 04/20/25
19:34 05:18 05:13
BUN 10 11 17
Creatinine 0.3 L 0.3 L 0.4 L
Estimated Creat Clear 65 64 64
Albumin 2.0 L
Therapeutic Drug Monitoring
Vancomycin Peak Cancelled 04/18/25 21:00
Vancomycin Trough 10.5 ug/ml (5-20) 04/19/25 05:18
Random Vancomycin 13.2 ug/ml 04/17/25 04:22
--- NOTE | 2025-04-21 09:11 | W.PN.ID1 ---
Date of Service
Date of Service: April 21, 2025
Today's Communication
Last day of abx's.
ID will sign off. Call prn.
Assessment / Plan
# Severe UC flare/pancolitis
# Acute perforated sigmoid with peritonitis
# Leukocytosis improving
# Fever resolved
- 04/10 flex sig: severe inflammation with deep ulcerations,no sites spared. Biopsy: diffuse chronic active colitis with ulceration
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
Appreciate surgeon: Intra-abd OR cx: MRSA, Enterococcus faelcalis, E. coli, Clostridium, Bacteroides
- Continue Vanco (#10 of 10)
- Continue Ceftriaxone/metronidazole (#10 of 10)
- Trend wbc
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
- Brain MRI: Multiple scattered acute infarcts in the bilateral cerebral hemispheres, and a few smaller acute infarcts in the cerebellum.
- Blood cx's x 4 neg
- Cardiology suspect from emboli from atheroma.
- Neurology to follow.
# Tb screening in anticipation for biologic
- 04/06/25 QTB gold plus: INDETERMINATE which is not interpretable
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 No known TB risk exposure.
- repeat outpatient.
ID will sign off. Call PRN.
Chief Complaint
-: Other (diarrhea)
Subjective / Review of Systems
Daughter at bedside. No change in mental status.
Vital Signs / Physical Exam
Vital Signs
Vital Signs
Temp Pulse Resp BP Pulse Ox
98.4 F 100 16 127/67 97
04/21/25 07:03 04/21/25 08:40 04/21/25 07:03 04/21/25 08:40 04/21/25 07:03
Physical Exam
Constitutional: Comfortable
Eyes: Sclera Anicteric
Cardiovascular: Regular Rate and S1/S2 (tachy)
Pulmonary: Clear (anteriorly)
Gastrointestinal: Soft, Non Tender, Non Distended and Other (RIDDHI drain serous fluid, ileostomy soft stool)
Genito-Urinary: Negative CVA Tenderness
Neurological: Awake and Alert
Lines: PICC (RUE)
Objective Data
Lab Data
Lab Results
04/20/25 05:13
04/20/25 05:13
ESR 53 mm/hour (0-20) H 04/10/25 08:08
PT 18.4 Sec (11.4-14.6) H 04/12/25 10:05
INR 1.48 04/12/25 10:05
APTT 28.8 Sec (23.4-35.0) 04/12/25 10:05
Estimated Creat Clear 64 ml/min 04/20/25 05:13
Lactic Acid 2.9 mmol/L (0.7-2.0) H 04/12/25 21:42
Total Bilirubin 0.3 mg/dl (0.2-1.3) 04/19/25 05:18
AST 15 U/L (14-36) 04/19/25 05:18
ALT 13 U/L (0-35) 04/19/25 05:18
Alkaline Phosphatase 88 U/L (38-126) 04/19/25 05:18
C-Reactive Protein > 270.00 mg/L (0.0-10.00) H 04/13/25 03:18
Most recent labs reviewed.
Micro Results:
04/12/25 12:55 Wound Culture - Final
Abdomen Escherichia coli
Staph aureus MRSA
Enterococcus faecalis
Gram Stain - Final
04/12/25 12:55 Anaerobic Culture - Final
Abdomen Clostridium species
Bacteroides uniformis
04/12/25 02:32 Influenza Types A & B (AN) - Final
Nasal Swab Negative for Influenza A & B, NAAT
Negative results must be combined with clinical observations
and patient history.
Nucleic Acid Amplification test (NAAT)performed on the
[employer] platform.
04/04/25 10:13 Blood Culture - Final
Blood/Venous No Growth - Final Report
04/04/25 09:38 Blood Culture - Final
Blood/Venous No Growth - Final Report
04/04/25 18:15 - Final
Feces/Stool NO YERSINIA SPECIES ISOLATED
03/31/25 15:29 Blood Culture - Final
Blood/Venous No Growth - Final Report
03/31/25 13:08 Blood Culture - Final
Blood/Venous No Growth - Final Report
04/04/25 18:15 Cryptosporidium/Giardia - Final
Feces/Stool Negative for Cryptosporidium and/or Giardia Lamblia
antigens.
- Final
Negative for Norovirus GI and GII.
04/04/25 18:15 C. difficile GDH Antigen & Toxins - Final
Feces/Stool Negative for toxigenic C.difficile
03/31/25 17:43 Salmonella/Shigella Culture - Final
Feces/Stool No Salmonella, Shigella, Aeromonas or Plesiomonas species
isolated.
Campylobacter Culture - Final
No Campylobacter species isolated.
Shiga Toxin Test - Final
No E. coli Shiga Toxin 1 or 2 detected.
04/01/25 11:44 Urine Culture - Final
Urine NO GROWTH
03/31/25 12:54 C. difficile GDH Antigen & Toxins - Final
Feces/Stool Negative for toxigenic C.difficile
04/12/25 CT a/p: Interval development of extensive free air/pneumoperitoneum within the abdomen and pelvis, likely secondary to a focal defect within the proximal sigmoid colon. New small amount of free fluid within the pelvis.
Interval improvement of pancolitis. Negative for pulmonary embolism.
04/12/25 CXR: No acute disease within the chest. New lucency within the upper abdomen and underneath the left hemidiaphragm concerning for pneumoperitoneum.
04/05/25 CT a/p: There is findings of worsening severe pancolitis. Findings are likely related to reported ulcerative colitis.
04/04/25 CXR: The trachea is midline. There is moderate elevation of the right hemidiaphragm. There appear to be thin bands of subpleural subsegmental atelectasis and scarring in both lower lungs. There is no focal airspace opacity suspicious for
pneumonia. There is no radiographic evidence for pleural effusion or pneumothorax.
03/31 CT a/p: Mild diffuse colonic wall thickening suggestive of pancolitis. Mild to moderate amount of fluid within the proximal colon. Severe chronic diverticular disease within the sigmoid. Small amount of free fluid within the pelvis.
--- NOTE | 2025-04-21 09:50 | W.PN.CD ---
Today's Communication / Plan
-
eliquis 5mg bid
Impression / Plan
-
Bowel perforation:
-s/o colectomy with end ileostomy this admit
-With perf bowel, she developed septic shock requiring pressor and fluids. Shock has now resolved. Continued on ABX and ID is following.
Strokes:
-diagnosis is threat to bodily function
-MRI: multiple scattered acute infarcts in the bilateral cerebral hemispheres, and a few smaller acute infarcts in the cerebellum.
-telemetry reviewed. Discused with EP, brief SVT at 150 would consider Aflutter. Will recommend DOAC in current clinical scenario.
-will stop DAPT and start Eliquis 5mg bid
-echo unremarkable as noted
-LDL 14, will hold off on statin
-neuro is on the case
AFlutter: brief, now sinus tachy
-C2V is 5(age, gender, cva)
-Eliquis 5mg po bid
-cm consult for pricing
Decreased breath sound:
-asx, but ct below with ?consolidation/effusion
MICHAEL b/l Moderate
IMPRESSION: No acute vascular pathology. No M1 and M2 occlusion.
50-69% bilateral internal carotid artery stenosis described above.
Moderate left and small right pleural effusion.
Moderate left lower lobe and mild right lower lobe consolidation.
Multilevel degenerative disc disease. Malalignment as described above
Physical Exam
Vital Signs/Labs
Vital Signs
Temp Pulse Resp BP Pulse Ox
98.4 F 100 16 127/67 97
04/21/25 07:03 04/21/25 08:40 04/21/25 07:03 04/21/25 08:40 04/21/25 07:03
04/20/25 04/21/25 04/22/25
06:59 06:59 06:59
Actual Weight 162 lb 158 lb 14.4 oz
PT 18.4 Sec (11.4-14.6) H 04/12/25 10:05
INR 1.48 04/12/25 10:05
APTT 28.8 Sec (23.4-35.0) 04/12/25 10:05
Magnesium 2.1 mg/dl (1.6-2.3) 04/18/25 19:34
Triglycerides 62 mg/dl (10-149) 04/21/25 05:51
LDL Cholesterol, Calc 14 mg/dl 04/21/25 05:51
VLDL Cholesterol, Calc 12 mg/dl (0-30) 04/21/25 05:51
HDL Cholesterol 32 mg/dl 04/21/25 05:51
04/12/25
02:56
Epm-F-Bavqgvwpcnw Pept 2740
Physical Exam
Constitutional: No acute distress
Cardiovascular: Rhythm & rate is regular, Pedal edema is absent, JVD pressure is normal, Systolic murmur absent and Diastolic murmur absent
Respiratory: Respiratory effort normal, Wheeze Absent, Crackles Absent, Rhonchi Absent and Other (decreased at left base)
Data Reviewed
-
Date of Service: April 21, 2025
EKG: Other (sinus tachycardia)
--- NOTE | 2025-04-21 10:09 | VATNOTE ---
I spoke with Dr. Branch about continued need for PICC. Dr. Branch stated she will put an order in to discontinue the PICC tomorrow after the last dose of antibiotics.
--- NOTE | 2025-04-21 10:25 | W.PN.HOSP.TC ---
Addendum entered and electronically signed by Michael Gray MD 04/21/25 15:25:
Stage II pressure injury on sacrum -continue wound care
Original Note:
Today's Communication/Plan
-
see note
discharge planning for snf rehab
Assessment / Plan
Assessment / Plan
Acute hypoxic respiratory insufficiency
VDRF for procedure - extubated 04/13
- CT chest PE negative for PE, bilateral small effusion
- wean off o2 as possible
Perforated bowel
- CXR with pneumo-peritoneum
- CT: with finding of perforation at sigmoid level
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
- continue ostomy/drain care per CRS
- Operative cultures with MRSA. E faecalis and E. Coli
- ID managing abx. Currently on Vanco/Rocephin/Flagyl -considering to finish course of antibiotic in hospital
- CRS advanced diet to LR diet.
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
Tachyarrhythmia -possible A-flutter vs SVT
- Brain MR :Multiple scattered acute infarcts in the bilateral cerebral hemispheres, and a few smaller acute infarcts in the cerebellum. The distribution is considered most suspicious for embolic phenomenon.
- Patient was having tachyarrhythmia for last few days and although showing SVT discussed with cardiology and cannot possibly rule out a flutter due to significant high rate.
- After discussion with neurology/cardiology, patient being started on oral Eliquis 5 mg twice daily on 9/5 AM. DAPT stopped.
- Follow-up CTA head and neck report
- Monitor for any bleeding.
Large bilateral mastoid effusions.
- CT head done for confusion/somnolence showing questionable occipital stroke
- Neurology evaluated and patient started on aspirin/Plavix. Monitor for any bleeding.
Acute hypoglycemia 04/15
- resolved after dextrose injections and dextrose IVF
Septic shock in setting of acute bowel perforation
- required pressors for 36 hours
Moderate thrombus formation in the left cephalic vein
- superficial, elevated arm
Acute in-hospital delirium - Improving
- avoid sedative medication
- Continue supportive measures
Sepsis in setting of UC flare
- leukocytosis in setting of steroids
- Cultures negative
UC flare (severe UC with pancolitis)
- CT abdomen with IV contrast 04/05 shows worsening severe pancolitis likely related to ulcerative colitis
- s/p Flex Sig 04/10 with edema and deep ulcerations diffusely; s/p biopsies for path and CMV testing
- Steroids discontinued by GI after evaluation.
Acute urinary retention
- Hawkins inserted 04/07; void trial successful 04/10. Re-inserted for OR
- Hawkins removed again on 04/17, patient retaining. Resumed on Flomax
- After X4 straight cath , hawkins replaced.
Generalized anxiety disorder
- Per PDMP on Xanax 1 mg 3 times daily also patient taking half milligram at night only
- In light of vital instability and confusion resuming back Xanax HS to avoid any benzo withdrawal
- Psych evaluated and hyperventilated as well
Oral aphthous ulcers - continue topical alum and magic mouthwash, patient states both are helping.
Non-gap metabolic acidosis - resolved
Hypokalemia - replete as needed
acute Hyponatremia - improved.
Incidental 3.7 cm mildly heterogeneous cystic left adnexal lesion. Would not workup for now - OP PCP f/u
Rheumatoid arthritis - quiescent.
ADD
History of gout - colchicine now on hold given ongoing diarrhea.
Obesity due to excess calories
Hypocalcemia - IV replacement as needed
DVT ppx: Lovenox
Code: Full (reversed from DNR/DNI status on 04/12 AM)
Total time spent 55 minutes
Care plan discussed with cardiology/neurology
Anticipated Discharge: > 48 hours
Subjective/Interval History
-
Date of Service: April 21, 2025
Patient somewhat withdrawn and not much communicative today although awake and following on causation
Patient daughter at bedside providing information
No reported abdominal pain/nausea/vomiting
Appetite is poor and daughter has brought some home food to feed patient
Objective Data
-
Labs:
Laboratory Results
04/21/25
09:26
WBC Pending
Hgb Pending
Hct Pending
Plt Count Pending
Sodium Pending
Potassium Pending
Chloride Pending
Carbon Dioxide Pending
BUN Pending
Creatinine Pending
Glucose Pending
Calcium Pending
Vital Signs:
Vital Signs
Temp Pulse Resp BP Pulse Ox
98.4 F 100 16 127/67 97
04/21/25 07:03 04/21/25 08:40 04/21/25 07:03 04/21/25 08:40 04/21/25 07:03
I&O
04/20/25 04/21/25 04/22/25
06:59 06:59 06:59
Intake Total 2676 / 2676 1683 / 1683
Output Total 2720 / 2720 2561 / 2561
Balance -44 / -44 -878 / -878
Review of Systems
-
Unable to obtain full review of systems at this time due to: Acuity
Physical Exam
-
General: No Apparent Distress
HEENT: Negative Oxygen
Cardiac: Regular Rhythm and S1/S2; Negative Murmur
GI: Soft, Nontender and Ostomy (browl liquid stool)
Neuro: Awake, Alert, Oriented (To place and person only at times) and No Motor Deficits
--- NOTE | 2025-04-21 10:28 | CM ---
Reviewed the chart notes and spoke with the patient's daughter at the bedside. Patient was off floor for testing. Patient's diet advanced to regular today. Per daughter, patient anticipated to stay through weekend and discharge Thursday or Thursday.
Referral sent previously to [facility]. No precert required. CM continues to be available to patient/family and is monitoring medical plan for needs at discharge.
Plan: Discharge to SNF/rehab once medically stable. Hoping [facility] will have a bed.
[2025-04-21 13:02] LABS: Hematocrit 25.3 % (37.0-47.0); Hemoglobin 8.3 g/dL (12.0-16.0); Mean Corp Hgb Conc. 32.8 g/dL (33.0-37.0); Mean Corpuscular Volume 97.3 fL (81.0-99.0); Platelet Count 272 10^3/uL (130-400); Red Cell Dist. Width 13.2 % (11.5-14.5)
[2025-04-21 13:26] LABS: Blood Urea Nitrogen 21 mg/dl (7-17); Calcium 8.6 mg/dl (8.4-10.2); Carbon Dioxide 26 mmol/L (22-30); Chloride 111 mmol/L (98-107); Estimated Creatinine Clearance 63 ml/min; Glucose 75 mg/dl (70-99); Potassium 4.2 mmol/L (3.5-5.1); Sodium 138 mmol/L (135-145); eGFR > 60.00
[2025-04-21] MEDS: ROCEPHIN 2000 MG IV (13:30)
[2025-04-21] MEDS: STERILE WATER FOR INJECTION 20 ML IV (13:31)
--- NOTE | 2025-04-21 15:29 | W.PN.NEURO.1 ---
Today's Communication / Plan
-
Based on presence of atrial fibrillation and an acute ischemic stroke, patient should be provided with apixaban instead of dual antiplatelet therapy
Rehabilitation evaluations and treatment
Patient likely will need follow-up from vascular surgery regarding near 70% bilateral carotid artery stenosis
Check carotid ultrasound while hospitalized to ensure that percentage is not greater than 69% which would suggest benefit from consultation from vascular surgery
Neuro Assessment/Plan
Assessment
MRI of brain demonstrated multiple scattered acute infarcts in the bilateral cerebral hemispheres, and a few smaller acute infarcts in the cerebellum. The distribution is considered most suspicious for embolic phenomenon.
Chronic senescent changes and small chronic infarcts.
CTA demonstrated:50-69% bilateral internal carotid artery stenosis
Acute onset of change in mental status most likely due to the above-mentioned acute ischemic strokes. The strokes were are treatable with tenecteplase or intra-arterial thrombectomy due to timeframe out of window
Plan
Based on presence of atrial fibrillation and an acute ischemic stroke, patient should be provided with apixaban instead of dual antiplatelet therapy
Rehabilitation evaluations and treatment
Patient likely will need follow-up from vascular surgery regarding near 70% bilateral carotid artery stenosis
Check carotid ultrasound while hospitalized to ensure that percentage is not greater than 69% which would suggest benefit from consultation from vascular surgery
Will follow
Subjective/Objective
Subjective Data
Date of Service: April 21, 2025
Objective Data
Vital Signs
Temp Pulse Resp BP Pulse Ox
36.6 C 87 16 126/52 96
04/21/25 11:30 04/21/25 11:30 04/21/25 11:30 04/21/25 11:30 04/21/25 13:46
Lab Results
04/21/25 12:42
04/21/25 12:42
PT 18.4 Sec (11.4-14.6) H 04/12/25 10:05
INR 1.48 04/12/25 10:05
APTT 28.8 Sec (23.4-35.0) 04/12/25 10:05
Sodium 138 mmol/L (135-145) 04/21/25 12:42
Potassium 4.2 mmol/L (3.5-5.1) 04/21/25 12:42
BUN 21 mg/dl (7-17) H 04/21/25 12:42
Glucose 75 mg/dl (70-99) 04/21/25 12:42
Calcium 8.6 mg/dl (8.4-10.2) 04/21/25 12:42
Phosphorus 2.8 mg/dl (2.5-4.5) 04/17/25 04:22
Psn-T-Etpajiymisr Pept 2740 pg/ml 04/12/25 02:56
LDL Cholesterol, Calc 14 mg/dl 04/21/25 05:51
Vitamin B12 > 1000 pg/ml (239-931) H 04/19/25 05:18
Patient Allergies
bacitracin Allergy (Verified 04/04/25 16:14)
Unknown
clindamycin Allergy (Verified 04/04/25 16:14)
Anaphylaxis
sulfamethoxazole (From Bactrim) Allergy (Verified 04/04/25 16:14)
Rash
trimethoprim (From Bactrim) Allergy (Verified 04/04/25 16:14)
Rash
[2025-04-21] MEDS: TYLENOL 1000 MG PO (19:46)
[2025-04-21] MEDS: ELIQUIS 5 MG PO (19:46)
[2025-04-21] MEDS: ALPRAZOLAM ODT 0.5 MG PO (22:20)
[2025-04-21 23:32] LABS: Hematocrit 26.0 % (37.0-47.0); Hemoglobin 8.4 g/dL (12.0-16.0); Mean Corp Hgb Conc. 32.3 g/dL (33.0-37.0); Mean Corpuscular Volume 95.9 fL (81.0-99.0); Nucleated Red Blood Cells % 0 %; Platelet Count 305 10^3/uL (130-400); Red Cell Dist. Width 13.3 % (11.5-14.5)
[2025-04-21 23:46] LABS: Blood Urea Nitrogen 21 mg/dl (7-17); Calcium 8.6 mg/dl (8.4-10.2); Carbon Dioxide 24 mmol/L (22-30); Chloride 110 mmol/L (98-107); Estimated Creatinine Clearance 63 ml/min; Glucose 85 mg/dl (70-99); Potassium 4.0 mmol/L (3.5-5.1); Sodium 138 mmol/L (135-145); eGFR > 60.00
[2025-04-21 23:47] LABS: COVID-19 Antigen Negative (Negative)
--- NOTE | 2025-04-22 02:04 | W.PN.UPDATE ---
Update Note
Progress Note Update
2229 RN reports pt with temp 101.8 and 102.8 (post tylenol)
Pt with complex course of abd surgery including sepsis for perf bowel requiring surgery 04/12. Also complicated by new CVA found recently.
Will check:
cxr
cbc,bmp, blood cultures x2 (one peripheral one central line)
check covid and flu
ua
Pt already on multiple antibiotics including vanco, ceftriaxone, flagyl
Advised RN to left colorectal surgeon medication care manager know about temps and if any other testing required.
[2025-04-22] MEDS: TYLENOL 1000 MG PO (02:49)
--- NOTE | 2025-04-22 03:31 | PTCARENOTE ---
At the start of shift, patient's temp. was 101.8 F. Scheduled Tylenol administered. Temperature re-checked an hour later--102.4F. Subsequent temp. 102.8 F. RIM BUSTER and colorectal surgeon notified. BMP, CBC, blood cultures, UA, covid/ flu swabs, and CXR
ordered. Negative for covid/ flu. Cultures sent. Temp. down to 100.9 F. Tylenol administered.
[2025-04-22 03:32] VITALS: BP 124/67
[2025-04-22 04:48] LABS: Hematocrit 24.8 % (37.0-47.0); Hemoglobin 8.2 g/dL (12.0-16.0); Mean Corp Hgb Conc. 33.1 g/dL (33.0-37.0); Mean Corpuscular Volume 96.9 fL (81.0-99.0); Platelet Count 296 10^3/uL (130-400); Red Cell Dist. Width 13.2 % (11.5-14.5)
[2025-04-22 05:15] LABS: Blood Urea Nitrogen 21 mg/dl (7-17); Calcium 8.4 mg/dl (8.4-10.2); Carbon Dioxide 25 mmol/L (22-30); Chloride 113 mmol/L (98-107); Estimated Creatinine Clearance 63 ml/min; Glucose 83 mg/dl (70-99); Potassium 4.0 mmol/L (3.5-5.1); Sodium 141 mmol/L (135-145); eGFR > 60.00
[2025-04-22] MEDS: FLAGYL 500 MG 100 IV (05:26)
[2025-04-22 05:35] LABS: Urine Character Slightly Cloudy (Clear)
[2025-04-22 05:45] VITALS: BMI 30.7
[2025-04-22 06:02] LABS: Urine Squamous Cell >30 /LPF (Few)
[2025-04-22 06:03] LABS: Urine Urothelial Cell 16-20 /LPF (FEW)
[2025-04-22] MEDS: VANCOCIN 275 MG IV (06:40)
[2025-04-22 07:00] VITALS: BP 153/72
[2025-04-22] MEDS: PROTONIX IV 40 MG IV (08:47)
[2025-04-22] MEDS: TIMOPTIC 0.5% OPHTHALMIC SOLUTION 1 DROP LEFT EYE ×2 (08:48→19:50)
[2025-04-22] MEDS: FLOMAX 0.4 MG PO (08:48)
[2025-04-22] MEDS: NSS (PRESERVATIVE FREE) 10 ML IV (08:48)
[2025-04-22] MEDS: TOPROL XL 50 MG PO ×2 (08:49→19:48)
[2025-04-22] MEDS: ELIQUIS 5 MG PO (08:49)
--- NOTE | 2025-04-22 09:10 | W.PN.ID1 ---
Date of Service
Date of Service: April 22, 2025
Today's Communication
See below.
Assessment / Plan
# PNA/HAP
# New Fever
# Leukocytosis
- Blood cx's pending
- Sputum cx if able to produce.
- Replace ceftriaxone cefepime 1g IV q6h
- Continue metronidazole for now (d11)
- Continue Vancomycin for now (d11)
- trend temps/wbc
# s/p Severe UC flare/pancolitis
# s/p Acute perforated sigmoid with peritonitis
- 04/10 flex sig: severe inflammation with deep ulcerations,no sites spared. Biopsy: diffuse chronic active colitis with ulceration
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
Appreciate surgeon: Intra-abd OR cx: MRSA, Enterococcus faelcalis, E. coli, Clostridium, Bacteroides
- Completed 10 days of Vanco and Zosyn->Ceftriaxone/metronidazole on 04/21/25
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
- Brain MRI: Multiple scattered acute infarcts in the bilateral cerebral hemispheres, and a few smaller acute infarcts in the cerebellum.
- Blood cx's x 4 neg
- Cardiology suspect from emboli from SVT vs atheroma.
# Oral candidiasis
-Continue Nystastin swish and spit.
# Tb screening in anticipation for biologic
- 04/06/25 QTB gold plus: INDETERMINATE which is not interpretable
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 No known TB risk exposure.
- repeat outpatient.
Chief Complaint
-: Fever, Pneumonia and Other (diarrhea)
Subjective / Review of Systems
+ chronic morning cough.
Vital Signs / Physical Exam
Vital Signs
Vital Signs
Temp Pulse Resp BP Pulse Ox
97.8 F 114 20 124/67 97
04/22/25 07:00 04/22/25 08:49 04/22/25 07:00 04/22/25 08:49 04/22/25 07:00
Selected Entries
04/21/25
23:00
Temp 102.8 F H
Physical Exam
Constitutional: Chronically Ill
Oropharyngeal: Thrush
Cardiovascular: S1/S2 (tachycardic)
Pulmonary: Non Labored and Other (poor respiratory effort)
Gastrointestinal: Soft, Non Tender and Non Distended
Genito-Urinary: Negative CVA Tenderness
Neurological: Other (Lethargic)
Objective Data
Lab Data
Lab Results
04/22/25 04:21
04/22/25 04:21
ESR 53 mm/hour (0-20) H 04/10/25 08:08
PT 18.4 Sec (11.4-14.6) H 04/12/25 10:05
INR 1.48 04/12/25 10:05
APTT 28.8 Sec (23.4-35.0) 04/12/25 10:05
Estimated Creat Clear 63 ml/min 04/22/25 04:21
Lactic Acid 2.9 mmol/L (0.7-2.0) H 04/12/25 21:42
Total Bilirubin 0.3 mg/dl (0.2-1.3) 04/19/25 05:18
AST 15 U/L (14-36) 04/19/25 05:18
ALT 13 U/L (0-35) 04/19/25 05:18
Alkaline Phosphatase 88 U/L (38-126) 04/19/25 05:18
C-Reactive Protein > 270.00 mg/L (0.0-10.00) H 04/13/25 03:18
Most recent labs reviewed.
Micro Results:
04/22/25 04:24 Urine Culture - Pending
Urine
04/21/25 23:18 Influenza Types A & B (AN) - Final
Nasal Swab Negative for Influenza A & B, NAAT
Negative results must be combined with clinical observations
and patient history.
Nucleic Acid Amplification test (NAAT)performed on the
[employer] platform.
04/21/25 23:18 Blood Culture - Pending
Blood/Venous
04/21/25 23:18 Blood Culture - Pending
Blood/Venous
04/12/25 12:55 Wound Culture - Final
Abdomen Escherichia coli
Staph aureus MRSA
Enterococcus faecalis
Gram Stain - Final
04/12/25 12:55 Anaerobic Culture - Final
Abdomen Clostridium species
Bacteroides uniformis
04/12/25 02:32 Influenza Types A & B (AN) - Final
Nasal Swab Negative for Influenza A & B, NAAT
Negative results must be combined with clinical observations
and patient history.
Nucleic Acid Amplification test (NAAT)performed on the
[employer] platform.
04/04/25 10:13 Blood Culture - Final
Blood/Venous No Growth - Final Report
04/04/25 09:38 Blood Culture - Final
Blood/Venous No Growth - Final Report
04/04/25 18:15 - Final
Feces/Stool NO YERSINIA SPECIES ISOLATED
03/31/25 15:29 Blood Culture - Final
Blood/Venous No Growth - Final Report
03/31/25 13:08 Blood Culture - Final
Blood/Venous No Growth - Final Report
04/04/25 18:15 Cryptosporidium/Giardia - Final
Feces/Stool Negative for Cryptosporidium and/or Giardia Lamblia
antigens.
- Final
Negative for Norovirus GI and GII.
04/04/25 18:15 C. difficile GDH Antigen & Toxins - Final
Feces/Stool Negative for toxigenic C.difficile
03/31/25 17:43 Salmonella/Shigella Culture - Final
Feces/Stool No Salmonella, Shigella, Aeromonas or Plesiomonas species
isolated.
Campylobacter Culture - Final
No Campylobacter species isolated.
Shiga Toxin Test - Final
No E. coli Shiga Toxin 1 or 2 detected.
04/01/25 11:44 Urine Culture - Final
Urine NO GROWTH
03/31/25 12:54 C. difficile GDH Antigen & Toxins - Final
Feces/Stool Negative for toxigenic C.difficile
04/21/25 CXR: Moderate right upper lobe opacity which appears new from 04/17/2025. Large dense left lower lobe airspace consolidation which appears unchanged (either pneumonia or compressive atelectasis).
04/12/25 CT a/p: Interval development of extensive free air/pneumoperitoneum within the abdomen and pelvis, likely secondary to a focal defect within the proximal sigmoid colon. New small amount of free fluid within the pelvis.
Interval improvement of pancolitis. Negative for pulmonary embolism.
04/12/25 CXR: No acute disease within the chest. New lucency within the upper abdomen and underneath the left hemidiaphragm concerning for pneumoperitoneum.
04/05/25 CT a/p: There is findings of worsening severe pancolitis. Findings are likely related to reported ulcerative colitis.
04/04/25 CXR: The trachea is midline. There is moderate elevation of the right hemidiaphragm. There appear to be thin bands of subpleural subsegmental atelectasis and scarring in both lower lungs. There is no focal airspace opacity suspicious for
pneumonia. There is no radiographic evidence for pleural effusion or pneumothorax.
03/31 CT a/p: Mild diffuse colonic wall thickening suggestive of pancolitis. Mild to moderate amount of fluid within the proximal colon. Severe chronic diverticular disease within the sigmoid. Small amount of free fluid within the pelvis.
Care Review
Plan reviewed with: Physician (Dr. Valenzuela)
[2025-04-22] MEDS: STERILE WATER FOR INJECTION 10 ML IV ×4 (09:14→23:07)
[2025-04-22] MEDS: MAXIPIME 1000 MG IV (09:14)
--- NOTE | 2025-04-22 09:27 | W.PN.CRS1 ---
Today's Communication / Plan
-
Continue regular diet.
Out of bed and ambulate as able.
Assessment/Plan
-
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
POD #10 Total abdominal colectomy with ileostomy
04/20- MRI brain - acute infarcts in the bilateral cerebral hemispheres, and a few smaller acute infarcts in the cerebellum. The distribution is considered most suspicious for embolic phenomenon.
04/212-[id number] fever, suspect PNA
Continue regular diet with supplements as able.
Treat for thrush.
Appreciate ID recommendations, broaden antibiotics.
Speech eval.
Maintain rectal Vonore drain and RIDDHI drain, will plan to remove both prior to discharge.
Out of bed and ambulate as able. PT OT.
Incentive spirometry.
Okay for ASA/Plavix for CVA.
Colorectal surgery will continue to follow.
Subjective Data
Procedure
04/12/2025- total abdominal colectomy with end ileostomy
Subjective Data
Date of Service: April 22, 2025
Interval Events:
Patient not particularly conversive. Had a fever to 102.8 overnight, Blood cultures and urine culture pending, chest x-ray concerning for pneumonia. Gas and stool in the ostomy. Some trouble swallowing, speech noted thrush on exam. Patient
tolerating some food here and there.
Objective Data
-
Vital Signs
Temp Pulse Resp BP Pulse Ox
97.8 F 114 20 124/67 97
04/22/25 07:00 04/22/25 08:49 04/22/25 07:00 04/22/25 08:49 04/22/25 07:00
Intake & Output
04/21/25 04/22/25 04/23/25
06:59 06:59 06:59
Intake Total 1683 / 1683 600 / 600
Output Total 2561 / 2561 2675 / 2675
Balance -878 / -878 -2074 / -2074
Intake:
Oral fluids 680 / 680 600 / 600
IV piggybacks 475 / 475
TPN/PPN 528 / 528
Output:
Liquid stool amount 575 / 575 1300 / 1300
Ileostomy 575 / 575 1300 / 1300
Drain Output (Total)
Left Ch[place]Galeas
Urine, Rodrigues 1974 1375 / 1375
Lab Results
04/22/25 04:21
04/22/25 04:21
Physical Exam
-
General: No Acute Distress
Abdomen: Soft, Non Distended, Non Tender and Other (Ostomy is pink patent and productive of stool and air in the bag.)
Rectal: Other (Sheri in place)
Wound: No Signs of Infection
Incision: Clear, Dry, Intact
Data Reviewed
-
Total Time Spent with Patient (in minutes): 20
--- NOTE | 2025-04-22 09:36 | W.PN.UPDATE ---
Update Note
Progress Note Update
Notified by nurse rash regarding.
Exam: Diffuse maculopapular rash from neck down to posterior torso and posterior thigh. Anterior neck also red.
Per nurse no rash on back yesterday. Per daughter, she noted rash on neck yesterday.
Suspect drug rash from new med apixaban - started 04/21.
Unlikely abx associated rash but will change cefepime/metronidazole to meropenem. Will dc further Vancomycin.
--- NOTE | 2025-04-22 11:10 | PTOTSP ---
Speech Therapy
Previous ST: Patient was d/c from speech therapy 10 days prior. FINANCIAL AIDS OFFICER received re-consult orders. Patient was seen 04/05-04/11 in which patient was tolerating reg/ thin.
Presentation: Patient was re-positioned to an upright position in bed. Patient appeared to be fatigued and was partially oriented. Patient's vocal quality was aphonic. During oral assessment, FINANCIAL AIDS OFFICER noted possible oral thrush? Alerted RN and MD as
patient's tongue had a thick white and yellow film and is causing pain during patient's swallowing.
Swallowing Function: FINANCIAL AIDS OFFICER observed patient with several presentations of ice chips, thin liquids (straw), puree, and regular consistency in which patient appeared to tolerate as she did not exhibit any overt clinical s/sx of aspiration or difficulty
with manipulation/ mastication. Of note, patient demonstrated facial grimacing with PO which she states is related to the painful swallow.
Patient states she drinks vanilla flavored Ensure throughout the day given her decreased appetite.
FINANCIAL AIDS OFFICER observed RN administer medications whole with thin liquids in which patient demonstrated brief oral holding but was able to propel medication with thin liquid wash.
Given the above, recommend continuation of reg/thin with Ensure supplement and consider thrush assessment/ treatment.
Recommendations:
1) Continuation of reg/ thin
2) Aspiration precautions
3) Medications whole with thin liquids
4) Ensure supplementation
5) Consider thrush assessment/ treatment
Plan: FINANCIAL AIDS OFFICER will continue to follow to ensure tolerance of PO; pending hospitalization.
[2025-04-22 11:22] VITALS: BP 107/51
--- NOTE | 2025-04-22 12:33 | W.PN.HOSP.TC ---
Today's Communication/Plan
-
see note
Assessment / Plan
Assessment / Plan
Acute hypoxic respiratory insufficiency
VDRF for procedure - extubated 04/13
- CT chest PE negative for PE, bilateral small effusion
- wean off o2 as possible
Perforated bowel
- CXR with pneumo-peritoneum
- CT: with finding of perforation at sigmoid level
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
- continue ostomy/drain care per CRS
- Operative cultures with MRSA. E faecalis and E. Coli
- CRS advanced diet to LR diet.
- Patient started spiking fever again. Chest x-ray showing questionable right upper lobe infiltrate although was on dual antibiotic therapy difficult to explain. No other clear source, monitor with possible re-image abd if continues spiking fevcer
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
Tachyarrhythmia -possible A-flutter vs SVT
- Brain MR :Multiple scattered acute infarcts in the bilateral cerebral hemispheres, and a few smaller acute infarcts in the cerebellum. The distribution is considered most suspicious for embolic phenomenon.
- Patient was having tachyarrhythmia for last few days and although showing SVT discussed with cardiology and cannot possibly rule out a flutter due to significant high rate.
- After discussion with neurology/cardiology, started on DOAC DAPT stopped.
- CTA h&n 50-69% bilateral internal carotid artery stenosis
- Due to concern of allergic reaction/rash Eliquis changed to Xarelto today
Rash
- Involving neck/trunk
- Vancomycin/cephalosporins discontinued. Switch to Merrem
- Patient also got started on Eliquis, changed to Xarelto
- IV Decadron 6 mg 1 dose provided to calm down any allergic reaction. continue monitor
Large bilateral mastoid effusions.
- CT head done for confusion/somnolence showing questionable occipital stroke
- Neurology evaluated and patient started on aspirin/Plavix. Monitor for any bleeding.
Acute hypoglycemia 04/15
- resolved after dextrose injections and dextrose IVF
Septic shock in setting of acute bowel perforation
Moderate thrombus formation in the left cephalic vein
- superficial, elevated arm
Acute in-hospital delirium - Fluctuating
- avoid sedative medication
- Continue supportive measures
UC flare (severe UC with pancolitis)
- CT abdomen with IV contrast 04/05 shows worsening severe pancolitis likely related to ulcerative colitis
- s/p Flex Sig 04/10 with edema and deep ulcerations diffusely; s/p biopsies for path and CMV testing
- Steroids discontinued by GI after evaluation.
Acute urinary retention
- Hawkins inserted 04/07; void trial successful 04/10. Re-inserted for OR
- Hawkins removed again on 04/17, patient retaining. Resumed on Flomax
- After X4 straight cath , hawkins replaced.
Generalized anxiety disorder
- Per PDMP on Xanax 1 mg 3 times daily also patient taking half milligram at night only
- In light of vital instability and confusion resuming back Xanax HS to avoid any benzo withdrawal
- Psych evaluated and hyperventilated as well
Oral thrush
- started on nystatin therapy
Oral aphthous ulcers - continue topical alum and magic mouthwash, patient states both are helping.
Non-gap metabolic acidosis - resolved
Hypokalemia - replete as needed
acute Hyponatremia - improved.
Incidental 3.7 cm mildly heterogeneous cystic left adnexal lesion. Would not workup for now - OP PCP f/u
Rheumatoid arthritis - quiescent.
ADD
History of gout - colchicine now on hold given ongoing diarrhea.
Obesity due to excess calories
Hypocalcemia - IV replacement as needed
DVT ppx: Lovenox
Code: Full (reversed from DNR/DNI status on 04/12 AM)
Total time spent 54 minutes
Discussed with ID/cards
Anticipated Discharge: > 48 hours
Subjective/Interval History
-
Date of Service: April 22, 2025
patient more somnolent today
also started spiking fever in the night
have new rash developing on the body
Objective Data
-
Labs:
Laboratory Results
04/22/25
04:21
WBC 15.9 H
Hgb 8.2 L
Hct 24.8 L
Plt Count 296
Sodium 141
Potassium 4.0
Chloride 113 H
Carbon Dioxide 25
BUN 21 H
Creatinine 0.5 L
Glucose 83
Calcium 8.4
Vital Signs:
Vital Signs
Temp Pulse Resp BP Pulse Ox
98.5 F 84 16 107/51 98
04/22/25 11:22 04/22/25 11:22 04/22/25 11:22 04/22/25 11:22 04/22/25 11:22
I&O
04/21/25 04/22/25 04/23/25
06:59 06:59 06:59
Intake Total 1683 / 1683 600 / 600
Output Total 2561 / 2561 2675 / 2675
Balance -878 / -878 -2074 / -2074
Review of Systems
-
Unable to obtain full review of systems at this time due to: Acuity
Physical Exam
-
General: No Apparent Distress
HEENT: Negative Oxygen
Cardiac: Regular Rhythm and S1/S2; Negative Murmur
GI: Soft and Ostomy (browl liquid stool)
Skin: Rash
Neuro: Awake and No Motor Deficits
[2025-04-22] MEDS: MERREM 500 MG IV ×3 (12:41→23:07)
[2025-04-22] MEDS: DECADRON 6 MG IV (12:42)
[2025-04-22] MEDS: MYCOSTATIN ORAL SUSPENSION 5 ML TUBE ×3 (12:43→21:03)
[2025-04-22 15:00] VITALS: BP 116/69
[2025-04-22] MEDS: XARELTO 20 MG PO (17:33)
--- NOTE | 2025-04-22 18:23 | W.PN.CD ---
Today's Communication / Plan
-
no further cardiac recommendations.
she should call [facility] to arrange follow up when she is leaving SNF
[phone]
Impression / Plan
-
Bowel perforation:
-s/o colectomy with end ileostomy this admit
-With perf bowel, she developed septic shock requiring pressor and fluids. Shock has now resolved. Continued on ABX and ID is following.
Strokes:
-diagnosis is threat to bodily function
-MRI: multiple scattered acute infarcts in the bilateral cerebral hemispheres, and a few smaller acute infarcts in the cerebellum.
-telemetry reviewed. Discused with EP, brief SVT at 150 would consider Aflutter. Will recommend DOAC in current clinical scenario.
-will stop DAPT and start Eliquis 5mg bid
-echo unremarkable as noted
-LDL 14, will hold off on statin
-neuro is on the case
AFlutter: brief, now sinus tachy
-C2V is 5(age, gender, cva)
-Eliquis 5mg po bid---> changed to xarelto given diffuse rash and eliquis newest drug
-cm consult for pricing
Decreased breath sound:
-anow with fevers--> ?consolidation/effusion
-odd as on abx
-defer to medicine
MICHAEL b/l Moderate
IMPRESSION: No acute vascular pathology. No M1 and M2 occlusion.
50-69% bilateral internal carotid artery stenosis described above.
Moderate left and small right pleural effusion.
Moderate left lower lobe and mild right lower lobe consolidation.
Multilevel degenerative disc disease. Malalignment as described above
Physical Exam
Vital Signs/Labs
Vital Signs
Temp Pulse Resp BP Pulse Ox
98.8 F 118 18 116/69 95
04/22/25 15:00 04/22/25 15:00 04/22/25 15:00 04/22/25 15:00 04/22/25 15:00
04/21/25 04/22/25 04/23/25
06:59 06:59 06:59
Actual Weight 158 lb 14.4 oz 157 lb 1.6 oz
04/22/25 04:21
04/22/25 04:21
PT 18.4 Sec (11.4-14.6) H 04/12/25 10:05
INR 1.48 04/12/25 10:05
APTT 28.8 Sec (23.4-35.0) 04/12/25 10:05
Magnesium 2.1 mg/dl (1.6-2.3) 04/18/25 19:34
Triglycerides 62 mg/dl (10-149) 04/21/25 05:51
LDL Cholesterol, Calc 14 mg/dl 04/21/25 05:51
VLDL Cholesterol, Calc 12 mg/dl (0-30) 04/21/25 05:51
HDL Cholesterol 32 mg/dl 04/21/25 05:51
04/12/25
02:56
[id number] Pept 2740
Physical Exam
Constitutional: No acute distress
Cardiovascular: Rhythm & rate is regular, Pedal edema is absent, Systolic murmur absent and Diastolic murmur absent
Respiratory: Respiratory effort normal
Neuro/Psych: Alert and Other
Other: Skin (diffuse erythematous rash on the trunk and neck)
Data Reviewed
-
Date of Service: April 22, 2025
[2025-04-22 19:31] VITALS: BP 126/67
[2025-04-22] MEDS: ALPRAZOLAM ODT 0.5 MG PO (21:03)
[2025-04-22 23:20] VITALS: BP 126/61
[2025-04-23] MEDS: PEPCID 20 MG IV
[2025-04-23] MEDS: ZYRTEC 5 MG PO
--- NOTE | 2025-04-23 01:49 | W.PN.UPDATE ---
Update Note
Progress Note Update
Macular papular rash worsening now extending to neck and partial face. No resp compromise. Thought to be possible reaction to either eliquis pr previous abx- both of which were changed yesterday. Will try another dose of decadron and give pepcid and
zyrtec.
[2025-04-23 03:00] VITALS: BP 134/65
[2025-04-23 04:55] VITALS: BMI 31.6
[2025-04-23] MEDS: MERREM 500 MG IV (05:04)
[2025-04-23] MEDS: STERILE WATER FOR INJECTION 10 ML IV (05:05)
[2025-04-23 05:21] LABS: Hematocrit 25.5 % (37.0-47.0); Hemoglobin 8.0 g/dL (12.0-16.0); Mean Corp Hgb Conc. 31.4 g/dL (33.0-37.0); Mean Corpuscular Volume 96.6 fL (81.0-99.0); Platelet Count 326 10^3/uL (130-400); Red Cell Dist. Width 13.2 % (11.5-14.5)
[2025-04-23 05:45] LABS: Blood Urea Nitrogen 24 mg/dl (7-17); Calcium 8.4 mg/dl (8.4-10.2); Carbon Dioxide 24 mmol/L (22-30); Chloride 113 mmol/L (98-107); Estimated Creatinine Clearance 64 ml/min; Glucose 160 mg/dl (70-99); Potassium 4.2 mmol/L (3.5-5.1); Sodium 140 mmol/L (135-145); eGFR > 60.00
[2025-04-23 07:25] VITALS: BP 166/68
--- NOTE | 2025-04-23 08:30 | PTCARENOTE ---
Due to rash, ordered to hold CHG wipes. Will pass along to shift superintendent caustic cresylate.
[2025-04-23] MEDS: NSS (PRESERVATIVE FREE) 10 ML IV (08:45)
[2025-04-23] MEDS: PROTONIX IV 40 MG IV (08:46)
[2025-04-23] MEDS: FLOMAX 0.4 MG PO (08:46)
[2025-04-23] MEDS: MYCOSTATIN ORAL SUSPENSION 5 ML PO ×4 (08:46→21:32)
[2025-04-23] MEDS: TIMOPTIC 0.5% OPHTHALMIC SOLUTION 1 DROP LEFT EYE ×2 (08:47→20:20)
[2025-04-23] MEDS: TOPROL XL 50 MG PO ×2 (08:47→20:20)
--- NOTE | 2025-04-23 08:48 | W.PN.ID1 ---
Date of Service
Date of Service: April 23, 2025
Today's Communication
DC meropenem and observe.
See below.
Assessment / Plan
# Rash onset 04/21, continue to progress diffusely
# Fever 04/21, resolved. Suspect drug fever
# Leukocytosis due to steroid
- Blood cx's x2 neg to date
- Per Dr. Krista Gray suspect tamsulosin is likely the culprit, as pt allergic to sulfa.
- Will dc empiric meropenem.
- Continue steroid and supportive care.
- Monitor temps.
# s/p Severe UC flare/pancolitis
# s/p Acute perforated sigmoid with peritonitis
- 04/10 flex sig: severe inflammation with deep ulcerations,no sites spared. Biopsy: diffuse chronic active colitis with ulceration
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
Appreciate surgeon: Intra-abd OR cx: MRSA, Enterococcus faelcalis, E. coli, Clostridium, Bacteroides
- Completed 10 days of Vanco and Zosyn->Ceftriaxone/metronidazole on 04/21/25
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
- Brain MRI: Multiple scattered acute infarcts in the bilateral cerebral hemispheres, and a few smaller acute infarcts in the cerebellum.
- Blood cx's x 4 neg
- Cardiology suspect from emboli from SVT vs atheroma.
# Oral candidiasis
-Continue Nystastin swish and spit.
# Tb screening in anticipation for biologic
- 04/06/25 QTB gold plus: INDETERMINATE which is not interpretable
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 No known TB risk exposure.
- repeat outpatient.
Chief Complaint
-: Fever and Other (Rash)
Subjective / Review of Systems
Rash continues to progress.
No significant cough this am.
Vital Signs / Physical Exam
Vital Signs
Vital Signs
Temp Pulse Resp BP Pulse Ox
98.6 F 88 18 166/68 96
04/23/25 07:25 04/23/25 07:25 04/23/25 07:25 04/23/25 07:25 04/23/25 07:25
Physical Exam
Constitutional: Acutely Ill
Eyes: No Conjunctival Hemorrhage and Sclera Anicteric
Cardiovascular: Regular Rate and S1/S2
Pulmonary: Clear (anteriorly)
Gastrointestinal: Soft, Non Tender and Non Distended
Extremities: Negative Edema
Skin: Rash (Maculopapular rash progressed to face, scalp, lips, down to chest, abdomen, upper thighs; posterior torso rash some skin peeling, no sloughing)
Neurological: Awake
Lines: PICC (RUE no erythema)
Objective Data
Lab Data
Lab Results
04/23/25 04:58
04/23/25 04:58
ESR 53 mm/hour (0-20) H 04/10/25 08:08
PT 18.4 Sec (11.4-14.6) H 04/12/25 10:05
INR 1.48 04/12/25 10:05
APTT 28.8 Sec (23.4-35.0) 04/12/25 10:05
Estimated Creat Clear 64 ml/min 04/23/25 04:58
Lactic Acid 2.9 mmol/L (0.7-2.0) H 04/12/25 21:42
Total Bilirubin 0.3 mg/dl (0.2-1.3) 04/19/25 05:18
AST 15 U/L (14-36) 04/19/25 05:18
ALT 13 U/L (0-35) 04/19/25 05:18
Alkaline Phosphatase 88 U/L (38-126) 04/19/25 05:18
C-Reactive Protein > 270.00 mg/L (0.0-10.00) H 04/13/25 03:18
Most recent labs reviewed.
Micro Results:
04/21/25 23:18 Blood Culture - Preliminary
Blood/Venous No Growth in 24 hours- Final report to follow
04/21/25 23:18 Blood Culture - Preliminary
Blood/Venous No Growth in 24 hours- Final report to follow
04/22/25 04:24 Urine Culture - Pending
Urine
04/21/25 23:18 Influenza Types A & B (AN) - Final
Nasal Swab Negative for Influenza A & B, NAAT
Negative results must be combined with clinical observations
and patient history.
Nucleic Acid Amplification test (NAAT)performed on the
[employer] platform.
04/12/25 12:55 Wound Culture - Final
Abdomen Escherichia coli
Staph aureus MRSA
Enterococcus faecalis
Gram Stain - Final
04/12/25 12:55 Anaerobic Culture - Final
Abdomen Clostridium species
Bacteroides uniformis
04/12/25 02:32 Influenza Types A & B (AN) - Final
Nasal Swab Negative for Influenza A & B, NAAT
Negative results must be combined with clinical observations
and patient history.
Nucleic Acid Amplification test (NAAT)performed on the
[employer] platform.
04/04/25 10:13 Blood Culture - Final
Blood/Venous No Growth - Final Report
04/04/25 09:38 Blood Culture - Final
Blood/Venous No Growth - Final Report
04/04/25 18:15 - Final
Feces/Stool NO YERSINIA SPECIES ISOLATED
03/31/25 15:29 Blood Culture - Final
Blood/Venous No Growth - Final Report
03/31/25 13:08 Blood Culture - Final
Blood/Venous No Growth - Final Report
04/04/25 18:15 Cryptosporidium/Giardia - Final
Feces/Stool Negative for Cryptosporidium and/or Giardia Lamblia
antigens.
- Final
Negative for Norovirus GI and GII.
04/04/25 18:15 C. difficile GDH Antigen & Toxins - Final
Feces/Stool Negative for toxigenic C.difficile
03/31/25 17:43 Salmonella/Shigella Culture - Final
Feces/Stool No Salmonella, Shigella, Aeromonas or Plesiomonas species
isolated.
Campylobacter Culture - Final
No Campylobacter species isolated.
Shiga Toxin Test - Final
No E. coli Shiga Toxin 1 or 2 detected.
04/01/25 11:44 Urine Culture - Final
Urine NO GROWTH
03/31/25 12:54 C. difficile GDH Antigen & Toxins - Final
Feces/Stool Negative for toxigenic C.difficile
04/21/25 CXR: Moderate right upper lobe opacity which appears new from 04/17/2025. Large dense left lower lobe airspace consolidation which appears unchanged (either pneumonia or compressive atelectasis).
04/12/25 CT a/p: Interval development of extensive free air/pneumoperitoneum within the abdomen and pelvis, likely secondary to a focal defect within the proximal sigmoid colon. New small amount of free fluid within the pelvis.
Interval improvement of pancolitis. Negative for pulmonary embolism.
04/12/25 CXR: No acute disease within the chest. New lucency within the upper abdomen and underneath the left hemidiaphragm concerning for pneumoperitoneum.
04/05/25 CT a/p: There is findings of worsening severe pancolitis. Findings are likely related to reported ulcerative colitis.
04/04/25 CXR: The trachea is midline. There is moderate elevation of the right hemidiaphragm. There appear to be thin bands of subpleural subsegmental atelectasis and scarring in both lower lungs. There is no focal airspace opacity suspicious for
pneumonia. There is no radiographic evidence for pleural effusion or pneumothorax.
03/31 CT a/p: Mild diffuse colonic wall thickening suggestive of pancolitis. Mild to moderate amount of fluid within the proximal colon. Severe chronic diverticular disease within the sigmoid. Small amount of free fluid within the pelvis.
Care Review
Plan reviewed with: Physician (Drs. Krista Gray and Luis Manuel)
--- NOTE | 2025-04-23 09:14 | W.PN.HOSP.TC ---
Today's Communication/Plan
-
see note
Assessment / Plan
Assessment / Plan
Acute hypoxic respiratory insufficiency
VDRF for procedure - extubated 04/13
- CT chest PE negative for PE, bilateral small effusion
- wean off o2 as possible
Perforated bowel
- CXR with pneumo-peritoneum
- CT: with finding of perforation at sigmoid level
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
- continue ostomy/drain care per CRS
- Operative cultures with MRSA. E faecalis and E. Coli
- CRS advanced diet to LR diet.
Fever episode on 04/21
- possible from allergic reaction/diffuse rash vs new infection
- patient already on dual empiric abx therapy for 15days plus
- CTA h&n upper lung section showing some atelectasis with effusion , PNA questionable with patient on dual abx continuoyusly
- No further fever last night
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
Tachyarrhythmia -possible A-flutter vs SVT
- Brain MR :Multiple scattered acute infarcts in the bilateral cerebral hemispheres, and a few smaller acute infarcts in the cerebellum. The distribution is considered most suspicious for embolic phenomenon.
- Patient was having tachyarrhythmia for last few days and although showing SVT discussed with cardiology and cannot possibly rule out a flutter due to significant high rate.
- After discussion with neurology/cardiology, started on DOAC, DAPT stopped.
- CTA h&n 50-69% bilateral internal carotid artery stenosis
Rash
- Involving neck/trunk, worsened today. no epithelial denuding on exam
- Vancomycin/cephalosporins discontinued.
- Patient also got started on Eliquis, changed to Xarelto
- Patient has sulfa allergy and although tolerated earlier in admission, likely the culprit reason as resumed post op. Stopping tamsulosin.
- Start on scheduled IV Decadron 4mg q12h (prednisone 60mg/d equivalent)
Large bilateral mastoid effusions.
- CT head done for confusion/somnolence showing questionable occipital stroke
- Neurology evaluated and patient started on aspirin/Plavix. Monitor for any bleeding.
Acute hypoglycemia 04/15
- resolved after dextrose injections and dextrose IVF
Septic shock in setting of acute bowel perforation
Moderate thrombus formation in the left cephalic vein
- superficial, elevated arm
Acute in-hospital delirium - Fluctuating
- avoid sedative medication
- Continue supportive measures
UC flare (severe UC with pancolitis)
- CT abdomen with IV contrast 04/05 shows worsening severe pancolitis likely related to ulcerative colitis
- s/p Flex Sig 04/10 with edema and deep ulcerations diffusely; s/p biopsies for path and CMV testing
- Steroids discontinued by GI after evaluation.
Acute urinary retention
- Hawkins inserted 04/07; void trial successful 04/10. Re-inserted for OR
- Hawkins removed again on 04/17, patient retaining. avoid flomax therapy
- After X4 straight cath , hawkins replaced.
Generalized anxiety disorder
- Per PDMP on Xanax 1 mg 3 times daily also patient taking half milligram at night only
- In light of vital instability and confusion resuming back Xanax HS to avoid any benzo withdrawal
- Psych evaluated and hyperventilated as well
Oral thrush
Oral aphthous ulcer
- started on nystatin therapy
Non-gap metabolic acidosis - resolved
Hypokalemia - replete as needed
acute Hyponatremia - improved.
Incidental 3.7 cm mildly heterogeneous cystic left adnexal lesion. Would not workup for now - OP PCP f/u
Rheumatoid arthritis - quiescent.
ADD
History of gout - colchicine now on hold given ongoing diarrhea.
Obesity due to excess calories
Hypocalcemia - IV replacement as needed
DVT ppx: Lovenox
Code: Full (reversed from DNR/DNI status on 04/12 AM)
Total time spent 55 minutes
Discussed with ID/gen surg
Daughter at bedside updated
Anticipated Discharge: > 48 hours
Subjective/Interval History
-
Date of Service: April 23, 2025
skin rash is worsening
remains afebrile overnight
no abd pain
stomy output good
Objective Data
-
Labs:
Laboratory Results
04/23/25
04:58
WBC 18.4 H
Hgb 8.0 L
Hct 25.5 L
Plt Count 326
Sodium 140
Potassium 4.2
Chloride 113 H
Carbon Dioxide 24
BUN 24 H
Creatinine 0.5 L
Glucose 160 H
Calcium 8.4
Vital Signs:
Vital Signs
Temp Pulse Resp BP Pulse Ox
98.6 F 88 18 166/68 96
04/23/25 07:25 04/23/25 08:47 04/23/25 07:25 04/23/25 08:47 04/23/25 07:25
I&O
04/22/25 04/23/25 04/24/25
06:59 06:59 06:59
Intake Total 600 / 600 240 / 240
Output Total 2675 / 2675 1645 / 1645
Balance -2075 / -2075 -1405 / -1405
Review of Systems
-
Unable to obtain full review of systems at this time due to: Acuity
Physical Exam
-
General: No Apparent Distress
HEENT: Negative Oxygen
Cardiac: Regular Rhythm and S1/S2; Negative Murmur
GI: Soft and Ostomy (browl liquid stool)
Skin: Rash (maculopapular involving face/neck/back)
Neuro: Awake and No Motor Deficits
[2025-04-23] MEDS: DECADRON 4 MG IV ×3 (09:22→21:32)
--- NOTE | 2025-04-23 10:13 | W.PN.GS2 ---
Today's Communication / Plan
-
continue regular diet
Assessment / Plan
-
84 yo female with UC proctocolitis with perforation now POD #11 Total abdominal colectomy with ileostomy
No further fevers, VSS
Drug rash present (? secondary to flomax vs Eliquis, now off both)
Leukocytosis trending back up (on steroid), h/h stable
Tolerating diet
Passing stool/flatus from stoma
Hawkins in place for urinary retention
Plan:
Continue regular diet
C/W hawkins
c/w RIDDHI and thais
ABX as per ID
Management of rash as per primary
On Xarelto with stable h/h
Case discussed with ID and primary hospitalist on floor
Subjective Data
-
Date of Service: April 23, 2025
Pt seen and examined at bedside with Dr. Pionn. Daughter present, questions addressed. Denies n/v. Spreading rash present. Tolerating diet, had a pb&j with an ensure for dinner last noc.
Objective Data
-
Intake and Output
04/22/25 04/23/25 04/24/25
06:59 06:59 06:59
Intake Total 600 / 600 240 / 240
Output Total 2675 / 2675 1645 / 1645
Balance -2075 / -2075 -1405 / -1405
Intake:
Oral fluids 600 / 600 240 / 240
Output:
Liquid stool amount 1300 / 1300 825 / 825
Ileostomy 1300 / 1300 825 / 825
Drain Output (Total) 20 / 20
Left Ch[place]Galeas 20 / 20
Urine, Hawkins 1375 / 1375 800 / 800
Vital Signs
Temp Pulse Resp BP Pulse Ox
98.6 F 88 18 166/68 96
04/23/25 07:25 04/23/25 08:47 04/23/25 07:25 04/23/25 08:47 04/23/25 08:50
Lab Results
04/23/25 04:58
04/23/25 04:58
Calcium 8.4 mg/dl (8.4-10.2) 04/23/25 04:58
Phosphorus 2.8 mg/dl (2.5-4.5) 04/17/25 04:22
Magnesium 2.1 mg/dl (1.6-2.3) 04/18/25 19:34
Total Bilirubin 0.3 mg/dl (0.2-1.3) 04/19/25 05:18
Direct Bilirubin 1.1 mg/dl (0.0-0.4) H 04/13/25 03:18
AST 15 U/L (14-36) 04/19/25 05:18
ALT 13 U/L (0-35) 04/19/25 05:18
Alkaline Phosphatase 88 U/L (38-126) 04/19/25 05:18
Total Protein 4.3 g/dl (6.3-8.2) L 04/19/25 05:18
Albumin 2.0 g/dl (3.5-5.0) L 04/19/25 05:18
Physical Exam
-
NAD
ABD soft, ND, no tenderness
Midline dressing intact
RIDDHI with SSF
Stoma pink, viable and productive of liquid stool with air/flatus in appliance
Rash to face, trunk, neck
Patient has a hawkins catheter: Yes
Patient has a central line: Yes
[2025-04-23 11:10] VITALS: BP 132/70
[2025-04-23 15:15] VITALS: BP 110/58
[2025-04-23] MEDS: XARELTO 20 MG PO (17:11)
[2025-04-23 19:27] VITALS: BP 138/73
[2025-04-23] MEDS: ALPRAZOLAM ODT 0.5 MG PO (21:32)
[2025-04-23 23:00] VITALS: BP 113/66
[2025-04-24] VITALS (8 sets, daily range): BP systolic 114–138; BP diastolic 53–69; PULSE 79; O2SAT 99; BMI 30.5
[2025-04-24 06:12] LABS: ALT (SGPT) 12 U/L (0-35); AST (SGOT) 13 U/L (14-36); Albumin 2.2 g/dl (3.5-5.0); Alkaline Phosphatase 88 U/L (38-126); Blood Urea Nitrogen 24 mg/dl (7-17); Calcium 8.4 mg/dl (8.4-10.2); Carbon Dioxide 26 mmol/L (22-30); Chloride 113 mmol/L (98-107); Estimated Creatinine Clearance 62 ml/min; Glucose 133 mg/dl (70-99); Magnesium 2.0 mg/dl (1.6-2.3); Potassium 4.4 mmol/L (3.5-5.1); Sodium 141 mmol/L (135-145); Total Protein 4.8 g/dl (6.3-8.2); Triglycerides 102 mg/dl (10-149); eGFR > 60.00
[2025-04-24] MEDS: MYCOSTATIN ORAL SUSPENSION 5 ML PO ×4 (08:02→22:13)
[2025-04-24] MEDS: NSS (PRESERVATIVE FREE) 10 ML IV (08:02)
[2025-04-24] MEDS: TOPROL XL 50 MG PO ×2 (08:02→20:37)
[2025-04-24] MEDS: PROTONIX IV 40 MG IV (08:02)
[2025-04-24] MEDS: TIMOPTIC 0.5% OPHTHALMIC SOLUTION 1 DROP LEFT EYE ×2 (08:04→20:37)
--- NOTE | 2025-04-24 09:41 | VATNOTE ---
5Fr. Right Basilic DL PICC has positive blood return and flushes well. Dr. Rao at the bedside recommends continuing the PICC as pt. has DVT in LUE and limited access. Stated he will discuss with pts. primary physician.
[2025-04-24] MEDS: DECADRON 4 MG IV (09:52)
--- NOTE | 2025-04-24 10:50 | W.PN.CRS1 ---
Today's Communication / Plan
-
drains removed
continue current mgmt
dispo per primary team
Assessment/Plan
-
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
POD #12 Total abdominal colectomy with ileostomy
04/20- MRI brain - acute infarcts in the bilateral cerebral hemispheres, and a few smaller acute infarcts in the cerebellum. The distribution is considered most suspicious for embolic phenomenon.
[id number] fever, suspect PNA
-Continue regular diet with supplements as able.
-Treat for thrush.
-Appreciate ID recommendations - holding on Merrem
-Speech eval.
- RIDDHI drain and thais drain removed at bedside
-Out of bed and ambulate as able. PT OT.
-Incentive spirometry.
-On xarelto
-Colorectal surgery will continue to follow. Dispo per primary team.
Subjective Data
Procedure
04/12/2025- total abdominal colectomy with end ileostomy
Subjective Data
Date of Service: April 24, 2025
Patient states she feels okay. She has been eating per her daughter. Her colostomy has function.
Objective Data
-
Vital Signs
Temp Pulse Resp BP Pulse Ox
97.6 F 108 18 138/66 96
04/24/25 07:25 04/24/25 08:02 04/24/25 07:25 04/24/25 08:02 04/24/25 07:25
Intake & Output
04/23/25 04/24/25 04/25/25
06:59 06:59 06:59
Intake Total 240 / 240 660 / 660
Output Total 1645 / 1645 1520 / 1520
Balance -1405 / -1405 -860 / -860
Intake:
Oral fluids 240 / 240 660 / 660
Output:
Liquid stool amount 825 / 825 600 / 600
Ileostomy 825 / 825 600 / 600
Drain Output (Total)
Left Choco-Galeas
Urine, Rodrig[place] 800 / 800 500 / 500
Urine, Voided 400 / 400
Lab Results
04/23/25 04:58
04/24/25 05:24
Physical Exam
-
General: No Acute Distress and AOx3
Abdomen: Soft, Non Distended, Non Tender and Other (RIDDHI SS)
Skin: Warm and Dry
Wound: No Signs of Infection
Incision: Clear, Dry, Intact
--- NOTE | 2025-04-24 11:49 | CM ---
Reviewed the chart notes. Referral sent previously to [facility]. Updated clinicals sent via [facility]. No precert required. CM continues to be available to patient/family and is monitoring medical plan for needs at discharge.
Plan: Discharge to SNF/rehab once medically stable. Hoping [facility] will have a bed.
--- NOTE | 2025-04-24 12:28 | W.PN.ID1 ---
Date of Service
Date of Service: April 24, 2025
Today's Communication
Observe off abx.
ID will sign off.
Assessment / Plan
# Rash now improved on steroid and off tamsulosin
# Drug Fever 04/21, resolved.
# Leukocytosis due to steroid
- Blood cx's x2 neg to date
- Continue steroid and supportive care.
# s/p Severe UC flare/pancolitis
# s/p Acute perforated sigmoid with peritonitis
- 04/10 flex sig: severe inflammation with deep ulcerations,no sites spared. Biopsy: diffuse chronic active colitis with ulceration
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
Appreciate surgeon: Intra-abd OR cx: MRSA, Enterococcus faelcalis, E. coli, Clostridium, Bacteroides
- Completed 10 days of Vanco and Zosyn->Ceftriaxone/metronidazole on 04/21/25
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
- Brain MRI: Multiple scattered acute infarcts in the bilateral cerebral hemispheres, and a few smaller acute infarcts in the cerebellum.
- Blood cx's x 4 neg
- Cardiology suspect from emboli from SVT vs atheroma.
# Tb screening in anticipation for biologic
- 04/06/25 QTB gold plus: INDETERMINATE which is not interpretable
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 No known TB risk exposure.
- repeat outpatient.
ID will sign off.
Chief Complaint
-: Other (Rash)
Subjective / Review of Systems
Patient more alert today. Rash much improved.
Vital Signs / Physical Exam
Vital Signs
Vital Signs
Temp Pulse Resp BP Pulse Ox
97.6 F 108 18 138/66 96
04/24/25 07:25 04/24/25 08:02 04/24/25 07:25 04/24/25 08:02 04/24/25 07:25
Physical Exam
Constitutional: No Acute Distress and Comfortable
Eyes: No Conjunctival Hemorrhage and Sclera Anicteric
Cardiovascular: Regular Rate and S1/S2
Gastrointestinal: Soft, Non Tender, Non Distended and Other (ostomy with loose stools; abd dressing dry)
Extremities: Negative Edema
Skin: Rash (Diffuse maculopapular rash significantly decreased)
Neurological: Awake and Alert
Objective Data
Lab Data
Lab Results
04/23/25 04:58
04/24/25 05:24
ESR 53 mm/hour (0-20) H 04/10/25 08:08
PT 18.4 Sec (11.4-14.6) H 04/12/25 10:05
INR 1.48 04/12/25 10:05
APTT 28.8 Sec (23.4-35.0) 04/12/25 10:05
Estimated Creat Clear 62 ml/min 04/24/25 05:24
Lactic Acid 2.9 mmol/L (0.7-2.0) H 04/12/25 21:42
Total Bilirubin 0.2 mg/dl (0.2-1.3) 04/24/25 05:24
AST 13 U/L (14-36) L 04/24/25 05:24
ALT 12 U/L (0-35) 04/24/25 05:24
Alkaline Phosphatase 88 U/L (38-126) 04/24/25 05:24
C-Reactive Protein > 270.00 mg/L (0.0-10.00) H 04/13/25 03:18
Most recent labs reviewed.
Micro Results:
04/21/25 23:18 Blood Culture - Preliminary
Blood/Venous No Growth in 48 hours- Final report to follow
04/21/25 23:18 Blood Culture - Preliminary
Blood/Venous No Growth in 48 hours- Final report to follow
04/22/25 04:24 Urine Culture - Final
Urine NO GROWTH
04/21/25 23:18 Influenza Types A & B (AN) - Final
Nasal Swab Negative for Influenza A & B, NAAT
Negative results must be combined with clinical observations
and patient history.
Nucleic Acid Amplification test (NAAT)performed on the
[employer] NOW platform.
04/12/25 12:55 Wound Culture - Final
Abdomen Escherichia coli
Staph aureus MRSA
Enterococcus faecalis
Gram Stain - Final
04/12/25 12:55 Anaerobic Culture - Final
Abdomen Clostridium species
Bacteroides uniformis
04/12/25 02:32 Influenza Types A & B (AN) - Final
Nasal Swab Negative for Influenza A & B, NAAT
Negative results must be combined with clinical observations
and patient history.
Nucleic Acid Amplification test (NAAT)performed on the
[employer] NOW platform.
04/04/25 10:13 Blood Culture - Final
Blood/Venous No Growth - Final Report
04/04/25 09:38 Blood Culture - Final
Blood/Venous No Growth - Final Report
04/04/25 18:15 - Final
Feces/Stool NO YERSINIA SPECIES ISOLATED
03/31/25 15:29 Blood Culture - Final
Blood/Venous No Growth - Final Report
03/31/25 13:08 Blood Culture - Final
Blood/Venous No Growth - Final Report
04/04/25 18:15 Cryptosporidium/Giardia - Final
Feces/Stool Negative for Cryptosporidium and/or Giardia Lamblia
antigens.
- Final
Negative for Norovirus GI and GII.
04/04/25 18:15 C. difficile GDH Antigen & Toxins - Final
Feces/Stool Negative for toxigenic C.difficile
03/31/25 17:43 Salmonella/Shigella Culture - Final
Feces/Stool No Salmonella, Shigella, Aeromonas or Plesiomonas species
isolated.
Campylobacter Culture - Final
No Campylobacter species isolated.
Shiga Toxin Test - Final
No E. coli Shiga Toxin 1 or 2 detected.
04/01/25 11:44 Urine Culture - Final
Urine NO GROWTH
03/31/25 12:54 C. difficile GDH Antigen & Toxins - Final
Feces/Stool Negative for toxigenic C.difficile
04/21/25 CXR: Moderate right upper lobe opacity which appears new from 04/17/2025. Large dense left lower lobe airspace consolidation which appears unchanged (either pneumonia or compressive atelectasis).
04/12/25 CT a/p: Interval development of extensive free air/pneumoperitoneum within the abdomen and pelvis, likely secondary to a focal defect within the proximal sigmoid colon. New small amount of free fluid within the pelvis.
Interval improvement of pancolitis. Negative for pulmonary embolism.
04/12/25 CXR: No acute disease within the chest. New lucency within the upper abdomen and underneath the left hemidiaphragm concerning for pneumoperitoneum.
04/05/25 CT a/p: There is findings of worsening severe pancolitis. Findings are likely related to reported ulcerative colitis.
04/04/25 CXR: The trachea is midline. There is moderate elevation of the right hemidiaphragm. There appear to be thin bands of subpleural subsegmental atelectasis and scarring in both lower lungs. There is no focal airspace opacity suspicious for
pneumonia. There is no radiographic evidence for pleural effusion or pneumothorax.
03/31 CT a/p: Mild diffuse colonic wall thickening suggestive of pancolitis. Mild to moderate amount of fluid within the proximal colon. Severe chronic diverticular disease within the sigmoid. Small amount of free fluid within the pelvis.
--- NOTE | 2025-04-24 13:02 | W.PN.HOSP.TC ---
Today's Communication/Plan
-
transition to oral steroids
monitor labs, vitals
DC in 24-48 hours
Assessment / Plan
Assessment / Plan
Assessment:
Acute hypoxic respiratory insufficiency
VDRF for procedure - extubated 04/13
- CT chest PE negative for PE, bilateral small effusion
- wean off o2 as possible; currently 1 L NC
- encouraged IS hourly
Perforated bowel
- CXR with pneumo-peritoneum
- CT: with finding of perforation at sigmoid level
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
- continue ostomy/drain care per CRS
- Operative cultures with MRSA. E faecalis and E. Coli. completed 2 week antibiotic course. ID signed off
- CRS advanced diet to regular.
Febrile episode 04/21
- possible from allergic reaction/diffuse rash vs new infection
- patient already on dual empiric abx therapy >2 weeks
- CTA h&n upper lung section showing some atelectasis with effusion , PNA questionable with patient on dual abx continuously
- No fever last night since 04/22/25 330 AM
- ID signed off
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
Tachyarrhythmia -possible A-flutter vs SVT
- Brain MR: Multiple scattered acute infarcts in the bilateral cerebral hemispheres, and a few smaller acute infarcts in the cerebellum. The distribution is considered most suspicious for embolic phenomenon.
- Patient was having tachyarrhythmia for last few days and although showing SVT discussed with cardiology and cannot possibly rule out a flutter due to significant high rate.
- After discussion with neurology/cardiology, started on DOAC, DAPT stopped.
- CTA h&n 50-69% bilateral internal carotid artery stenosis. US with Minimal calcified carotid bulb plaque on each side, measurements suggestive of less than 50% stenosis on each side.
Rash
- Involving neck/trunk, no epithelial denuding on exam - rash now improving
- Vancomycin/cephalosporins discontinued.
- Patient also got started on Eliquis, changed to Xarelto
- Patient has sulfa allergy and although tolerated earlier in admission, likely the culprit reason as resumed post op. Stopped tamsulosin.
- s/p IV decadron, transition to oral steroids short course with taper
Large bilateral mastoid effusions.
- CT head done for confusion/somnolence showing questionable occipital stroke
- Neurology evaluated and patient started on aspirin/Plavix. Monitor for any bleeding.
Acute hypoglycemia 04/15
- resolved after dextrose injections and dextrose IVF
Septic shock in setting of acute bowel perforation
Moderate thrombus formation in the left cephalic vein
- superficial, elevated arm
Acute in-hospital delirium - Fluctuating
- avoid sedative medication
- Continue supportive measures
UC flare (severe UC with pancolitis)
- CT abdomen with IV contrast 04/05 shows worsening severe pancolitis likely related to ulcerative colitis
- s/p Flex Sig 04/10 with edema and deep ulcerations diffusely; s/p biopsies for path and CMV testing
- Steroids discontinued by GI after evaluation.
Acute urinary retention
- Rodrigues inserted 04/07; void trial successful 04/10. Re-inserted for OR
- Rodrigues removed again on 04/17, patient retaining. avoid Flomax therapy
- After X4 straight cath , Rodrigues replaced and will continue at time of discharge
Generalized anxiety disorder
- Per PDMP on Xanax 1 mg 3 times daily also patient taking half milligram at night only
- In light of vital instability and confusion resuming back Xanax HS to avoid any benzo withdrawal
- Psych evaluated
Oral thrush
Oral aphthous ulcer
- continue nystatin therapy, day 09/30
Non-gap metabolic acidosis - resolved
Hypokalemia - replete as needed
acute Hyponatremia - improved.
Incidental 3.7 cm mildly heterogeneous cystic left adnexal lesion. Would not workup for now - OP PCP f/u
Rheumatoid arthritis - quiescent.
ADD
History of gout - colchicine now on hold given ongoing diarrhea.
Obesity due to excess calories
Hypocalcemia - replacement as needed
DVT ppx: Lovenox
Code: Full (reversed from DNR/DNI status on 04/12 AM)
Anticipated Discharge: 24 - 48 hours
Subjective/Interval History
-
Date of Service: April 24, 2025
resting comfortably
tolerating diet
rash receeding per patient and daughter
Objective Data
-
Labs:
Laboratory Results
04/24/25
05:24
Sodium 141
Potassium 4.4
Chloride 113 H
Carbon Dioxide 26
BUN 24 H
Creatinine 0.5 L
Glucose 133 H
Calcium 8.4
Total Bilirubin 0.2
AST 13 L
ALT 12
Alkaline Phosphatase 88
Vital Signs:
Vital Signs
Temp Pulse Resp BP Pulse Ox
97.5 F 69 16 127/55 98
04/24/25 11:05 04/24/25 11:05 04/24/25 11:05 04/24/25 11:05 04/24/25 11:05
I&O
04/23/25 04/24/25 04/25/25
06:59 06:59 06:59
Intake Total 240 / 240 660 / 660
Output Total 1645 / 1645 1520 / 1520
Balance -1405 / -1405 -860 / -860
Physical Exam
-
General: No Apparent Distress
HEENT: Normocephalic and Atraumatic
Respiratory: Negative Wheezes
Cardiac: Regular Rhythm and S1/S2
GI: Soft and Ostomy
Genito-urinary: No Costovertebral Tender
Skin: Other (maculopapular involving face/neck/back - resolving, faint now)
Neuro: AO x 3
Psych: Calm
Data Reviewed
-
Total Time Spent with Patient (in minutes): 42
Labs: Labs Reviewed by me
[2025-04-24] MEDS: XARELTO 20 MG PO (17:23)
[2025-04-24] MEDS: ALPRAZOLAM ODT 0.5 MG PO (22:13)
[2025-04-24] MEDS: MORPHINE SULFATE 1 MG IV (23:43)
[2025-04-25] VITALS (8 sets, daily range): BP systolic 121–156; BP diastolic 62–95; PULSE 86; O2SAT 93; BMI 30.8
[2025-04-25 06:23] LABS: Hematocrit 25.8 % (37.0-47.0); Hemoglobin 8.2 g/dL (12.0-16.0); Mean Corp Hgb Conc. 31.8 g/dL (33.0-37.0); Mean Corpuscular Volume 95.9 fL (81.0-99.0); Platelet Count 316 10^3/uL (130-400); Red Cell Dist. Width 13.2 % (11.5-14.5)
[2025-04-25 06:42] LABS: Blood Urea Nitrogen 24 mg/dl (7-17); Calcium 8.4 mg/dl (8.4-10.2); Carbon Dioxide 24 mmol/L (22-30); Chloride 110 mmol/L (98-107); Estimated Creatinine Clearance 63 ml/min; Glucose 85 mg/dl (70-99); Potassium 4.3 mmol/L (3.5-5.1); Sodium 138 mmol/L (135-145); eGFR > 60.00
[2025-04-25] MEDS: DELTASONE 40 MG PO (09:03)
[2025-04-25] MEDS: PROTONIX 40 MG PO (09:03)
[2025-04-25] MEDS: MYCOSTATIN ORAL SUSPENSION 5 ML PO ×4 (09:03→21:46)
[2025-04-25] MEDS: TOPROL XL 50 MG PO ×2 (09:04→20:13)
[2025-04-25] MEDS: TIMOPTIC 0.5% OPHTHALMIC SOLUTION 1 DROP LEFT EYE ×2 (09:04→20:14)
--- NOTE | 2025-04-25 09:53 | W.PN.CRS1 ---
Today's Communication / Plan
-
dispo per primary team
Assessment/Plan
-
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
POD #13 Total abdominal colectomy with ileostomy
04/20- MRI brain - acute infarcts in the bilateral cerebral hemispheres, and a few smaller acute infarcts in the cerebellum. The distribution is considered most suspicious for embolic phenomenon.
04/219-[id number] fever, suspect PNA
-Continue regular diet with supplements as able.
-Treat for thrush.
-Appreciate ID recommendations - holding on Merrem
-Speech eval.
- RIDDHI drain and thais drain removed
-Out of bed and ambulate as able. PT OT.
-Incentive spirometry.
-On xarelto
-Colorectal surgery will continue to follow. Dispo per primary team.
Subjective Data
Procedure
04/12/2025- total abdominal colectomy with end ileostomy
Subjective Data
Date of Service: April 25, 2025
Patient states that she feels okay. She has no complaints. Denies nausea or vomiting. Tolerating a diet.
Objective Data
-
Vital Signs
Temp Pulse Resp BP Pulse Ox
97.5 F 80 16 131/63 94
04/25/25 07:37 04/25/25 09:04 04/25/25 07:37 04/25/25 09:04 04/25/25 07:37
Intake & Output
04/24/25 04/25/25 04/26/25
06:59 06:59 06:59
Intake Total 660 / 660 720 / 720
Output Total 1520 / 1520 1225 / 1225
Balance -860 / -860 -505 / -505
Intake:
Oral fluids 660 / 660 720 / 720
Output:
Liquid stool amount 600 / 600 225 / 225
Ileostomy 600 / 600 225 / 225
Drain Output (Total)
Left [place]
Urine, Rodrigues 500 / 500 1000 / 1000
Urine, Voided 400 / 400
Other:
Number of unmeasured liquid
stools
Ileostomy 50
Lab Results
04/25/25 05:48
04/25/25 05:48
Physical Exam
-
General: No Acute Distress and AOx3
Abdomen: Soft, Non Distended and Non Tender
Skin: Warm and Dry
--- NOTE | 2025-04-25 10:00 | WOUNDNOTE ---
WON RN NOTE: Followed up today along with nurse Jasso assisting. Turned patient to side, patient remains very weak. Gluteal cleft/sacral ulcer appears slightly bigger, remains shallow. L buttocks with non blanchable patch of redness, stage 1 PI
evolving. Back,posterior thighs and legs with resolving rash. Groin and skin folds cleaned with soap and water, fungal rash resolving, fungal powder applied. Rodrigues in place and ostomy for moderate liquid output. Ileostomy stoma pink, appliance
changed yesterday by nurse Louisa for leakage she states. Will bring high output pouch to bedside and heating plant superintendent to SBD system. Daughter Mora at bedside and showed her the wound on sacral/gluteal cleft. Daughter aware that despite preventable
measures, wound may become worse. Applied small piece of alginate over open ulcer, followed by larger 4x4 silicone foam with notch cut out near rectal area. Recommend stop using sacral silicone foam as the silicone too sticky and pulling on skin
when removed. Heel foams changed and remain intact. Patients appetite is slowly improving, daughter brought in chicken noodle soup, states her mom dislikes the hospital food. Encouraged patient to increase protein in diet. Daughter states she will
drink ensure and can make her protein shakes. Will give daughter Simon protein powder sample. Patient remains on [facility] air mattress with turning schedule and pillows under calves. Air chair cushion in use on recliner chair. Will update wound
care orders, confirm with hospitalist and follow as needed. Called [facility] for additional 2 3/4' 2 piece appliances and Ramon seals.
--- NOTE | 2025-04-25 10:20 | CM ---
Addendum entered by Rosalinda Jewell RN 04/25/25 15:00:
Per attending, holding discharge for today. [facility] account liaison notified via voice message.
Original Note:
Reviewed the chart notes and spoke with the patient and family at the bedside. IMM reviewed. CM spoke with [facility] admissions at [facility], can accept today. CM continues to be available to patient/family and is monitoring medical plan for
needs at discharge.
Plan: Discharge to [facility]. No precert required.
Call report to: [phone]
Medical necessity and transport forms on chart.
--- NOTE | 2025-04-25 11:14 | WOUNDNOTE ---
SACRUM/GLUTEAL CLEFT AND BUTTOCKS
--- NOTE | 2025-04-25 15:29 | W.PN.HOSP.TC ---
Today's Communication/Plan
-
DC in AM if labs stable and no further genital bleeding noted
Assessment / Plan
Assessment / Plan
Assessment:
Acute hypoxic respiratory insufficiency
VDRF for procedure - extubated 04/13
- CT chest PE negative for PE, bilateral small effusion
- wean off o2 as possible; currently 1 L NC
- encouraged IS hourly
Perforated bowel
- CXR with pneumo-peritoneum
- CT: with finding of perforation at sigmoid level
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
- continue ostomy/drain care per CRS
- Operative cultures with MRSA. E faecalis and E. Coli. completed 2 week antibiotic course. ID signed off
- CRS advanced diet to regular.
Febrile episode 04/21
- possible from allergic reaction/diffuse rash vs new infection
- patient already on dual empiric abx therapy >2 weeks
- CTA h&n upper lung section showing some atelectasis with effusion , PNA questionable with patient on dual abx continuously
- No fever last night since 04/22/25 330 AM
- ID signed off
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
Tachyarrhythmia -possible A-flutter vs SVT
- Brain MR: Multiple scattered acute infarcts in the bilateral cerebral hemispheres, and a few smaller acute infarcts in the cerebellum. The distribution is considered most suspicious for embolic phenomenon.
- Patient was having tachyarrhythmia for last few days and although showing SVT discussed with cardiology and cannot possibly rule out a flutter due to significant high rate.
- After discussion with neurology/cardiology, started on DOAC, DAPT stopped.
- CTA h&n 50-69% bilateral internal carotid artery stenosis. US with Minimal calcified carotid bulb plaque on each side, measurements suggestive of less than 50% stenosis on each side.
Rash
- Involving neck/trunk, no epithelial denuding on exam - rash now improving
- Vancomycin/cephalosporins discontinued.
- Patient also got started on Eliquis, changed to Xarelto
- Patient has sulfa allergy and although tolerated earlier in admission, likely the culprit reason as resumed post op. Stopped tamsulosin.
- s/p IV decadron, transition to oral steroids short course with taper
Large bilateral mastoid effusions.
- CT head done for confusion/somnolence showing questionable occipital stroke
- Neurology evaluated and patient started on aspirin/Plavix. Monitor for any bleeding.
Acute hypoglycemia 04/15
- resolved after dextrose injections and dextrose IVF
Septic shock in setting of acute bowel perforation
Moderate thrombus formation in the left cephalic vein
- superficial, elevated arm
Acute in-hospital delirium - Fluctuating
- avoid sedative medication
- Continue supportive measures
UC flare (severe UC with pancolitis)
- CT abdomen with IV contrast 04/05 shows worsening severe pancolitis likely related to ulcerative colitis
- s/p Flex Sig 04/10 with edema and deep ulcerations diffusely; s/p biopsies for path and CMV testing
- Steroids discontinued by GI after evaluation.
Acute urinary retention
- Hawkins inserted 04/07; void trial successful 04/10. Re-inserted for OR
- Hawkins removed again on 04/17, patient retaining. avoid Flomax therapy
- After X4 straight cath , Hawkins replaced and will continue at time of discharge
Generalized anxiety disorder
- Per PDMP on Xanax 1 mg 3 times daily also patient taking half milligram at night only
- In light of vital instability and confusion resuming back Xanax HS to avoid any benzo withdrawal
- Psych evaluated
Oral thrush
Oral aphthous ulcer
- continue nystatin therapy, day 10/28
Non-gap metabolic acidosis - resolved
Hypokalemia - replete as needed
acute Hyponatremia - improved.
Incidental 3.7 cm mildly heterogeneous cystic left adnexal lesion. Would not workup for now - OP PCP f/u
Rheumatoid arthritis - quiescent.
ADD
History of gout - colchicine now on hold given ongoing diarrhea.
Obesity due to excess calories
Hypocalcemia - replacement as needed
Blood on wipe of genital area
- unclear etiology, could be related to recent [place] drain, vs irritation from hawkins cath vs vaginal bleed vs other
- urine appears clear
- monitor
DVT ppx: Xarelto
Code: Full (reversed from DNR/DNI status on 04/12 AM)
Anticipated Discharge: Within 24 hours
Subjective/Interval History
-
Date of Service: April 25, 2025
resting comfortably
RN reports some blood on wipes when wiping genital area
Objective Data
-
Labs:
Laboratory Results
04/25/25
05:48
WBC 11.2 H
Hgb 8.2 L
Hct 25.8 L
Plt Count 316
Sodium 138
Potassium 4.3
Chloride 110 H
Carbon Dioxide 24
BUN 24 H
Creatinine 0.5 L
Glucose 85
Calcium 8.4
Vital Signs:
Vital Signs
Temp Pulse Resp BP Pulse Ox
97.6 F 92 16 124/62 94
04/25/25 15:25 04/25/25 15:25 04/25/25 15:25 04/25/25 15:25 04/25/25 15:25
I&O
04/24/25 04/25/25 04/26/25
06:59 06:59 06:59
Intake Total 660 / 660 720 / 720
Output Total 1520 / 1520 1225 / 1225 300 / 300
Balance -860 / -860 -505 / -505 -300 / -300
Physical Exam
-
General: No Apparent Distress
HEENT: Normocephalic and Atraumatic
Respiratory: Negative Wheezes
Cardiac: Regular Rhythm and S1/S2
GI: Soft and Nontender
Genito-urinary: No Costovertebral Tender
Neuro: AO x 3
Psych: Calm
Data Reviewed
-
Total Time Spent with Patient (in minutes): 42
Labs: Labs Reviewed by me
--- NOTE | 2025-04-25 16:27 | PTCARENOTE ---
Patient with scant amount of blood in irma area around Rodrigues visualized by this RN after transfer from chair to bed, small amount of dark red blood when wiping and providing Rodrigues care. Patient denies pain around area, states irma area feels 'sore.'
Rodrigues in place draining clear yellow urine. Sacrum foam placed by court specialist earlier in shift intact. MD at bedside to assess irma area with this RN, no new orders at this time.
[2025-04-25] MEDS: XARELTO 20 MG PO (17:13)
[2025-04-25] MEDS: ALPRAZOLAM ODT 0.5 MG PO (21:46)
[2025-04-26 03:08] VITALS: BP 124/69
[2025-04-26 05:57] VITALS: BMI 29.9
[2025-04-26 07:25] VITALS: BP 108/61
[2025-04-26 08:15] LABS: Hematocrit 26.0 % (37.0-47.0); Hemoglobin 8.4 g/dL (12.0-16.0); Mean Corp Hgb Conc. 32.3 g/dL (33.0-37.0); Mean Corpuscular Volume 94.9 fL (81.0-99.0); Platelet Count 358 10^3/uL (130-400); Red Cell Dist. Width 13.3 % (11.5-14.5)
[2025-04-26] MEDS: TOPROL XL 50 MG PO (08:16)
[2025-04-26] MEDS: PROTONIX 40 MG PO (08:16)
[2025-04-26] MEDS: MYCOSTATIN ORAL SUSPENSION 5 ML PO ×2 (08:16→11:47)
[2025-04-26] MEDS: DELTASONE 40 MG PO (08:17)
[2025-04-26] MEDS: TIMOPTIC 0.5% OPHTHALMIC SOLUTION 1 DROP LEFT EYE (08:17)
--- NOTE | 2025-04-26 09:07 | W.PN.HOSP.TC ---
Today's Communication/Plan
-
dc to SNF
Assessment / Plan
Assessment / Plan
Assessment:
Acute hypoxic respiratory insufficiency
VDRF for procedure - extubated 04/13
- CT chest PE negative for PE, bilateral small effusion
- wean off o2 as possible; currently 1 L NC
- encouraged IS hourly
Perforated bowel
- CXR with pneumo-peritoneum
- CT: with finding of perforation at sigmoid level
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
- continue ostomy/drain care per CRS
- Operative cultures with MRSA. E faecalis and E. Coli. completed 2 week antibiotic course. ID signed off
- CRS advanced diet to regular.
Febrile episode 04/21
- possible from allergic reaction/diffuse rash vs new infection
- patient already on dual empiric abx therapy >2 weeks
- CTA h&n upper lung section showing some atelectasis with effusion , PNA questionable with patient on dual abx continuously
- No fever last night since 04/22/25 330 AM
- ID signed off
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
Tachyarrhythmia -possible A-flutter vs SVT
- Brain MR: Multiple scattered acute infarcts in the bilateral cerebral hemispheres, and a few smaller acute infarcts in the cerebellum. The distribution is considered most suspicious for embolic phenomenon.
- Patient was having tachyarrhythmia for last few days and although showing SVT discussed with cardiology and cannot possibly rule out a flutter due to significant high rate.
- After discussion with neurology/cardiology, started on DOAC, DAPT stopped.
- CTA h&n 50-69% bilateral internal carotid artery stenosis. US with Minimal calcified carotid bulb plaque on each side, measurements suggestive of less than 50% stenosis on each side.
Rash
- Involving neck/trunk, no epithelial denuding on exam - rash now improving
- Vancomycin/cephalosporins discontinued.
- Patient also got started on Eliquis, changed to Xarelto
- Patient has sulfa allergy and although tolerated earlier in admission, likely the culprit reason as resumed post op. Stopped tamsulosin.
- s/p IV Decadron, transition to oral steroids short course with taper
Large bilateral mastoid effusions.
- CT head done for confusion/somnolence showing questionable occipital stroke
- Neurology evaluated and patient started on aspirin/Plavix. Monitor for any bleeding.
Acute hypoglycemia 04/15
- resolved after dextrose injections and dextrose IVF
Septic shock in setting of acute bowel perforation
Moderate thrombus formation in the left cephalic vein
- superficial, elevated arm
Acute in-hospital delirium - Fluctuating
- avoid sedative medication
- Continue supportive measures
UC flare (severe UC with pancolitis)
- CT abdomen with IV contrast 04/05 shows worsening severe pancolitis likely related to ulcerative colitis
- s/p Flex Sig 04/10 with edema and deep ulcerations diffusely; s/p biopsies for path and CMV testing
- Steroids discontinued by GI after evaluation.
Acute urinary retention
- Hawkins inserted 04/07; void trial successful 04/10. Re-inserted for OR
- Hawkins removed again on 04/17, patient retaining. avoid Flomax therapy
- After X4 straight cath , Hawkins replaced and will continue at time of discharge
Generalized anxiety disorder
- Per PDMP on Xanax 1 mg 3 times daily also patient taking half milligram at night only
- In light of vital instability and confusion resuming back Xanax HS to avoid any benzo withdrawal
- Psych evaluated
Oral thrush
Oral aphthous ulcer
- continue nystatin therapy, day 10/28
Non-gap metabolic acidosis - resolved
Hypokalemia - replete as needed
acute Hyponatremia - improved.
Incidental 3.7 cm mildly heterogeneous cystic left adnexal lesion. Would not workup for now - OP PCP f/u
Rheumatoid arthritis - quiescent.
ADD
History of gout - colchicine now on hold given ongoing diarrhea.
Obesity due to excess calories
Hypocalcemia - replacement as needed
Blood on wipe of genital area
- unclear etiology, could be related to recent Sheri drain, vs irritation from hawkins cath vs vaginal bleed vs other
- urine appears clear
- no further reoccurrence in 24 hours - ok for dc home
DVT ppx: Xarelto
Code: Full (reversed from DNR/DNI status on 04/12 AM)
More than 30 minutes spent in discharge including
Final examination of the patient
Summarizing hospital stay
Instructions for continuing care to all relevant caregivers
Preparation of discharge records, prescriptions, and referral forms
Total time spent (in minutes): 41
Anticipated Discharge: Today
Subjective/Interval History
-
Date of Service: April 26, 2025
no further evidence of bleeding on wiping
Objective Data
-
Labs:
Laboratory Results
04/26/25
07:31
WBC 9.2
Hgb 8.4 L
Hct 26.0 L
Plt Count 358
Sodium Pending
Potassium Pending
Chloride Pending
Carbon Dioxide Pending
BUN Pending
Creatinine Pending
Glucose Pending
Calcium Pending
Vital Signs:
Vital Signs
Temp Pulse Resp BP Pulse Ox
97.9 F 97 18 108/61 96
04/26/25 07:25 04/26/25 08:16 04/26/25 07:25 04/26/25 08:16 04/26/25 07:25
I&O
04/25/25 04/26/25 04/27/25
06:59 06:59 06:59
Intake Total 720 / 720 720 / 720
Output Total 1225 / 1225 1410 / 1410
Balance -505 / -505 -690 / -690
Physical Exam
-
General: No Apparent Distress
HEENT: Normocephalic and Atraumatic
Respiratory: Negative Wheezes
Cardiac: Regular Rhythm and S1/S2
GI: Soft and Nontender
Genito-urinary: No Costovertebral Tender
Neuro: AO x 3
Psych: Calm
Data Reviewed
-
Total Time Spent with Patient (in minutes): 42
Labs: Labs Reviewed by me
--- NOTE | 2025-04-26 09:11 | W.PN.CRS1 ---
Today's Communication / Plan
-
As below
Assessment/Plan
-
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
POD #14 Total abdominal colectomy with ileostomy
04/20- MRI brain - acute infarcts in the bilateral cerebral hemispheres, and a few smaller acute infarcts in the cerebellum. The distribution is considered most suspicious for embolic phenomenon.
04/213-[id number] fever, suspect drug fever
WBC 9.2, Hb 8.4 from 8.2, BMP pending
-Continue regular diet with supplements as able.
-Appreciate ID; off antibiotics, signed off
- RIDDHI drain and thais drain removed
-Out of bed and ambulate as able. PT OT.
-Incentive spirometry.
- Continue xarelto
�Appreciate hospitalist
�Okay for DC from colorectal standpoint once medically clear
Subjective Data
Procedure
04/12/2025- total abdominal colectomy with end ileostomy
Subjective Data
Date of Service: April 26, 2025
No issues overnight. Had small amount of bleeding with wiping the perineum yesterday, unsure if urinary, vaginal or rectal, but resolved. Denies N/V. Pain controlled. Having ostomy function.
Objective Data
-
Vital Signs
Temp Pulse Resp BP Pulse Ox
97.9 F 97 18 108/61 96
04/26/25 07:25 04/26/25 08:16 04/26/25 07:25 04/26/25 08:16 04/26/25 07:25
Intake & Output
04/25/25 04/26/25 04/27/25
06:59 06:59 06:59
Intake Total 720 / 720 720 / 720
Output Total 1225 / 1225 1410 / 1410
Balance -505 / -505 -690 / -690
Intake:
Oral fluids 720 / 720 720 / 720
Output:
Liquid stool amount 225 / 225 510 / 510
Ileostomy 225 / 225 510 / 510
Urine, [place] 1000 / 1000 900 / 900
Other:
Number of unmeasured liquid
stools
Ileostomy 50
Lab Results
04/26/25 07:31
Physical Exam
-
General: No Acute Distress and AOx3
HEENT: Grossly Normal
Abdomen: Soft, Non Distended and Tender (Appropriately tender near incision; incision well-approximated without erythema or drainage; ostomy pink and productive of stool)
Skin: Warm and Dry
Wound: No Signs of Infection and No Skin Erythema
--- NOTE | 2025-04-26 09:21 | CM ---
Addendum entered by Rosalinda Jewell RN 04/26/25 09:59:
piggyback clerk was able to obtain fax #.
Fax report to: [phone]
Original Note:
Reviewed the chart notes. Left vm for [facility] admissions regarding fax # needed for discharge instructions.
--- NOTE | 2025-04-26 09:26 | W.DS.TRANS ---
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
-
Discharge Instructions:
Discharge Diagnosis/Procedures pancolitis. Flex sig 04/10. Bowel perforation
requiring emergency surgery 04/12 with ostomy
creation. CVA. Rash from Flomax. Urinary
retention.
Diet Regular
Activity As tolerated
Driving Restrictions As prior to admission
Bathing Restrictions None
Instructions:
Stand-Alone Forms:
Changes to Home Medications: No
Discharge Medications:
DC Medications w/original date entered in [email or web address]
clobetasol 0.05 % lotion 1 applic topical DAILYPRN PRN inner ear skin 03/31/25
colchicine 0.6 mg tablet 0.3 mg PO BID Gout 03/31/25
denosumab 60 mg/mL subcutaneous syringe (Prolia) 60 mg SC [id number] osteoporosis 03/31/25
glucosamine sulfate 500 mg tablet (Glucosamine) 500 mg PO DAILY Supplement 03/31/25
meloxicam 15 mg tablet 15 mg PO DAILY Pain 03/31/25
therapeutic multivitamin 1 tab PO QPM Supplement 03/31/25
timolol 0.5 % eye drops 1 drp LEFT EYE BID glaucoma 03/31/25
potassium chloride 20 mEq tablet,extended release(part/cryst) 20 meq PO BID #10 tabs 04/03/25
acetaminophen 500 mg tablet (Tylenol Extra Strength) 1,000 mg (2 x 500 mg) PO Q6HPRN PRN mild pain #100 tabs 04/25/25
alprazolam 0.25 mg disintegrating tablet 0.5 mg (2 x 0.25 mg) PO HS #5 tabs 04/25/25
metoprolol succinate 50 mg tablet,extended release 24 hr 50 mg PO BID #60 tabs 04/25/25
nystatin 100,000 unit/mL oral suspension 5 ml PO QID #240 mL 04/25/25
pantoprazole 40 mg tablet,delayed release 40 mg PO DAILY #30 tabs 04/25/25
prednisone 10 mg tablet 10 mg PO DIRECTED #22 tabs 04/25/25
rivaroxaban 20 mg tablet (Xarelto) 20 mg PO QPM #30 tabs 04/25/25
tramadol 50 mg tablet 50 mg PO Q6HPRN PRN moderate pain #15 tabs 04/25/25
Home Medication Changes
Pending Results: No
Total time spent discharging patient (in min): 42
[2025-04-26 09:30] LABS: Blood Urea Nitrogen 21 mg/dl (7-17); Calcium 8.1 mg/dl (8.4-10.2); Carbon Dioxide 25 mmol/L (22-30); Chloride 109 mmol/L (98-107); Estimated Creatinine Clearance 62 ml/min; Glucose 90 mg/dl (70-99); Potassium 4.2 mmol/L (3.5-5.1); Sodium 136 mmol/L (135-145); eGFR > 60.00
[2025-04-26 11:30] VITALS: BP 107/62
== END 2025-04-26 13:43 | DRG 853 ==
LOC: 2 NORTH 15:28
PROVIDERS: Emergency Medicine; Hospitalist; Internal Medicine; Internal Medicine Gastroenterology; Nurse Practitioner; Nurse Practitioner Adult Health; Nurse Practitioner Family; Physician Assistant; Registered Nurse; Specialist; ADMITTING PHYSICIAN Internal Medicine; ATTENDING PHYSICIAN Internal Medicine; CONSULT PHYSICIAN Internal Medicine; CONSULT PHYSICIAN Internal Medicine Cardiovascular Disease; CONSULT PHYSICIAN Internal Medicine Gastroenterology; CONSULT PHYSICIAN Internal Medicine Infectious Disease; CONSULT PHYSICIAN Psychiatry & Neurology Neurology; CONSULT PHYSICIAN Psychiatry & Neurology Psychiatry; CONSULT PHYSICIAN Surgery; EMERGENCY PHYSICIAN Emergency Medicine; FAMILY PHYSICIAN Family Medicine
PROC: 0DBP8ZX Excision of Rectum, Via Natural or Artificial Opening Endoscopic, Diagnostic (ICD-10-PCS; 2025-04-10)
PROC: 0DBN8ZX Excision of Sigmoid Colon, Via Natural or Artificial Opening Endoscopic, Diagnostic (ICD-10-PCS; 2025-04-10)
PROC: 0DBQ8ZX Excision of Anus, Via Natural or Artificial Opening Endoscopic, Diagnostic (ICD-10-PCS; 2025-04-10)
PROC: 02HV33Z Insertion of Infusion Device into Superior Vena Cava, Percutaneous Approach (ICD-10-PCS; 2025-04-12)
PROC: 0D1B0Z4 Bypass Ileum to Cutaneous, Open Approach (ICD-10-PCS; 2025-04-12)
PROC: 0DTE0ZZ Resection of Large Intestine, Open Approach (ICD-10-PCS; 2025-04-12)
PROC: 3E0436Z Introduction of Nutritional Substance into Central Vein, Percutaneous Approach (ICD-10-PCS; 2025-04-16)
DX: A41.9 Sepsis, unspecified organism (principal); I63.40 Cerebral infarction due to embolism of unspecified cerebral artery; J96.01 Acute respiratory failure with hypoxia; K63.1 Perforation of intestine (nontraumatic); R65.21 Severe sepsis with septic shock; K51.00 Ulcerative (chronic) pancolitis without complications; I47.10 Supraventricular tachycardia, unspecified; I82.612 Acute embolism and thrombosis of superficial veins of left upper extremity; F05 Delirium due to known physiological condition; E87.21 Acute metabolic acidosis; E87.1 Hypo-osmolality and hyponatremia; R47.01 Aphasia; E44.1 Mild protein-calorie malnutrition; D62 Acute posthemorrhagic anemia; L27.0 Generalized skin eruption due to drugs and medicaments taken internally; T44.6X5A Adverse effect of alpha-adrenoreceptor antagonists, initial encounter; Z66 Do not resuscitate; R33.9 Retention of urine, unspecified; F41.1 Generalized anxiety disorder; K12.0 Recurrent oral aphthae; E87.6 Hypokalemia; M10.9 Gout, unspecified; E66.09 Other obesity due to excess calories; E83.51 Hypocalcemia; L98.429 Non-pressure chronic ulcer of back with unspecified severity; K12.1 Other forms of stomatitis; M06.9 Rheumatoid arthritis, unspecified; B95.62 Methicillin resistant Staphylococcus aureus infection as the cause of diseases classified elsewhere; B96.20 Unspecified Escherichia coli [E. coli] as the cause of diseases classified elsewhere; K57.30 Diverticulosis of large intestine without perforation or abscess without bleeding; Z11.52 Encounter for screening for COVID-19; Z68.29 Body mass index [BMI] 29.0-29.9, adult; Z79.899 Other long term (current) drug therapy; L89.152 Pressure ulcer of sacral region, stage 2
CPT/HCPCS: 36600; 70450; 70496; 70498; 70551; 71045; 71046; 71275; 74177; 76705; 80048; 80053; 80061; 80202; 81003; 81015; 82248; 82533; 82607; 82728; 82746; 82805; 82962; 83036; 83605; 83735; 83880; 83993; 84100; 84443; 84478; 84484; 85014; 85018; 85025; 85027; 85379; 85610; 85652; 85730; 86140; 86480; 86704; 86850; 86900; 86901; 86920; 87040; 87045; 87046; 87070; 87075; 87076; 87077; 87086; 87147; 87185; 87186; 87205; 87324; 87328; 87329; 87340; 87427; 87449; 87502; 87798; 87811; 88305; 88307; 88342; 92526; 92610; 93005; 93306; 93880; 93971; 94002; 94003; 94640; 96361; 96365; 97116; 97162; 97164; 97167; 97168; 97530; 97535; 99285; C1776; P9047; Q9967

== ENCOUNTER 2025-06-29 13:13 | Emergency (ER) | payer MEDICARE, OTHER, SELFPAY ==
[2025-06-29 13:19] VITALS: BP 107/62
[2025-06-29 14:00] VITALS: BP 112/64; BP 119/74
--- NOTE | 2025-06-29 14:11 | ED.GENMED ---
History of Present Illness
General
Chief Complaint: Heart Rate Problem
Source: patient, spouse and family
Exam Limitations: none
Time Seen by Provider: 06/29/25 13:55
Nursing documentation reviewed up to this point in time: agreed with
History of Present Illness
History of Present Illness:
Note:
CHIEF COMPLAINT(S)
Tachycardia and hypotension.
HISTORY OF PRESENT ILLNESS
The patient is an 84-year-old female who presented with complaints of tachycardia and low blood pressure. She initially went for a routine follow-up visit after being hospitalized for 28 days followed by rehab. The patient reports that she has
always had a fast heart rate. Previously, she was diagnosed with ulcerative colitis and had undergone a colectomy approximately four years ago due to complications. During her previous hospitalization, she experienced sepsis, contracted
Methicillin-resistant Staphylococcus aureus (MRSA) post-surgery, and had a stroke. She has not seen any medical professional since her discharge from the hospital. She also reports using a walker and wheelchair for mobility assistance at home and is
supported by her and daughter.
PAST MEDICAL AND SURGICAL HISTORY
The patient has a history of ulcerative colitis, sepsis, MRSA infection, and stroke. She underwent a colectomy four years ago.
SOCIAL DETERMINANTS AFFECTING HEALTH
The patient relies on her and daughter for mobility assistive care at home.
REVIEW OF SYSTEMS
- Cardiovascular: Persistent tachycardia, hypotension.
- Gastrointestinal: History of ulcerative colitis, history of colectomy.
- Neurological: History of stroke.
PHYSICAL EXAM
General: Alert, no acute distress.
Skin: Warm, dry.
Head: Normocephalic, atraumatic.
Neck: Supple, trachea midline.
Eyes, Ears, Nose, Mouth, and Throat: Oral mucosa moist.
Cardiovascular: Normal peripheral perfusion, No edema.
Respiratory: Respirations are non-labored.
Gastrointestinal: Abdomen nondistended.
Back: Normal range of motion, Normal alignment.
Musculoskeletal: Normal range of motion, normal strength.
Neurological: Alert and oriented to person, place, time, and situation, No focal neurological deficit observed.
Psychiatric: Cooperative, appropriate mood and affect.
PLAN
- Check laboratory tests to explore underlying causes of tachycardia and hypotension.
- Monitor heart rate and blood pressure closely.
- Review and potentially adjust current medications, especially beta-blockers.
- Regular follow-up appointments to monitor health status.
DIFFERENTIAL DIAGNOSIS
The differential diagnosis includes, in no particular order and is not limited to:
1. Chronic atrial fibrillation
2. Orthostatic hypotension
3. Infection or sepsis
4. Postural Orthostatic Tachycardia Syndrome (POTS)
5. Anemia
6. Hypovolemia
7. Cardiac arrhythmias
8. Heart failure
9. Electrolyte imbalances
10. Pulmonary embolism
EKG
My independent EKG interpretation is:
- Rhythm: Not specified
- Heart Rate: 107 bpm
- [place]: Normal
- QRS Duration: Normal
- ST Segment: No elevation
- T Wave: Not specified
- Notable Intervals: Not specified
- Arrhythmias: Not specified
CARE-UPDATE
06/29/25 - 19:02
Patient remains asymptomatic. Mild tachycardia noted. Blood pressure normal; however, plan to hold metoprolol until follow-up with cardiology. Patient stable for discharge at this time.
Disposition:
SUMMARY OF ENCOUNTER
The patient, an 84-year-old female with a history of tachycardia and hypotension, presented to the emergency department. She was evaluated for possible orthostatic hypotension versus hypovolemia. Throughout her stay in the emergency department, she
remained asymptomatic and stable. Management included monitoring vital signs and assessing her ability to safely discharge home. It was decided to temporarily hold her beta-lucy, metoprolol, until follow-up with cardiology.
DISPOSITION
Discharge.
PLAN
The patient is advised to hold metoprolol until seen by a train attendant. She is instructed to follow up with her primary care physician and train attendant to further evaluate and manage her cardiovascular status.
FOLLOW-UP INSTRUCTIONS
The patient should follow up with her primary care physician and cardiology for further assessment of her condition.
MEDICATION RECONCILIATION
The patient is advised to hold metoprolol until seen by a train attendant.
MEDICAL DECISION MAKING
- Number and Complexity of Problems Addressed: Chronic conditions affecting care including ulcerative colitis, stroke, and history of sepsis. Differential diagnosis includes orthostatic hypotension and hypovolemia.
- Data:
Category 1: The patients outpatient pharmacy records were reviewed.
Category 2: Not applicable.
Category 3: Not applicable.
- Risk: Prescription medication (metoprolol) management was altered to prevent potential adverse effects. Consideration of admission/observation was considered given the complexity and risk of the patients presenting complaint and underlying
comorbidities. However, I feel the patient is safe for outpatient management with close follow-up.
DIAGNOSIS
- Orthostatic Hypotension (I95.1)
- Hypovolemia (E86.0)
Past History
Past History
ED Past Medical History: None
ED Past Surgical History: None
Social History
Tobacco: Non-smoker
Phy Exam
Physical Exam
Physical Exam:
.
Course
Orders/Labs/Results
Orders:
Orders
06/29/25 13:13
EKG [Electrocardiogram (*1)] Urgent
Reason for Study: Bradycardia / Tachycardia
EKG- Treatment ONCE
06/29/25 14:11
Lactated Ringers [Lr] 1,000 ml IV BOLUS
06/29/25 14:52
Basic Metabolic Panel Urgent
Complete Blood Count/With Diff Urgent
Prothrombin Time Urgent
Troponin I Urgent
Abnormal Lab Results
06/29/25
14:52
RBC 3.94 L 10^6/uL
(4.20-5.40)
Hgb 11.4 L g/dL
(12.0-16.0)
Hct 35.5 L %
(37.0-47.0)
MCHC 32.1 L g/dL
(33.0-37.0)
RDW 15.7 H %
(11.5-14.5)
06/29/25 14:52
06/29/25 14:52
Vital Signs
Initial and Last Documented VS:
Initial Vital Signs
Temp Pulse Resp BP Pulse Ox
97.9 F 108 18 107/62 98
06/29/25 13:19 06/29/25 13:19 06/29/25 13:19 06/29/25 13:19 06/29/25 13:19
Last Documented Vital Signs
Temp Pulse Resp BP Pulse Ox
97.9 F 113 25 114/80 97
06/29/25 13:19 06/29/25 17:30 06/29/25 17:30 06/29/25 17:00 06/29/25 14:30
*Pulse Oximetry
SaO2: 98
Oxygen Mode of Delivery: Room air
Patient hypoxic: no
*Critical Care Note
Total Time (30-74mins, 75-104mins- exclusive of procedures): Not Applicable
ED Attending Note
-
Portions of this chart may have been created with voice recognition software.� Occasional wrong word or��sound alike� substitutions may have occurred due to the inherent limitations of voice recognition software.
Discharge Plan
Departure
Patient Disposition: Home (Routine Discharge)
Date of Disposition: 06/29/25
Time of Disposition: 17:20
Patient with high blood pressure during this ER visit?: No
Condition: Good
Discharge Problem:
Acute hypotension
Instructions: Managing low blood pressure from your medicines
Prescriptions:
No Action
meloxicam 15 mg Tablet
15 mg PO DAILY
clobetasol 0.05 % Lotion
1 applic TOPICAL DAILYPRN PRN (Reason: inner ear skin)
Prolia 60 mg/mL Syringe
60 mg SC [id number]
glucosamine sulfate [Glucosamine] 500 mg Tablet
500 mg PO DAILY
therapeutic multivitamin Tablet
1 tab PO QPM
timolol 0.5 % Drops
1 drp LEFT EYE BID
colchicine 0.6 mg Tablet
0.3 mg PO BID
potassium chloride 20 mEq Tablet,Er Particles/Crystals
20 meq PO BID Qty: 10 0RF
metoprolol succinate 50 mg Tablet Extended Release 24 Hr
50 mg PO BID Qty: 60 0RF
tramadol 50 mg Tablet
50 mg PO Q6HPRN PRN (Reason: moderate pain) Qty: 15 0RF
acetaminophen [Tylenol Extra Strength] 500 mg Tablet
1,000 mg PO Q6HPRN PRN (Reason: mild pain) Qty: 100 0RF
alprazolam 0.25 mg Tablet,Disintegrating
0.5 mg PO HS Qty: 5 0RF
Xarelto 20 mg Tablet
20 mg PO QPM Qty: 30 0RF
nystatin 100,000 unit/mL Suspension
5 ml PO QID Qty: 240 0RF
pantoprazole 40 mg Tablet,Delayed Release (Dr/Ec)
40 mg PO DAILY Qty: 30 0RF
prednisone 10 mg tablet
10 mg PO DIRECTED Qty: 22 0RF
Rx Instructions:
take 40mg x 1 day, then 30mg x 3 days, then 20mg x 3 days, then 10mg x 3 days
Referrals:
Vee Marsh DO [Family Provider, Family Practice] - Call in 1-3 days for appt
Activity Restrictions/Additional Instructions:
Hold metoprol until see by cardiology. Return for any concerns.
Interventions
Interventions:
*Risk Screen - Suicide Last Done: 06/29/25 13:19
*General Assessment Last Done: 06/29/25 13:22
*Neglect/Abuse Screening Last Done: 06/29/25 17:32
*ED- Fall Risk Assessment Last Done: 06/29/25 17:00
*ED Influenza Vaccine History Last Done: 06/29/25 17:00
*Nursing Disposition Last Done: 06/29/25 18:20
ED- Cardiac Assessment Last Done: 06/29/25 14:57
ED- Pulmonary Assessment Last Done: 06/29/25 14:57
Discharge Date and Time
Discharge Date/Time: 06/29/25 18:21
Print Language: INDONESIAN
[2025-06-29 14:54] VITALS: BP 115/70
[2025-06-29] MEDS: LR 1000 IV (14:56)
[2025-06-29 15:00] VITALS: BP 108/67
[2025-06-29 15:12] LABS: Hematocrit 35.5 % (37.0-47.0); Hemoglobin 11.4 g/dL (12.0-16.0); Mean Corp Hgb Conc. 32.1 g/dL (33.0-37.0); Mean Corpuscular Volume 90.1 fL (81.0-99.0); Nucleated Red Blood Cells % 0 %; Platelet Count 242 10^3/uL (130-400); Red Cell Dist. Width 15.7 % (11.5-14.5)
[2025-06-29 15:17] LABS: INR 1.01; PT 13.8 Sec (11.4-14.6)
[2025-06-29 15:38] LABS: Troponin I 0.016 ng/ml
[2025-06-29 15:44] LABS: Blood Urea Nitrogen 12 mg/dl (7-17); Calcium 10.0 mg/dl (8.4-10.2); Carbon Dioxide 27 mmol/L (22-30); Chloride 103 mmol/L (98-107); Glucose 85 mg/dl (70-99); Sodium 137 mmol/L (135-145); eGFR > 60.00
[2025-06-29 16:00] VITALS: BP 104/86
[2025-06-29 17:00] VITALS: BP 114/80
== END 2025-06-29 18:21 | disposition home or self-care (01) ==
LOC: EMR 13:13
PROVIDERS: EMERGENCY PHYSICIAN Emergency Medicine; FAMILY PHYSICIAN Family Medicine
DX: I95.9 Hypotension, unspecified (principal); E86.1 Hypovolemia; R00.0 Tachycardia, unspecified; Z86.73 Personal history of transient ischemic attack (TIA), and cerebral infarction without residual deficits; Z90.49 Acquired absence of other specified parts of digestive tract; Z86.14 Personal history of Methicillin resistant Staphylococcus aureus infection; Z99.3 Dependence on wheelchair
CPT/HCPCS: 96360; 99284; 80048; 84484; 85025; 85610; 93005